=== PATIENT | female | born 1940 | race Hispanic/Latino ===

== ENCOUNTER 2017-05-14 18:58 | Inpatient (IN) | payer MEDICARE ==
[2017-05-14 18:58] VITALS: BMI 23.7
--- NOTE | 2017-05-14 19:35 | ED PDOC ---
HPI:STROKE - Time Time: 19:33 - Historian Historian: Patient, Family - Chief Complaint Chief Complaint: Weakness, Numbness - Onset Date: 05/14/17 Time: 18:30 - Timing Timing: Currently Symptomatic - TPA Positive for Contraindication: Yes Reason tPA is not being Administered: on plavix, hx strokes nih less then 3 - Notes: Notes:: Pt. with right arm and leg weakness/numbness/tingles. States started 45 min prior to arrival. Pt. was resting and it started. No facial issues, no chest pain, dyspnea, fever, dizziness, cough, headaches, vision changes. No left sided symptoms. Has had multiple strokes in the past. NIHSS Stroke Scale - Date/Time Evaluation Performed Date Performed: 05/14/17 Time Performed: 19:15 When Was NIHSS Performed: Baseline - How Severe is the Stroke Level of Consciousness: 0=Alert LOC to Questions: 0=Both comments correct LOC to commands: 0=Obeys both correctly Best Gaze: 0=Normal Visual: 0=No visual loss Facial: 0=Normal Motor Arm - Left: 0=No drift Motor Arm - Right: 0=No drift Motor Leg - Left: 0=No drift Motor Leg - Right: 1=Drift before 5 sec Limb Ataxia: 1=Present Upper or Lower Sensory: 0=Normal Best Language: 0=No aphasia Dysarthia: 0=Normal articulation Extinction & Inattention (Neglect): 0=Normal, no object Score: 2 rTPA Inclusion/Exclusion - Refusal of Treatment Patient Refused Treatment: No - Inclusion Criteria for Altepase Patient is 18 years or Older: Yes The Clinical Diagnosis of Ischemic Stroke That is Causing a Potentially Disabling Neurological Deficit: No Time of Onset is Well Established to be Less Than 270 Minute Before Treatment Would Begin: Yes Risk/Benefit Discussed With Patient/Family Member Present: Yes - Exclusion Criteria for Altepase Uncontrolled Hypertension at Time of Treatment (Systolic BP above 185 or Diastolic BP above 110 mmHg): No - Warning to TPA With Conditions Condition: Stroke Serevity Too Mild, Age Greater Than 75 years, Increase Risk of Bleed Due to Comorbid Condition Additional Condition (For 3-4.5 Hour Window): Prior Stroke and Diabetes, Any anticoagulant use prior to admission (Even if INR less than 1.7) Past Medical History Vital Signs: Last Vital Signs Temp 97.7 F 05/14/17 19:06 Pulse 72 05/14/17 19:06 Resp 16 05/14/17 19:06 BP 161/90 H 05/14/17 19:06 Pulse Ox 97 05/14/17 19:06 - Medical History PMH: Arthritis, CAD, CHF, CVA (3x; memory issues remain post stroke), Diabetes, HTN, End Stage Renal Disease, Chronic Kidney Disease (ESRD) Denies: HIV - Surgical History Surgical History: CABG (x4) - Family History Family History: States: Unknown Family Hx - Living Arrangements Living Arrangements: With Family - Social History Current smoker - smoking cessation education provided: No Alcohol: None Drugs: Denies - Home Medications Home Medications: Ambulatory Orders Medication Instructions Recorded Atorvastatin [Lipitor] 10 mg PO DAILY@2200 #0 tab 06/22/16 Carvedilol [Coreg] 6.25 mg PO Q12H #0 tablet 06/22/16 Clopidogrel [Plavix] 75 mg PO HS #0 tab 06/22/16 Enalapril Maleate [Vasotec] 10 mg PO DAILY #0 tab 06/22/16 Sevelamer Carbonate [Renvela] 800 mg PO TID #0 tab 06/22/16 Cinacalcet [Sensipar] 30 mg PO DAILY 05/14/17 Insulin Human Isophane (NPH) 10 unit SC TID 05/14/17 [Novolin N] - Allergies Allergies/Adverse Reactions: Allergies Allergy/AdvReac Type Severity Reaction Status Date / Time No Known Allergies Allergy Verified 01/20/16 09:30 Review of Systems ROS Statement: Except As Marked, All Systems Reviewed And Found Negative Constitutional: Positive for: Weakness Neurological: Positive for: Weakness, Numbness Physical Exam - Reviewed Nursing Documentation Reviewed: Yes Vital Signs Reviewed: Yes - Physical Exam Appears: Positive for: Non-toxic, No Acute Distress Head Exam: Positive for: ATRAUMATIC, NORMAL INSPECTION, NORMOCEPHALIC Skin: Positive for: Normal Color, Warm, DRY Eye Exam: Positive for: EOMI, Normal appearance, PERRL ENT: Positive for: Normal ENT Inspection Neck: Positive for: Normal, Painless ROM Cardiovascular/Chest: Positive for: Regular Rate, Rhythm Respiratory: Positive for: CNT, Normal Breath Sounds Gastrointestinal/Abdominal: Positive for: Normal Exam, Bowel Sounds, Soft. Negative for: Tenderness Back: Positive for: Normal Inspection. Negative for: L CVA Tenderness, R CVA Tenderness Extremity: Positive for: Normal ROM. Negative for: Tenderness, Pedal Edema Neurologic/Psych: Positive for: Alert, co chairman II-XII, Oriented, Motor/Sensory Deficits (R leg 4/5 strength; all other extremities 5/5). Negative for: Aphasia , Facial Droop - Laboratory Results Interpretation Of Abn Labs: 2.3 cr - ECG ECG: Positive for: Interpreted By Me ECG Rhythm: Positive for: Normal QRS, Sinus Rhythm, Nonspecific Changes O2 Sat by Pulse Oximetry: 97 Pulse Ox Interpretation: Normal - Radiology X-Ray: Interpreted by Me, Viewed By Me X-Ray Interpretation: No Acute Disease - CT Scan/US head Other Rad Studies (CT/US): Read By Radiologist Other Rad Interpretation: no acute; old infarcts - Progress ED Course And Treament: 2011: Spoke with Dr. Schreiber. Wants pt. to get 81mg ASA. Aware pt. on plavix. Not thrombolytic candidate as nih is 2 and mild symptoms. 2028: Stable. AAOx3. Will admit to [facility] resident. They are aware and will admit tele. Disposition - Clinical Impression Clinical Impression: CVA (cerebral vascular accident) - Patient ED Disposition Is Patient to be Admitted: Yes Counseled Patient/Family Regarding: Studies Performed, Diagnosis - Disposition Disposition Time: 20:32 Condition: FAIR - Pt Status Changed To: Hospital Disposition Of: Inpatient - Admit Certification Admit to Inpatient:: After my assessment, the patient will require hospitalization for at least two midnights. This is because of the severity of symptoms shown, intensity of services needed, and/or the medical risk in this patient being treated as an outpatient. - POA Present On Arrival: None
--- NOTE | 2017-05-14 19:50 | CT ---
EXAM: CT Head Without Intravenous Contrast CLINICAL HISTORY: 76 years old, female; Signs and symptoms; Other: Code stroke TECHNIQUE: Axial computed tomography images of the head/brain without intravenous contrast. This CT exam was performed using one or more of the following dose reduction techniques: automated exposure control, adjustment of the mA and/or kV according to patient size, and/or use of iterative reconstruction technique. Coronal and sagittal reformatted images were created and reviewed. EXAM DATE/TIME: 05/14/2017 7:21 PM COMPARISON: CT - HEAD W/O (CODE STROKE) 01/20/2016 8:42:14 AM FINDINGS: Brain: There is dilatation of sulci gyri and ventricles. There is no midline shift. There is decreased attenuation in periventricular white matter left greater than right. There multiple old lacunar infarcts in the basal ganglia. There is an old left parietal-occipital infarct with encephalomalacia. here are no focal masses. There are no focal hemorrhages. Falcon-white differentiation is visualized. Ventricles: See above Bones: Cranial vault is intact. Soft tissues: unremarkable Sinuses: There is no acute sinusitis. There is a retention cyst/polyp in the left maxillary sinus Ears and mastoids: Middle ears and mastoids are unremarkable. Orbits: Orbital contents are unremarkable. IMPRESSION: Atrophy and small vessel disease; multiple old lacunar infarcts; old left parieto-occipital infarct; no bleed, no acute intracranial abnormality If there is clinical suspicion for acute stroke, MRI advised
[2017-05-14 20:15] LABS: BASO % 0.8 % (0.0-2.0); EOS # 0.3 K/uL (0.0-0.7); EOS % 4.5 % (0.0-4.0); HEMOGLOBIN 11.6 g/dL (12.0-16.0); LYMPH # 1.4 K/uL (1.0-4.3); LYMPH % 23.9 % (20.0-40.0); MEAN CELL VOLUME 91.7 fl (81.0-99.0); MEAN CORPUSCULAR HEMOGLOBIN 29.7 pg (27.0-31.0); MEAN CORPUSCULAR HGB CONC 32.4 g/dL (33.0-37.0); MEAN PLATELET VOLUME 10.3 fl (7.2-11.7); MONO # 0.6 K/uL (0.0-0.8); MONO % 9.8 % (0.0-10.0); NEUT # 3.5 K/uL (1.8-7.0); RBC 3.89 Mil/uL (3.80-5.20); WHITE BLOOD COUNT 5.8 K/uL (4.8-10.8)
[2017-05-14 20:16] LABS: ALB/GLOB RATIO 1.3 (1.0-2.1); ALBUMIN 3.7 g/dL (3.5-5.0); CALCIUM 9.8 mg/dL (8.4-10.2)
[2017-05-14 20:21] LABS: INR 1.1 (0.9-1.2); PROTHROMBIN TIME 12.4 Seconds (9.8-13.1)
[2017-05-14 20:31] LABS: TROPONIN I 0.053 ng/mL (0.00-0.120)
--- NOTE | 2017-05-14 22:24 | CP.PCM.HP ---
History of Present Illness - History of Present Illness History of Present Illness: 76 yo F w PMHx of HTN, CVA, CABG x 4 in 2012, cardiac stents x2, DM, and ESRD ( HD on MWF) is admitted due to RUE/RLE weakness, numbness, and tingling. With her two daughters present at bedside, the patient describes how she began feeling tingling on her right side between 5-6pm, soon followed by numbness. She presented to the ER around 7p and by the time her admission, the patient stated already beginning to feel better. She and her daughters agree that she never exhibited any facial weakness, drooping, slurring of her speech, or LOC. She completed her dialysis earlier today between 1pm and 2 pm, at which point she was brought home for lunch. Her last meal consisted of tuna, crackers, and water. She also denies any fevers, chills, nausea, vomiting, diarrhea, chest pain, palpitations, SOB, dyspnea, cough, abdominal pain, or myalgias. PMD: Dr Layne PMHx: HTN, CVA, cardiac stents x2, DM, and ESRD (HD on MWF) PSHx: CABG x4 NKDA Home Meds: Lipitor, Coreg, Cinacalet, Plavix, Vasotec, NPH 10u SC TID, Sevelamer TID ED Course: -CBC -CMP -PT/INR/PTT -Lipids -A1C -Troponin -ECG -CXR -CT Head -Neuro advising against tPA -ASA 81mg PO x1 Present on Admission - Present on Admission Any Indicators Present on Admission: Yes History of DVT/PE: No History of Uncontrolled Diabetes: Yes Urinary Catheter: No Decubitus Ulcer Present: No Review of Systems - Review of Systems All systems: reviewed and no additional remarkable complaints except (see HPI) Past Patient History - Infectious Disease Hx of Infectious Diseases: None - Past Medical History & Family History Past Medical History?: Yes - Past Social History Smoking Status: Never Smoked - CARDIAC Hx Congestive Heart Failure: Yes Hx Hypertension: Yes - PULMONARY Hx Respiratory Disorders: No - NEUROLOGICAL Hx Neurological Disorder: Yes (CVA) - HEENT Hx HEENT Problems: Yes - RENAL Hx Chronic Kidney Disease: Yes (ESRD) - ENDOCRINE/METABOLIC Hx Endocrine Disorders: Yes (DM type 2) - HEMATOLOGICAL/ONCOLOGICAL Hx Human Immunodeficiency Virus (HIV): No - INTEGUMENTARY Hx Dermatological Problems: No - MUSCULOSKELETAL/RHEUMATOLOGICAL Hx Arthritis: Yes - GASTROINTESTINAL Hx Gastrointestinal Disorders: No - GENITOURINARY/GYNECOLOGICAL Hx Genitourinary Disorders: No - PSYCHIATRIC Hx Psychophysiologic Disorder: No - SURGICAL HISTORY Hx Coronary Artery Bypass Graft: Yes (x4) - ANESTHESIA Hx Anesthesia: Yes Hx Anesthesia Reactions: No Hx Malignant Hyperthermia: No Meds Allergies/Adverse Reactions: Allergies Allergy/AdvReac Type Severity Reaction Status Date / Time No Known Allergies Allergy Verified 01/20/16 09:30 Physical Exam - Constitutional Appears: Non-toxic, No Acute Distress - Head Exam Head Exam: ATRAUMATIC, NORMOCEPHALIC - Eye Exam Eye Exam: EOMI Pupil Exam: PERRL - ENT Exam ENT Exam: Mucous Membranes Moist - Neck Exam Neck exam: Positive for: Full Rom - Respiratory Exam Respiratory Exam: NORMAL BREATHING PATTERN. absent: Accessory Muscle Use, Chest Wall Tenderness - Cardiovascular Exam Cardiovascular Exam: REGULAR RHYTHM. absent: Bradycardia, Tachycardia - GI/Abdominal Exam GI & Abdominal Exam: Normal Bowel Sounds, Soft. absent: Distended, Tenderness - Back Exam Back exam: NORMAL INSPECTION. absent: CVA tenderness (L), CVA tenderness (R) - Neurological Exam Neurological exam: Alert, CN II-XII Intact, Oriented x3 Additional comments: strength 5/5 x4 extremities, pt witnessed easily pulling off well-wrapped blanket w both arms equally - Psychiatric Exam Psychiatric exam: Normal Affect, Normal Mood - Skin Skin Exam: Dry, Intact, Normal Color, Warm Results - Vital Signs Recent Vital Signs: Last Vital Signs Temp 97.7 F 05/14/17 19:06 Pulse 70 05/14/17 22:00 Resp 18 05/14/17 22:00 BP 148/90 05/14/17 22:00 Pulse Ox 99 05/14/17 21:13 - Labs Result Diagrams: 05/14/17 19:56 05/14/17 19:56 Assessment & Plan - Assessment and Plan (Free Text) Plan: 76 yo F w PMHx of HTN, CVA, CABG x 4 in 2011, cardiac stents x2, DM, and ESRD ( HD on MWF) is admitted due to RUE/RLE weakness, numbness, and tingling 1) TIA/Stroke -Initial c/o tingling, weakness, numbness that were improving soon after arrival to ER -CT Head: No acute intracranial abnormality. ---No focal masses. No focal hemorrhages. No midline shift. Multiple old lacunar infarcts in basal ganglia. Old Left parietal-occipital infarct w encephalomalacia. -Neurology Onboard; spoken w while in ER and again following admission -tPA not given due to low NIH score as well as Plavix onboard -ASA 81mg PO STAT [EDx1] -Plavix 75mg PO Daily HELD; will re evaluate -Fall Precautions -f/u Neuro Checks -f/u Signs/Symptoms of patient 2) HTN -Controlled; 140s/80s -BPs taken while present in ER: 140s-60s/80s; BPs taken while on Tele, soon after pt transferred: 170s/70s -When alerted of 188/94, Norvasc 5mg was ordered -However, Norvasc never given bc BP normalized to 147/80 upon recheck -Coreg 6.25mg PO Q12H -Vasotec 10mg PO Daily -f/u Vitals 3) DM -Controlled -Humulin N 10u SC TID -LDISS -f/u FS ACHS 4) ESRD -HD completed at outside facility before admission (05/14) -Sevelamer 800mg PO TID -Cinacalcet 30mg PO Daily -f/u BMP -Consider Nephro Consult if patient's stay is lengthened 5) DVT Prophylaxis -SCDs for now; will re evaluate patient in the AM
[2017-05-14] MEDS: Insulin Lispro (humaLOG) 100 Units/ml Inj SC SCH (23:43)
[2017-05-15] MEDS: Insulin Lispro (humaLOG) 100 Units/ml Inj SC SCH ×2 (08:09→12:21)
--- NOTE | 2017-05-15 08:11 | RAD ---
HISTORY: code stroke COMPARISON: Chest x-ray performed 06/21/16 TECHNIQUE: Chest, one view. FINDINGS: Right IJ approach dialysis catheter with distal tips the cavoatrial junction. LUNGS: Right hilar prominence. No focal consolidation. Please note that chest x-ray has limited sensitivity for the detection of pulmonary masses. PLEURA: No significant pleural effusion identified. No definite pneumothorax . CARDIOVASCULAR: Median sternotomy wires with evidence of CABG. Heart size appears top normal. OSSEOUS STRUCTURES: Diffuse osseous demineralization limits evaluation for acute fracture lines. Degenerative changes. VISUALIZED UPPER ABDOMEN: Mild elevation of the right hemidiaphragm. OTHER FINDINGS: Right upper extremity vascular stents. Vascular clips within the right extremity. Left brachiocephalic and axillary stent. IMPRESSION: Right hilar prominence. No focal consolidation, significant pleural effusion, or definite pneumothorax identified.
[2017-05-15] MEDS: Insulin NPH Human 100 Units/ml Inj SC SCH ×2 (09:47→12:22)
[2017-05-15 12:05] VITALS: RESP 18
[2017-05-15 12:23] VITALS: BP 159/72; TEMP 97.7; O2SAT 99
--- NOTE | 2017-05-15 12:26 | MRI ---
PROCEDURE: MRI BRAIN WITHOUT CONTRAST HISTORY: NEW STROKE PROCESS COMPARISON: Some made with prior CT scan brain and MRI brain dated 05/14/2017 and 05/19/2016 respectively. TECHNIQUE: Multiplanar, multisequence MR images of the brain were obtained without intravenous contrast enhancement. FINDINGS: HEMORRHAGE: No acute parenchymal, subarachnoid or extra-axial hemorrhage. No evidence of hemosiderin deposition identified on gradient echo weighted sequence. DWI: No evidence of an acute or early subacute infarction seen on diffusion imaging. . BRAIN PARENCHYMA: Re- demonstrated are partially cystic encephalomalacia changes affecting the left posterior temporal lobe extending posterior superiorly into the left occipito parietal watershed zone. A zone of peripheral gliosis surrounding the cystic changes on altered. Findings consistent with chronic left RESIDENT ASSISTANT CNA territory infarct. Associated ex vacuo dilatation of the left posterior temporal horn/ left atrium and occipital horn Additionally, there are moderate to significant diffuse/confluent periventricular white matter ischemic changes that extend peripherally into deep and subcortical white matter both cerebral hemispheres. Multiple more discrete lacunar type infarcts are also noted within the deep and subcortical white matter as well as both basal nuclei. Mild chronic appearing brainstem ischemic changes also present. Moderate generalized volume loss VENTRICLES: No obstructive hydrocephalus CRANIUM: Calvarium is unremarkable. ORBITS: Changes of bilateral cataract surgery again noted the the. PARANASAL SINUSES/MASTOIDS: Small to medium-sized mucous retention cyst or focus polypoid like mucosal thickening again noted in the left maxillary sinus. Partial opacification left mastoid air complex VASCULAR SYSTEM: Visualized major vascular flow voids at skull base are patent. OTHER FINDINGS: None. IMPRESSION: No evidence of acute intracranial hemorrhage or infarct. Re- demonstrated are partially cystic encephalomalacia changes affecting the left posterior temporal lobe extending posterior superiorly into the left occipito parietal watershed zone. A zone of peripheral gliosis surrounding the cystic changes on altered. Findings consistent with chronic left RESIDENT ASSISTANT CNA territory infarct. Associated ex vacuo dilatation of the left posterior temporal horn/ left atrium and occipital horn Additionally, there are moderate to significant diffuse/confluent periventricular white matter ischemic changes that extend peripherally into deep and subcortical white matter both cerebral hemispheres. Multiple more discrete lacunar type infarcts are also noted within the deep and subcortical white matter as well as both basal nuclei. Mild chronic appearing brainstem ischemic changes are also present. Moderate generalized volume loss See above discussion for additional findings and details.
[2017-05-15 12:36] VITALS: PULSE 66
--- NOTE | 2017-05-15 12:51 | CP.PCM.PN ---
Subjective - Date & Time of Evaluation Date of Evaluation: 05/15/17 Time of Evaluation: 12:49 - Subjective Subjective: consultation dictated no further work up is needed She will be scheduled Amulatory Video EEG as an op mean time continue asa and plavix with other meds having clinical clay needs PSG - I will do as an op Objective - Vital Signs/Intake and Output Vital Signs (last 24 hours): Temp Pulse Resp BP Pulse Ox 97.7 F 66 18 159/72 H 99 05/15/17 12:23 05/15/17 12:23 05/15/17 12:23 05/15/17 12:23 05/15/17 12:23 - Medications Medications: Current Medications Atorvastatin Calcium (Lipitor) 10 mg PO DAILY@2200 [facility] Last Admin: 05/14/17 23:42 Dose: 10 mg Carvedilol (Coreg) 6.25 mg PO Q12H [facility] Last Admin: 05/15/17 09:48 Dose: 6.25 mg Cinacalcet (Sensipar) 30 mg PO DAILY [facility] Last Admin: 05/15/17 09:48 Dose: 30 mg Enalapril Maleate (Vasotec) 10 mg PO DAILY [facility] Last Admin: 05/15/17 08:08 Dose: 10 mg Insulin Human Lispro (Humalog) 0 units SC ACHS [facility] PRN Reason: Protocol Last Admin: 05/15/17 12:21 Dose: 1 units Insulin Human NPH (Humulin N) 10 units SC TID [facility] Last Admin: 05/15/17 12:22 Dose: 10 units Sevelamer HCl (Renagel) 800 mg PO TID [facility] Last Admin: 05/15/17 12:21 Dose: 800 mg - Labs Labs: PT 12.4 Seconds (9.8-13.1) 05/14/17 19:56 INR 1.1 (0.9-1.2) 05/14/17 19:56 APTT 36.0 Seconds (25.6-37.1) 05/14/17 19:56
--- NOTE | 2017-05-15 13:47 | CARD ---
APPROVED REPORT EKG Measurement Heart [id number] <Conclusion> Normal sinus rhythm Nonspecific ST and T wave abnormality Abnormal ECG
--- NOTE | 2017-05-15 15:27 | CP.PCM.DIS ---
Provider - Provider Date of Admission: 05/14/17 20:30 Attending physician: Markel Mendieta MD Primary care physician: Dr Isidra Mendieta Consults: Neurology, Dr Schreiber Time Spent in preparation of Discharge (in minutes): 30 Diagnosis - Discharge Diagnosis (1) TIA (transient ischemic attack) Status: Acute (2) CAD (coronary artery disease) Status: Chronic (3) End stage kidney disease Status: Chronic (4) Hypertension Status: Chronic Hospital Course - Lab Results Lab Results: Most Recent Lab Values WBC 5.8 K/uL (4.8-10.8) 05/14/17 19:56 RBC 3.89 Mil/uL (3.80-5.20) 05/14/17 19:56 Hgb 11.6 g/dL (12.0-16.0) L 05/14/17 19:56 Hct 35.7 % (34.0-47.0) 05/14/17 19:56 MCV 91.7 fl (81.0-99.0) 05/14/17 19:56 MCH 29.7 pg (27.0-31.0) 05/14/17 19:56 MCHC 32.4 g/dL (33.0-37.0) L 05/14/17 19:56 RDW 15.0 % (11.5-14.5) H 05/14/17 19:56 Plt Count 121 K/uL (130-400) L 05/14/17 19:56 MPV 10.3 fl (7.2-11.7) 05/14/17 19:56 Neut % (Auto) 61.0 % (50.0-75.0) 05/14/17 19:56 Lymph % (Auto) 23.9 % (20.0-40.0) 05/14/17 19:56 [place] % (Auto) 9.8 % (0.0-10.0) 05/14/17 19:56 Eos % (Auto) 4.5 % (0.0-4.0) H 05/14/17 19:56 Baso % (Auto) 0.8 % (0.0-2.0) 05/14/17 19:56 Neut # 3.5 K/uL (1.8-7.0) 05/14/17 19:56 Lymph # 1.4 K/uL (1.0-4.3) 05/14/17 19:56 [place] # 0.6 K/uL (0.0-0.8) 05/14/17 19:56 Eos # 0.3 K/uL (0.0-0.7) 05/14/17 19:56 Baso # 0.0 K/uL (0.0-0.2) 05/14/17 19:56 PT 12.4 Seconds (9.8-13.1) 05/14/17 19:56 INR 1.1 (0.9-1.2) 05/14/17 19:56 APTT 36.0 Seconds (25.6-37.1) 05/14/17 19:56 Sodium 138 mmol/l (132-148) 05/14/17 19:56 Potassium 3.6 MMOL/L (3.6-5.0) 05/14/17 19:56 Chloride 103 mmol/L (98-107) 05/14/17 19:56 Carbon Dioxide 27 mmol/L (22-30) 05/14/17 19:56 Anion Gap 12 (10-20) 05/14/17 19:56 BUN 8 mg/dl (7-17) 05/14/17 19:56 Creatinine 2.3 mg/dL (0.7-1.2) H 05/14/17 19:56 Est GFR ( Amer) 25 05/14/17 19:56 Est GFR (Non-Af Amer) 21 05/14/17 19:56 POC Glucose (mg/dL) 185 mg/dL (65-110) H 05/15/17 11:11 Random Glucose 230 mg/dL (65-105) H 05/14/17 19:56 Calcium 9.8 mg/dL (8.4-10.2) 05/14/17 19:56 Total Bilirubin 0.5 mg/dl (0.2-1.3) 05/14/17 19:56 AST 23 U/L (14-36) 05/14/17 19:56 ALT 35 U/L (9-52) 05/14/17 19:56 Alkaline Phosphatase 110 U/L (38-126) 05/14/17 19:56 Troponin I 0.0590 ng/mL (0.00-0.120) 05/15/17 06:30 Total Protein 6.6 G/DL (6.3-8.2) 05/14/17 19:56 Albumin 3.7 g/dL (3.5-5.0) 05/14/17 19:56 Globulin 2.9 gm/dL (2.2-3.9) 05/14/17 19:56 Albumin/Globulin Ratio 1.3 (1.0-2.1) 05/14/17 19:56 Triglycerides 92 mg/DL (0-149) 05/14/17 19:56 Cholesterol 127 mg/dL (0-199) 05/14/17 19:56 LDL Cholesterol Direct 36 mg/dL (0-129) 05/14/17 19:56 HDL Cholesterol 66 MG/DL (30-70) 05/14/17 19:56 Vitamin B12 820 pg/mL (239-931) 05/15/17 08:30 TSH 3rd Generation 2.98 mIU/ML (0.46-4.68) 05/15/17 08:30 Blood Type A POSITIVE 05/14/17 19:47 Antibody Screen Negative 05/14/17 19:47 BBK History Checked Patient has bt 05/14/17 19:47 - Hospital Course Hospital Course: 76 y/o F with PMH including HTN, CVA, CABG in 2011 and ESRD (MWF) presented to ED due to acute right upper and lower extremity tingling sensation associated with numbness. In ED a code stroke was called and patient had a CT head performed, which revealed no acute intracranial abnormalities. She was subsequently admitted for observation and a neurology consult was appreciated. She cleared a swallow evaluationa and was given ASA and a statin. Patient remained stable during admission and her paresthesias resolved. Patient was seen by PT and was cleared for d/c home with close follow up to her PCP and Neurologist. Discharge Exam - Head Exam Head Exam: ATRAUMATIC, NORMOCEPHALIC - Eye Exam Eye Exam: EOMI, PERRL - ENT Exam ENT Exam: Mucous Membranes Moist - Respiratory Exam Respiratory Exam: Clear to PA & Lateral, NORMAL BREATHING PATTERN, UNREMARKABLE. absent: Rhonchi, Wheezes, Respiratory Distress - Cardiovascular Exam Cardiovascular Exam: REGULAR RHYTHM, RRR, +S1, +S2. absent: Systolic Murmur - GI/Abdominal Exam GI & Abdominal Exam: Normal Bowel Sounds, Soft. absent: Distended, Tenderness - Extremities Exam Additional comments: No calf tenderness or pedal edema. - Neurological Exam Neurological exam: Alert, CN II-XII Intact, Oriented x3 Additional comments: Strength 5/5 in upper and lower extremity b/l. Sensation preserved b/l. No dysarthria or facial asymmetry noted. - Psychiatric Exam Psychiatric exam: Normal Affect, Normal Mood - Skin Skin Exam: Dry, Warm Discharge Plan - Discharge Medications Prescriptions: Aspirin [Aspirin Chewable] 81 mg PO DAILY #30 ctb - Follow Up Plan Condition: IMPROVED Disposition: HOME/ ROUTINE Patient education suggested?: Yes Instructions: Transient Ischemic Attack (DC) Additional Instructions: Follow up with Dr Mendieta after discharge Discussed recommendation for daily Aspirin 81mg in addition to your previously prescribed medications ED precautions given Referrals: Markel Mendieta MD [Family Provider] - Kofi Schreiber MD [Medical Doctor] - Clinical Quality Measures - CQM - Stroke Antithrombotic Prescribed: Yes Anticoagulation Prescribed for Atrial Flutter, Atrial Fibrillation and History of:: Not Applicable Statin prescribed: Yes
--- NOTE | 2017-05-17 04:33 | CON ---
DATE OF ADMISSION: 05/14/2017 ATTENDING PHYSICIAN: Markel Layne MD The patient was seen in room #416, bed #2. REASON FOR CONSULTATION: Transient ischemic attack. CHIEF COMPLAINT: The patient was brought into [facility] with a history of abrupt onset of her right-sided weakness. From neurological point of view, I was called in to evaluate her for further management. HISTORY OF PRESENT ILLNESS: Ms. Una Nelson is a 76-year-old right-handed female who was in her usual state of health around 4:30 yesterday while she was at home in the chair, the symptoms started as numbness from her right shoulder down to the arms and hip and she felt the symptoms spreading down to her right leg to the toes. The symptoms took about 2 minutes to spread down to her toes. No associated tonic-clonic activities. She denies any visual or verbal dysfunction associating with this problem. No loss of consciousness. The whole symptoms resolved in 2 hours. Following these symptoms, immediately she called 911 and the symptoms have been resolved while she was in the emergency room. She had 3 strokes, which first one was more than 10 years ago and second one around [age], third one she could not recall. All symptoms have been started with weakness of her right side in the past. PAST MEDICAL HISTORY: Insulin-dependent diabetes mellitus, hypertension, and stroke. PERSONAL HISTORY: She denies smoking or alcohol use. ALLERGIES: No known allergies. MEDICATIONS: Lipitor, Plavix, Sensipar, Coreg, Renvela, insulin and Vasotec. PHYSICAL EXAMINATION: VITAL SIGNS: Blood pressure 159/72, mean arterial pressure of 101, respiratory rate 16, temperature 97.7, and pulse rate 66, regular. NECK: Supple. No carotid bruits. HEART: Sounds regular. CHEST: Bilateral equal air entry. EXTREMITIES: No edema to the legs. NEUROLOGICAL EXAMINATION: MENTAL STATUS EXAMINATION: She is awake, alert, and oriented to person, place, and time. Her speech is clear. Naming, repetition, and fluency intact. CRANIAL NERVE EXAMINATION: Visual field, right dense homonymous hemianopsia with macular sparing. She denies visual discomfort on her right-side. Pupils reactive to light. Extraocular movements are markedly decreased. No facial sensory deficit. No facial asymmetry. Hearing is normal. Tongue is midline. Good grasp. MOTOR EXAMINATION: On outstretched hands, no escalation and no drift noted *-----*. Lower extremities also have symmetric strength on both sides. DEEP TENDON REFLEXES: Biceps, brachioradialis, and triceps are trace, in both knees are absent, in both ankles are absent. Plantars are upgoing on her right side when compared with the left side, which is downgoing. Extinction to double simultaneous stimuli on sensory examination noted. This is manifested only on the right side. Coordination, [id number] test is intact on the left side, right side was slightly dysmetric. This could be due to her visual impairment. IMAGING: Workup, CT of the head reviewed, showed old stroke on her left side. The MRI of the brain reviewed by me showed old left parietal infract. No acute pathology is noted. EKG, normal sinus rhythm. LABORATORY DATA: Blood workup, WBC 5.8, hemoglobin 11.6, hematocrit 35.7, and platelets 121. PT 12.4, INR 1.1, and PTT is 36.0. GFR more than 25. Glucose is 241. Cholesterol 127, LDL 36, HDL 66. B12 is 1820, the TSH is 2.98. CONCLUSION: 1. The above recurrent symptoms, which are probably secondary to her left cortical dysfunction, which is probably secondary to her old versus new ischemia on the same side. However, the recurrent symptoms consistent with similar pattern raises the possibility of focal seizures. 2. The patient also admits a history of snoring and gasping sometimes. The family members were trying to wake her up during the sleep. This is suggestive of the patient has obstructive sleep apnea. 3. Bilaterally symmetric sensorimotor neuropathy. RECOMMENDATIONS: 1. The patient was advised to get aspirin on top of Plavix. 2. Maintain the mean arterial pressure around 100. 3. The patient should have electroencephalogram, which can be modified as ambulatory extended; however, video monitoring is recommended to assess her paroxysmal activities as well as parasomnia. 4. The patient should have polysomnogram to rule in or rule out sleep-related breathing disorder, which could be the confounding risk factor for her stroke. The patient's condition was very well discussed with her daughters. They are aware of her problem. The patient will be followed as outpatient. No further workup is needed. If medically stable, the patient can be discharged. Kofi Schreiber MD
[2017-05-17 22:20] LABS: FOLATE 4.4 ng/mL
== END 2017-05-15 14:40 | disposition home or self-care (01) | DRG 69 ==
LOC: H.ER 18:58 → H.ERHOLD 20:30 → H.TEL 22:12
PROVIDERS: ADMIT Family Medicine; ATTEND Family Medicine
DX: G45.9 Transient cerebral ischemic attack, unspecified (principal); N18.6 End stage renal disease; I12.0 Hypertensive chronic kidney disease with stage 5 chronic kidney disease or end stage renal disease; E11.22 Type 2 diabetes mellitus with diabetic chronic kidney disease; I25.10 Atherosclerotic heart disease of native coronary artery without angina pectoris; G47.33 Obstructive sleep apnea (adult) (pediatric); Z99.2 Dependence on renal dialysis; Z79.02 Long term (current) use of antithrombotics/antiplatelets; Z79.4 Long term (current) use of insulin; Z79.82 Long term (current) use of aspirin; Z86.73 Personal history of transient ischemic attack (TIA), and cerebral infarction without residual deficits; Z95.1 Presence of aortocoronary bypass graft; Z95.5 Presence of coronary angioplasty implant and graft

== ENCOUNTER 2017-10-01 01:42 | Emergency (ER) | payer MEDICARE ==
[2017-10-01 02:38] VITALS: BMI 19.8
--- NOTE | 2017-10-01 03:06 | ED PDOC ---
Lower Extremity Pain/Injury Time Seen by Provider: 10/01/17 01:59 Chief Complaint (Provider): Left groin pain History Per: Patient History/Exam Limitations: no limitations Onset/Duration Of Symptoms: Hrs (x 3) Current Symptoms Are (Timing): Still Present Additional Complaint(s): 77 year old female with a past medical history of end stage renal disease (on MWF dialysis), arthritis, CAD, CHF, stroke, hypertension, diabetes, who presents complaining of acute left groin pain for 3 hours. Pain developed while patient was at rest. She denies any fall or trauma. Pain worsens when she attempts to move. Daughter states that she usually assists patient up the stairs , but that patient could not maneuver the stairs even with assistance. PMD: Dr. Layne Past Medical History Reviewed: Historical Data, Nursing Documentation, Vital Signs - Medical History PMH: Arthritis, CAD, CHF, CVA (3x; memory issues remain post stroke), Diabetes, HTN, End Stage Renal Disease, Chronic Kidney Disease (ESRD) Denies: HIV Other PMH: Strike - Surgical History Surgical History: CABG (x4) Other surgeries: Left AV fistula, Right hip replacement - Family History Family History: States: Unknown Family Hx - Social History Current smoker - smoking cessation education provided: No Alcohol: None Drugs: Denies - Home Medications Home Medications: Ambulatory Orders Medication Instructions Recorded Atorvastatin [Lipitor] 10 mg PO DAILY@2200 #0 tab 06/22/16 Carvedilol [Coreg] 6.25 mg PO Q12H #0 tablet 06/22/16 Clopidogrel [Plavix] 75 mg PO HS #0 tab 06/22/16 Enalapril Maleate [Vasotec] 10 mg PO DAILY #0 tab 06/22/16 Sevelamer Carbonate [Renvela] 800 mg PO TID #0 tab 06/22/16 Cinacalcet [Sensipar] 30 mg PO DAILY 05/14/17 Insulin Human Isophane (NPH) 10 unit SC TID 05/14/17 [Novolin N] Aspirin [Aspirin Chewable] 81 mg PO DAILY #30 ctb 05/15/17 - Allergies Allergies/Adverse Reactions: Allergies Allergy/AdvReac Type Severity Reaction Status Date / Time No Known Allergies Allergy Verified 10/01/17 03:07 Review of Systems ROS Statement: Except As Marked, All Systems Reviewed And Found Negative Musculoskeletal: Positive for: Leg Pain (left groin) Neurological: Negative for: Other (Fall) Physical Exam - Reviewed Nursing Documentation Reviewed: Yes Vital Signs Reviewed: Yes - Physical Exam Appears: Positive for: Non-toxic, No Acute Distress Head Exam: Positive for: ATRAUMATIC, NORMOCEPHALIC Skin: Positive for: Normal Color, Warm, Dry Eye Exam: Positive for: EOMI, Normal appearance, PERRL Neck: Positive for: Normal, Painless ROM, Supple Cardiovascular/Chest: Positive for: Regular Rate, Rhythm. Negative for: Murmur Respiratory: Positive for: Normal Breath Sounds. Negative for: Accessory Muscle Use, Respiratory Distress Gastrointestinal/Abdominal: Positive for: Normal Exam, Soft. Negative for: Tenderness Back: Positive for: Normal Inspection. Negative for: L CVA Tenderness, R CVA Tenderness, Vertebral Tenderness Extremity: Positive for: Tenderness (Mild tenderness over the left groin), Other (Pain with passive ROM of left leg. When moving the leg, she gets pain to the groin and left posterior thigh) Neurologic/Psych: Positive for: Alert, Oriented Medical Decision Making Medical Decision Making: Time: 2:38 Initial Impression: 77 year old female with left groin pain Initial Plan: --X-ray Pelvis 3 views --Tylenol 650 mg PO --Pending reevaluation Time: 3:18 Reviewed X-Ray, which is negative for fracture. Will order CT Pelvis. Time: 4:47 CT Pelvis: FINDINGS: Bones/joints: There is marked diffuse osteopenia. Total right hip arthroplasty is noted demonstrating satisfactory alignment and position. Mild to moderate degenerative changes are noted in the left hip. There are subchondral cysts in the left acetabulum. Partially visualized lumbar spine shows severe L4-5 degenerative changes. No acute fracture. Soft tissues: Unremarkable. Vasculature: The vasculature demonstrates diffuse severe atherosclerotic calcification. Stomach and bowel: Moderate diverticulosis is present in the sigmoid and descending colon. No obstruction. No mucosal thickening. Bladder: Unremarkable. No stones. IMPRESSION: Total right hip arthroplasty without acute abnormality. Mild to moderate left hip degenerative changes. No acute fracture or dislocation. Severe osteopenia. Diverticulosis without acute diverticulitis. Time: 4:55 Patient is medically stable for discharge. The provider advised the patient to take Tylenol as needed for pain. Family will take the patient to follow up with her primary doctor, Dr. Layne, tomorrow. There is agreement to discharge plan. Return precautions were given to family. Scribe Attestation: Documented by Mallory Nunn, acting as a scribe for Martin Madrid MD Provider Scribe Attestation: All medical record entries made by the Scribe were at my direction and personally dictated by me. I have reviewed the chart and agree that the record accurately reflects my personal performance of the history, physical exam, medical decision making, and the department course for this patient. I have also personally directed, reviewed, and agree with the discharge instructions and disposition. Disposition - Clinical Impression Clinical Impression: Strain of muscle of right groin region - Patient ED Disposition Is Patient to be Admitted: No Counseled Patient/Family Regarding: Studies Performed, Diagnosis, Need For Followup - Disposition Disposition: Routine/Home Disposition Time: 04:55 Condition: STABLE Instructions: Groin Strain (ED) Forms: [facility] (Kiswahili)
[2017-10-01 03:17] VITALS: BP 143/69; PULSE 73; RESP 18; TEMP 97.5; O2SAT 99
--- NOTE | 2017-10-01 04:47 | CT ---
EXAM: CT Pelvis Without Intravenous Contrast CLINICAL HISTORY: 77 years old, female; Pain; Hip pain; Left hip; Prior surgery; Surgery date: 6+ months; Surgery type: Rt hip surgery; Additional info: Left groin pain TECHNIQUE: Axial computed tomography images of the pelvis without intravenous contrast. All CT scans at this facility use one or more dose reduction techniques, viz.: automated exposure control; ma/kV adjustment per patient size (including targeted exams where dose is matched to indication; i.e. head); or iterative reconstruction technique. Coronal and sagittal reformatted images were created and reviewed. COMPARISON: CT - ABD PELVIS W/O PO OR IV CONT 2015-10-31 14:50 FINDINGS: Bones/joints: There is marked diffuse osteopenia. Total right hip arthroplasty is noted demonstrating satisfactory alignment and position. Mild to moderate degenerative changes are noted in the left hip. There are subchondral cysts in the left acetabulum. Partially visualized lumbar spine shows severe L4-5 degenerative changes. No acute fracture. Soft tissues: Unremarkable. Vasculature: The vasculature demonstrates diffuse severe atherosclerotic calcification. Stomach and bowel: Moderate diverticulosis is present in the sigmoid and descending colon. No obstruction. No mucosal thickening. Bladder: Unremarkable. No stones. IMPRESSION: Total right hip arthroplasty without acute abnormality. Mild to moderate left hip degenerative changes. No acute fracture or dislocation. Severe osteopenia. Diverticulosis without acute diverticulitis.
--- NOTE | 2017-10-01 09:54 | RAD ---
PROCEDURE: Radiographs of the pelvis. HISTORY: pain COMPARISON: Correlations made to CT scan of the abdomen pelvis dated 10/31/2015. FINDINGS: BONES: Diffuse osteopenia limiting evaluation. Prior right hip arthroplasty, hardware intact. JOINTS: Sacroiliac Joints: Degenerative. Pubic Symphysis: Degenerative. OTHER FINDINGS: Severe atherosclerotic arterial calcifications. IMPRESSION: No definite fracture. In the setting of osteopenia, radio occult fractures can be difficult to perceive. If there is clinical concern for acute fracture, MRI (or CT scan if the patient cannot get an MRI) can be obtained for further evaluation.
== END 2017-10-01 05:03 | disposition home or self-care (01) ==
LOC: H.ER 01:42
DX: S76.811A Strain of other specified muscles, fascia and tendons at thigh level, right thigh, initial encounter (principal); X50.9XXA Other and unspecified overexertion or strenuous movements or postures, initial encounter; Y92.89 Other specified places as the place of occurrence of the external cause; E11.22 Type 2 diabetes mellitus with diabetic chronic kidney disease; I13.2 Hypertensive heart and chronic kidney disease with heart failure and with stage 5 chronic kidney disease, or end stage renal disease; M85.80 Other specified disorders of bone density and structure, unspecified site; Z79.82 Long term (current) use of aspirin; Z86.73 Personal history of transient ischemic attack (TIA), and cerebral infarction without residual deficits; Z95.1 Presence of aortocoronary bypass graft; Z96.641 Presence of right artificial hip joint; Z98.890 Other specified postprocedural states; N18.6 End stage renal disease

== ENCOUNTER 2017-11-22 06:55 | Inpatient (IN) | payer MEDICARE ==
[2017-11-22 06:55] VITALS: BMI 19.8
--- NOTE | 2017-11-22 07:30 | ED PDOC ---
HPI:STROKE - Historian Historian: Patient - Chief Complaint Chief Complaint: Numbness - Onset Date: 11/22/17 Time: 00:30 Onset: This morning - Location Locate right:: Upper extremity, Lower extremity - Notes: Notes:: 67 year old female with a past medical history of CVAx3, brought in by ambulance for complaint of right upper and lower extremity numbness, onset at 12 :30AM this morning. With further discussion, patient also reports previous stroke left her with residual right-sided numbness. Denies any focal weakness, headache, chest pain, or shortness of breath. Last dialysis was on Wednesday. Of note, patient is on Plavix for CAD. PMD: Dr. Markel Layne NIHSS Stroke Scale - Date/Time Evaluation Performed Date Performed: 11/22/17 - How Severe is the Stroke Level of Consciousness: 0=Alert LOC to Questions: 0=Both comments correct LOC to commands: 0=Obeys both correctly Best Gaze: 0=Normal Visual: 0=No visual loss Facial: 0=Normal Motor Arm - Left: 0=No drift Motor Arm - Right: 0=No drift Motor Leg - Left: 0=No drift Motor Leg - Right: 0=No drift Limb Ataxia: 0=Absent Sensory: 0=Normal Best Language: 0=No aphasia Dysarthia: 0=Normal articulation Extinction & Inattention (Neglect): 0=Normal, no object Score: 0 rTPA Inclusion/Exclusion - Refusal of Treatment Patient Refused Treatment: No - Inclusion Criteria for Altepase Patient is 18 years or Older: Yes The Clinical Diagnosis of Ischemic Stroke That is Causing a Potentially Disabling Neurological Deficit: No Time of Onset is Well Established to be Less Than 270 Minute Before Treatment Would Begin: No Risk/Benefit Discussed With Patient/Family Member Present: No Past Medical History Reviewed: Historical Data, Nursing Documentation, Vital Signs Vital Signs: Last Vital Signs Temp 97.8 F 11/22/17 07:22 Pulse 81 11/22/17 07:22 Resp 14 11/22/17 07:22 BP 186/91 H 11/22/17 07:22 Pulse Ox 99 11/22/17 07:02 - Medical History PMH: Arthritis, CAD, CHF, CVA (3x; memory issues remain post stroke), Diabetes, HTN, End Stage Renal Disease (Three times a week M/W/F), Chronic Kidney Disease (ESRD) Denies: HIV - Surgical History Surgical History: CABG (x4) - Family History Family History: States: Unknown Family Hx - Social History Current smoker - smoking cessation education provided: No Alcohol: None Drugs: Denies - Home Medications Home Medications: Ambulatory Orders Medication Instructions Recorded Sevelamer Carbonate [Renvela] 800 mg PO TID #0 tab 06/22/16 Insulin Human Isophane (NPH) 5 - 7 unit SC HS 05/14/17 [Novolin N] Carvedilol [Coreg] 6.25 mg PO Q12H 11/22/17 Clopidogrel [Plavix] 75 mg PO HS 11/22/17 Aspirin/Dipyridamole [Aggrenox 1 ea PO BID #60 cap 11/23/17 25-200 mg] Atorvastatin [Lipitor] 40 mg PO HS #30 tab 11/23/17 Cinacalcet [Sensipar] 30 mg PO QPM tab 11/23/17 Enalapril Maleate [Vasotec] 20 mg PO DAILY #30 tab 11/23/17 - Allergies Allergies/Adverse Reactions: Allergies Allergy/AdvReac Type Severity Reaction Status Date / Time No Known Allergies Allergy Verified 10/01/17 03:07 Review of Systems ROS Statement: Except As Marked, All Systems Reviewed And Found Negative Cardiovascular: Negative for: Chest Pain Respiratory: Negative for: Shortness of Breath Neurological: Positive for: Numbness (to right upper and lower extremity). Negative for: Weakness, Headache, Dizziness Physical Exam - Reviewed Nursing Documentation Reviewed: Yes Vital Signs Reviewed: Yes - Physical Exam Appears: Positive for: Non-toxic, No Acute Distress Head Exam: Positive for: ATRAUMATIC, NORMOCEPHALIC Skin: Positive for: Normal Color, Warm, Dry Eye Exam: Positive for: EOMI, Normal appearance, PERRL Neck: Positive for: Normal, Painless ROM, Supple Cardiovascular/Chest: Positive for: Regular Rate, Rhythm. Negative for: Murmur Respiratory: Positive for: Normal Breath Sounds. Negative for: Accessory Muscle Use, Respiratory Distress Gastrointestinal/Abdominal: Positive for: Normal Exam, Soft. Negative for: Tenderness Back: Positive for: Normal Inspection. Negative for: L CVA Tenderness, R CVA Tenderness, Vertebral Tenderness Extremity: Positive for: Normal ROM, Capillary Refill (< 2 sec), Other (Motor strength is 5/5 throughout). 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 Negative for: Motor/Sensory Deficits, Aphasia, Facial Droop (or drift) - Laboratory Results Result Diagrams: 11/22/17 07:39 11/22/17 07:39 - ECG O2 Sat by Pulse Oximetry: 99 (RA) Pulse Ox Interpretation: Normal - Critical Care Total Time (In Min): 30 Medical Decision Making Medical Decision Making: Initial Impression: Acute vs. Chronic Right-sided Numbness Time: 7:17 Initial Plan: --Blood type and screen --EKG --CMP --Hb A1c --Lipid panel --Troponin I --CBC w/ differential --PTT --Prothrombin time --Accucheck --Chest x-ray --Pending CT Head without contrast and reevaluation Time: 8:14 CT HEAD W/O CONTRAST: FINDINGS: Brain: Again identified is encephalomalacia left parieto-occipital lobe. No cerebral edema. No intra-axial or extra-axial hemorrhage. Cerebral atrophy. Old lacunar infarct right basal ganglia. Periventricular white matter changes of small vessel ischemic disease. Ventricles: Ex vacuo dilatation of left occipital horn without change. No ventriculomegaly. Bones/joints: Unremarkable. No acute fracture. Soft tissues: Unremarkable. Sinuses: Mucous retention cyst left maxillary sinus 1.5 cm. Vascular calcifications are cavernous carotid and vertebral arteries. Mastoid air cells: Unremarkable as visualized. No mastoid effusion. IMPRESSION: 1. No acute cerebral hemorrhage or edema. 2. 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 3. Cerebral atrophy and small vessel ischemic disease. Dictated By: Margarita Alexandre Dictated Date/Time: 11/22/17813 Signed By: MD Margarita Alexandre Date Signed: 813 Transcribed By: MANISH Transcribe Date/Time : 11/22/17813 AATP02/MARIO ALBERTO CHEST X-RAY: FINDINGS: Right center venous dialysis catheter unchanged in position. Numerous wall stents are again identified incidentally in the bilateral arms and left subclavian region. LUNGS: No active pulmonary disease. Limited cyst fibrotic changes in the mid to inferior left lung zone laterally. PLEURA: No significant pleural effusion identified, no pneumothorax apparent. CARDIOVASCULAR: Borderline cardiomegaly again evident. No pulmonary vascular derangement appreciated. OSSEOUS STRUCTURES: Prior CABG postop changes again appreciated VISUALIZED UPPER ABDOMEN: Normal. OTHER FINDINGS: None. IMPRESSION: No interval acute cardiopulmonary disease with stable prominent cardiac silhouette again evident as well as limited fibrotic changes at the mid to inferior left lateral lung zones. Labs reviewed: BUN, creatinine, and alk phos elevated. Potassium is WNL. Time: 9:37 Discussed with FP resident, patient will be admitted inpatient for right-sided paresthesias. Scribe Attestation: Documented by Mallory Nunn, acting as a scribe for Kasia Negro MD Provider Scribe Attestation: All medical record entries made by the Scribe were at my direction and personally dictated by me. I have reviewed the chart and agree that the record accurately reflects my personal performance of the history, physical exam, medical decision making, and the department course for this patient. I have also personally directed, reviewed, and agree with the discharge instructions and disposition Disposition - Clinical Impression Clinical Impression: Paresthesia of right upper and lower extremity - Patient ED Disposition Is Patient to be Admitted: Yes Counseled Patient/Family Regarding: Studies Performed - Disposition Disposition Time: 09:37 Condition: STABLE - Pt Status Changed To: Hospital Disposition Of: Inpatient - Admit Certification Admit to Inpatient:: After my assessment, the patient will require hospitalization for at least two midnights. This is because of the severity of symptoms shown, intensity of services needed, and/or the medical risk in this patient being treated as an outpatient. - POA Present On Arrival: None
[2017-11-22 07:57] LABS: BASO # 0.1 K/uL (0.0-0.2); BASO % 0.8 % (0.0-2.0); EOS # 0.5 K/uL (0.0-0.7); EOS % 6.7 % (0.0-4.0); HEMOGLOBIN 11.2 g/dL (12.0-16.0); LYMPH # 1.1 K/uL (1.0-4.3); LYMPH % 13.7 % (20.0-40.0); MEAN CELL VOLUME 88.8 fl (81.0-99.0); MEAN CORPUSCULAR HEMOGLOBIN 28.9 pg (27.0-31.0); MEAN CORPUSCULAR HGB CONC 32.6 g/dL (33.0-37.0); MEAN PLATELET VOLUME 8.5 fl (7.2-11.7); MONO # 0.6 K/uL (0.0-0.8); MONO % 7.2 % (0.0-10.0); NEUT # 5.7 K/uL (1.8-7.0); NEUT % 71.6 % (50.0-75.0); RBC 3.86 Mil/uL (3.80-5.20); RED CELL DISTRIBUTION WIDTH 15.3 % (11.5-14.5)
[2017-11-22 08:03] LABS: INR 1.1 (0.9-1.2); PARTIAL THROMBOPLASTIN TIME 33.7 Seconds (25.6-37.1); PROTHROMBIN TIME 11.8 Seconds (9.8-13.1)
[2017-11-22 08:11] LABS: ALB/GLOB RATIO 1.1 (1.0-2.1); ALBUMIN 3.5 g/dL (3.5-5.0); CALCIUM 8.9 mg/dL (8.4-10.2)
--- NOTE | 2017-11-22 08:14 | CT ---
EXAM: CT Head Without Intravenous Contrast EXAM DATE/TIME: 11/22/2017 7:18 AM CLINICAL HISTORY: 77 years old, female; Signs and symptoms; Numbness / parasthesia; Right; Additional info: R sided numbness TECHNIQUE: Axial computed tomography images of the head/brain without intravenous contrast. All CT scans at this facility use one or more dose reduction techniques, viz.: automated exposure control; ma/kV adjustment per patient size (including targeted exams where dose is matched to indication; i.e. head); or iterative reconstruction technique. Coronal and sagittal reformatted images were created and reviewed. COMPARISON: CT - HEAD W/O (CODE STROKE) 2016-01-20 08:42 FINDINGS: Brain: Again identified is encephalomalacia left parieto-occipital lobe. No cerebral edema. No intra-axial or extra-axial hemorrhage. Cerebral atrophy. Old lacunar infarct right basal ganglia. Periventricular white matter changes of small vessel ischemic disease. Ventricles: Ex vacuo dilatation of left occipital horn without change. No ventriculomegaly. Bones/joints: Unremarkable. No acute fracture. Soft tissues: Unremarkable. Sinuses: Mucous retention cyst left maxillary sinus 1.5 cm. Vascular calcifications are cavernous carotid and vertebral arteries. Mastoid air cells: Unremarkable as visualized. No mastoid effusion. IMPRESSION: 1. No acute cerebral hemorrhage or edema. 2. 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 3. Cerebral atrophy and small vessel ischemic disease.
[2017-11-22 08:21] LABS: TROPONIN I 0.065 ng/mL (0.00-0.120)
--- NOTE | 2017-11-22 10:14 | RAD ---
HISTORY: R sided numbness COMPARISON: Portable chest 05/14/2017. FINDINGS: Right center venous dialysis catheter unchanged in position. Numerous wall stents are again identified incidentally in the bilateral arms and left subclavian region. LUNGS: No active pulmonary disease. Limited cyst fibrotic changes in the mid to inferior left lung zone laterally. PLEURA: No significant pleural effusion identified, no pneumothorax apparent. CARDIOVASCULAR: Borderline cardiomegaly again evident. No pulmonary vascular derangement appreciated. OSSEOUS STRUCTURES: Prior CABG postop changes again appreciated VISUALIZED UPPER ABDOMEN: Normal. OTHER FINDINGS: None. IMPRESSION: No interval acute cardiopulmonary disease with stable prominent cardiac silhouette again evident as well as limited fibrotic changes at the mid to inferior left lateral lung zones.
--- NOTE | 2017-11-22 10:46 | CP.PCM.HP ---
<Manohar Dee - Last Filed: 11/22/17 19:02> History of Present Illness - History of Present Illness History of Present Illness: 76 yo F w PMHx of HTN, CVA(last strke 05/2017), CABG x 4 in 2011, cardiac stents x2, DM, and ESRD (HD on MWF)(lastdialysis 11/19/16) is broguth in by ambulance and with her 2 daughter. Patient has been in her normal state of health unil today when she c/o right side upper ext and lower ext numbness noticed at 12: 30 am while patient was sleeping over left side. She reports that numbness over right side of the body woke her up. She denies residual weakness after last stroke, no new weakness, no slurred speech, blurry vision, chest pain, SOB, palpitation, f,n,v,abd pain. 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 EKG: old septal infart HR: 84. neg T wave D1, AVL, V6 Personally talked with Dr Schreiber Neurologist who saw pt last admission. Recommends give plavix, do MRI Brain, MRA head, neck Present on Admission - Present on Admission Any Indicators Present on Admission: No History of DVT/PE: No History of Uncontrolled Diabetes: No Urinary Catheter: No Decubitus Ulcer Present: No Review of Systems - Constitutional Constitutional: As Per HPI - Cardiovascular Cardiovascular: As Per HPI - Respiratory Respiratory: As Per HPI - Gastrointestinal Gastrointestinal: As Per HPI - Musculoskeletal Musculoskeletal: As Per HPI - Neurological Neurological: As Per HPI Past Patient History - Infectious Disease Hx of Infectious Diseases: None - Past Medical History & Family History Past Medical History?: Yes - Past Social History Alcohol: None Drugs: Denies - CARDIAC Hx Congestive Heart Failure: Yes Hx Hypertension: Yes - PULMONARY Hx Respiratory Disorders: No - NEUROLOGICAL Hx Neurological Disorder: Yes (CVA x 3) - HEENT Hx HEENT Problems: Yes - RENAL Hx Chronic Kidney Disease: Yes (ESRD) - ENDOCRINE/METABOLIC Hx Endocrine Disorders: Yes (DM type 2) - HEMATOLOGICAL/ONCOLOGICAL Hx Human Immunodeficiency Virus (HIV): No - INTEGUMENTARY Hx Dermatological Problems: No - MUSCULOSKELETAL/RHEUMATOLOGICAL Hx Arthritis: Yes - GASTROINTESTINAL Hx Gastrointestinal Disorders: No - GENITOURINARY/GYNECOLOGICAL Hx Genitourinary Disorders: No - PSYCHIATRIC Hx Psychophysiologic Disorder: No Hx Substance Use: No - SURGICAL HISTORY Hx Coronary Artery Bypass Graft: Yes (x4) - ANESTHESIA Hx Anesthesia: Yes Hx Anesthesia Reactions: No Hx Malignant Hyperthermia: No Meds Allergies/Adverse Reactions: Allergies Allergy/AdvReac Type Severity Reaction Status Date / Time No Known Allergies Allergy Verified 10/01/17 03:07 Physical Exam - Constitutional Appears: Non-toxic, No Acute Distress - Head Exam Head Exam: ATRAUMATIC, NORMOCEPHALIC - Eye Exam Eye Exam: Normal appearance - ENT Exam ENT Exam: Mucous Membranes Moist - Neck Exam Neck exam: Positive for: Normal Inspection - Respiratory Exam Respiratory Exam: Clear to Auscultation Bilateral. absent: Rales, Rhonchi, Wheezes - Cardiovascular Exam Cardiovascular Exam: REGULAR RHYTHM, +S1, +S2 - GI/Abdominal Exam GI & Abdominal Exam: Normal Bowel Sounds, Soft. absent: Tenderness - Extremities Exam Extremities exam: Positive for: normal inspection. Negative for: pedal edema - Back Exam Back exam: NORMAL INSPECTION - Neurological Exam Neurological exam: Alert, Oriented x3 - Expanded Neurological Exam Expanded Patient oriented to: person, place, time Speech: Fluid Speech Cranial nerves: EOM's Intact: Normal, Facial Palsey w/Forehead Movement: Normal , Facial Palsey w/o Forehead Movement: Normal, Nystagmus: Normal, Tongue Deviation: Normal Sensory exam: Lower Extremity Light Touch: Normal, Upper Extremity Light Touch: Normal Neuro motor strength exam: Left Upper Extremity: 5, Right Upper Extremity: 5, Left Lower Extremity: 5, Right Lower Extremity: 5 DTR: Patellar Left: 2+, Patellar Right: 2+ - Psychiatric Exam Psychiatric exam: Normal Affect, Normal Mood - Skin Skin Exam: Intact, Normal Color Results - Vital Signs Recent Vital Signs: Last Vital Signs Temp 97.8 F 11/22/17 07:22 Pulse 74 11/22/17 09:30 Resp 14 11/22/17 09:30 BP 177/86 H 11/22/17 09:30 Pulse Ox 99 11/22/17 10:09 - Labs Result Diagrams: 11/22/17 07:39 11/22/17 07:39 Labs: Laboratory Results - last 24 hr 11/22/17 11/22/17 11/22/17 07:39 07:39 07:39 WBC 8.0 RBC 3.86 Hgb 11.2 L Hct 34.3 MCV 88.8 D MCH 28.9 MCHC 32.6 L RDW 15.3 H Plt Count 191 MPV 8.5 Neut % (Auto) 71.6 Lymph % (Auto) 13.7 L Franklin % (Auto) 7.2 Eos % (Auto) 6.7 H Baso % (Auto) 0.8 Neut # 5.7 Lymph # 1.1 Franklin # 0.6 Eos # 0.5 Baso # 0.1 PT 11.8 INR 1.1 APTT 33.7 Sodium 137 Potassium 4.5 Chloride 100 Carbon Dioxide 24 Anion Gap 18 BUN 30 H Creatinine 5.4 H Est GFR ( Amer) 9 Est GFR (Non-Af Amer) 8 Random Glucose 138 H Calcium 8.9 Total Bilirubin 0.6 AST 17 ALT 23 Alkaline Phosphatase 136 H Troponin I 0.0650 Total Protein 6.6 Albumin 3.5 Globulin 3.1 Albumin/Globulin Ratio 1.1 Triglycerides 94 Cholesterol 137 LDL Cholesterol Direct 46 HDL Cholesterol 63 Blood Type Antibody Screen BBK History Checked 11/22/17 07:39 WBC RBC Hgb Hct MCV MCH MCHC RDW Plt Count MPV Neut % (Auto) Lymph % (Auto) Franklin % (Auto) Eos % (Auto) Baso % (Auto) Neut # Lymph # Franklin # Eos # Baso # PT INR APTT Sodium Potassium Chloride Carbon Dioxide Anion Gap BUN Creatinine Est GFR ( Amer) Est GFR (Non-Af Amer) Random Glucose Calcium Total Bilirubin AST ALT Alkaline Phosphatase Troponin I Total Protein Albumin Globulin Albumin/Globulin Ratio Triglycerides Cholesterol LDL Cholesterol Direct HDL Cholesterol Blood Type A POSITIVE Antibody Screen Negative BBK History Checked Patient has bt Assessment & Plan - Assessment and Plan (Free Text) Plan: 76 yo F w PMHx of HTN, CVA(last stroke 05/2017), CABG x 4 in 2011, cardiac stents x2, DM, and ESRD (HD on MWF)(last dialysis 11/19/16) admitted for right side body paresthesia 1) Right side Paresthesia -secondary to old residual CVA Vs new onset CVA -Admit telemetry -CT head: no intracraneal hemorrhage, old left COMPUTER 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 -renal diet 3) DM -uncontrolled -hgba1c 8.9 -glucose on admission 138 mg/dl -SSI 4) HTN -c/w Carvedidol 6.25 mg PO BID -c/w enalapril 5)CAD -CABG x 4 in 2011, cardiac stents x2, -Aspirin, plavix f/u lipid profile 6) systolic CHF -controlled -last echo 05/18/2016 LV systolic function severely impaired. EF15-20 % -[employer]ist outpatient Dr Perez 7) DVT Prophylaxis -Heparin 5000 U sc TID <Julio Ponce - Last Filed: 11/23/17 06:51> Results - Vital Signs Recent Vital Signs: Last Vital Signs Temp 97.9 F 11/23/17 05:00 Pulse 70 11/23/17 05:00 Resp 16 11/23/17 05:00 BP 117/60 11/23/17 05:00 Pulse Ox 99 11/23/17 05:00 - Labs Result Diagrams: 11/22/17 07:39 11/22/17 07:39 Labs: Laboratory Results - last 24 hr 11/22/17 11/22/17 11/22/17 07:39 07:39 07:39 WBC 8.0 RBC 3.86 Hgb 11.2 L Hct 34.3 MCV 88.8 D MCH 28.9 MCHC 32.6 L RDW 15.3 H Plt Count 191 MPV 8.5 Neut % (Auto) 71.6 Lymph % (Auto) 13.7 L Franklin % (Auto) 7.2 Eos % (Auto) 6.7 H Baso % (Auto) 0.8 Neut # 5.7 Lymph # 1.1 Franklin # 0.6 Eos # 0.5 Baso # 0.1 PT INR APTT Sodium 137 Potassium 4.5 Chloride 100 Carbon Dioxide 24 Anion Gap 18 BUN 30 H Creatinine 5.4 H Est GFR ( Amer) 9 Est GFR (Non-Af Amer) 8 POC Glucose (mg/dL) Random Glucose 138 H Hemoglobin A1c 8.9 H Calcium 8.9 Total Bilirubin 0.6 AST 17 ALT 23 Alkaline Phosphatase 136 H Troponin I 0.0650 Total Protein 6.6 Albumin 3.5 Globulin 3.1 Albumin/Globulin Ratio 1.1 Triglycerides 94 Cholesterol 137 LDL Cholesterol Direct 46 HDL Cholesterol 63 Blood Type Antibody Screen BBK History Checked 11/22/17 11/22/17 11/22/17 07:39 07:39 18:49 WBC RBC Hgb Hct MCV MCH MCHC RDW Plt Count MPV Neut % (Auto) Lymph % (Auto) Franklin % (Auto) Eos % (Auto) Baso % (Auto) Neut # Lymph # Franklin # Eos # Baso # PT 11.8 INR 1.1 APTT 33.7 Sodium Potassium Chloride Carbon Dioxide Anion Gap BUN Creatinine Est GFR ( Amer) Est GFR (Non-Af Amer) POC Glucose (mg/dL) Random Glucose Hemoglobin A1c Calcium Total Bilirubin AST ALT Alkaline Phosphatase Troponin I 0.0690 Total Protein Albumin Globulin Albumin/Globulin Ratio Triglycerides Cholesterol LDL Cholesterol Direct HDL Cholesterol Blood Type A POSITIVE Antibody Screen Negative BBK History Checked Patient has bt 11/22/17 11/23/17 11/23/17 22:41 05:25 05:49 WBC RBC Hgb Hct MCV MCH MCHC RDW Plt Count MPV Neut % (Auto) Lymph % (Auto) Franklin % (Auto) Eos % (Auto) Baso % (Auto) Neut # Lymph # Franklin # Eos # Baso # PT INR APTT Sodium Potassium Chloride Carbon Dioxide Anion Gap BUN Creatinine Est GFR ( Amer) Est GFR (Non-Af Amer) POC Glucose (mg/dL) 205 H 160 H Random Glucose Hemoglobin A1c Calcium Total Bilirubin AST ALT Alkaline Phosphatase Troponin I 0.0710 Total Protein Albumin Globulin Albumin/Globulin Ratio Triglycerides Cholesterol LDL Cholesterol Direct HDL Cholesterol Blood Type Antibody Screen BBK History Checked Attending/Attestation - Attestation I have personally seen and examined this patient.: Yes I have fully participated in the care of the patient.: Yes I have reviewed all pertinent clinical information: Yes
[2017-11-22] MEDS ORDERED: Dextrose 50% SYRINGE Inj (50 ml) IV PRN (11:42)
[2017-11-22] MEDS ORDERED: Glucagon Recombinant 1 mg Inj IM PRN (11:42)
--- NOTE | 2017-11-22 15:06 | MRI ---
PROCEDURE: MR Angiography of the neck without contrast HISTORY: Right side hemiparesis COMPARISON: None available. TECHNIQUE: 3D [id number] angiography of the neck was performed. Rotating maximum intensity projection images of the cervical carotid and vertebral arteries were generated. The origins of the common carotid arteries were not visualized, which is a limitation inherent to the non-contrast time of flight technique. FINDINGS: RIGHT CAROTID ARTERIES: Common Carotid Artery: No significant stenosis identified. Carotid Bifurcation: Mild atherosclerotic changes identified. Internal Carotid Artery:No significant stenosis identified. External Carotid Artery (proximal branches): Normal. LEFT CAROTID ARTERIES: Common Carotid Artery: No significant stenosis identified. Carotid Bifurcation: Mild atherosclerotic changes identified. Internal Carotid Artery:No significant stenosis identified. External Carotid Artery (proximal branches): Normal. VERTEBRAL ARTERIES: Right Vertebral Artery: Hypoplastic distal right vertebral artery noted. Left Vertebral Artery: Normal. OTHER FINDINGS: None. IMPRESSION: Limited carotid bulbar atherosclerotic plaque without significant stenosis identified in the bilateral common or internal carotid arteries as discussed above. A patent but hypoplastic distal right vertebral artery is identified.
--- NOTE | 2017-11-22 15:11 | MRI ---
PROCEDURE: Magnetic Resonance Angiography Brain HISTORY: Right side hemiparesis COMPARISON: None available. TECHNIQUE: 3D time of flight MR angiography of the intracranial arteries was performed. Rotating maximum intensity projection images were generated. FINDINGS: INTERNAL CAROTID ARTERIES: Unremarkable. The skull base, petrous, cavernous and supraclinoid segments are bilaterally patient, with limited bilateral cavernous segmental atherosclerosis without resulting in significant ICA stenosis at this time. ANTERIOR CEREBRAL ARTERIES: Unremarkable. A1 and A2 segments are widely patent. Smaller distal branches unremarkable, as visualized. MIDDLE CEREBRAL ARTERIES: Unremarkable. M1 and M2 segments are widely patent. Perisylvian branches grossly symmetric. POSTERIOR CIRCULATION: Basilar Artery: Unremarkable. Distal Vertebral Arteries: Hypoplastic distal right vertebral artery. Left vertebral artery is widely patent. Left dominant vertebrobasilar circulation is identified. Posterior Cerebral Arteries: Unremarkable. Posterior Inferior Cerebellar Arteries: Unremarkable. ANEURYSM/ VASCULAR MALFORMATIONS: None. OTHER FINDINGS: None. IMPRESSION: Bilateral cavernous ICA segmental atherosclerosis appreciated with stenoses greater the right than left with remaining less than 50 percent in each side. The remaining ICA segments appear unremarkable otherwise. Widely patent three affiliated Munoz anatomy otherwise with no high-grade stenosis appreciable.
--- NOTE | 2017-11-22 15:18 | MRI ---
PROCEDURE: MRI BRAIN WITHOUT CONTRAST HISTORY: Right side numbness COMPARISON: Head CT 11/22/2017 and prior brain MRI 05/15/2017. TECHNIQUE: Multiplanar, multisequence MR images of the brain were obtained without intravenous contrast enhancement. FINDINGS: HEMORRHAGE: None DWI: No evidence of an acute or early subacute infarction. BRAIN PARENCHYMA: A chronic lobar left DIRECTOR LEARNING infarct is again appreciated as well as diffuse cerebral atrophy chronic microangiopathy. Multifocal chronic lacunes are identified within deep and occasional subcortical white matter as well as the basal nuclei once again. There is no mass effect or suspicious extra-axial fluid collection identified. Midline brain anatomy appears stable. Posterior fossa contents also appears stable including left pontine chronic lacune. VENTRICLES: Unremarkable. No hydrocephalus. CRANIUM: Unremarkable. ORBITS: Grossly unremarkable. PARANASAL SINUSES/MASTOIDS: Chronic left maxillary sinus cyst or polyp again identified. VASCULAR SYSTEM: Skull base flow voids intact. OTHER FINDINGS: None. IMPRESSION: No acute brain infarction or definite intracranial hemorrhage appreciable at this time. Reiteration of age related neuro degenerative changes are identified as well as a few chronic lacune or infarcts as discussed above. Polyp or retention cyst again seen left maxillary sinus.
--- NOTE | 2017-11-22 18:24 | CARD ---
APPROVED REPORT EKG Measurement Heart [id number] <Conclusion> Normal sinus rhythm Septal infarct, age undetermined T wave abnormality, consider lateral ischemia Abnormal ECG
--- NOTE | 2017-11-22 19:08 | CP.PCM.CON ---
History of Present Illness - History of Present Illness History of Present Illness: Initial Nephrology Consultation: Assessment: Stable Rt side weakness Hypertensive Chronic Kidney Disease (I12.0) End stage renal disease (N18.6) dependence on hemodialysis (Z99.2) (MWF) via permacath Anemia (D64.9), Hyperphosphatemia (E83.39), Secondary Hyperparathyroidism (E21.1 ), HTN (I12.0) hx of CVA Plan: Will plan for HD today as ordered. Continue with Nephrovite 1 tab/day. PRBC as needed for anemia last Hb 11+ hence LINDA deferred Continue with phos binders home dose Continue with sensipar BP control with meds as ordered. Patient on RAAS yann as enalapril Glycemic control, Dialysis consistent diet Further work up/management as per primary team Dose meds/antibiotics (if needed) for ESRD status. Avoid fleets enema/magnesium based laxatives. Thanks for allowing me to participate in care of your patient. Will follow patient with you. Please call if any Qs Dr Dennis Lawson Office: [phone] Chief Complaint; Rt side weakness HPI: Pt is a 77 F with hx of ESRD on hemodialysis (MWF) via permacath, last dialysis wednesday, chronic anemia, hyperphosphatemia, secondary hyperparathyroidism, hypertension, CVA presented with complaints of Rt side weakness x today. renal consult for ESRD management. pt feels better now ROS: Cardiovascular: No chest pain. Pulmonary: No shortness of breath Gastrointestinal: denies abdominal pain No nausea. No vomiting. Genitourinary: No pain while urinating. Denies blood in urine. All other negative Physical Examination: General Appearance: Comfortable, in no acute respiratory distress, co-operative . Vitals reviewed and noted as below Head; Atraumatic, normocephalic ENT: no ulcers no thrush. Tongue is midline. Oropharynx: no rash or ulcers. EYES: Pupils are equal, round and reactive to light accommodation. Eye muscles and extraocular movement intact. Sclera is anicteric. Neck; supple no lymphadenopathy, no thyromegaly or bruit Lungs: Normal respiratory rate/effort. Breath sounds bilateral equal and clear Heart: Normal rate. s1s2 normal. No rub or gallop. Extremities: no edema. No varicose veins Neurological: Patient is alert, awake and oriented to person, place and time. No focal deficit. Strength bilateral appropriate and equal Skin: Warm and dry. Normal turgor. No rash. Palpitation: Normal elasticity for age Abdomen: Abdomen is soft. Bowel sounds +. There is no abdominal tenderness, no guarding/rigidity or organomegaly Psych: normal insight and normal affect/mood MSK: no joint tenderness or swelling. Digits and nails normal, no deformity : kidney or bladder not palpable Access: permacath. has multiple failed access in arms Labs/imaging reviewed. Past medical history, past surgical history, family history, social history, allergy reviewed and noted as below Family Hx: no hx of CKD. Non contributory Past Patient History - Infectious Disease Hx of Infectious Diseases: None - Past Medical History & Family History Past Medical History?: Yes - Past Social History Alcohol: None Drugs: Denies - CARDIAC Hx Congestive Heart Failure: Yes Hx Hypertension: Yes - PULMONARY Hx Respiratory Disorders: No - NEUROLOGICAL Hx Neurological Disorder: Yes (CVA x 3) - HEENT Hx HEENT Problems: Yes - RENAL Hx Chronic Kidney Disease: Yes (ESRD) - ENDOCRINE/METABOLIC Hx Endocrine Disorders: Yes (DM type 2) - HEMATOLOGICAL/ONCOLOGICAL Hx Human Immunodeficiency Virus (HIV): No - INTEGUMENTARY Hx Dermatological Problems: No - MUSCULOSKELETAL/RHEUMATOLOGICAL Hx Arthritis: Yes - GASTROINTESTINAL Hx Gastrointestinal Disorders: No - GENITOURINARY/GYNECOLOGICAL Hx Genitourinary Disorders: No - PSYCHIATRIC Hx Psychophysiologic Disorder: No Hx Substance Use: No - SURGICAL HISTORY Hx Coronary Artery Bypass Graft: Yes (x4) - ANESTHESIA Hx Anesthesia: Yes Hx Anesthesia Reactions: No Hx Malignant Hyperthermia: No Meds Allergies/Adverse Reactions: Allergies Allergy/AdvReac Type Severity Reaction Status Date / Time No Known Allergies Allergy Verified 10/01/17 03:07 - Medications Medications: Current Medications Aspirin (Ecotrin) 81 mg PO DAILY [facility] Atorvastatin Calcium (Lipitor) 10 mg PO HS [facility] Carvedilol (Coreg) 6.25 mg PO Q12H [facility] Last Admin: 11/22/17 13:35 Dose: 6.25 mg Cinacalcet (Sensipar) 30 mg PO QPM [facility] Clopidogrel Bisulfate (Plavix) 75 mg PO ONCE ONE Stop: 11/23/17 13:44 Clopidogrel Bisulfate (Plavix) 75 mg PO DAILY [facility] Dextrose (Dextrose 50% Inj) 0 ml IV STAT PRN; Protocol PRN Reason: Hypoglycemia Protocol Dextrose (Glutose 15) 0 gm PO ONCE PRN; Protocol PRN Reason: Hypoglycemia Protocol Enalapril Maleate (Vasotec) 20 mg PO DAILY [facility] Glucagon (Glucagen Diagnostic Kit) 0 mg IM STAT PRN; Protocol PRN Reason: Hypoglycemia Protocol Heparin Sodium (Porcine) (Heparin) 5,000 units SC Q8 GUILLAUME PRN Reason: Protocol Insulin Human Lispro (Humalog) 0 units SC ACHS [facility] PRN Reason: Protocol Sevelamer HCl (Renagel) 800 mg PO TIDWM [facility] Vitamin B Complex/Vit C/Folic Acid (Nephro-Heather) 1 tab PO DAILY [facility] Results - Vital Signs Recent Vital Signs: Last Vital Signs Temp 97.8 F 11/22/17 16:10 Pulse 69 11/22/17 18:35 Resp 16 11/22/17 18:35 BP 101/70 11/22/17 16:10 Pulse Ox 99 11/22/17 16:10 - Labs Result Diagrams: 11/22/17 07:39 11/22/17 07:39 Labs: Laboratory Results - last 24 hr 11/22/17 11/22/17 11/22/17 07:39 07:39 07:39 WBC 8.0 RBC 3.86 Hgb 11.2 L Hct 34.3 MCV 88.8 D MCH 28.9 MCHC 32.6 L RDW 15.3 H Plt Count 191 MPV 8.5 Neut % (Auto) 71.6 Lymph % (Auto) 13.7 L Carroll % (Auto) 7.2 Eos % (Auto) 6.7 H Baso % (Auto) 0.8 Neut # 5.7 Lymph # 1.1 Carroll # 0.6 Eos # 0.5 Baso # 0.1 PT INR APTT Sodium 137 Potassium 4.5 Chloride 100 Carbon Dioxide 24 Anion Gap 18 BUN 30 H Creatinine 5.4 H Est GFR ( Amer) 9 Est GFR (Non-Af Amer) 8 Random Glucose 138 H Hemoglobin A1c 8.9 H Calcium 8.9 Total Bilirubin 0.6 AST 17 ALT 23 Alkaline Phosphatase 136 H Troponin I 0.0650 Total Protein 6.6 Albumin 3.5 Globulin 3.1 Albumin/Globulin Ratio 1.1 Triglycerides 94 Cholesterol 137 LDL Cholesterol Direct 46 HDL Cholesterol 63 Blood Type Antibody Screen BBK History Checked 11/22/17 11/22/17 07:39 07:39 WBC RBC Hgb Hct MCV MCH MCHC RDW Plt Count MPV Neut % (Auto) Lymph % (Auto) Carroll % (Auto) Eos % (Auto) Baso % (Auto) Neut # Lymph # Carroll # Eos # Baso # PT 11.8 INR 1.1 APTT 33.7 Sodium Potassium Chloride Carbon Dioxide Anion Gap BUN Creatinine Est GFR ( Amer) Est GFR (Non-Af Amer) Random Glucose Hemoglobin A1c Calcium Total Bilirubin AST ALT Alkaline Phosphatase Troponin I Total Protein Albumin Globulin Albumin/Globulin Ratio Triglycerides Cholesterol LDL Cholesterol Direct HDL Cholesterol Blood Type A POSITIVE Antibody Screen Negative BBK History Checked Patient has bt
--- NOTE | 2017-11-22 19:20 | CP.PCM.CON ---
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 ASA AND PLAVIX FAILURE ASA SWITCH TO AGGRENOX PT DM AND BP CONTRTOL NEEDS SLEEP STUDIES AN OP IF MED STABLE D/C HOME TOMORROW AND FOLLOW UP AN OP Past Patient History - Infectious Disease Hx of Infectious Diseases: None - Past Medical History & Family History Past Medical History?: Yes - Past Social History Alcohol: None Drugs: Denies - CARDIAC Hx Congestive Heart Failure: Yes Hx Hypertension: Yes - PULMONARY Hx Respiratory Disorders: No - NEUROLOGICAL Hx Neurological Disorder: Yes (CVA x 3) - HEENT Hx HEENT Problems: Yes - RENAL Hx Chronic Kidney Disease: Yes (ESRD) - ENDOCRINE/METABOLIC Hx Endocrine Disorders: Yes (DM type 2) - HEMATOLOGICAL/ONCOLOGICAL Hx Human Immunodeficiency Virus (HIV): No - INTEGUMENTARY Hx Dermatological Problems: No - MUSCULOSKELETAL/RHEUMATOLOGICAL Hx Arthritis: Yes - GASTROINTESTINAL Hx Gastrointestinal Disorders: No - GENITOURINARY/GYNECOLOGICAL Hx Genitourinary Disorders: No - PSYCHIATRIC Hx Psychophysiologic Disorder: No Hx Substance Use: No - SURGICAL HISTORY Hx Coronary Artery Bypass Graft: Yes (x4) - ANESTHESIA Hx Anesthesia: Yes Hx Anesthesia Reactions: No Hx Malignant Hyperthermia: No Meds Allergies/Adverse Reactions: Allergies Allergy/AdvReac Type Severity Reaction Status Date / Time No Known Allergies Allergy Verified 10/01/17 03:07 - Medications Medications: Current Medications Aspirin (Ecotrin) 81 mg PO DAILY [facility] Atorvastatin Calcium (Lipitor) 10 mg PO HS [facility] Carvedilol (Coreg) 6.25 mg PO Q12H [facility] Last Admin: 11/22/17 13:35 Dose: 6.25 mg Cinacalcet (Sensipar) 30 mg PO QPM [facility] Clopidogrel Bisulfate (Plavix) 75 mg PO ONCE ONE Stop: 11/23/17 13:44 Clopidogrel Bisulfate (Plavix) 75 mg PO DAILY [facility] Dextrose (Dextrose 50% Inj) 0 ml IV STAT PRN; Protocol PRN Reason: Hypoglycemia Protocol Dextrose (Glutose 15) 0 gm PO ONCE PRN; Protocol PRN Reason: Hypoglycemia Protocol Dipyridamole/Aspirin (Aggrenox 25-200 Mg) 1 ea PO BID [facility] Enalapril Maleate (Vasotec) 20 mg PO DAILY [facility] Glucagon (Glucagen Diagnostic Kit) 0 mg IM STAT PRN; Protocol PRN Reason: Hypoglycemia Protocol Heparin Sodium (Porcine) (Heparin) 5,000 units SC Q8 [facility] PRN Reason: Protocol Insulin Human Lispro (Humalog) 0 units SC ACHS [facility] PRN Reason: Protocol Sevelamer HCl (Renagel) 800 mg PO TIDWM [facility] Vitamin B Complex/Vit C/Folic Acid (Nephro-Heather) 1 tab PO DAILY [facility] Results - Vital Signs Recent Vital Signs: Last Vital Signs Temp 98.0 F 11/22/17 19:10 Pulse 70 11/22/17 19:10 Resp 18 11/22/17 19:10 BP 105/54 L 11/22/17 19:10 Pulse Ox 97 11/22/17 19:10 - Labs Result Diagrams: 11/22/17 07:39 11/22/17 07:39 Labs: Laboratory Results - last 24 hr 11/22/17 11/22/17 11/22/17 07:39 07:39 07:39 WBC 8.0 RBC 3.86 Hgb 11.2 L Hct 34.3 MCV 88.8 D MCH 28.9 MCHC 32.6 L RDW 15.3 H Plt Count 191 MPV 8.5 Neut % (Auto) 71.6 Lymph % (Auto) 13.7 L [place] % (Auto) 7.2 Eos % (Auto) 6.7 H Baso % (Auto) 0.8 Neut # 5.7 Lymph # 1.1 [place] # 0.6 Eos # 0.5 Baso # 0.1 PT INR APTT Sodium 137 Potassium 4.5 Chloride 100 Carbon Dioxide 24 Anion Gap 18 BUN 30 H Creatinine 5.4 H Est GFR ( Amer) 9 Est GFR (Non-Af Amer) 8 Random Glucose 138 H Hemoglobin A1c 8.9 H Calcium 8.9 Total Bilirubin 0.6 AST 17 ALT 23 Alkaline Phosphatase 136 H Troponin I 0.0650 Total Protein 6.6 Albumin 3.5 Globulin 3.1 Albumin/Globulin Ratio 1.1 Triglycerides 94 Cholesterol 137 LDL Cholesterol Direct 46 HDL Cholesterol 63 Blood Type Antibody Screen BBK History Checked 11/22/17 11/22/17 07:39 07:39 WBC RBC Hgb Hct MCV MCH MCHC RDW Plt Count MPV Neut % (Auto) Lymph % (Auto) [place] % (Auto) Eos % (Auto) Baso % (Auto) Neut # Lymph # [place] # Eos # Baso # PT 11.8 INR 1.1 APTT 33.7 Sodium Potassium Chloride Carbon Dioxide Anion Gap BUN Creatinine Est GFR ( Amer) Est GFR (Non-Af Amer) Random Glucose Hemoglobin A1c Calcium Total Bilirubin AST ALT Alkaline Phosphatase Troponin I Total Protein Albumin Globulin Albumin/Globulin Ratio Triglycerides Cholesterol LDL Cholesterol Direct HDL Cholesterol Blood Type A POSITIVE Antibody Screen Negative BBK History Checked Patient has bt
[2017-11-22] MEDS: Insulin Lispro (humaLOG) 100 Units/ml Inj SC SCH (22:48)
[2017-11-23] MEDS: Insulin Lispro (humaLOG) 100 Units/ml Inj SC SCH ×2 (06:39→12:24)
--- NOTE | 2017-11-23 08:19 | CP.PCM.PN ---
Objective - Vital Signs/Intake and Output Vital Signs (last 24 hours): Temp Pulse Resp BP Pulse Ox 97.9 F 70 16 117/60 99 11/23/17 05:00 11/23/17 05:00 11/23/17 05:00 11/23/17 05:00 11/23/17 05:00 - Medications Medications: Current Medications Atorvastatin Calcium (Lipitor) 10 mg PO HS [facility] Last Admin: 11/22/17 22:46 Dose: 10 mg Carvedilol (Coreg) 6.25 mg PO Q12H [facility] Last Admin: 11/22/17 22:45 Dose: 6.25 mg Cinacalcet (Sensipar) 30 mg PO QPM [facility] Last Admin: 11/22/17 22:51 Dose: Not Given Clopidogrel Bisulfate (Plavix) 75 mg PO ONCE ONE Stop: 11/23/17 13:44 Clopidogrel Bisulfate (Plavix) 75 mg PO DAILY [facility] Dextrose (Dextrose 50% Inj) 0 ml IV STAT PRN; Protocol PRN Reason: Hypoglycemia Protocol Dextrose (Glutose 15) 0 gm PO ONCE PRN; Protocol PRN Reason: Hypoglycemia Protocol Dipyridamole/Aspirin (Aggrenox 25-200 Mg) 1 ea PO BID [facility] Enalapril Maleate (Vasotec) 20 mg PO DAILY [facility] Glucagon (Glucagen Diagnostic Kit) 0 mg IM STAT PRN; Protocol PRN Reason: Hypoglycemia Protocol Heparin Sodium (Porcine) (Heparin) 5,000 units SC Q8 [facility] PRN Reason: Protocol Last Admin: 11/23/17 00:03 Dose: 5,000 units Insulin Human Lispro (Humalog) 0 units SC ACHS [facility] PRN Reason: Protocol Last Admin: 11/23/17 06:39 Dose: 1 u Sevelamer HCl (Renagel) 800 mg PO TIDWM [facility] Last Admin: 11/22/17 22:48 Dose: 800 mg Vitamin B Complex/Vit C/Folic Acid (Nephro-Heather) 1 tab PO DAILY [facility] - Labs Labs: 11/22/17 07:39 11/22/17 07:39 PT 11.8 Seconds (9.8-13.1) 11/22/17 07:39 INR 1.1 (0.9-1.2) 11/22/17 07:39 APTT 33.7 Seconds (25.6-37.1) 11/22/17 07:39
[2017-11-23 08:34] VITALS: RESP 20
--- NOTE | 2017-11-23 08:38 | CON ---
]DATE: NEUROLOGICAL INITIAL CONSULTATION LOCATION: Room #416, bed B. ATTENDING PHYSICIAN: Markel Layne MD REASON FOR CONSULTATION: New right-sided numbness. CHIEF COMPLAINT: The patient was brought in to [facility] with a history of numbness since last night. From a neurological point of view, I was called in to evaluate her for further management. HISTORY OF PRESENT ILLNESS: Ms. Una Nelson is a 77-year-old right-handed female, lives with her 3 daughters. Around 12:30 in the middle of the sleep, she woke up, and she found that she had a right-sided numbness from her neck down. She denies any facial numbness or speech impairment or visual disturbances at that point. However, she slept in a disturbed, fragmented manner. She woke up because the symptoms. It did not disappear since she had severe stroke. She decided to come to the hospital for further evaluation around 7:00 this morning. Since this morning, being admitted and being observed, patient claims that her symptoms have been somewhat improved compared to the way she came in today this morning. She had mild headache during that episode, not associated with any visual or bulbar dysfunction. She denies any focal weakness. However, she admits she has been walking with a walker for the last 2 yeas due to her gait disturbances as well as visual disturbances. No history of loss of consciousness. No history of involuntary movements associated with this problem. PAST MEDICAL HISTORY: Hypertension, stroke. She could not qualify as well as quantify her stroke problem in the past. History of carotid stent placed as well as quadruple bypass surgery in the past. MEDICATIONS: She has been taking Plavix, aspirin, enalapril, Coreg, Lipitor, sevelamer, and insulin. ALLERGIES: NO KNOWN ALLERGIES. REVIEW OF SYSTEMS: Twelve-point systems being reviewed. From neuro, new right-sided numbness. MEDICATIONS: Coreg, aspirin, Dextral, IV fluid, glucagon, heparin, atorvastatin, vitamins, clopidogrel, Renagel, Sensipar, and Vasotec. PHYSICAL EXAMINATION: VITAL SIGNS: Blood pressure 105/54, mean arterial pressure of 71, respiratory rate 18, temperature 98.0, pulse rate 70 and regular. NECK: Supple. No carotid bruit. HEART: Heart sounds with split sound heard. No murmur. EXTREMITIES: Distal muscle groups atrophy noted. NEUROLOGICAL EXAMINATION: MENTAL STATUS EXAMINATION: She is awake, alert, oriented to person, place and time. Speech is clear. Naming, repetition, fluency, comprehension are all within normal limits. CRANIAL NERVE EXAMINATION: Visual recinos intact. Pupils are reactive to light. Right palpebral fissure is smaller than the left side. Extraocular movement intact. No facial sensory deficit. Facial asymmetry manifesting as flattening of the right nasolabial fold. Hearing is normal. Tongue is midline. Good gag. MOTOR EXAMINATION: Outstretched hand with eyes closed, drift noted over the right hand with eyes closed. Has similar findings also noted on her right leg as well. STRENGTH: Strength is equal on 4 extremities, symmetric on either side. Deep tendon reflexes are absent. Plantars are upgoing on both sides. SENSORY EXAMINATION: Mild sensory deficit to compare with the left to the right. She appreciates legs on touch as well as pain. No cortical sensory loss. Significant distal sensory motor neuropathy noted. COORDINATION: [id number] test is impaired on her right side to compare with the left side. I offered to get her up to walk to show her gait; however, she refused to get up because she is tired at this time. WORKUP: CT of the head, global atrophy with old stroke on the left DYE WORKER territory noted. Multiple periventricular ischemic changes also noted. MRI of the brain being reviewed, showed post stroke encephalomalacia to left DYE WORKER territory affecting the old mesial occipital lobe. Multiple strokes are easily identifiable over her left midbrain as well as subcortical region on either side. MR angiogram of neck as well as inupiat of [place] has been reviewed with significant atherosclerotic changes without any significant stenosis. LABORATORY DATA: Blood workup; WBC 8.0, hemoglobin 11.2, hematocrit 34.3, platelets 191. PT 11.8, INR 1.1, PTT 33.7. Sodium 137, potassium 4.5, chloride 100, bicarbonate 24, BUN 30, creatinine 5.4, glucose 138, hemoglobin A1c 8.9, and alkaline phosphatase 136. Cholesterol 137, LDL 46, HDL 63. CONCLUSION: Upon reviewing her history and neurological examination, Mrs. Una Nelson presenting with a new episode of right hemisensory deficit. Clinically she does have 4/5 hemiparesis with dysmetria on her right side with facial asymmetry, with all findings, which could be new versus old. Because of her sensory symptoms and sensory examination as well as motor examination is different, I think this is probably a new subcortical ischemic process. 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 RECOMMENDATIONS: Patient failed with aspirin and Plavix. So at this point, I would like to discontinue aspirin, and at the place of aspirin, I would like to put her on Aggrenox twice a day with Plavix. Patient to continue statin as well as blood pressure medication as she has been taking. Diabetic control should be well maintained because her hemoglobin A1c is over 8.9. Continue hemodialysis. Fall precaution and physical therapy should be addressed as well as initiated while she is in the hospital. Considering her multiple risk factors and stroke, patient should have sleep studies to rule in or rule out sleep-related breathing disorders such as central sleep apnea or obstructive sleep apnea, which could have been an associated risk factor, which should be fixed to prevent further stroke process. If everything is stable and patient is clinically stable as well, patient can be discharged and should have a followup visit with me as an outpatient for the further recommendation. Thank you very much for giving me this opportunity to taking care of patient while she is in the hospital. Kofi Schreiber MD
--- NOTE | 2017-11-23 08:38 | CP.PCM.PN ---
Subjective - Date & Time of Evaluation Date of Evaluation: 11/23/17 Time of Evaluation: 09:00 - Subjective Subjective: seen on dialysis tolerating tx uf 2 kg as tolerated Objective - Vital Signs/Intake and Output Vital Signs (last 24 hours): Temp Pulse Resp BP Pulse Ox 98 F 78 20 103/70 96 11/23/17 08:00 11/23/17 08:00 11/23/17 08:00 11/23/17 08:00 11/23/17 08:00 - Medications Medications: Current Medications Atorvastatin Calcium (Lipitor) 10 mg PO HS [facility] Last Admin: 11/22/17 22:46 Dose: 10 mg Carvedilol (Coreg) 6.25 mg PO Q12H [facility] Last Admin: 11/22/17 22:45 Dose: 6.25 mg Cinacalcet (Sensipar) 30 mg PO QPM [facility] Last Admin: 11/22/17 22:51 Dose: Not Given Clopidogrel Bisulfate (Plavix) 75 mg PO ONCE ONE Stop: 11/23/17 13:44 Clopidogrel Bisulfate (Plavix) 75 mg PO DAILY [facility] Dextrose (Dextrose 50% Inj) 0 ml IV STAT PRN; Protocol PRN Reason: Hypoglycemia Protocol Dextrose (Glutose 15) 0 gm PO ONCE PRN; Protocol PRN Reason: Hypoglycemia Protocol Dipyridamole/Aspirin (Aggrenox 25-200 Mg) 1 ea PO BID [facility] Enalapril Maleate (Vasotec) 20 mg PO DAILY [facility] Glucagon (Glucagen Diagnostic Kit) 0 mg IM STAT PRN; Protocol PRN Reason: Hypoglycemia Protocol Heparin Sodium (Porcine) (Heparin) 5,000 units SC Q8 [facility] PRN Reason: Protocol Last Admin: 11/23/17 00:03 Dose: 5,000 units Insulin Human Lispro (Humalog) 0 units SC ACHS [facility] PRN Reason: Protocol Last Admin: 11/23/17 06:39 Dose: 1 u Sevelamer HCl (Renagel) 800 mg PO TIDWM [facility] Last Admin: 11/22/17 22:48 Dose: 800 mg Vitamin B Complex/Vit C/Folic Acid (Nephro-Heather) 1 tab PO DAILY [facility] - Labs Labs: 11/22/17 07:39 11/22/17 07:39 PT 11.8 Seconds (9.8-13.1) 11/22/17 07:39 INR 1.1 (0.9-1.2) 11/22/17 07:39 APTT 33.7 Seconds (25.6-37.1) 11/22/17 07:39
[2017-11-23] MEDS ORDERED: Aspirin-Dipyridamole 200-25 mg ER Cap PO SCH (09:00)
[2017-11-23] MEDS ORDERED: Multivitamin Vitamin B Complex (Nephro-Vite) Tab PO SCH (09:00)
[2017-11-23 12:12] VITALS: BP 114/52; PULSE 65; TEMP 97.5
[2017-11-23 12:50] LABS: HEPATITIS B SURFACE AG Negative (NEGATIVE)
[2017-11-23 13:06] LABS: HEPATITIS C ANTIBODY NEGATIVE (NEGATIVE)
--- NOTE | 2017-11-23 13:30 | CP.PCM.DIS ---
Provider - Provider Date of Admission: 11/22/17 09:37 Attending physician: Markel Layne MD Consults: Neurologist: Abdoul Kirby Assurance Specialist: Mirela Collins Time Spent in preparation of Discharge (in minutes): 30 Hospital Course - Lab Results Lab Results: Most Recent Lab Values WBC 8.0 K/uL (4.8-10.8) 11/22/17 07:39 RBC 3.86 Mil/uL (3.80-5.20) 11/22/17 07:39 Hgb 11.2 g/dL (12.0-16.0) L 11/22/17 07:39 Hct 34.3 % (34.0-47.0) 11/22/17 07:39 MCV 88.8 fl (81.0-99.0) D 11/22/17 07:39 MCH 28.9 pg (27.0-31.0) 11/22/17 07:39 MCHC 32.6 g/dL (33.0-37.0) L 11/22/17 07:39 RDW 15.3 % (11.5-14.5) H 11/22/17 07:39 Plt Count 191 K/uL (130-400) 11/22/17 07:39 MPV 8.5 fl (7.2-11.7) 11/22/17 07:39 Neut % (Auto) 71.6 % (50.0-75.0) 11/22/17 07:39 Lymph % (Auto) 13.7 % (20.0-40.0) L 11/22/17 07:39 [place] % (Auto) 7.2 % (0.0-10.0) 11/22/17 07:39 Eos % (Auto) 6.7 % (0.0-4.0) H 11/22/17 07:39 Baso % (Auto) 0.8 % (0.0-2.0) 11/22/17 07:39 Neut # 5.7 K/uL (1.8-7.0) 11/22/17 07:39 Lymph # 1.1 K/uL (1.0-4.3) 11/22/17 07:39 [place] # 0.6 K/uL (0.0-0.8) 11/22/17 07:39 Eos # 0.5 K/uL (0.0-0.7) 11/22/17 07:39 Baso # 0.1 K/uL (0.0-0.2) 11/22/17 07:39 PT 11.8 Seconds (9.8-13.1) 11/22/17 07:39 INR 1.1 (0.9-1.2) 11/22/17 07:39 APTT 33.7 Seconds (25.6-37.1) 11/22/17 07:39 Sodium 137 mmol/l (132-148) 11/22/17 07:39 Potassium 4.5 MMOL/L (3.6-5.0) 11/22/17 07:39 Chloride 100 mmol/L (98-107) 11/22/17 07:39 Carbon Dioxide 24 mmol/L (22-30) 11/22/17 07:39 Anion Gap 18 (10-20) 11/22/17 07:39 BUN 30 mg/dl (7-17) H 11/22/17 07:39 Creatinine 5.4 mg/dl (0.7-1.2) H 11/22/17 07:39 Est GFR ( Amer) 9 11/22/17 07:39 Est GFR (Non-Af Amer) 8 11/22/17 07:39 POC Glucose (mg/dL) 121 mg/dL (65-110) H 11/23/17 11:27 Random Glucose 138 mg/dL (65-105) H 11/22/17 07:39 Hemoglobin A1c 8.9 % (4.2-6.5) H 11/22/17 07:39 Calcium 8.9 mg/dL (8.4-10.2) 11/22/17 07:39 Total Bilirubin 0.6 mg/dl (0.2-1.3) 11/22/17 07:39 AST 17 U/L (14-36) 11/22/17 07:39 ALT 23 U/L (9-52) 11/22/17 07:39 Alkaline Phosphatase 136 U/L (38-126) H 11/22/17 07:39 Troponin I 0.0710 ng/mL (0.00-0.120) 11/23/17 05:25 Total Protein 6.6 G/DL (6.3-8.2) 11/22/17 07:39 Albumin 3.5 g/dL (3.5-5.0) 11/22/17 07:39 Globulin 3.1 gm/dL (2.2-3.9) 11/22/17 07:39 Albumin/Globulin Ratio 1.1 (1.0-2.1) 11/22/17 07:39 Triglycerides 94 mg/DL (0-149) 11/22/17 07:39 Cholesterol 137 mg/dL (0-199) 11/22/17 07:39 LDL Cholesterol Direct 46 mg/dL (0-129) 11/22/17 07:39 HDL Cholesterol 63 MG/DL (30-70) 11/22/17 07:39 Hep Bs Antigen Negative (NEGATIVE) 11/23/17 08:36 Hepatitis C Antibody Negative (NEGATIVE) 11/23/17 08:36 Blood Type A POSITIVE 11/22/17 07:39 Antibody Screen Negative 11/22/17 07:39 BBK History Checked Patient has bt 11/22/17 07:39 - Hospital Course Hospital Course: 76 yo F w PMHx of HTN, CVA(last stroke 05/2017), CABG x 4 in 2011, cardiac stents x2, DM, and ESRD (HD on MWF)(lastdialysis 11/19/16) is broguth in by ambulance and with her 2 daughter. Patient has been in her normal state of health until yesterday when she c/o right side upper ext and lower ext numbness noticed yesterday morning am while patient was sleeping over left side. She reports that numbness over right side of the body woke her up. She denies residual weakness after last stroke, no new weakness, no slurred speech, blurry vision, chest pain, SOB, palpitation, f,n,v,abd pain. 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 Aspirin was given in ED. Neurologist consulted and recommended to add plavix to ED treatment, do MRI Brain, MRA head, neck and EEG. MRI brain, MRA brain, neck did not showed any new infarcts or intracraneal hemorrage. Patient reports that right side paresthesia subsided overnight. Pt cleared by Neurologist to be discharged with Aggrenox (25-200) 1 tab BID plus Plavix. No aspirin use advised to patient and family aware that patient wont c/w aspirin at home Assurance Specialist consulted, Hemodialysis done this morning. Enalapril increased to 20 mg daily by Assurance Specialist Renny Collins. Lisinopril incresed to 40 mg daily. Patient had pending PT.OT evaluation. Dr Ponce consulted and recommended if pt able to walk then may be discharged w/o PT evaluation. PT was evaluated with Senior Dr Bronson and me and was able to stand up and walk w /o difficulty around the room. Patient and family agree to be discharged. VS before discharged normal. Diagnosis 1) Right side Paresthesia -resolved -CT head: no intracraneal hemorrhage, old left THERMAL CUTTER HELPER infarct 2) Hx/o CVA -last admission 05/14 - no residual hemiparesis as per pt and family 2) ESRD -Bun/Cr 30/5.4 -Had dialysis today -Nephro consult appreciated. 3) DM -uncontrolled -hgba1c 8.9 -glucose on admission 138 mg/dl -Continue insulin as home meds 4) HTN -c/w Carvedidol 6.25 mg PO BID -c/w enalapril 5)CAD -CABG x 4 in 2011, cardiac stents x2, - lipid profile nl -Lipitor 40 mg daily 6) systolic CHF -controlled -last echo 05/18/2016 LV systolic function severely impaired. EF15-20 % -f/u Safety Instructor outpatient Dr Perez Discharge Exam - Head Exam Head Exam: ATRAUMATIC, NORMOCEPHALIC - Eye Exam Eye Exam: Normal appearance - ENT Exam ENT Exam: Normal Exam - Neck Exam Neck exam: Normal Inspection - Respiratory Exam Respiratory Exam: NORMAL BREATHING PATTERN. absent: Rhonchi, Wheezes, Stridor - Cardiovascular Exam Cardiovascular Exam: REGULAR RHYTHM, +S1, +S2 - GI/Abdominal Exam GI & Abdominal Exam: Normal Bowel Sounds, Soft. absent: Guarding, Rebound - Exam Exam: NORMAL INSPECTION - Extremities Exam Extremities exam: normal inspection - Neurological Exam Neurological exam: Alert, Oriented x3, Reflexes Normal - Psychiatric Exam Psychiatric exam: Normal Affect, Normal Mood - Skin Skin Exam: Intact Discharge Plan - Discharge Medications Prescriptions: Aspirin/Dipyridamole [Aggrenox 25-200 mg] 1 ea PO BID #60 cap Atorvastatin [Lipitor] 40 mg PO HS #30 tab Enalapril Maleate [Vasotec] 20 mg PO DAILY #30 tab - Follow Up Plan Condition: FAIR Disposition: HOME/ ROUTINE Instructions: Hemodialysis (DC) Additional Instructions: -Follow up with PMD Dr Layne in 7 days -Follow up with Neurologist Dr Schreiber in 2 weeks. Recommended sleep study outpatient -Follow up with Safety Instructor Dr Perez in 2 weeks -Follow up Assurance Specialist Dr Krause in 2 weeks New meds for home Aggrenox 25-200 1 tab BID RX eprescribed -Increased Lipitor 40 mg 1 tab po daily Rx eprescribed -Increased Enalapril 20mg 1 tab po daily Rx eprescribed Referrals: Markel Layne MD [Family Provider] - Kofi Schreiber MD [Medical Doctor] - Parveen Martin MD [Medical Doctor] -
[2017-11-24 11:43] VITALS: O2SAT 99
== END 2017-11-23 14:46 | disposition home or self-care (01) | DRG 91 ==
LOC: H.ER 06:55 → H.ERHOLD 09:37 → H.TEL 15:03
PROVIDERS: ADMIT Family Medicine; ATTEND Family Medicine
PROC: 5A1D70Z Performance of Urinary Filtration, Intermittent, Less than 6 Hours Per Day (ICD-10-PCS; principal; 2017-11-23)
DX: R20.2 Paresthesia of skin (principal); N18.6 End stage renal disease; I13.2 Hypertensive heart and chronic kidney disease with heart failure and with stage 5 chronic kidney disease, or end stage renal disease; E11.22 Type 2 diabetes mellitus with diabetic chronic kidney disease; E11.42 Type 2 diabetes mellitus with diabetic polyneuropathy; I69.351 Hemiplegia and hemiparesis following cerebral infarction affecting right dominant side; I50.20 Unspecified systolic (congestive) heart failure; N25.81 Secondary hyperparathyroidism of renal origin; E11.51 Type 2 diabetes mellitus with diabetic peripheral angiopathy without gangrene; E83.39 Other disorders of phosphorus metabolism; I25.10 Atherosclerotic heart disease of native coronary artery without angina pectoris; D64.9 Anemia, unspecified; Z79.899 Other long term (current) drug therapy; Z95.1 Presence of aortocoronary bypass graft; Z95.5 Presence of coronary angioplasty implant and graft; Z99.2 Dependence on renal dialysis; M19.90 Unspecified osteoarthritis, unspecified site; H53.9 Unspecified visual disturbance

== ENCOUNTER 2017-12-06 14:05 | Emergency (ER) | payer MEDICARE ==
[2017-12-06 14:06] VITALS: BMI 19.8
[2017-12-06 14:47] VITALS: BP 145/67; PULSE 86; RESP 17; TEMP 97.9; O2SAT 100
--- NOTE | 2017-12-06 16:52 | ED PDOC ---
Lower Extremity Pain/Injury Time Seen by Provider: 12/06/17 16:07 Chief Complaint (Nursing): Lower Extremity Problem/Injury Chief Complaint (Provider): Lower Extremity Problem/Injury History Per: Patient History/Exam Limitations: no limitations Onset/Duration Of Symptoms: Days (x4 days) Current Symptoms Are (Timing): Still Present Additional Complaint(s): 77 y/o female with past medical history of diabetes presents to the ED for evaluation of right foot wound since 12/03/17. Patient reports diabetic neuropathy and numbness of the foot. Daughter reports taking care of the foot at home but is concerned that it might be infected so came to the ED for further evaluation. No active bleeding from the foot. Denies fever, chills, injuries or any further medical complaints. PMD: Markel Layne MD Past Medical History Reviewed: Historical Data, Nursing Documentation, Vital Signs Vital Signs: Last Vital Signs Temp 97.9 F 12/06/17 14:42 Pulse 86 12/06/17 14:42 Resp 17 12/06/17 14:42 BP 145/67 12/06/17 14:42 Pulse Ox 100 12/06/17 14:42 - Medical History PMH: Arthritis, CAD, CHF, CVA (3x; memory issues remain post stroke), Diabetes, HTN, End Stage Renal Disease (Three times a week M/W/), Chronic Kidney Disease (ESRD) Denies: HIV - Surgical History Surgical History: CABG (x4) Other surgeries: Toe amputation, Dialysis catheter inserted in right upper chest - Family History Family History: States: Unknown Family Hx - Social History Current smoker - smoking cessation education provided: No Alcohol: None Drugs: Denies - Home Medications Home Medications: Ambulatory Orders Medication Instructions Recorded Sevelamer Carbonate [Renvela] 800 mg PO TID #0 tab 06/22/16 Insulin Human Isophane (NPH) 5 - 7 unit SC HS 05/14/17 [Novolin N] Carvedilol [Coreg] 6.25 mg PO Q12H 11/22/17 Clopidogrel [Plavix] 75 mg PO HS 11/22/17 Aspirin/Dipyridamole [Aggrenox 1 ea PO BID #60 cap 11/23/17 25-200 mg] Atorvastatin [Lipitor] 40 mg PO HS #30 tab 11/23/17 Cinacalcet [Sensipar] 30 mg PO QPM tab 11/23/17 Enalapril Maleate [Vasotec] 20 mg PO DAILY #30 tab 11/23/17 - Allergies Allergies/Adverse Reactions: Allergies Allergy/AdvReac Type Severity Reaction Status Date / Time No Known Allergies Allergy Verified 12/06/17 14:42 Review of Systems ROS Statement: Except As Marked, All Systems Reviewed And Found Negative (As per HPI, otherwise negative) Constitutional: Negative for: Fever, Chills Skin: Positive for: Other (Right foot wound) Physical Exam - Reviewed Nursing Documentation Reviewed: Yes Vital Signs Reviewed: Yes - Physical Exam Appears: Positive for: Non-toxic, No Acute Distress Head Exam: Positive for: ATRAUMATIC, NORMOCEPHALIC Skin: Positive for: Warm, Dry Extremity: Positive for: Other (RIGHT foot: mild erythema and early skin breakdown 4th web space, abrasion to 5th toe tip, dried wound planter midfoot.) - ECG O2 Sat by Pulse Oximetry: 100 (RA) Pulse Ox Interpretation: Normal Medical Decision Making Medical Decision Making: Time: 16:30 Initial Impression: Diabetic foot wound Plan: Glucose, blood POC Right foot x-ray Evaluated by Podiatry. Pt stable for DC. Scribe Attestation: Documented by Latrell Lunsford acting as a scribe for Joy Loya MD. Scribe Attestation: All medical record entries made by the Scribe were at my direction and personally dictated by me. I have reviewed the chart and agree that the record accurately reflects my personal performance of the history, physical exam, medical decision making, and the department course for this patient. I have also personally directed, reviewed, and agree with the discharge instructions and disposition. Disposition - Clinical Impression Clinical Impression: Unspecified open wound, right foot, initial encounter Counseled Patient/Family Regarding: Studies Performed, Diagnosis - Disposition Referrals: Podiatry Clinic [Outside] - 12/08/17 [facility] [Outside] Disposition: Routine/Home Disposition Time: 18:25 Condition: STABLE Instructions: Diabetic Foot Care (ED)
--- NOTE | 2017-12-06 18:25 | RAD ---
PROCEDURE: Right Foot Radiographs. HISTORY: foot wound 4th/5th digits and plantar COMPARISON: 06/03/2010. FINDINGS: BONES: Stable findings related to resection of the 1st digit. Large plantar calcaneal spur. Progressive osteopenia compared to the prior study. JOINTS: Contracture, hammertoe deformities noted. SOFT TISSUES: Soft tissue swelling primarily laterally and along the plantar aspect of the foot. OTHER FINDINGS: None. IMPRESSION: Soft tissue swelling without acute articular or osseous abnormality.
--- NOTE | 2017-12-06 18:55 | CP.PCM.CON ---
History of Present Illness - History of Present Illness History of Present Illness: 77 year old diabetic female seen in ED with her daughter complaining of a small abrasion to her right fourth digit. Patient does not know how she got the abrasion but has a history of diabetic foot infection with subsequent amputation so she and her daughter thought it would be best to come to the ED for evaluation of the wound. Patient denies any pain to the area, drainage, malodor, purulence or other clinical signs of infection. Patient denies any further pedal complaints at this time. She denies N/V/F/C/CP/SOB/D/posterior calf pain. Review of Systems - Review of Systems Review of Systems: ROS as per HPI Past Patient History - Infectious Disease Hx of Infectious Diseases: None - Past Medical History & Family History Past Medical History?: Yes - Past Social History Alcohol: None Drugs: Denies - CARDIAC Hx Congestive Heart Failure: Yes Hx Hypertension: Yes - PULMONARY Hx Respiratory Disorders: No - NEUROLOGICAL Hx Neurological Disorder: Yes (CVA x 3) - HEENT Hx HEENT Problems: Yes - RENAL Hx Chronic Kidney Disease: Yes (ESRD) - ENDOCRINE/METABOLIC Hx Endocrine Disorders: Yes (DM type 2) Hx Diabetes Mellitus Type 2: Yes - HEMATOLOGICAL/ONCOLOGICAL Hx Human Immunodeficiency Virus (HIV): No - INTEGUMENTARY Hx Dermatological Problems: No - MUSCULOSKELETAL/RHEUMATOLOGICAL Hx Arthritis: Yes - GASTROINTESTINAL Hx Gastrointestinal Disorders: No - GENITOURINARY/GYNECOLOGICAL Hx Genitourinary Disorders: No - PSYCHIATRIC Hx Psychophysiologic Disorder: No Hx Substance Use: No - SURGICAL HISTORY Hx Coronary Artery Bypass Graft: Yes (x4) - ANESTHESIA Hx Anesthesia: Yes Hx Anesthesia Reactions: No Hx Malignant Hyperthermia: No Meds Allergies/Adverse Reactions: Allergies Allergy/AdvReac Type Severity Reaction Status Date / Time No Known Allergies Allergy Verified 12/06/17 14:42 Physical Exam - Constitutional Appears: Well, Non-toxic, No Acute Distress - Extremities Exam Additional comments: RLE focused exam: Vasc: DP/PT pulses faintly palpable 1/4 b/l. Skin temperature warm to warm from proximal to distal. CFT > 3 seconds to all digits b/l. No edema noted b/l Neuro: Epicritic and protective sensation grossly intact b/l Derm: Extremely superficial, scabbed over abrasion measuring roughly 0.1 cm x 0.1 cm seen on dorsal aspect of right fourth digit. No clinical signs of infection present including erythema, purulent drainage, malodor, fluctuance, or probe to bone. B/l diffuse xerosis noted. Otherwise no open lesions, wounds, maceration, abnormal pigmentation or abnormal growths noted b/l. Nails 1-10 noted to be elongated, dystrophic and thickened. MSK: No POP to abrasion site. Hx of hallux amputation noted to right foot - Neurological Exam Neurological exam: Alert, Oriented x3 - Psychiatric Exam Psychiatric exam: Normal Affect, Normal Mood Results - Vital Signs Recent Vital Signs: Last Vital Signs Temp 97.9 F 12/06/17 14:42 Pulse 86 12/06/17 14:42 Resp 17 12/06/17 14:42 BP 145/67 12/06/17 14:42 Pulse Ox 100 12/06/17 18:25 - Labs Labs: Laboratory Results - last 24 hr 12/06/17 16:46 POC Glucose (mg/dL) 167 H Assessment & Plan - Assessment and Plan (Free Text) Assessment: 77 year old diabetic female seen in ED with her daughter complaining of a small abrasion to her right fourth digit uninfected Plan: Patient seen and evaluated in ED Plan discussed with attending Dr. Trivdei Afebrile, absent leukocytosis R foot xray reviewed: Diffuse calcification of pedal vasculature appreciated. No signs of cortical erosion or inconsistencies consistent with OM noted Patient advised to follow up in podiatry clinic for debridement of nails and regular diabetic foot care - Date & Time Date: 12/06/17 Time: 19:01
== END 2017-12-06 18:45 | disposition home or self-care (01) ==
LOC: H.ER 14:05
DX: S93.301A Unspecified subluxation of right foot, initial encounter (principal); W22.8XXA Striking against or struck by other objects, initial encounter; Y92.89 Other specified places as the place of occurrence of the external cause; E11.9 Type 2 diabetes mellitus without complications; Z86.73 Personal history of transient ischemic attack (TIA), and cerebral infarction without residual deficits; N18.6 End stage renal disease

== ENCOUNTER 2018-04-11 07:18 | Observation (INO) | payer MEDICARE ==
[2018-04-11 07:18] VITALS: BMI 19.8
--- NOTE | 2018-04-11 07:46 | ED PDOC ---
HPI: General Adult Time Seen by Provider: 04/11/18 07:31 Chief Complaint (Nursing): GI Problem History Per: Patient History/Exam Limitations: no limitations Onset/Duration Of Symptoms: Days (x 3) Recently: Treated By A Physician (Last Wednesday) Additional Complaint(s): 77-year-old female, with a past medical history of diabetes, hypertension, s/p CABG and stent placement and end stage renal dialysis-dependent, presents to ED complaining of non-productive cough associated with malaise x 3 days. Seen by PMD on Wednesday and prescribed Zithromax with no improvement. Denies chest pain or shortness of breath. Reports decreased appetite, but no vomiting. Reports last dialysis on Wednesday. PMD: Markel Layne Past Medical History Reviewed: Historical Data, Nursing Documentation, Vital Signs Vital Signs: Last Vital Signs Temp 97.5 F L 04/11/18 07:30 Pulse 70 04/11/18 09:07 Resp 16 04/11/18 07:30 BP 126/76 04/11/18 07:30 Pulse Ox 100 04/11/18 09:07 - Medical History PMH: Arthritis, CAD, CHF, CVA (3x; memory issues remain post stroke), Diabetes, HTN, End Stage Renal Disease (Three times a week M/W/F), Chronic Kidney Disease (ESRD) Denies: HIV - Surgical History Surgical History: CABG (x4) Other surgeries: s/p CABG and stent placement - Family History Family History: States: Unknown Family Hx - Home Medications Home Medications: Ambulatory Orders Medication Instructions Recorded Insulin Human Isophane (NPH) 5 - 7 unit SC HS 05/14/17 [Novolin N] Carvedilol [Coreg] 6.25 mg PO Q12H 11/22/17 Clopidogrel [Plavix] 75 mg PO HS 11/22/17 Aspirin [Adult Low Dose Aspirin EC] 81 mg PO DAILY 04/11/18 Atorvastatin [Lipitor] 10 mg PO HS 04/11/18 Cinacalcet [Sensipar] 60 mg PO MWF 04/11/18 Enalapril Maleate [Vasotec] 10 mg PO DAILY 04/11/18 - Allergies Allergies/Adverse Reactions: Allergies Allergy/AdvReac Type Severity Reaction Status Date / Time No Known Allergies Allergy Verified 12/06/17 14:42 Review of Systems ROS Statement: Except As Marked, All Systems Reviewed And Found Negative Constitutional: Positive for: Malaise Cardiovascular: Negative for: Chest Pain Respiratory: Positive for: Cough (non-productive). Negative for: Shortness of Breath Gastrointestinal: Positive for: Other (decreased appetite). Negative for: Vomiting Physical Exam - Reviewed Nursing Documentation Reviewed: Yes Vital Signs Reviewed: Yes - Physical Exam Cardiovascular/Chest: Positive for: Regular Rate, Rhythm Respiratory: Positive for: Rhonchi (Left base). Negative for: Wheezing, Respiratory Distress Gastrointestinal/Abdominal: Positive for: Normal Exam, Soft. Negative for: Tenderness Extremity: Negative for: Calf Tenderness, Swelling Neurologic/Psych: Positive for: Alert, Oriented (x 3) - Laboratory Results Result Diagrams: 04/11/18 08:00 04/11/18 08:00 - ECG ECG: Positive for: Interpreted By Me, Viewed By Me ECG Rhythm: Positive for: Sinus Rhythm (Normal). Negative for: ST/T Changes Rate: 70 O2 Sat by Pulse Oximetry: 100 (RA) Pulse Ox Interpretation: Normal Medical Decision Making Medical Decision Making: Time: 07:40 Plan: - VBG Shock Panel - EKG - CMP - ED Urine Dipstick - CBC (with differentials) - CXR - Blood Culture Time: 08:36 Influenza a/b (-) influenza a/b Scribe Attestation: Documented by Paddy Do, acting as a scribe for Pramod Tobar MD. Provider Scribe Attestation: All medical record entries made by the Scribe were at my direction and personally dictated by me. I have reviewed the chart and agree that the record accurately reflects my personal performance of the history, physical exam, medical decision making, and the department course for this patient. I have also personally directed, reviewed, and agree with the discharge instructions and disposition. Disposition - Clinical Impression Clinical Impression: End stage kidney disease, Bronchitis - Patient ED Disposition Is Patient to be Admitted: Yes - Disposition Disposition Time: 10:04 Condition: FAIR Forms: [facility] (Welsh) - Pt Status Changed To: Hospital Disposition Of: Observation - POA Present On Arrival: None
[2018-04-11 08:08] LABS: VENOUS BLOOD GAS BASE EXCESS -3.2 mmol/L (0.0-2.0); VENOUS BLOOD GAS PCO2 43 mmHg (40-60); VENOUS BLOOD GAS PO2 40 mm/Hg (30-55); VENOUS BLOOD PH 7.33 (7.32-7.43)
[2018-04-11 08:14] LABS: BASO # 0.1 K/uL (0.0-0.2); BASO % 0.9 % (0.0-2.0); EOS # 0.4 K/uL (0.0-0.7); EOS % 5.6 % (0.0-4.0); HEMOGLOBIN 11.9 g/dL (12.0-16.0); LYMPH % 16.7 % (20.0-40.0); MEAN CORPUSCULAR HEMOGLOBIN 30.1 pg (27.0-31.0); MEAN CORPUSCULAR HGB CONC 33.8 g/dL (33.0-37.0); MEAN PLATELET VOLUME 9.1 fl (7.2-11.7); MONO # 0.4 K/uL (0.0-0.8); NEUT # 4.4 K/uL (1.8-7.0); NEUT % 69.8 % (50.0-75.0); NRBC % 0.1 % (0.0-0.0); RBC 3.96 Mil/uL (3.80-5.20); RED CELL DISTRIBUTION WIDTH 15.3 % (11.5-14.5); WHITE BLOOD COUNT 6.2 K/uL (4.8-10.8)
[2018-04-11 08:35] LABS: ALB/GLOB RATIO 1.2 (1.0-2.1); ALBUMIN 3.6 g/dL (3.5-5.0); CALCIUM 9.8 mg/dL (8.4-10.2)
--- NOTE | 2018-04-11 09:32 | RAD ---
HISTORY: cough COMPARISON: Chest radiograph 11/22/2017 peer TECHNIQUE: Chest PA and lateral FINDINGS: LUNGS: No active pulmonary disease. PLEURA: No significant pleural effusion identified. No pneumothorax apparent. CARDIOVASCULAR: Stable cardiomegaly with post CABG changes reiterated. No pulmonary vascular congestion. Right permanent central venous dialysis catheter unchanged in position. Numerous vascular wall stents again seen at the bilateral upper extremities and left subclavian/axillary regions. OSSEOUS STRUCTURES: No significant abnormalities. VISUALIZED UPPER ABDOMEN: Normal. OTHER FINDINGS: None. IMPRESSION: No acute pulmonary disease identified. Stable cardiomegaly. No pulmonary vascular congestion.
[2018-04-11] MEDS ORDERED: HYDROmorphone 0.5 mg/0.5 ml ISec ONE (11:12)
--- NOTE | 2018-04-11 14:59 | CP.PCM.HP ---
History of Present Illness - History of Present Illness History of Present Illness: 76 yo F w PMHx of HTN, CVA(last strke 05/2017), CABG x 4 in 2011, cardiac stents x2, DM, and ESRD (HD on MWF) admitted to [facility] for evaluation and treatment of 5 days history of non-productive cough associated with malaise and weakness. Patient is accompanied by her oldest daughter, most history gathered from her daughter. As per patient, she started having cough and runny nose on Wednesday w /o any fever, chills, nausea or vomiting. Patient went to see her PMD on who started her on Zithromax, patient reports no improvement. Patient states she started having soft diarrhea and generalized weakness since yesterday which made her to come to the hospital. Patient denies any SOB, chest pain, headaches, dizziness, f/c/n/v, abdominal pain, dysuria or blurred vision. Patient was supposed to get her HD today. Patient denies any sick contact or recent travel. PMD: Dr Layne PMHx: HTN, CVA, cardiac stents x2, DM, CABG x 4 in 2011, and ESRD (HD on MWF), DM, HTN PSHx: CABG x4, Stents, Hip replacement, right big toe amputation, Open heart surgery Allg: NKDA Home Meds: Aspirin, Plavix, Enalapril, Coreg, Lipitor, Cinacalcet, Sevelamir, Insulin Novolin 5 unit before breakfast, 5 lunch, 7 unit bedtime FH: Parents decreased of old age, SH: Denies any alcohol, smoking or illicit drug use Next of Kin: Kilo Hu, oldest daughter, Phone # [phone] ED Course: VBG: po2 40, ph 7.33, pco2 43, Hco3 21.9 EKG:Normal sinus rhythm. Septal infarct, age undetermined CMP: significant for BUN/Cr: 34/5.2, glucose 209 CBC: h/h 11.9/35.3 CXR: no acute pulmonary disease, no congestion Bcx:Follow up S/p Ceftriaxone Present on Admission - Present on Admission Any Indicators Present on Admission: No History of DVT/PE: No History of Uncontrolled Diabetes: No Urinary Catheter: No Decubitus Ulcer Present: No Past Patient History - Infectious Disease Hx of Infectious Diseases: None - Past Medical History & Family History Past Medical History?: Yes - Past Social History Smoking Status: Never Smoked - CARDIAC Hx Congestive Heart Failure: Yes Hx Hypertension: Yes - PULMONARY Hx Respiratory Disorders: No - NEUROLOGICAL Hx Neurological Disorder: Yes (CVA x 3) - HEENT Hx HEENT Problems: Yes - RENAL Hx Chronic Kidney Disease: Yes (ESRD) - ENDOCRINE/METABOLIC Hx Endocrine Disorders: Yes (DM type 2) Hx Diabetes Mellitus Type 2: Yes - HEMATOLOGICAL/ONCOLOGICAL Hx Human Immunodeficiency Virus (HIV): No - INTEGUMENTARY Hx Dermatological Problems: No - MUSCULOSKELETAL/RHEUMATOLOGICAL Hx Arthritis: Yes - GASTROINTESTINAL Hx Gastrointestinal Disorders: No - GENITOURINARY/GYNECOLOGICAL Hx Genitourinary Disorders: No - PSYCHIATRIC Hx Psychophysiologic Disorder: No Hx Substance Use: No - SURGICAL HISTORY Hx Coronary Artery Bypass Graft: Yes (x4) - ANESTHESIA Hx Anesthesia: Yes Hx Anesthesia Reactions: No Hx Malignant Hyperthermia: No Meds Allergies/Adverse Reactions: Allergies Allergy/AdvReac Type Severity Reaction Status Date / Time No Known Allergies Allergy Verified 12/06/17 14:42 Physical Exam - Constitutional Appears: No Acute Distress - Head Exam Head Exam: NORMAL INSPECTION - Eye Exam Eye Exam: EOMI, Normal appearance - ENT Exam ENT Exam: Mucous Membranes Moist - Neck Exam Additional comments: right IJ HD cath placed - Respiratory Exam Respiratory Exam: Clear to Auscultation Bilateral, NORMAL BREATHING PATTERN - Cardiovascular Exam Cardiovascular Exam: REGULAR RHYTHM Additional comments: Open heart surgery incision appreciated - GI/Abdominal Exam GI & Abdominal Exam: Normal Bowel Sounds, Soft. absent: Distended, Mass, Organomegaly, Tenderness - Extremities Exam Additional comments: Right big toe amputated No necrosis or ulcers or wound - Back Exam Back exam: NORMAL INSPECTION. absent: CVA tenderness (L), CVA tenderness (R) - Neurological Exam Neurological exam: Alert, CN II-XII Intact, Oriented x3 - Psychiatric Exam Psychiatric exam: Normal Affect - Skin Skin Exam: Dry, Intact, Normal Color, Petechiae, Warm Results - Vital Signs Recent Vital Signs: Last Vital Signs Temp 98.4 F 04/11/18 12:07 Pulse 70 04/11/18 12:07 Resp 20 04/11/18 12:07 BP 174/72 H 04/11/18 12:07 Pulse Ox 93 L 04/11/18 12:07 - Labs Result Diagrams: 04/11/18 08:00 06/11/18 08:00 Labs: Laboratory Results - last 24 hr 04/11/18 04/11/18 04/11/18 07:40 08:00 08:00 WBC 6.2 RBC 3.96 Hgb 11.9 L Hct 35.3 MCV 89.0 MCH 30.1 MCHC 33.8 RDW 15.3 H Plt Count 167 MPV 9.1 Neut % (Auto) 69.8 Lymph % (Auto) 16.7 L [place] % (Auto) 7.0 Eos % (Auto) 5.6 H Baso % (Auto) 0.9 Neut # (Auto) 4.4 Lymph # (Auto) 1.0 [place] # (Auto) 0.4 Eos # (Auto) 0.4 Baso # (Auto) 0.1 pO2 40 VBG pH 7.33 VBG pCO2 43 VBG HCO3 21.9 VBG Total CO2 24.0 VBG O2 Sat (Calc) 77.5 H VBG Base Excess -3.2 L VBG Potassium 4.3 Sodium 130.0 L 132 Chloride 97.0 L 97 L Glucose 227 H Lactate 1.1 FiO2 21.0 Potassium 4.3 Carbon Dioxide 22 Anion Gap 17 BUN 34 H Creatinine 5.2 H Est GFR ( Amer) 10 Est GFR (Non-Af Amer) 8 POC Glucose (mg/dL) Random Glucose 209 H Calcium 9.8 Total Bilirubin 0.9 AST 22 ALT 25 Alkaline Phosphatase 96 Total Protein 6.6 Albumin 3.6 Globulin 3.0 Albumin/Globulin Ratio 1.2 Venous Blood Potassium 4.3 Influenza Typ A,B (EIA) 04/11/18 04/11/18 08:45 12:37 WBC RBC Hgb Hct MCV MCH MCHC RDW Plt Count MPV Neut % (Auto) Lymph % (Auto) [place] % (Auto) Eos % (Auto) Baso % (Auto) Neut # (Auto) Lymph # (Auto) [place] # (Auto) Eos # (Auto) Baso # (Auto) pO2 VBG pH VBG pCO2 VBG HCO3 VBG Total CO2 VBG O2 Sat (Calc) VBG Base Excess VBG Potassium Sodium Chloride Glucose Lactate FiO2 Potassium Carbon Dioxide Anion Gap BUN Creatinine Est GFR ( Amer) Est GFR (Non-Af Amer) POC Glucose (mg/dL) 160 H Random Glucose Calcium Total Bilirubin AST ALT Alkaline Phosphatase Total Protein Albumin Globulin Albumin/Globulin Ratio Venous Blood Potassium Influenza Typ A,B (EIA) Negative for flu a/b Assessment & Plan - Assessment and Plan (Free Text) Assessment: 76 yo F w PMHx of HTN, CVA(last strke 05/2017), CABG x 4 in 2011, cardiac stents x2, DM, and ESRD (HD on MWF) admitted to [facility] for evaluation and treatment of 5 days history of non-productive cough associated with malaise and weakness. CAP -Afebrile -No WBC -Cough -CXR: No acute pulmonary disease -S/p Ceftriaxone -START IV Azithromycin and IV Ceftriaxone day #1 (04/11/18) -Tylenol PRN for fever URI -Acute -Cough and mild runny nose -Supportive management -Will follow labs -Guaifenesin 100mg PO Q6H -Tylenol PRN for fever ESRD -Bun/Cr 34/5.2 -Had dialysis today -Possible HD today, will call the clinic -Nephro, Dr. Krause, consult DM -uncontrolled -hgba1c 8.9 (11/18) -glucose on admission 160 mg/dl -Verify and Continue insulin as home meds HTN -c/w Carvedidol 6.25 mg PO BID -c/w enalapril 10mg daily CAD -CABG x 4 in 2011, cardiac stents x2, -lipid profile from 11/18 reviewed -C/w Lipitor 40 mg daily -C/w Asprin Systolic CHF -controlled -last echo 05/18/2016 -LV systolic function severely impaired. EF15-20 % History of CVA and Cardiac Stents -no residual hemiparesis as per pt and family -C/w Asprin and Plavix DVT PPX -Heparin 5000 SC Q8H
[2018-04-11] MEDS ORDERED: guaiFENesin 100 mg/5 ml Syrup UD PO PRN (16:43)
[2018-04-11] MEDS: Azithromycin 500 MG in Sodium Chloride 0.9% 250 ML IVPB SCH (19:12)
[2018-04-11] MEDS: Insulin Lispro (humaLOG) 100 Units/ml Inj SC SCH (22:50)
[2018-04-11 23:26] VITALS: RESP 18; O2SAT 97
[2018-04-12 06:24] LABS: HEMOGLOBIN 11.2 g/dL (12.0-16.0); MEAN CELL VOLUME 88.1 fl (81.0-99.0); MEAN CORPUSCULAR HEMOGLOBIN 30.4 pg (27.0-31.0); MEAN CORPUSCULAR HGB CONC 34.5 g/dL (33.0-37.0); RBC 3.69 Mil/uL (3.80-5.20); RED CELL DISTRIBUTION WIDTH 15.1 % (11.5-14.5)
[2018-04-12 06:41] LABS: ALBUMIN 3.1 g/dL (3.5-5.0); CALCIUM 9.3 mg/dL (8.4-10.2)
[2018-04-12] MEDS: Insulin Lispro (humaLOG) 100 Units/ml Inj SC SCH ×3 (06:44→13:10)
[2018-04-12 08:02] VITALS: TEMP 97.9
--- NOTE | 2018-04-12 09:32 | CARD ---
APPROVED REPORT EKG Measurement Heart [id number] <Conclusion> Normal sinus rhythm Septal infarct, age undetermined Abnormal ECG
[2018-04-12] MEDS: Azithromycin 500 MG in Sodium Chloride 0.9% 250 ML IVPB SCH (09:47)
--- NOTE | 2018-04-12 10:08 | CP.PCM.DIS ---
Provider - Provider Date of Admission: 04/11/18 10:01 Attending physician: Julio Ponce MD Primary care physician: Dr. Ponce Consults: Dr. Krause, Nephrology Time Spent in preparation of Discharge (in minutes): 40 Diagnosis - Discharge Diagnosis (1) URI, acute Status: Acute (2) CAP (community acquired pneumonia) Status: Acute (3) ESRD (end stage renal disease) Status: Chronic Hospital Course - Lab Results Lab Results: Micro Results 04/11/18 08:00 Blood Blood Culture - Preliminary NO GROWTH AFTER 24 HOURS Most Recent Lab Values WBC 6.0 K/uL (4.8-10.8) 04/12/18 06:10 RBC 3.69 Mil/uL (3.80-5.20) L 04/12/18 06:10 Hgb 11.2 g/dL (12.0-16.0) L 04/12/18 06:10 Hct 32.6 % (34.0-47.0) L 04/12/18 06:10 MCV 88.1 fl (81.0-99.0) 04/12/18 06:10 MCH 30.4 pg (27.0-31.0) 04/12/18 06:10 MCHC 34.5 g/dL (33.0-37.0) 04/12/18 06:10 RDW 15.1 % (11.5-14.5) H 04/12/18 06:10 Plt Count 142 K/uL (130-400) 04/12/18 06:10 MPV 9.1 fl (7.2-11.7) 04/11/18 08:00 Neut % (Auto) 69.8 % (50.0-75.0) 04/11/18 08:00 Lymph % (Auto) 16.7 % (20.0-40.0) L 04/11/18 08:00 [place] % (Auto) 7.0 % (0.0-10.0) 04/11/18 08:00 Eos % (Auto) 5.6 % (0.0-4.0) H 04/11/18 08:00 Baso % (Auto) 0.9 % (0.0-2.0) 04/11/18 08:00 Neut # (Auto) 4.4 K/uL (1.8-7.0) 04/11/18 08:00 Lymph # (Auto) 1.0 K/uL (1.0-4.3) 04/11/18 08:00 [place] # (Auto) 0.4 K/uL (0.0-0.8) 04/11/18 08:00 Eos # (Auto) 0.4 K/uL (0.0-0.7) 04/11/18 08:00 Baso # (Auto) 0.1 K/uL (0.0-0.2) 04/11/18 08:00 pO2 40 mm/Hg (30-55) 04/11/18 07:40 VBG pH 7.33 (7.32-7.43) 04/11/18 07:40 VBG pCO2 43 mmHg (40-60) 04/11/18 07:40 VBG HCO3 21.9 mmol/L 04/11/18 07:40 VBG Total CO2 24.0 mmol/L (22-28) 04/11/18 07:40 VBG O2 Sat (Calc) 77.5 % (40-65) H 04/11/18 07:40 VBG Base Excess -3.2 mmol/L (0.0-2.0) L 04/11/18 07:40 VBG Potassium 4.3 mmol/L (3.6-5.2) 04/11/18 07:40 Sodium 130.0 mmol/L (132-148) L 04/11/18 07:40 Chloride 97.0 mmol/L (98-107) L 04/11/18 07:40 Glucose 227 mg/dL (65-105) H 04/11/18 07:40 Lactate 1.1 mmol/L (0.7-2.1) 04/11/18 07:40 FiO2 21.0 % 04/11/18 07:40 Sodium 134 mmol/l (132-148) 04/12/18 06:10 Potassium 3.3 MMOL/L (3.6-5.0) L 04/12/18 06:10 Chloride 96 mmol/L (98-107) L 04/12/18 06:10 Carbon Dioxide 29 mmol/L (22-30) 04/12/18 06:10 Anion Gap 12 (10-20) 04/12/18 06:10 BUN 12 mg/dl (7-17) 04/12/18 06:10 Creatinine 2.7 mg/dl (0.7-1.2) H 04/12/18 06:10 Est GFR ( Amer) 21 04/12/18 06:10 Est GFR (Non-Af Amer) 17 04/12/18 06:10 POC Glucose (mg/dL) 226 mg/dL (65-110) H 04/11/18 22:23 Random Glucose 121 mg/dL (65-105) H 04/12/18 06:10 Calcium 9.3 mg/dL (8.4-10.2) 04/12/18 06:10 Total Bilirubin 0.8 mg/dl (0.2-1.3) 04/12/18 06:10 AST 16 U/L (14-36) 04/12/18 06:10 ALT 23 U/L (9-52) 04/12/18 06:10 Alkaline Phosphatase 87 U/L (38-126) 04/12/18 06:10 Total Protein 6.1 G/DL (6.3-8.2) L 04/12/18 06:10 Albumin 3.1 g/dL (3.5-5.0) L 04/12/18 06:10 Globulin 3.0 gm/dL (2.2-3.9) 04/12/18 06:10 Albumin/Globulin Ratio 1.0 (1.0-2.1) 04/12/18 06:10 Venous Blood Potassium 4.3 mmol/L (3.6-5.2) 04/11/18 07:40 Influenza Typ A,B (EIA) Negative for flu a/b (NEGATIVE) 04/11/18 08:45 - Hospital Course Hospital Course: 76 yo F w PMHx of HTN, CVA(last strke 05/2017), CABG x 4 in 2011, cardiac stents x2, DM, and ESRD (HD on MWF) admitted to [facility] for evaluation and treatment of 5 days history of non-productive cough associated with malaise and weakness. On admission, EKG:Normal sinus rhythm. Septal infarct, age undetermined, CMP: significant for BUN/Cr: 34/5.2, glucose 209., CBC: h/h 11.9/35.3, CXR: no acute pulmonary disease, no congestion Patient was started on Guaifenesin, IV Azithromycin and Ceftriaxone. Patient was scheduled for HD and s/p HD, patient started feeling better in the morning. Patient was discharged home with Azitheromycin and instruction to follow up with Dr. Ponce. Patient agress with plan. Discharge Exam - Head Exam Head Exam: NORMAL INSPECTION - Eye Exam Eye Exam: Normal appearance - ENT Exam ENT Exam: Mucous Membranes Moist - Neck Exam Additional comments: right IJ HD cath placed - Respiratory Exam Respiratory Exam: Clear to PA & Lateral, NORMAL BREATHING PATTERN - Cardiovascular Exam Cardiovascular Exam: REGULAR RHYTHM - GI/Abdominal Exam GI & Abdominal Exam: Normal Bowel Sounds, Unremarkable - Extremities Exam Additional comments: UE b/l HD fistula - Back Exam Back exam: absent: CVA tenderness (L), CVA tenderness (R) - Neurological Exam Neurological exam: Alert, CN II-XII Intact, Oriented x3, Reflexes Normal - Psychiatric Exam Psychiatric exam: Normal Affect - Skin Skin Exam: Normal Color Discharge Plan - Discharge Medications Prescriptions: Azithromycin 250 mg PO DAILY #5 tablet - Follow Up Plan Condition: FAIR Disposition: HOME/ ROUTINE Instructions: Acute Bronchitis, Adult (DC), End Stage Kidney Disease (DC) Additional Instructions: follow up with primary MD, Dr. Ponce, in 2-3 days Referrals: Markel Layne MD [Family Provider] - Matt Krause MD [Staff Provider] -
[2018-04-12 11:10] VITALS: BP 174/77; PULSE 68
[2018-04-12 12:06] LABS: HEPATITIS B SURFACE AG Negative (NEGATIVE)
[2018-04-12 12:11] LABS: HEPATITIS B CORE AB NEGATIVE (NEGATIVE)
--- NOTE | 2018-04-12 12:31 | CP.PCM.CON ---
History of Present Illness - History of Present Illness History of Present Illness: This patient however is 77 years of age female known to me with end stage renal disease on maintenance hemodialysis 3 times a week Wednesday. She presented to the emergency room complaining of weakness tiredness and coughing without fever or chills for the past couple of days before she was admitted. Patient denied any significant chest pain except of the coughing and congestion that she was complaining . Also patient has a problem with the AV shunt she has multiple surgery to create AV shunt and many of them failed and she is still have no AV fistula or AV graft PMHx: HTN, CVA, cardiac stents x2, DM, CABG x 4 in 2012, and ESRD (HD on MWF), DM, HTN PSHx: CABG x4, Stents, Hip replacement, right big toe amputation, Open heart surgery Allg: NKDA Home Meds: Aspirin, Plavix, Enalapril, Coreg, Lipitor, Cinacalcet, Sevelamir, Insulin Novolin 5 unit before breakfast, 5 lunch, 7 unit bedtime FH: Parents decreased of old age, SH: Denies any alcohol, smoking or illicit drug use Next of Kin: Kilo Hu, oldest daughter, Phone # [phone] Review of Systems - Constitutional Constitutional: Anorexia. absent: Chills - EENT Nose/Mouth/Throat: absent: Epistaxis, Nasal Discharge - Cardiovascular Cardiovascular: Dyspnea on Exertion. absent: Chest Pain, Edema, Leg Edema, Orthopnea - Respiratory Respiratory: Cough, Chest Congestion. absent: Hemoptysis - Gastrointestinal Gastrointestinal: absent: Abdominal Pain, Coffee Ground Emesis - Genitourinary Genitourinary: absent: Nocturia - Integumentary Integumentary: As Per HPI - Neurological Neurological: absent: Abnormal Gait, Confusion, Numbness, Focal Weakness, Headaches - Psychiatric Psychiatric: Abnormal Sleep Pattern - Endocrine Endocrine: Fatigue - Hematologic/Lymphatic Hematologic: absent: Easy Bleeding Past Patient History - Infectious Disease Hx of Infectious Diseases: None - Past Medical History & Family History Past Medical History?: Yes - Past Social History Smoking Status: Never Smoked - CARDIAC Hx Congestive Heart Failure: Yes Hx Hypertension: Yes - PULMONARY Hx Respiratory Disorders: No - NEUROLOGICAL Hx Neurological Disorder: Yes (CVA x 3) - HEENT Hx HEENT Problems: Yes - RENAL Hx Chronic Kidney Disease: Yes (ESRD) - ENDOCRINE/METABOLIC Hx Endocrine Disorders: Yes (DM type 2) Hx Diabetes Mellitus Type 2: Yes - HEMATOLOGICAL/ONCOLOGICAL Hx Human Immunodeficiency Virus (HIV): No - INTEGUMENTARY Hx Dermatological Problems: No - MUSCULOSKELETAL/RHEUMATOLOGICAL Hx Arthritis: Yes - GASTROINTESTINAL Hx Gastrointestinal Disorders: No - GENITOURINARY/GYNECOLOGICAL Hx Genitourinary Disorders: No - PSYCHIATRIC Hx Psychophysiologic Disorder: No Hx Substance Use: No - SURGICAL HISTORY Hx Coronary Artery Bypass Graft: Yes (x4) - ANESTHESIA Hx Anesthesia: Yes Hx Anesthesia Reactions: No Hx Malignant Hyperthermia: No Meds Home Medications: Home Medication List Medication Instructions Recorded Confirmed Type Azithromycin 250 mg PO DAILY #5 tablet 04/12/18 Rx Allergies/Adverse Reactions: Allergies Allergy/AdvReac Type Severity Reaction Status Date / Time No Known Allergies Allergy Verified 12/06/17 14:42 - Medications Medications: Current Medications Acetaminophen (Tylenol 325mg Tab) 325 mg PO Q6 PRN PRN Reason: Fever >100.4 F Aspirin (Ecotrin) 81 mg PO DAILY [facility] Last Admin: 04/12/18 08:41 Dose: 81 mg Atorvastatin Calcium (Lipitor) 10 mg PO HS [facility] Last Admin: 04/11/18 22:39 Dose: 10 mg Carvedilol (Coreg) 6.25 mg PO Q12H [facility] Last Admin: 04/12/18 04:17 Dose: 6.25 mg Cinacalcet (Sensipar) 60 mg PO MWF [facility] Clopidogrel Bisulfate (Plavix) 75 mg PO HS [facility] Last Admin: 04/11/18 22:39 Dose: 75 mg Enalapril Maleate (Vasotec) 10 mg PO DAILY [facility] Last Admin: 04/12/18 08:42 Dose: 10 mg Guaifenesin (Robitussin) 100 mg PO Q6 PRN PRN Reason: Cough Heparin Sodium (Porcine) (Heparin) 5,000 units SC Q8 [facility] PRN Reason: Protocol Last Admin: 04/12/18 08:41 Dose: 5,000 units Azithromycin 500 mg/ Sodium (Chloride) 250 mls @ 250 mls/hr IVPB DAILY [facility] PRN Reason: Protocol Last Admin: 04/12/18 09:47 Dose: 250 mls/hr Ceftriaxone Sodium 1 gm/ (Sodium Chloride) 100 mls @ 100 mls/hr IVPB DAILY [facility] PRN Reason: Protocol Last Admin: 04/12/18 08:40 Dose: 100 mls/hr Insulin Human Lispro (Humalog) 0 units SC ACCU-CHECK GUILLAUME PRN Reason: Protocol Last Admin: 04/12/18 06:44 Dose: Not Given Physical Exam - Constitutional Appears: No Acute Distress - Eye Exam Eye Exam: Conjunctival injection - ENT Exam ENT Exam: Mucous Membranes Moist - Neck Exam Neck exam: Negative for: Lymphadenopathy - Respiratory Exam Respiratory Exam: NORMAL BREATHING PATTERN. absent: Chest Wall Tenderness, Rales - Cardiovascular Exam Cardiovascular Exam: REGULAR RHYTHM. absent: Gallop, JVD, Rubs - GI/Abdominal Exam GI & Abdominal Exam: Normal Bowel Sounds, Soft. absent: Guarding - Extremities Exam Extremities exam: Negative for: calf tenderness - Back Exam Back exam: absent: CVA tenderness (L), CVA tenderness (R) - Neurological Exam Neurological exam: Alert, Oriented x3 - Psychiatric Exam Psychiatric exam: Normal Affect Results - Vital Signs Recent Vital Signs: Last Vital Signs Temp 97.9 F 04/12/18 08:01 Pulse 68 04/12/18 11:09 Resp 18 04/12/18 08:01 BP 174/77 H 04/12/18 11:09 Pulse Ox 97 04/12/18 08:01 - Labs Result Diagrams: 04/12/18 06:10 04/12/18 06:10 Labs: Laboratory Results - last 24 hr 04/11/18 04/11/18 04/12/18 12:37 22:23 00:10 WBC RBC Hgb Hct MCV MCH MCHC RDW Plt Count Sodium Potassium Chloride Carbon Dioxide Anion Gap BUN Creatinine Est GFR ( Amer) Est GFR (Non-Af Amer) POC Glucose (mg/dL) 160 H 226 H Random Glucose Calcium Total Bilirubin AST ALT Alkaline Phosphatase Total Protein Albumin Globulin Albumin/Globulin Ratio Hep Bs Antigen Negative Hep Bs Antibody Hep B Core IgM Ab Negative 04/12/18 04/12/18 04/12/18 00:10 05:15 06:10 WBC 6.0 RBC 3.69 L Hgb 11.2 L Hct 32.6 L MCV 88.1 MCH 30.4 MCHC 34.5 RDW 15.1 H Plt Count 142 Sodium Potassium Chloride Carbon Dioxide Anion Gap BUN Creatinine Est GFR ( Amer) Est GFR (Non-Af Amer) POC Glucose (mg/dL) 107 Random Glucose Calcium Total Bilirubin AST ALT Alkaline Phosphatase Total Protein Albumin Globulin Albumin/Globulin Ratio Hep Bs Antigen Hep Bs Antibody Positive Hep B Core IgM Ab 04/12/18 04/12/18 06:10 10:53 WBC RBC Hgb Hct MCV MCH MCHC RDW Plt Count Sodium 134 Potassium 3.3 L Chloride 96 L Carbon Dioxide 29 Anion Gap 12 BUN 12 Creatinine 2.7 H Est GFR ( Amer) 21 Est GFR (Non-Af Amer) 17 POC Glucose (mg/dL) 165 H Random Glucose 121 H Calcium 9.3 Total Bilirubin 0.8 AST 16 ALT 23 Alkaline Phosphatase 87 Total Protein 6.1 L Albumin 3.1 L Globulin 3.0 Albumin/Globulin Ratio 1.0 Hep Bs Antigen Hep Bs Antibody Hep B Core IgM Ab Assessment & Plan (1) Bronchitis Status: Acute (2) End stage kidney disease Assessment and Plan: Patient with end stage renal disease admitted with cough what appeared to be acute bronchitis and perhaps upper respiratory tract infection. She is being treated empirically with IV antibiotics. Patient was given dialysis last night because her dialysis time Wednesday. And she tolerated okay without any complication. #2 patient has secondary hyperparathyroidism and she is receiving Sensipar. #3 hyperphosphatemia patient on phosphorus binders. #4 history of coronary artery disease with bypass and cardiac stenting. #5 diabetes mellitus which is not well controlled with high hemoglobin A1c patient need better glycemic control. Status: Chronic (3) CVA (cerebral vascular accident) Status: Acute
[2018-04-12] MEDS ORDERED: Sevelamer Carb 0.8 gm/Packet PO SCH (17:00)
== END 2018-04-12 13:40 | disposition home or self-care (01) ==
LOC: H.ER 07:18 → H.ERHOLD 10:01 → H.MEDSURG1 12:43
PROVIDERS: ADMIT Family Medicine; ATTEND Family Medicine
DX: J06.9 Acute upper respiratory infection, unspecified (principal); I13.2 Hypertensive heart and chronic kidney disease with heart failure and with stage 5 chronic kidney disease, or end stage renal disease; N18.6 End stage renal disease; I50.22 Chronic systolic (congestive) heart failure; N25.81 Secondary hyperparathyroidism of renal origin; I25.10 Atherosclerotic heart disease of native coronary artery without angina pectoris; Z95.1 Presence of aortocoronary bypass graft; Z95.5 Presence of coronary angioplasty implant and graft; Z89.411 Acquired absence of right great toe; Z96.649 Presence of unspecified artificial hip joint; Z99.2 Dependence on renal dialysis; E11.22 Type 2 diabetes mellitus with diabetic chronic kidney disease; E11.65 Type 2 diabetes mellitus with hyperglycemia; E83.39 Other disorders of phosphorus metabolism; Z86.73 Personal history of transient ischemic attack (TIA), and cerebral infarction without residual deficits; J18.9 Pneumonia, unspecified organism; M19.90 Unspecified osteoarthritis, unspecified site
CPT/HCPCS: 36415; 71046; 80053; 82803; 82948; 85025; 85027; 86705; 86706; 87040; 87340; 87804; 93005; 96365; 99285; G0378; J0456; J0696; J1644; J7050

== ENCOUNTER 2018-04-13 07:19 | Inpatient (IN) | payer MEDICARE ==
[2018-04-13 07:39] VITALS: BMI 18.3
[2018-04-13] MEDS ORDERED: Albuterol-Ipratrop 3 mg / 0.5 (3 ml) UD INH STA (07:41)
[2018-04-13] MEDS ORDERED: Sodium Chloride 0.9% 250 ML IV SCH (07:45)
--- NOTE | 2018-04-13 08:17 | ED PDOC ---
HPI: SOB/CHF/COPD Time Seen by Provider: 04/13/18 07:27 Chief Complaint (Nursing): Shortness Of Breath Chief Complaint (Provider): Shortness of breath History Per: Patient History/Exam Limitations: no limitations Onset/Duration Of Symptoms: Days (x1 day) Current Symptoms Are (Timing): Still Present Associated Symptoms: Productive Cough, Dizziness. denies: Chest Pain, Bloody Cough, Leg/Calf Pain, Ankle/Leg Swelling Recently: Treated By A Physician Additional Complaint(s): Una Boateng is a 77 year old female, with a past medical history of diabetes, HTN, end stage renal disease and CVA, who presents to the emergency department complaining of cough, shortness of breath, dizziness and generalized weakness onset since yesterday. Patient reports she was seen on Wednesday for her cough and congestion, she was diagnosed with bronchitis and released yesterday with prescription for Zithromax after 1 day of admission. She is currently on dialysis on Wednesday, Wednesday and Wednesday. She denies any fever, chills, headache , vision changes, neck pain, chest pain, nausea, vomit, diarrhea, abdominal pain , numbness or tingling, weakness or pain to extremities. Did not go to dialysis today. PMD: Julio Ponce NIHSS Stroke Scale - Date/Time Evaluation Performed Date Performed: 04/13/18 Time Performed: 08:00 When Was NIHSS Performed: Baseline - How Severe is the Stroke Level of Consciousness: 0=Alert LOC to Questions: 0=Both comments correct LOC to commands: 0=Obeys both correctly Best Gaze: 0=Normal Visual: 0=No visual loss Facial: 0=Normal Motor Arm - Left: 0=No drift Motor Arm - Right: 0=No drift Motor Leg - Left: 0=No drift Motor Leg - Right: 0=No drift Limb Ataxia: 0=Absent Sensory: 0=Normal Best Language: 0=No aphasia Dysarthia: 0=Normal articulation Extinction & Inattention (Neglect): 0=Normal, no object Score: 0 rTPA Inclusion/Exclusion - Refusal of Treatment Patient Refused Treatment: No - Inclusion Criteria for Altepase Patient is 18 years or Older: Yes The Clinical Diagnosis of Ischemic Stroke That is Causing a Potentially Disabling Neurological Deficit: No Time of Onset is Well Established to be Less Than 270 Minute Before Treatment Would Begin: No Risk/Benefit Discussed With Patient/Family Member Present: No Past Medical History Reviewed: Historical Data, Nursing Documentation, Vital Signs Vital Signs: Last Vital Signs Temp 97.8 F 04/13/18 09:14 Pulse 84 04/13/18 09:14 Resp 20 04/13/18 09:14 BP 157/66 H 04/13/18 09:14 Pulse Ox 97 04/13/18 11:47 - Medical History PMH: Arthritis, CAD, CHF, CVA (3x; memory issues remain post stroke), Diabetes, HTN, End Stage Renal Disease (Three times a week M/W/), Chronic Kidney Disease (ESRD) Denies: HIV - Surgical History Surgical History: CABG (x4) - Family History Family History: States: Unknown Family Hx - Home Medications Home Medications: Ambulatory Orders Medication Instructions Recorded Insulin Human Isophane (NPH) 5 - 7 unit SC HS 05/14/17 [Novolin N] Carvedilol [Coreg] 6.25 mg PO Q12H 11/22/17 Clopidogrel [Plavix] 75 mg PO HS 11/22/17 Aspirin [Adult Low Dose Aspirin EC] 81 mg PO DAILY 04/11/18 Atorvastatin [Lipitor] 10 mg PO HS 04/11/18 Cinacalcet [Sensipar] 60 mg PO MWF 04/11/18 Enalapril Maleate [Vasotec] 10 mg PO DAILY 04/11/18 Azithromycin 250 mg PO DAILY #5 tablet 04/12/18 - Allergies Allergies/Adverse Reactions: Allergies Allergy/AdvReac Type Severity Reaction Status Date / Time No Known Allergies Allergy Verified 12/06/17 14:42 Review of Systems ROS Statement: Except As Marked, All Systems Reviewed And Found Negative Constitutional: Positive for: Weakness (generalized). Negative for: Fever, Chills Eyes: Negative for: Vision Change Cardiovascular: Negative for: Chest Pain Respiratory: Positive for: Cough, Shortness of Breath Gastrointestinal: Negative for: Nausea, Vomiting, Abdominal Pain, Diarrhea Musculoskeletal: Negative for: Neck Pain Neurological: Positive for: Dizziness. Negative for: Weakness, Numbness ( tingling), Headache Physical Exam - Reviewed Nursing Documentation Reviewed: Yes Vital Signs Reviewed: Yes - Physical Exam Appears: Positive for: Non-toxic Head Exam: Positive for: ATRAUMATIC, NORMOCEPHALIC Skin: Positive for: Normal Color, Warm, Dry Eye Exam: Positive for: Normal appearance, EOMI, PERRL Neck: Positive for: Painless ROM, Supple Cardiovascular/Chest: Positive for: Regular Rate, Rhythm. Negative for: Murmur Respiratory: Positive for: Other (mild coarse breath sounds). Negative for: Respiratory Distress Gastrointestinal/Abdominal: Positive for: Normal Exam, Soft. Negative for: Tenderness Back: Negative for: L CVA Tenderness, R CVA Tenderness, Vertebral Tenderness Extremity: Positive for: Normal ROM (upper and lower extremities), Other (4/5 strength. Right big toe amputated). 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 Negative for: Motor/Sensory Deficits , Aphasia, Facial Droop - Laboratory Results Result Diagrams: 04/13/18 08:02 04/13/18 08:02 Interpretation Of Abn Labs: no acute - ECG ECG: Positive for: Interpreted By Me, Viewed By Me ECG Rhythm: Positive for: Normal QRS, Sinus Rhythm, Nonspecific Changes O2 Sat by Pulse Oximetry: 97 (RA) Pulse Ox Interpretation: Normal - Radiology X-Ray: Interpreted by Me, Viewed By Me X-Ray Interpretation: No Acute Disease - CT Scan/US ct Other Rad Studies (CT/US): Read By Radiologist Other Rad Interpretation: no acute - Progress ED Course And Treament: 1137: Stable. AAOx3. Will need admit as pt. remains with dizziness. Will give antivert. Pt. on plavix and asa that she had today. 1150: Spoke with [facility] resident. Will admit. Dizziness new since previous admit. Will need further eval as pt. with multiple risk factors. Medical Decision Making Medical Decision Making: Time: 07:27 Initial Impression: Initial Plan: --VBG --EKG --CMP --Magnesium --Phosphorus --Troponin I --CBC w/ differential --PTT --PT --Chest portable [RAD] --Duoneb 3 ml INH --Tessalon Perles 100 mg PO --SOLU-medrol 125 mg IVP --Sodium Chloride 250 ml IV 100 mls/hr --Blood culture --Urine culture --Nebulizer treatment --Peak flow pre/post Tx --Urinalysis --Reevaluation Scribe Attestation: Documented by Sachin Fuller acting as a scribe for Johnie Zambrano MD. MD Mendoza Attestation: All medical record entries made by the Scribe were at my direction and personally dictated by me. I have reviewed the chart and agree that the record accurately reflects my personal performance of the history, physical exam, medical decision making, and the department course for this patient. I have also personally directed, reviewed, and agree with the discharge instructions and disposition. Disposition - Clinical Impression Clinical Impression: Weakness, Dizziness - Patient ED Disposition Is Patient to be Admitted: Yes Counseled Patient/Family Regarding: Studies Performed, Diagnosis - Disposition Disposition Time: 11:15 Condition: FAIR - Pt Status Changed To: Hospital Disposition Of: Observation - POA Present On Arrival: None
[2018-04-13 08:30] LABS: VENOUS BLOOD GAS BASE EXCESS 0.5 mmol/L (0.0-2.0); VENOUS BLOOD GAS PCO2 37 mmHg (40-60); VENOUS BLOOD GAS PO2 43 mm/Hg (30-55); VENOUS BLOOD PH 7.43 (7.32-7.43)
[2018-04-13] MEDS ORDERED: Albuterol-Ipratrop 3 mg / 0.5 (3 ml) UD ONE (08:39)
[2018-04-13 08:51] LABS: BASO # 0.1 K/uL (0.0-0.2); BASO % 0.9 % (0.0-2.0); EOS # 0.4 K/uL (0.0-0.7); EOS % 5.2 % (0.0-4.0); HEMOGLOBIN 11.5 g/dL (12.0-16.0); LYMPH % 14.5 % (20.0-40.0); MEAN CORPUSCULAR HEMOGLOBIN 30.1 pg (27.0-31.0); MEAN CORPUSCULAR HGB CONC 33.4 g/dL (33.0-37.0); MEAN PLATELET VOLUME 9.1 fl (7.2-11.7); MONO # 0.7 K/uL (0.0-0.8); MONO % 9.5 % (0.0-10.0); NEUT # 4.8 K/uL (1.8-7.0); NEUT % 69.9 % (50.0-75.0); NRBC % 0.1 % (0.0-0.0); RBC 3.83 Mil/uL (3.80-5.20); RED CELL DISTRIBUTION WIDTH 15.1 % (11.5-14.5); WHITE BLOOD COUNT 6.9 K/uL (4.8-10.8)
[2018-04-13 09:03] LABS: PARTIAL THROMBOPLASTIN TIME 33.4 Seconds (25.6-37.1); PROTHROMBIN TIME 11.2 Seconds (9.8-13.1)
[2018-04-13 09:04] LABS: ALB/GLOB RATIO 1.1 (1.0-2.1); ALBUMIN 3.3 g/dL (3.5-5.0); CALCIUM 9.9 mg/dL (8.4-10.2)
[2018-04-13 09:09] LABS: TROPONIN I 0.092 ng/mL (0.00-0.120)
--- NOTE | 2018-04-13 11:04 | CT ---
PROCEDURE: CT HEAD WITHOUT CONTRAST. HISTORY: headache COMPARISON: Noncontrast head CT 11/22/2017. TECHNIQUE: Axial computed tomography images were obtained through the head/brain without intravenous contrast. Radiation dose: Total exam DLP = 802.37 mGy-cm. This CT exam was performed using one or more of the following dose reduction techniques: Automated exposure control, adjustment of the mA and/or kV according to patient size, and/or use of iterative reconstruction technique. FINDINGS: HEMORRHAGE: No intracranial hemorrhage. 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 A chronic lacune or dilated perivascular space is reiterated at the right basal ganglia. No acute CT pattern to suggest acute separate brain infarction at this time. There is no mass effect or cortical edema appreciated. The posterior fossa contents are stable and are grossly nonfocal with the brainstem. Extensive vascular calcifications are seen not only at the bilateral cavernous internal carotid artery segments but also affecting the distal vertebral arteries bilaterally. No suspicious extra-axial fluid collection identified. VENTRICLES: Unremarkable. No hydrocephalus. CALVARIUM: Unremarkable. PARANASAL SINUSES: Unremarkable as visualized. No significant inflammatory changes. MASTOID AIR CELLS: Unremarkable as visualized. No inflammatory changes. OTHER FINDINGS: None. IMPRESSION: 1. No definite acute intracranial findings by standard CT criteria. Follow-up CT or MRI are available if clinically warranted. 2. Chronic left HOT KNIFE [employer]ING CUTTER infarct is reiterated as well as age related neuro degenerative changes.
--- NOTE | 2018-04-13 13:19 | CP.PCM.HP ---
<Laverne Chi - Last Filed: 04/13/18 16:59> History of Present Illness - History of Present Illness History of Present Illness: CC: Dyspnea and weakness HPI: 77 YO Female with multiple co-morbidities presented to [facility] ED for weakness and dyspnea. Pt was recently d/c from the hospital on 04/12 (URI) with PO azithromycin. She states that after she went home she had poor PO intake and this morning she felt very weak. She was not active as previously, felt weak and started feeling dyspnea from early this morning. Daughter was by bedside. States that mother looks more fatigue and is short of breath 1x day with poor PO take x 2 days. PMD: Dr. Layne PMHx: HTN, CVA, cardiac stents x2, DM, CABG x 4 in 2011, and ESRD (HD on MWF), DM, HTN PSHx: CABG x4, Stents, Hip replacement, right big toe amputation, Open heart surgery Allg: NKDA Home Meds: Aspirin, Plavix, Enalapril, Coreg, Lipitor, Cinacalcet, Sevelamir, Insulin Novolin 5 unit before breakfast, 5 lunch, 7 unit bedtime FH: Parents decreased of old age, SH: Denies any alcohol, smoking or illicit drug use Next of Kin: Kilo Hu, oldest daughter, Phone # [phone] ED course: Labs: 6.9<11.5/34.5<150 Pt/Ptt/INR: 11.2/33.4/1.0 135/3.8, 99/21, 21/4.1, 121 Phos 5.2, Mg 2.2 Olamide blood gas Ph 7.43, Pco2 37, O2 43 lactate 1.4 Chest xray--no active disease CT head--no acute intracranial findings. Chronic [employer] infract is reiterated as well as age related neuro degenerative changes. EKG: Normal sinus rhythm rate 68; QTc 489 Meds: Duoneb 3 ml INH, Tessalon Perles 100 mg PO, SOLU-medrol 125 mg IVP, Sodium Chloride 250 ml IV 100 mls/hr, Antivert 25mg Present on Admission - Present on Admission Any Indicators Present on Admission: No Review of Systems - Constitutional Constitutional: Weakness. absent: Chills, Headache - EENT Eyes: absent: Change in Vision - Cardiovascular Cardiovascular: Dyspnea. absent: Chest Pain - Respiratory Respiratory: Cough, Dyspnea - Gastrointestinal Gastrointestinal: absent: Abdominal Pain, Constipation, Diarrhea - Genitourinary Genitourinary: absent: Difficulty Urinating, Dysuria - Neurological Neurological: Dizziness. absent: Headaches, Syncope Past Patient History - Infectious Disease Hx of Infectious Diseases: None - Past Medical History & Family History Past Medical History?: Yes - Past Social History Smoking Status: Never Smoked Alcohol: None Drugs: Denies Home Situation {Lives}: With Family (with daughters ) - CARDIAC Hx Congestive Heart Failure: Yes Hx Hypertension: Yes - PULMONARY Hx Respiratory Disorders: Yes Hx Bronchitis: Yes - NEUROLOGICAL Hx Neurological Disorder: Yes (CVA x 3) HX Cerebrovascular Accident: Yes Hx Dizziness: Yes Hx Syncope: (Near syncope) Hx Transient Ischemic Attacks (TIA): Yes - HEENT Hx HEENT Problems: No - RENAL Hx Chronic Kidney Disease: Yes (ESRD) - ENDOCRINE/METABOLIC Hx Endocrine Disorders: Yes (DM type 2) Hx Diabetes Mellitus Type 2: Yes - HEMATOLOGICAL/ONCOLOGICAL Hx Human Immunodeficiency Virus (HIV): No - INTEGUMENTARY Hx Dermatological Problems: No - MUSCULOSKELETAL/RHEUMATOLOGICAL Hx Arthritis: Yes - GASTROINTESTINAL Hx Gastrointestinal Disorders: No - GENITOURINARY/GYNECOLOGICAL Hx Genitourinary Disorders: No - PSYCHIATRIC Hx Psychophysiologic Disorder: No Hx Substance Use: No - SURGICAL HISTORY Hx Coronary Artery Bypass Graft: Yes (x4) - ANESTHESIA Hx Anesthesia: Yes Hx Anesthesia Reactions: No Hx Malignant Hyperthermia: No Meds Allergies/Adverse Reactions: Allergies Allergy/AdvReac Type Severity Reaction Status Date / Time No Known Allergies Allergy Verified 12/06/17 14:42 Physical Exam - Constitutional Appears: No Acute Distress - Head Exam Head Exam: ATRAUMATIC, NORMAL INSPECTION - Eye Exam Eye Exam: EOMI, Normal appearance - ENT Exam ENT Exam: Mucous Membranes Moist - Respiratory Exam Respiratory Exam: Rhonchi (mild faint rhonchi in the lower lobes), NORMAL BREATHING PATTERN - Cardiovascular Exam Cardiovascular Exam: REGULAR RHYTHM, +S1, +S2 - GI/Abdominal Exam GI & Abdominal Exam: Normal Bowel Sounds, Soft - Extremities Exam Extremities exam: Positive for: normal inspection. Negative for: calf tenderness, pedal edema - Neurological Exam Neurological exam: Alert, Oriented x3 - Psychiatric Exam Psychiatric exam: Normal Affect, Normal Mood - Skin Skin Exam: Dry, Intact, Normal Color, Warm Results - Vital Signs Recent Vital Signs: Last Vital Signs Temp 97.8 F 04/13/18 13:06 Pulse 75 04/13/18 13:06 Resp 12 04/13/18 13:06 BP 179/78 H 04/13/18 13:06 Pulse Ox 98 04/13/18 13:06 - Labs Result Diagrams: 04/13/18 08:02 04/13/18 08:02 Labs: Laboratory Results - last 24 hr 04/13/18 04/13/18 04/13/18 07:55 08:00 08:02 WBC 6.9 RBC 3.83 Hgb 11.5 L Hct 34.5 MCV 90.0 MCH 30.1 MCHC 33.4 RDW 15.1 H Plt Count 150 MPV 9.1 Neut % (Auto) 69.9 Lymph % (Auto) 14.5 L [place] % (Auto) 9.5 Eos % (Auto) 5.2 H Baso % (Auto) 0.9 Neut # (Auto) 4.8 Lymph # (Auto) 1.0 [place] # (Auto) 0.7 Eos # (Auto) 0.4 Baso # (Auto) 0.1 PT INR APTT pO2 43 VBG pH 7.43 VBG pCO2 37 L VBG HCO3 24.9 VBG Total CO2 25.7 VBG O2 Sat (Calc) 86.5 H VBG Base Excess 0.5 VBG Potassium 4.0 Sodium 133.0 Chloride 106.0 Glucose 121 H Lactate 1.4 FiO2 21.0 Potassium Carbon Dioxide Anion Gap BUN Creatinine Est GFR ( Amer) Est GFR (Non-Af Amer) POC Glucose (mg/dL) 72 Random Glucose Calcium Phosphorus Magnesium Total Bilirubin AST ALT Alkaline Phosphatase Troponin I Total Protein Albumin Globulin Albumin/Globulin Ratio Venous Blood Potassium 4.0 04/13/18 04/13/18 08:02 08:02 WBC RBC Hgb Hct MCV MCH MCHC RDW Plt Count MPV Neut % (Auto) Lymph % (Auto) [place] % (Auto) Eos % (Auto) Baso % (Auto) Neut # (Auto) Lymph # (Auto) [place] # (Auto) Eos # (Auto) Baso # (Auto) PT 11.2 INR 1.0 APTT 33.4 pO2 VBG pH VBG pCO2 VBG HCO3 VBG Total CO2 VBG O2 Sat (Calc) VBG Base Excess VBG Potassium Sodium 135 Chloride 99 Glucose Lactate FiO2 Potassium 3.8 Carbon Dioxide 19 L Anion Gap 21 H BUN 21 H Creatinine 4.1 H Est GFR ( Amer) 13 Est GFR (Non-Af Amer) 10 POC Glucose (mg/dL) Random Glucose 121 H Calcium 9.9 Phosphorus 5.2 H Magnesium 2.2 Total Bilirubin 0.8 AST 19 ALT 15 Alkaline Phosphatase 86 Troponin I 0.0920 Total Protein 6.3 Albumin 3.3 L Globulin 3.0 Albumin/Globulin Ratio 1.1 Venous Blood Potassium Assessment & Plan - Assessment and Plan (Free Text) Assessment: Assessment/Plan: 76 YO female with PMHx of HTN, CVA(last strke 05/2017), CABG x 4 in 2011, cardiac stents x2, DM, and ESRD (HD on MWF) admitted for dyspnea and weakness. Systolic CHF -dyspnea and weakness likely acute on chronic CHF -last echo 05/18/2016; LV systolic function severely impaired. EF15-20 % -trop neg x 2 -1x IV lasix 20mg -Repeat echo -follow up repeat trops -Cardiology consulted; follow up recs -c/w home meds URI -Acute -Cough and mild runny nose -CXR: No acute pulmonary disease -Supportive management -will cont Azithromycin, at home meds -Tylenol PRN for fever ESRD -Bun/Cr 21/4.1 -on HD M/W/F -Nephro, Dr. Krause, consulted -HD today DM -hgba1c 8.9 (11/18) -hold at home insulin -low dose coverage insulin per protocol -hypoglycemia protocol -accu-checks HTN -c/w home meds -c/w Carvedidol 6.25 mg and enalapril 10mg daily CAD -CABG x 4 in 2011, cardiac stents x2, -lipid profile from 11/18 reviewed -C/w Lipitor 40 mg daily -C/w Asprin History of CVA and Cardiac Stents -no residual hemiparesis as per pt and family -C/w Asprin and Plavix DVT PPX -Heparin 5000 SC Q8H <Markel Layne - Last Filed: 04/15/18 06:56> Results - Vital Signs Recent Vital Signs: Last Vital Signs Temp 97.8 F 04/15/18 04:41 Pulse 67 04/15/18 04:41 Resp 20 04/15/18 04:41 BP 154/67 H 04/15/18 04:41 Pulse Ox 98 04/15/18 04:41 - Labs Result Diagrams: 04/14/18 05:05 04/14/18 09:02 Labs: Laboratory Results - last 24 hr 04/14/18 04/14/18 04/14/18 01:10 09:02 10:52 Sodium 134 Potassium 4.5 Chloride 96 L Carbon Dioxide 25 Anion Gap 18 BUN 26 H Creatinine 2.8 H Est GFR ( Amer) 20 Est GFR (Non-Af Amer) 16 POC Glucose (mg/dL) 179 H 285 H Random Glucose 168 H Calcium 10.5 H Troponin I 0.0900 04/14/18 04/14/18 04/15/18 16:01 21:27 06:03 Sodium Potassium Chloride Carbon Dioxide Anion Gap BUN Creatinine Est GFR ( Amer) Est GFR (Non-Af Amer) POC Glucose (mg/dL) 263 H 327 H 196 H Random Glucose Calcium Troponin I Attending/Attestation - Attestation I have personally seen and examined this patient.: Yes I have fully participated in the care of the patient.: Yes I have reviewed all pertinent clinical information: Yes
--- NOTE | 2018-04-13 13:19 | RAD ---
HISTORY: Sepsis Patient COMPARISON: Chest radiograph dated 04/11/2018. FINDINGS: LUNGS: Stable chronic prominence of the bilateral interstitial markings. No focal consolidation. PLEURA: No significant pleural effusion identified, no pneumothorax apparent. CARDIOVASCULAR: Prior sternotomy with sternal wires and surgical clips redemonstrated. Atherosclerotic aortic calcifications. Cardiomediastinal silhouette stably enlarged. OSSEOUS STRUCTURES: Unchanged. VISUALIZED UPPER ABDOMEN: Normal. OTHER FINDINGS: Right internal jugular access hemodialysis catheter, unchanged. Right and left upper extremity vascular stents redemonstrated. IMPRESSION: No active disease.
--- NOTE | 2018-04-13 15:50 | CP.PCM.CON ---
History of Present Illness - History of Present Illness History of Present Illness: This patient however is 77 years of age female known to me with end stage renal disease on maintenance hemodialysis 3 times a week Wednesday. She presented to the emergency room complaining of weakness tiredness and coughing without fever or chills . patient was discharged yesterday and she was given oral antibiotics as Zithromax to take and she came today with shortness of breath and hypoxemia and coughing. Patient denied any significant chest pain except of the coughing and congestion that she was complaining . Also patient has a problem with the AV shunt she has multiple surgery to create AV shunt and many of them failed and she is still have no AV fistula or AV graft PMHx: HTN, CVA, cardiac stents x2, DM, CABG x 4 in 2011, and ESRD (HD on MWF), DM, HTN PSHx: CABG x4, Stents, Hip replacement, right big toe amputation, Open heart surgery Allg: NKDA Home Meds: Aspirin, Plavix, Enalapril, Coreg, Lipitor, Cinacalcet, Sevelamir, Insulin Novolin 5 unit before breakfast, 5 lunch, 7 unit bedtime FH: Parents decreased of old age, SH: Denies any alcohol, smoking or illicit drug use Next of Kin: Kilo Hu, oldest daughter, Phone # [phone], [phone] Review of Systems - Review of Systems Systems not reviewed;Unavailable: Respiratory Distress - Constitutional Constitutional: Anorexia - Cardiovascular Cardiovascular: Dyspnea, Dyspnea on Exertion. absent: Chest Pain, Edema - Respiratory Respiratory: Cough, Chest Congestion. absent: Hemoptysis - Gastrointestinal Gastrointestinal: absent: Abdominal Pain, Coffee Ground Emesis - Musculoskeletal Musculoskeletal: Arthralgias, Muscle Weakness, Stiffness - Psychiatric Psychiatric: absent: Confusion, Depression - Endocrine Endocrine: Fatigue - Hematologic/Lymphatic Hematologic: absent: Easy Bleeding Past Patient History - Infectious Disease Hx of Infectious Diseases: None - Past Medical History & Family History Past Medical History?: Yes - Past Social History Smoking Status: Never Smoked - CARDIAC Hx Congestive Heart Failure: Yes Hx Hypertension: Yes - PULMONARY Hx Respiratory Disorders: Yes - NEUROLOGICAL Hx Neurological Disorder: Yes (CVA x 3) - HEENT Hx HEENT Problems: No - RENAL Hx Chronic Kidney Disease: Yes (ESRD) - ENDOCRINE/METABOLIC Hx Endocrine Disorders: Yes (DM type 2) - HEMATOLOGICAL/ONCOLOGICAL Hx Human Immunodeficiency Virus (HIV): No - INTEGUMENTARY Hx Dermatological Problems: No - MUSCULOSKELETAL/RHEUMATOLOGICAL Hx Arthritis: Yes - GASTROINTESTINAL Hx Gastrointestinal Disorders: No - GENITOURINARY/GYNECOLOGICAL Hx Genitourinary Disorders: No - PSYCHIATRIC Hx Psychophysiologic Disorder: No - SURGICAL HISTORY Hx Coronary Artery Bypass Graft: Yes (x4) - ANESTHESIA Hx Anesthesia: Yes Hx Anesthesia Reactions: No Hx Malignant Hyperthermia: No Meds Allergies/Adverse Reactions: Allergies Allergy/AdvReac Type Severity Reaction Status Date / Time No Known Allergies Allergy Verified 12/06/17 14:42 - Medications Medications: Current Medications Aspirin (Ecotrin) 81 mg PO DAILY [facility] Atorvastatin Calcium (Lipitor) 10 mg PO HS [facility] Azithromycin (Zithromax) 250 mg PO DAILY [facility] PRN Reason: Protocol Carvedilol (Coreg) 6.25 mg PO Q12H [facility] Cinacalcet (Sensipar) 60 mg PO MWF [facility] Clopidogrel Bisulfate (Plavix) 75 mg PO HS [facility] Enalapril Maleate (Vasotec) 10 mg PO DAILY [facility] Heparin Sodium (Porcine) (Heparin) 5,000 units SC Q8 [facility] PRN Reason: Protocol Sodium Chloride (Sodium Chloride 0.9%) 250 mls @ 100 mls/hr IV .Q2H30M [facility] Last Admin: 04/13/18 08:48 Dose: 100 mls/hr Physical Exam - Constitutional Appears: No Acute Distress - ENT Exam ENT Exam: Mucous Membranes Moist - Neck Exam Neck exam: Negative for: Lymphadenopathy - Respiratory Exam Respiratory Exam: absent: Chest Wall Tenderness - Cardiovascular Exam Cardiovascular Exam: REGULAR RHYTHM. absent: Gallop, JVD, Rubs - GI/Abdominal Exam GI & Abdominal Exam: Normal Bowel Sounds. absent: Guarding - Extremities Exam Extremities exam: Negative for: calf tenderness - Back Exam Back exam: absent: CVA tenderness (L) - Neurological Exam Neurological exam: Alert - Psychiatric Exam Psychiatric exam: Normal Affect Results - Vital Signs Recent Vital Signs: Last Vital Signs Temp 97.7 F 04/13/18 14:40 Pulse 74 04/13/18 14:40 Resp 20 04/13/18 14:40 BP 177/60 H 04/13/18 14:40 Pulse Ox 100 04/13/18 14:40 - Labs Result Diagrams: 04/13/18 08:02 04/13/18 08:02 Labs: Laboratory Results - last 24 hr 04/13/18 04/13/18 04/13/18 07:55 08:00 08:02 WBC 6.9 RBC 3.83 Hgb 11.5 L Hct 34.5 MCV 90.0 MCH 30.1 MCHC 33.4 RDW 15.1 H Plt Count 150 MPV 9.1 Neut % (Auto) 69.9 Lymph % (Auto) 14.5 L [place] % (Auto) 9.5 Eos % (Auto) 5.2 H Baso % (Auto) 0.9 Neut # (Auto) 4.8 Lymph # (Auto) 1.0 [place] # (Auto) 0.7 Eos # (Auto) 0.4 Baso # (Auto) 0.1 PT INR APTT pO2 43 VBG pH 7.43 VBG pCO2 37 L VBG HCO3 24.9 VBG Total CO2 25.7 VBG O2 Sat (Calc) 86.5 H VBG Base Excess 0.5 VBG Potassium 4.0 Sodium 133.0 Chloride 106.0 Glucose 121 H Lactate 1.4 FiO2 21.0 Potassium Carbon Dioxide Anion Gap BUN Creatinine Est GFR ( Amer) Est GFR (Non-Af Amer) POC Glucose (mg/dL) 72 Random Glucose Calcium Phosphorus Magnesium Total Bilirubin AST ALT Alkaline Phosphatase Troponin I NT-Pro-B Natriuret Pep Total Protein Albumin Globulin Albumin/Globulin Ratio Venous Blood Potassium 4.0 04/13/18 04/13/18 04/13/18 08:02 08:02 13:32 WBC RBC Hgb Hct MCV MCH MCHC RDW Plt Count MPV Neut % (Auto) Lymph % (Auto) [place] % (Auto) Eos % (Auto) Baso % (Auto) Neut # (Auto) Lymph # (Auto) [place] # (Auto) Eos # (Auto) Baso # (Auto) PT 11.2 INR 1.0 APTT 33.4 pO2 VBG pH VBG pCO2 VBG HCO3 VBG Total CO2 VBG O2 Sat (Calc) VBG Base Excess VBG Potassium Sodium 135 Chloride 99 Glucose Lactate FiO2 Potassium 3.8 Carbon Dioxide 19 L Anion Gap 21 H BUN 21 H Creatinine 4.1 H Est GFR ( Amer) 13 Est GFR (Non-Af Amer) 10 POC Glucose (mg/dL) Random Glucose 121 H Calcium 9.9 Phosphorus 5.2 H Magnesium 2.2 Total Bilirubin 0.8 AST 19 ALT 15 Alkaline Phosphatase 86 Troponin I 0.0920 NT-Pro-B Natriuret Pep > 38544 H Total Protein 6.3 Albumin 3.3 L Globulin 3.0 Albumin/Globulin Ratio 1.1 Venous Blood Potassium Assessment & Plan (1) Weakness Status: Acute (2) Bronchitis Status: Acute (3) CAP (community acquired pneumonia) Status: Acute (4) CHF (congestive heart failure) Status: Acute (5) CVA (cerebral vascular accident) Status: Acute (6) Chronic kidney disease with end stage renal failure on dialysis Assessment and Plan: Patient who was discharged yesterday and he admitted with shortness of breath and difficulty breathing and what appears to be possible pneumonia. And shortness of breath. Hypoxemia. Patient scheduled to have dialysis today Wednesday. She has started IV antibiotics. In addition to the medical problem as noted with hyperphosphatemia and secondary hyperparathyroidism. Anemia continue EPO. Status: Acute
--- NOTE | 2018-04-13 15:55 | CP.PCM.PN ---
Subjective - Date & Time of Evaluation Date of Evaluation: 04/13/18 Time of Evaluation: 15:53 - Subjective Subjective: Dialysis note She was seen on hemodialysis patient was admitted with shortness of breath and some difficulty breathing weakness hypoxemia. Appears to be element of hypervolemia. Dialysis started through right subclavian catheter . Patient awake and consciousness although short of breath. Vital sign noted to be stable Objective - Vital Signs/Intake and Output Vital Signs (last 24 hours): Temp Pulse Resp BP Pulse Ox 97.7 F 74 20 177/60 H 100 04/13/18 14:40 04/13/18 14:40 04/13/18 14:40 04/13/18 14:40 04/13/18 14:40 - Medications Medications: Current Medications Aspirin (Ecotrin) 81 mg PO DAILY [facility] Atorvastatin Calcium (Lipitor) 10 mg PO HS [facility] Azithromycin (Zithromax) 250 mg PO DAILY [facility] PRN Reason: Protocol Carvedilol (Coreg) 6.25 mg PO Q12H [facility] Cinacalcet (Sensipar) 60 mg PO MWF [facility] Clopidogrel Bisulfate (Plavix) 75 mg PO HS [facility] Enalapril Maleate (Vasotec) 10 mg PO DAILY [facility] Heparin Sodium (Porcine) (Heparin) 5,000 units SC Q8 [facility] PRN Reason: Protocol Sodium Chloride (Sodium Chloride 0.9%) 250 mls @ 100 mls/hr IV .Q2H30M [facility] Last Admin: 04/13/18 08:48 Dose: 100 mls/hr - Labs Labs: 04/13/18 08:02 04/13/18 08:02 PT 11.2 Seconds (9.8-13.1) 04/13/18 08:02 INR 1.0 (0.9-1.2) 04/13/18 08:02 APTT 33.4 Seconds (25.6-37.1) 04/13/18 08:02 - Constitutional Appears: No Acute Distress - Eye Exam Eye Exam: Conjunctival injection - ENT Exam ENT Exam: Mucous Membranes Moist - Neck Exam Neck Exam: absent: Lymphadenopathy - Respiratory Exam Respiratory Exam: Rales, Rhonchi, Wheezes. absent: Chest Wall Tenderness - Cardiovascular Exam Cardiovascular Exam: REGULAR RHYTHM. absent: Gallop, JVD, Rubs - GI/Abdominal Exam GI & Abdominal Exam: Soft, Normal Bowel Sounds - Extremities Exam Extremities Exam: absent: Calf Tenderness - Back Exam Back Exam: absent: CVA tenderness (L), CVA tenderness (R) - Neurological Exam Neurological Exam: Alert - Psychiatric Exam Psychiatric exam: Normal Affect - Skin Skin Exam: absent: Cyanosis Assessment and Plan (1) Weakness Status: Acute (2) Bronchitis Status: Acute (3) CAP (community acquired pneumonia) Status: Acute (4) CHF (congestive heart failure) Status: Acute (5) CVA (cerebral vascular accident) Status: Acute (6) Chronic kidney disease with end stage renal failure on dialysis Assessment & Plan: End stage renal disease receiving hemodialysis now. I discussed the order with the dialysis nurse at the bedside. Sodium bath 138 Bicarbonate bath 34 Potassium bath 3 mEq Ultrafiltration 2500 mL Vital signs stable Patient admitted with what appeared to be element of volume overloaded. Hypoxemia and possible pneumonia. Started on antibiotics as per primary team. Status: Acute
--- NOTE | 2018-04-13 16:06 | CP.PCM.CON ---
History of Present Illness - History of Present Illness History of Present Illness: THE PATIENT IS A 77 YEAR OLD FEMALE WHO HAS A HISTORY OF AN OLD CVA, CAD, HYPERTENSION, HYPERLIPIDEMIA, DM AND CRF ON HD. SHE WAS JUST DISCHARGED THE OTHER DAY AFTER A SHORT HOSPITAL STAY FOR BRONCHITIS. SHE NOW WAS BACK IN THE ER COMPLAINING OF WEAKNESS, DIZZINESS AND SOB. CARDIOLOGY WAS ASKED TO SEE HER. SHE HAD AN CA AND CABGS YEARS AGO AT [facility] AND FOLLOWS WITH A [employer] SET UP [employer] THERE. SHE DENIES CHEST PAIN, PALPITATIONS OR LOC. SHE STATES THAT SHE IS NOT SOB PRESENTLY. Past Patient History - Infectious Disease Hx of Infectious Diseases: None - Past Medical History & Family History Past Medical History?: Yes - Past Social History Smoking Status: Never Smoked - CARDIAC Hx Congestive Heart Failure: Yes Hx Hypertension: Yes - PULMONARY Hx Respiratory Disorders: Yes - NEUROLOGICAL Hx Neurological Disorder: Yes (CVA x 3) - HEENT Hx HEENT Problems: No - RENAL Hx Chronic Kidney Disease: Yes (ESRD) - ENDOCRINE/METABOLIC Hx Endocrine Disorders: Yes (DM type 2) - HEMATOLOGICAL/ONCOLOGICAL Hx Human Immunodeficiency Virus (HIV): No - INTEGUMENTARY Hx Dermatological Problems: No - MUSCULOSKELETAL/RHEUMATOLOGICAL Hx Arthritis: Yes - GASTROINTESTINAL Hx Gastrointestinal Disorders: No - GENITOURINARY/GYNECOLOGICAL Hx Genitourinary Disorders: No - PSYCHIATRIC Hx Psychophysiologic Disorder: No - SURGICAL HISTORY Hx Coronary Artery Bypass Graft: Yes (x4) - ANESTHESIA Hx Anesthesia: Yes Hx Anesthesia Reactions: No Hx Malignant Hyperthermia: No Meds Allergies/Adverse Reactions: Allergies Allergy/AdvReac Type Severity Reaction Status Date / Time No Known Allergies Allergy Verified 12/06/17 14:42 - Medications Medications: Current Medications Aspirin (Ecotrin) 81 mg PO DAILY [facility] Atorvastatin Calcium (Lipitor) 10 mg PO HS [facility] Azithromycin (Zithromax) 250 mg PO DAILY [facility] PRN Reason: Protocol Carvedilol (Coreg) 6.25 mg PO Q12H [facility] Cinacalcet (Sensipar) 60 mg PO MWF [facility] Clopidogrel Bisulfate (Plavix) 75 mg PO HS [facility] Enalapril Maleate (Vasotec) 10 mg PO DAILY [facility] Heparin Sodium (Porcine) (Heparin) 5,000 units SC Q8 [facility] PRN Reason: Protocol Sodium Chloride (Sodium Chloride 0.9%) 250 mls @ 100 mls/hr IV .Q2H30M [facility] Last Admin: 04/13/18 08:48 Dose: 100 mls/hr Physical Exam - Respiratory Exam Respiratory Exam: Clear to Auscultation Bilateral - Cardiovascular Exam Cardiovascular Exam: REGULAR RHYTHM, +S1, +S2 - Extremities Exam Extremities exam: Positive for: normal inspection - Additional Findings Additional findings: EKG NSR, OLD SWMI(UNCHANGED FROM PRIOR EKG) CXR NAD(REVIEWED BY ME AND NO PULMONARY CONGESTION, MILD CHRONIC CHANGES) TROPONIN NORMAL ECHOCARDIOGRAM IN 2016 WITH LVEF OF ~ 15-20% PBNP 35,000 BUN/CR 21/4.1(BUT ON HD) Results - Vital Signs Recent Vital Signs: Last Vital Signs Temp 97.7 F 04/13/18 14:40 Pulse 74 04/13/18 14:40 Resp 20 04/13/18 14:40 BP 177/60 H 04/13/18 14:40 Pulse Ox 100 04/13/18 14:40 - Labs Result Diagrams: 04/13/18 08:02 04/13/18 08:02 Labs: Laboratory Results - last 24 hr 04/13/18 04/13/18 04/13/18 07:55 08:00 08:02 WBC 6.9 RBC 3.83 Hgb 11.5 L Hct 34.5 MCV 90.0 MCH 30.1 MCHC 33.4 RDW 15.1 H Plt Count 150 MPV 9.1 Neut % (Auto) 69.9 Lymph % (Auto) 14.5 L [place] % (Auto) 9.5 Eos % (Auto) 5.2 H Baso % (Auto) 0.9 Neut # (Auto) 4.8 Lymph # (Auto) 1.0 [place] # (Auto) 0.7 Eos # (Auto) 0.4 Baso # (Auto) 0.1 PT INR APTT pO2 43 VBG pH 7.43 VBG pCO2 37 L VBG HCO3 24.9 VBG Total CO2 25.7 VBG O2 Sat (Calc) 86.5 H VBG Base Excess 0.5 VBG Potassium 4.0 Sodium 133.0 Chloride 106.0 Glucose 121 H Lactate 1.4 FiO2 21.0 Potassium Carbon Dioxide Anion Gap BUN Creatinine Est GFR ( Amer) Est GFR (Non-Af Amer) POC Glucose (mg/dL) 72 Random Glucose Calcium Phosphorus Magnesium Total Bilirubin AST ALT Alkaline Phosphatase Troponin I NT-Pro-B Natriuret Pep Total Protein Albumin Globulin Albumin/Globulin Ratio Venous Blood Potassium 4.0 04/13/18 04/13/18 04/13/18 08:02 08:02 13:32 WBC RBC Hgb Hct MCV MCH MCHC RDW Plt Count MPV Neut % (Auto) Lymph % (Auto) [place] % (Auto) Eos % (Auto) Baso % (Auto) Neut # (Auto) Lymph # (Auto) [place] # (Auto) Eos # (Auto) Baso # (Auto) PT 11.2 INR 1.0 APTT 33.4 pO2 VBG pH VBG pCO2 VBG HCO3 VBG Total CO2 VBG O2 Sat (Calc) VBG Base Excess VBG Potassium Sodium 135 Chloride 99 Glucose Lactate FiO2 Potassium 3.8 Carbon Dioxide 19 L Anion Gap 21 H BUN 21 H Creatinine 4.1 H Est GFR ( Amer) 13 Est GFR (Non-Af Amer) 10 POC Glucose (mg/dL) Random Glucose 121 H Calcium 9.9 Phosphorus 5.2 H Magnesium 2.2 Total Bilirubin 0.8 AST 19 ALT 15 Alkaline Phosphatase 86 Troponin I 0.0920 NT-Pro-B Natriuret Pep > 39251 H Total Protein 6.3 Albumin 3.3 L Globulin 3.0 Albumin/Globulin Ratio 1.1 Venous Blood Potassium Assessment & Plan - Assessment and Plan (Free Text) Assessment: CAD-STABLE CHF-PROBABLY CHRONIC COMBINED SYSTOLIC AND DIASTOLIC(PATIENT DOES NOT HAVE ANY SIGNIFICANT CONGESTION ON CXR) HYPERTENSION HYPERLIPIDEMIA OLD CVA BRONCHITIS Plan: CONTINUE CARVEDILOL, ASPIRIN, CLOPIDOGREL, HEPARIN, ATORVASTATIN, ENALAPRIL AND ANTIBIOTICS WILL ADD FUROSEMIDE BUT IT PROBABLY WON'T BE VERY ACTIVE DUE TO CRF AND THE PATIENT SHOULD PROBABLY HAVE MORE FLUID REMOVED WITH HD-WILL DISCUSS WITH NEPHROLOGY ECHOCARDIOGRAM ORDERED
[2018-04-13] MEDS ORDERED: Dextrose 50% SYRINGE Inj (50 ml) IV PRN (17:44)
[2018-04-13] MEDS ORDERED: Glucagon Recombinant 1 mg Inj IM PRN (17:44)
[2018-04-13] MEDS: Insulin Lispro (humaLOG) 100 Units/ml Inj SC SCH (22:33)
[2018-04-14 05:30] LABS: BASO % 0.4 % (0.0-2.0); HEMOGLOBIN 11.8 g/dL (12.0-16.0); LYMPH # 1.1 K/uL (1.0-4.3); LYMPH % 13.9 % (20.0-40.0); MEAN CELL VOLUME 89.4 fl (81.0-99.0); MEAN CORPUSCULAR HEMOGLOBIN 29.7 pg (27.0-31.0); MEAN CORPUSCULAR HGB CONC 33.2 g/dL (33.0-37.0); MEAN PLATELET VOLUME 9.4 fl (7.2-11.7); MONO # 0.6 K/uL (0.0-0.8); MONO % 7.6 % (0.0-10.0); NEUT # 6.2 K/uL (1.8-7.0); NEUT % 78.1 % (50.0-75.0); RBC 3.99 Mil/uL (3.80-5.20); RED CELL DISTRIBUTION WIDTH 15.2 % (11.5-14.5)
[2018-04-14] MEDS ORDERED: Potassium Chloride 10 mEq ER Tab PO ONE (09:02)
--- NOTE | 2018-04-14 09:13 | CP.PCM.PN ---
Subjective - Date & Time of Evaluation Date of Evaluation: 04/14/18 Time of Evaluation: 09:11 - Subjective Subjective: Patient in bed appears to be comfortable No chest pain no shortness of breath Minimal coughing Objective - Vital Signs/Intake and Output Vital Signs (last 24 hours): Temp Pulse Resp BP Pulse Ox 98.3 F 70 18 150/66 96 04/14/18 08:04 04/14/18 08:04 04/14/18 08:04 04/14/18 08:04 04/14/18 08:04 - Medications Medications: Current Medications Aspirin (Ecotrin) 81 mg PO DAILY [facility] Atorvastatin Calcium (Lipitor) 10 mg PO HS [facility] Last Admin: 04/13/18 22:13 Dose: 10 mg Azithromycin (Zithromax) 250 mg PO DAILY [facility] PRN Reason: Protocol Carvedilol (Coreg) 6.25 mg PO Q12H [facility] Last Admin: 04/14/18 01:15 Dose: 6.25 mg Cinacalcet (Sensipar) 60 mg PO MWF [facility] Clopidogrel Bisulfate (Plavix) 75 mg PO HS [facility] Last Admin: 04/13/18 22:32 Dose: 75 mg Dextrose (Dextrose 50% Inj) 0 ml IV STAT PRN; Protocol PRN Reason: Hypoglycemia Protocol Dextrose (Glutose 15) 0 gm PO ONCE PRN; Protocol PRN Reason: Hypoglycemia Protocol Enalapril Maleate (Vasotec) 10 mg PO DAILY [facility] Furosemide (Lasix) 20 mg PO DAILY [facility] Glucagon (Glucagen Diagnostic Kit) 0 mg IM STAT PRN; Protocol PRN Reason: Hypoglycemia Protocol Heparin Sodium (Porcine) (Heparin) 5,000 units SC Q8 [facility] PRN Reason: Protocol Last Admin: 04/14/18 01:15 Dose: 5,000 units Sodium Chloride (Sodium Chloride 0.9%) 250 mls @ 100 mls/hr IV .Q2H30M [facility] Last Admin: 04/13/18 08:48 Dose: 100 mls/hr Insulin Human Lispro (Humalog) 0 units SC ACCU-CHECK [facility] PRN Reason: Protocol Last Admin: 04/13/18 22:33 Dose: Not Given - Labs Labs: 04/14/18 05:05 04/13/18 08:02 PT 11.2 Seconds (9.8-13.1) 04/13/18 08:02 INR 1.0 (0.9-1.2) 04/13/18 08:02 APTT 33.4 Seconds (25.6-37.1) 04/13/18 08:02 - Constitutional Appears: No Acute Distress - Eye Exam Eye Exam: Conjunctival injection - ENT Exam ENT Exam: Mucous Membranes Moist - Respiratory Exam Respiratory Exam: NORMAL BREATHING PATTERN. absent: Chest Wall Tenderness, Rales - Cardiovascular Exam Cardiovascular Exam: REGULAR RHYTHM. absent: Gallop, JVD, Rubs - GI/Abdominal Exam GI & Abdominal Exam: Soft, Normal Bowel Sounds - Extremities Exam Extremities Exam: absent: Calf Tenderness - Back Exam Back Exam: absent: CVA tenderness (L), CVA tenderness (R) - Neurological Exam Neurological Exam: Alert - Psychiatric Exam Psychiatric exam: Normal Affect - Skin Skin Exam: absent: Cyanosis Assessment and Plan (1) Weakness Status: Acute (2) Bronchitis Status: Acute (3) CAP (community acquired pneumonia) Status: Acute (4) CHF (congestive heart failure) Status: Acute (5) CVA (cerebral vascular accident) Status: Acute (6) Chronic kidney disease with end stage renal failure on dialysis Assessment & Plan: End stage renal disease. Patient completed hemodialysis yesterday and scheduled for MWF. Patient admitted with appeared to be bronchitis. And improving somewhat. Hyperphosphatemia. Secondary hyperparathyroidism History of HTN, CVA, cardiac stents x2, DM, CABG x 4 in 2011, and ESRD (HD on MWF), DM, HTN CABG x4, Stents, Hip replacement, right big toe amputation, Open heart surgery Status: Acute
[2018-04-14] MEDS: Insulin Lispro (humaLOG) 100 Units/ml Inj SC SCH ×4 (09:19→22:05)
--- NOTE | 2018-04-14 09:33 | CP.PCM.PN ---
<Alphonso Lunsford - Last Filed: 04/14/18 15:54> Subjective - Date & Time of Evaluation Date of Evaluation: 04/14/18 Time of Evaluation: 07:00 - Subjective Subjective: Patient seen and examined this morning at bedside, comfortable, NAD. Patient reports no SOB, Chest pain, dizziness, weakness, headache, urinary symptoms or f /c/n/v/d. Patient reports minimum cough. Patient may benefit from PT/TCU/ Acute rehab after cleared by cardiology. Patient was discharged home a day before this admission after r/o Pneumonia and other possible causes of her Cough. Objective - Vital Signs/Intake and Output Vital Signs (last 24 hours): Temp Pulse Resp BP Pulse Ox 98.3 F 70 18 150/66 96 04/14/18 08:04 04/14/18 08:04 04/14/18 08:04 04/14/18 09:21 04/14/18 08:04 - Medications Medications: Current Medications Aspirin (Ecotrin) 81 mg PO DAILY [facility] Last Admin: 04/14/18 09:17 Dose: 81 mg Atorvastatin Calcium (Lipitor) 10 mg PO HS [facility] Last Admin: 04/13/18 22:13 Dose: 10 mg Azithromycin (Zithromax) 250 mg PO DAILY [facility] PRN Reason: Protocol Last Admin: 04/14/18 09:22 Dose: 250 mg Carvedilol (Coreg) 6.25 mg PO Q12H [facility] Last Admin: 04/14/18 01:15 Dose: 6.25 mg Cinacalcet (Sensipar) 60 mg PO F [facility] Clopidogrel Bisulfate (Plavix) 75 mg PO HS [facility] Last Admin: 04/13/18 22:32 Dose: 75 mg Dextrose (Dextrose 50% Inj) 0 ml IV STAT PRN; Protocol PRN Reason: Hypoglycemia Protocol Dextrose (Glutose 15) 0 gm PO ONCE PRN; Protocol PRN Reason: Hypoglycemia Protocol Enalapril Maleate (Vasotec) 10 mg PO DAILY [facility] Last Admin: 04/14/18 09:22 Dose: 10 mg Furosemide (Lasix) 20 mg PO DAILY [facility] Last Admin: 04/14/18 09:21 Dose: 20 mg Glucagon (Glucagen Diagnostic Kit) 0 mg IM STAT PRN; Protocol PRN Reason: Hypoglycemia Protocol Heparin Sodium (Porcine) (Heparin) 5,000 units SC Q8 [facility] PRN Reason: Protocol Last Admin: 04/14/18 09:17 Dose: 5,000 units Sodium Chloride (Sodium Chloride 0.9%) 250 mls @ 100 mls/hr IV .Q2H30M [facility] Last Admin: 04/13/18 08:48 Dose: 100 mls/hr Insulin Human Lispro (Humalog) 0 units SC ACCU-CHECK [facility] PRN Reason: Protocol Last Admin: 04/14/18 09:19 Dose: 1 unit - Labs Labs: 04/14/18 05:05 04/13/18 08:02 PT 11.2 Seconds (9.8-13.1) 04/13/18 08:02 INR 1.0 (0.9-1.2) 04/13/18 08:02 APTT 33.4 Seconds (25.6-37.1) 04/13/18 08:02 - Constitutional Appears: No Acute Distress - Head Exam Head Exam: NORMAL INSPECTION - Eye Exam Eye Exam: Normal appearance - ENT Exam ENT Exam: Mucous Membranes Moist - Neck Exam Neck Exam: Normal Inspection - Respiratory Exam Respiratory Exam: Clear to Ausculation Bilateral, NORMAL BREATHING PATTERN - Cardiovascular Exam Cardiovascular Exam: REGULAR RHYTHM - GI/Abdominal Exam GI & Abdominal Exam: Soft, Normal Bowel Sounds - Extremities Exam Extremities Exam: Normal Capillary Refill. absent: Pedal Edema, Tenderness - Back Exam Back Exam: NORMAL INSPECTION. absent: CVA tenderness (L), CVA tenderness (R) - Neurological Exam Neurological Exam: Alert, Awake, Oriented x3 Neuro motor strength exam: Left Upper Extremity: 4, Right Upper Extremity: 4, Left Lower Extremity: 4, Right Lower Extremity: 4 - Psychiatric Exam Psychiatric exam: Normal Affect - Skin Skin Exam: Dry, Intact, Normal Color, Warm Assessment and Plan - Assessment and Plan (Free Text) Assessment: A/P: 76 YO female with PMHx of HTN, CVA(last strke 05/2017), CABG x 4 in 2011, cardiac stents x2, DM, and ESRD (HD on MWF) admitted for dyspnea/cough and weakness. Systolic CHF -dyspnea/cough and weakness likely acute on chronic CHF -last echo 05/18/2016; LV systolic function severely impaired. EF15-20 % -trop neg x 3 -1x IV lasix 20mg -Echo 04/13: EF 35-40%, moderate to severely reduced systolic func, impaired diastolic relaxation -Cardiology consulted;Dr. Branch appreciated: CONTINUE CARVEDILOL, ASPIRIN, HEPARIN, ATORVASTATIN, CLOPIDOGREL, ENALAPRIL, ANTIBIOTICS -c/w home meds, Lasix 20mg PO daily URI -Acute -Cough and mild runny nose -CXR: No acute pulmonary disease -Supportive management -will cont Azithromycin -Tylenol PRN for fever ESRD -Bun/Cr 26/2.8 -on HD M/W/F -Nephro, Dr. Krause, consulted:recs appreciated Generalized weakness -PT -Possible TCU/Acute rehab -Age, ESRD, CHF and other comorbid condions, patient is high risk of catastrophic event DM -hgba1c 8.9 (11/18) -hold at home insulin -low dose coverage insulin per protocol -hypoglycemia protocol -accu-checks HTN -c/w home meds -c/w Carvedidol 6.25 mg and enalapril 10mg daily CAD -CABG x 4 in 2011, cardiac stents x2, -lipid profile from 11/18 reviewed -C/w Lipitor 40 mg daily -C/w Asprin History of CVA and Cardiac Stents -no residual hemiparesis as per pt and family -C/w Asprin and Plavix DVT PPX -Heparin 5000 SC Q8H <Julio Ponce - Last Filed: 04/15/18 07:18> Objective - Vital Signs/Intake and Output Vital Signs (last 24 hours): Temp Pulse Resp BP Pulse Ox 97.8 F 67 20 154/67 H 98 04/15/18 04:41 04/15/18 04:41 04/15/18 04:41 04/15/18 04:41 04/15/18 04:41 - Medications Medications: Current Medications Aspirin (Ecotrin) 81 mg PO DAILY [facility] Last Admin: 04/14/18 09:17 Dose: 81 mg Atorvastatin Calcium (Lipitor) 10 mg PO HS [facility] Last Admin: 04/14/18 22:10 Dose: 10 mg Azithromycin (Zithromax) 250 mg PO DAILY [facility] PRN Reason: Protocol Last Admin: 04/14/18 09:22 Dose: 250 mg Carvedilol (Coreg) 6.25 mg PO Q12H [facility] Last Admin: 04/15/18 02:09 Dose: 6.25 mg Cinacalcet (Sensipar) 60 mg PO MWF [facility] Clopidogrel Bisulfate (Plavix) 75 mg PO HS [facility] Last Admin: 04/14/18 22:10 Dose: 75 mg Dextrose (Dextrose 50% Inj) 0 ml IV STAT PRN; Protocol PRN Reason: Hypoglycemia Protocol Dextrose (Glutose 15) 0 gm PO ONCE PRN; Protocol PRN Reason: Hypoglycemia Protocol Enalapril Maleate (Vasotec) 10 mg PO DAILY [facility] Last Admin: 04/14/18 09:22 Dose: 10 mg Furosemide (Lasix) 20 mg PO DAILY [facility] Last Admin: 04/14/18 09:21 Dose: 20 mg Glucagon (Glucagen Diagnostic Kit) 0 mg IM STAT PRN; Protocol PRN Reason: Hypoglycemia Protocol Heparin Sodium (Porcine) (Heparin) 5,000 units SC Q8 [facility] PRN Reason: Protocol Last Admin: 04/15/18 00:06 Dose: 5,000 units Insulin Human Lispro (Humalog) 0 units SC ACCU-CHECK [facility] PRN Reason: Protocol Last Admin: 04/15/18 06:34 Dose: 1 units - Labs Labs: 04/14/18 05:05 04/14/18 09:02 PT 11.2 Seconds (9.8-13.1) 04/13/18 08:02 INR 1.0 (0.9-1.2) 04/13/18 08:02 APTT 33.4 Seconds (25.6-37.1) 04/13/18 08:02 Attending/Attestation - Attestation I have personally seen and examined this patient.: Yes I have fully participated in the care of the patient.: Yes I have reviewed all pertinent clinical information, including history, physical exam and plan: Yes
[2018-04-14 09:36] LABS: TROPONIN I 0.09 ng/mL (0.00-0.120)
[2018-04-14 09:40] LABS: CALCIUM 10.5 mg/dL (8.4-10.2)
--- NOTE | 2018-04-14 11:00 | CP.PCM.PN ---
Subjective - Date & Time of Evaluation Date of Evaluation: 04/14/18 Time of Evaluation: 10:00 - Subjective Subjective: NO CHEST PAIN OR SOB FEELS BETTER Objective - Vital Signs/Intake and Output Vital Signs (last 24 hours): Temp Pulse Resp BP Pulse Ox 98.3 F 70 18 150/66 96 04/14/18 08:04 04/14/18 08:04 04/14/18 08:04 04/14/18 09:21 04/14/18 08:04 - Medications Medications: Current Medications Aspirin (Ecotrin) 81 mg PO DAILY [facility] Last Admin: 04/14/18 09:17 Dose: 81 mg Atorvastatin Calcium (Lipitor) 10 mg PO HS [facility] Last Admin: 04/13/18 22:13 Dose: 10 mg Azithromycin (Zithromax) 250 mg PO DAILY [facility] PRN Reason: Protocol Last Admin: 04/14/18 09:22 Dose: 250 mg Carvedilol (Coreg) 6.25 mg PO Q12H [facility] Last Admin: 04/14/18 01:15 Dose: 6.25 mg Cinacalcet (Sensipar) 60 mg PO MWF [facility] Clopidogrel Bisulfate (Plavix) 75 mg PO HS [facility] Last Admin: 04/13/18 22:32 Dose: 75 mg Dextrose (Dextrose 50% Inj) 0 ml IV STAT PRN; Protocol PRN Reason: Hypoglycemia Protocol Dextrose (Glutose 15) 0 gm PO ONCE PRN; Protocol PRN Reason: Hypoglycemia Protocol Enalapril Maleate (Vasotec) 10 mg PO DAILY [facility] Last Admin: 04/14/18 09:22 Dose: 10 mg Furosemide (Lasix) 20 mg PO DAILY [facility] Last Admin: 04/14/18 09:21 Dose: 20 mg Glucagon (Glucagen Diagnostic Kit) 0 mg IM STAT PRN; Protocol PRN Reason: Hypoglycemia Protocol Heparin Sodium (Porcine) (Heparin) 5,000 units SC Q8 [facility] PRN Reason: Protocol Last Admin: 04/14/18 09:17 Dose: 5,000 units Insulin Human Lispro (Humalog) 0 units SC ACCU-CHECK [facility] PRN Reason: Protocol Last Admin: 04/14/18 09:19 Dose: 1 unit - Labs Labs: 04/14/18 05:05 04/14/18 09:02 PT 11.2 Seconds (9.8-13.1) 04/13/18 08:02 INR 1.0 (0.9-1.2) 04/13/18 08:02 APTT 33.4 Seconds (25.6-37.1) 04/13/18 08:02 - Respiratory Exam Respiratory Exam: Clear to Ausculation Bilateral - Cardiovascular Exam Cardiovascular Exam: REGULAR RHYTHM, +S1, +S2 - Back Exam Back Exam: NORMAL INSPECTION - Additional Findings Additional findings: EKG NSR Assessment and Plan - Assessment and Plan (Free Text) Assessment: CAD HYPERTENSION HYPERLIPIDEMIA ESRD BRONCHITIS Plan: CONTINUE CARVEDILOL, ASPIRIN, HEPARIN, ATORVASTATIN, CLOPIDOGREL, ENALAPRIL, ANTIBIOTICS
--- NOTE | 2018-04-14 12:31 | CARD ---
APPROVED REPORT EXAM: Two-dimensional and M-mode echocardiogram with Doppler and color Doppler. Other Information Quality : GoodRhythm : NSR INDICATION LV Function:SystolicDiastolic Surgery/Intervention CABD DIMENSIONS IVSd1.83 (0.7-1.1cm)LVDd4.66 (3.9-5.9cm) LVOT Diameter2.11 (1.8-2.4cm)PWd0.83 (0.7-1.1cm) IVSs1.56 (0.8-1.2cm)LVDs4.75 (2.5-4.0cm) FS (%) 2.0 %PWs0.56 (0.8-1.2cm) M-Mode DIMENSIONS Left Atrium (MM)4.74 (2.5-4.0cm)IVSd1.11 (0.7-1.1cm) Aortic Root2.75 (2.2-3.7cm)LVDd6.10 (4.0-5.6cm) Aortic Cusp Exc.1.65 (1.5-2.0cm)PWd0.64 (0.7-1.1cm) IVSs1.80 cmFS (%) 21 % LVDs4.81 (2.0-3.8cm)PWs0.69 cm Mitral Valve MV E Hzzlplem10.9cm/sMV DECEL [id number] A Ipzvbqao719.8cm/s MV [id number]/A ratio0.6MVA (PHT)3.36cm2 TDI Lateral E' Peak V6.27cm/sMedial E' Peak V1.96cm/sE/Lateral E'9.7 E/Medial E'31.1 Pulmonary Valve PV Peak Lyyhffqm75.5cm/s Tricuspid Valve TR Peak [id number]/sRAP [id number] Peak Gr.26mmHg [id number] LEFT VENTRICLE The left ventricle is normal size. There is moderate asymmetric left ventricular hypertrophy. Left ventricle systolic function is moderately to severely impaired. The Ejection Fraction is 35-40%. The inferior wall is thinned and akinetic Transmitral Doppler flow pattern is Grade I-abnormal relaxation pattern. No left ventricle thrombus noted on this study. There is no ventricular septal defect visualized. There is no left ventricular aneurysm. There is no mass noted in the left ventricle. RIGHT VENTRICLE The right ventricle is normal size. There is normal right ventricular wall thickness. The right ventricular systolic function is normal. ATRIA The left atrium size is normal. The right atrium size is normal. The interatrial septum is intact with no evidence for an atrial septal defect. AORTIC VALVE The aortic valve is normal in structure. No aortic regurgitation is present. There is no aortic valvular stenosis. There is no aortic valvular vegetation. MITRAL VALVE The mitral valve is normal in structure. There is no evidence of mitral valve prolapse. There is no mitral valve stenosis. Mitral regurgitation is trace to mild. TRICUSPID VALVE The tricuspid valve is normal in structure. There is mild to moderate tricuspid regurgitation. Right ventricular systolic pressure is estimated at less than 30 mmHg. There is no tricuspid valve prolapse or vegetation. There is no tricuspid valve stenosis. PULMONIC VALVE The pulmonary valve is normal in structure. There is no pulmonic valvular regurgitation. There is no pulmonic valvular stenosis. GREAT VESSELS The aortic root is normal in size. The ascending aorta is normal in size. The IVC is normal in size and collapses >50% with inspiration. PERICARDIAL EFFUSION The pericardium appears normal. There is no pleural effusion. <Conclusion> Moderate to Severely Reduced Systolic Function LVEF 35-40% RCA/ PDA regional wall motion abnormality Impaired Diastolic Relaxation
[2018-04-15] MEDS: Insulin Lispro (humaLOG) 100 Units/ml Inj SC SCH ×3 (06:34→16:03)
[2018-04-15] MEDS ORDERED: Triamcinolone Acetonide 40 mg/mL Inj IM STA (08:33)
--- NOTE | 2018-04-15 09:11 | CP.PCM.PN ---
Subjective - Date & Time of Evaluation Date of Evaluation: 04/15/18 Time of Evaluation: 09:00 - Subjective Subjective: NO CHEST PAIN OR SOB FEELS BETTER Objective - Vital Signs/Intake and Output Vital Signs (last 24 hours): Temp Pulse Resp BP Pulse Ox 97.9 F 67 20 166/65 H 100 04/15/18 08:01 04/15/18 08:01 04/15/18 08:01 04/15/18 08:01 04/15/18 08:01 - Medications Medications: Current Medications Aspirin (Ecotrin) 81 mg PO DAILY [facility] Last Admin: 04/14/18 09:17 Dose: 81 mg Atorvastatin Calcium (Lipitor) 10 mg PO HS [facility] Last Admin: 04/14/18 22:10 Dose: 10 mg Azithromycin (Zithromax) 250 mg PO DAILY [facility] PRN Reason: Protocol Last Admin: 04/14/18 09:22 Dose: 250 mg Carvedilol (Coreg) 6.25 mg PO Q12H [facility] Last Admin: 04/15/18 02:09 Dose: 6.25 mg Cinacalcet (Sensipar) 60 mg PO MWF [facility] Clopidogrel Bisulfate (Plavix) 75 mg PO HS [facility] Last Admin: 04/14/18 22:10 Dose: 75 mg Dextrose (Dextrose 50% Inj) 0 ml IV STAT PRN; Protocol PRN Reason: Hypoglycemia Protocol Dextrose (Glutose 15) 0 gm PO ONCE PRN; Protocol PRN Reason: Hypoglycemia Protocol Enalapril Maleate (Vasotec) 10 mg PO DAILY [facility] Last Admin: 04/14/18 09:22 Dose: 10 mg Furosemide (Lasix) 20 mg PO DAILY [facility] Last Admin: 04/14/18 09:21 Dose: 20 mg Glucagon (Glucagen Diagnostic Kit) 0 mg IM STAT PRN; Protocol PRN Reason: Hypoglycemia Protocol Heparin Sodium (Porcine) (Heparin) 5,000 units SC Q8 [facility] PRN Reason: Protocol Last Admin: 04/15/18 00:06 Dose: 5,000 units Insulin Human Lispro (Humalog) 0 units SC ACCU-CHECK [facility] PRN Reason: Protocol Last Admin: 04/15/18 06:34 Dose: 1 units - Labs Labs: 04/14/18 05:05 04/14/18 09:02 PT 11.2 Seconds (9.8-13.1) 04/13/18 08:02 INR 1.0 (0.9-1.2) 04/13/18 08:02 APTT 33.4 Seconds (25.6-37.1) 04/13/18 08:02 - Respiratory Exam Respiratory Exam: Clear to Ausculation Bilateral - Cardiovascular Exam Cardiovascular Exam: REGULAR RHYTHM, +S1, +S2 - Extremities Exam Extremities Exam: Normal Inspection - Additional Findings 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 ECHO LVEF ~ 35-40%, DIASTOLIC DYSFUNCTION Assessment and Plan - Assessment and Plan (Free Text) Assessment: CAD-STABLE THE PATIENT IS NOT IN CLINICAL CHF-SHE PROBABLY HAS CHRONIC MILD CHF DUE TO SOME FLUID OVERLOAD FROM ESRD BUT ALSO A COMPONENT OF BOTH SYSTOLIC AND DIASTOLIC DYSFUNCTION HYPERTENSION HYPERLIPIDEMIA OLD CVA BRONCHITIS Plan: CONTINUE CARVEDILOL, ASPIRIN, HEPARIN, ATORVASTATIN, CLOPIDOGREL, ENALAPRIL, ANTIBIOTICS THE PATIENT CAN BE DISCHARGED FROM THE CARDIAC VIEWPOINT AGAIN SHE WOULD BENEFIT FROM INCREASED FLUID REMOVAL AT HD 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
--- NOTE | 2018-04-15 09:13 | CP.PCM.DIS ---
<Alphonso Lunsford - Last Filed: 04/15/18 12:54> Provider - Provider Date of Admission: 04/13/18 11:49 Attending physician: Julio Ponce MD Primary care physician: Dr. Ponce Consults: Cardio, Dr. Branch Time Spent in preparation of Discharge (in minutes): 40 Diagnosis - Discharge Diagnosis (1) Cough Status: Acute (2) Dizziness Status: Acute (3) Weakness Status: Acute (4) Chronic kidney disease with end stage renal failure on dialysis Status: Chronic Hospital Course - Lab Results Lab Results: Micro Results 04/13/18 08:30 Blood Blood Culture - Preliminary NO GROWTH AFTER 48 HOURS 04/13/18 08:02 Blood Blood Culture - Preliminary NO GROWTH AFTER 48 HOURS Most Recent Lab Values WBC 8.0 K/uL (4.8-10.8) 04/14/18 05:05 RBC 3.99 Mil/uL (3.80-5.20) 04/14/18 05:05 Hgb 11.8 g/dL (12.0-16.0) L 04/14/18 05:05 Hct 35.7 % (34.0-47.0) 04/14/18 05:05 MCV 89.4 fl (81.0-99.0) 04/14/18 05:05 MCH 29.7 pg (27.0-31.0) 04/14/18 05:05 MCHC 33.2 g/dL (33.0-37.0) 04/14/18 05:05 RDW 15.2 % (11.5-14.5) H 04/14/18 05:05 Plt Count 180 K/uL (130-400) 04/14/18 05:05 MPV 9.4 fl (7.2-11.7) 04/14/18 05:05 Neut % (Auto) 78.1 % (50.0-75.0) H 04/14/18 05:05 Lymph % (Auto) 13.9 % (20.0-40.0) L 04/14/18 05:05 [place] % (Auto) 7.6 % (0.0-10.0) 04/14/18 05:05 Eos % (Auto) 0.0 % (0.0-4.0) 04/14/18 05:05 Baso % (Auto) 0.4 % (0.0-2.0) 04/14/18 05:05 Neut # (Auto) 6.2 K/uL (1.8-7.0) 04/14/18 05:05 Lymph # (Auto) 1.1 K/uL (1.0-4.3) 04/14/18 05:05 [place] # (Auto) 0.6 K/uL (0.0-0.8) 04/14/18 05:05 Eos # (Auto) 0.0 K/uL (0.0-0.7) 04/14/18 05:05 Baso # (Auto) 0.0 K/uL (0.0-0.2) 04/14/18 05:05 PT 11.2 Seconds (9.8-13.1) 04/13/18 08:02 INR 1.0 (0.9-1.2) 04/13/18 08:02 APTT 33.4 Seconds (25.6-37.1) 04/13/18 08:02 pO2 43 mm/Hg (30-55) 04/13/18 08:00 VBG pH 7.43 (7.32-7.43) 04/13/18 08:00 VBG pCO2 37 mmHg (40-60) L 04/13/18 08:00 VBG HCO3 24.9 mmol/L 04/13/18 08:00 VBG Total CO2 25.7 mmol/L (22-28) 04/13/18 08:00 VBG O2 Sat (Calc) 86.5 % (40-65) H 04/13/18 08:00 VBG Base Excess 0.5 mmol/L (0.0-2.0) 04/13/18 08:00 VBG Potassium 4.0 mmol/L (3.6-5.2) 04/13/18 08:00 Sodium 133.0 mmol/L (132-148) 04/13/18 08:00 Chloride 106.0 mmol/L (98-107) 04/13/18 08:00 Glucose 121 mg/dL (65-105) H 04/13/18 08:00 Lactate 1.4 mmol/L (0.7-2.1) 04/13/18 08:00 FiO2 21.0 % 04/13/18 08:00 Sodium 134 mmol/l (132-148) 04/14/18 09:02 Potassium 4.5 MMOL/L (3.6-5.0) 04/14/18 09:02 Chloride 96 mmol/L (98-107) L 04/14/18 09:02 Carbon Dioxide 25 mmol/L (22-30) 04/14/18 09:02 Anion Gap 18 (10-20) 04/14/18 09:02 BUN 26 mg/dl (7-17) H 04/14/18 09:02 Creatinine 2.8 mg/dl (0.7-1.2) H 04/14/18 09:02 Est GFR ( Amer) 20 04/14/18 09:02 Est GFR (Non-Af Amer) 16 04/14/18 09:02 POC Glucose (mg/dL) 196 mg/dL (65-110) H 04/15/18 06:03 Random Glucose 168 mg/dL (65-105) H 04/14/18 09:02 Calcium 10.5 mg/dL (8.4-10.2) H 04/14/18 09:02 Phosphorus 5.2 mg/dl (2.5-4.5) H 04/13/18 08:02 Magnesium 2.2 MG/DL (1.6-2.3) 04/13/18 08:02 Total Bilirubin 0.8 mg/dl (0.2-1.3) 04/13/18 08:02 AST 19 U/L (14-36) 04/13/18 08:02 ALT 15 U/L (9-52) 04/13/18 08:02 Alkaline Phosphatase 86 U/L (38-126) 04/13/18 08:02 Troponin I 0.0900 ng/mL (0.00-0.120) 04/14/18 09:02 NT-Pro-B Natriuret Pep > 72099 pg/ml (0-900) H 04/13/18 13:32 Total Protein 6.3 G/DL (6.3-8.2) 04/13/18 08:02 Albumin 3.3 g/dL (3.5-5.0) L 04/13/18 08:02 Globulin 3.0 gm/dL (2.2-3.9) 04/13/18 08:02 Albumin/Globulin Ratio 1.1 (1.0-2.1) 04/13/18 08:02 Venous Blood Potassium 4.0 mmol/L (3.6-5.2) 04/13/18 08:00 - Hospital Course Hospital Course: 76 yo F w PMHx of HTN, CVA(last strke 05/2017), CABG x 4 in 2011, cardiac stents x2, DM, and ESRD (HD on MWF) admitted for weakness, cough and dyspnea. Pt was recently d/c from the hospital on 04/12 (URI) with PO azithromycin. Cardiology was consulted, Echo 04/13: EF 35-40%, moderate to severely reduced systolic func , impaired diastolic relaxation. CT head--no acute intracranial findings. Chronic L HYPO DIPPER infract is reiterated as well as age related neuro degenerative changes. EKG: Normal sinus rhythm rate 68; QTc 489. Patient received HD and her weakness, dyspnea improved. Patient is afebrile, no wbc, patient was offered TCU /Acute rehab but denied and wants to go home. Patient is cleared by cardio. Patient agrees with discharge plan. Age, ESRD, CHF and other comorbid condions, patient is high risk of catastrophic event. Patient was seen with Dr. Ponce this morning, all the questions were answered. -Follow up with Dr. Ponce in one week, continue HD. Discharge Exam - Head Exam Head Exam: NORMAL INSPECTION - Eye Exam Eye Exam: Normal appearance Pupil Exam: NORMAL ACCOMODATION - ENT Exam ENT Exam: Mucous Membranes Moist - Respiratory Exam Respiratory Exam: Clear to PA & Lateral, NORMAL BREATHING PATTERN - Cardiovascular Exam Cardiovascular Exam: REGULAR RHYTHM - GI/Abdominal Exam GI & Abdominal Exam: Normal Bowel Sounds, Soft. absent: Tenderness - Extremities Exam Extremities exam: normal capillary refill, normal inspection - Back Exam Back exam: NORMAL INSPECTION. absent: CVA tenderness (L), CVA tenderness (R) - Neurological Exam Neurological exam: Alert, Oriented x3 - Psychiatric Exam Psychiatric exam: Normal Affect - Skin Skin Exam: Normal Color Discharge Plan - Follow Up Plan Condition: FAIR Disposition: HOME/ ROUTINE Instructions: Heart Failure, Adult (DC), End Stage Kidney Disease (DC), Weakness (ED) Additional Instructions: Continue dialysis MWF Continue home medication Follow up with primary MD, Dr. Ponce, in 2-3 days Patient agrees with discharge plan Referrals: Matt Krause MD [Staff Provider] - Rg Branch MD [Staff Provider] - Julio Ponce MD [Family Provider] - <Julio Ponce - Last Filed: 04/18/18 06:45> Provider - Provider Date of Admission: 04/13/18 11:49 Attending physician: Julio Ponce MD Hospital Course - Lab Results Lab Results: Micro Results 04/13/18 08:30 Blood Blood Culture - Preliminary NO GROWTH AFTER 4 DAYS 04/13/18 08:02 Blood Blood Culture - Preliminary NO GROWTH AFTER 4 DAYS Most Recent Lab Values WBC 8.0 K/uL (4.8-10.8) 04/14/18 05:05 RBC 3.99 Mil/uL (3.80-5.20) 04/14/18 05:05 Hgb 11.8 g/dL (12.0-16.0) L 04/14/18 05:05 Hct 35.7 % (34.0-47.0) 04/14/18 05:05 MCV 89.4 fl (81.0-99.0) 04/14/18 05:05 MCH 29.7 pg (27.0-31.0) 04/14/18 05:05 MCHC 33.2 g/dL (33.0-37.0) 04/14/18 05:05 RDW 15.2 % (11.5-14.5) H 04/14/18 05:05 Plt Count 180 K/uL (130-400) 04/14/18 05:05 MPV 9.4 fl (7.2-11.7) 04/14/18 05:05 Neut % (Auto) 78.1 % (50.0-75.0) H 04/14/18 05:05 Lymph % (Auto) 13.9 % (20.0-40.0) L 04/14/18 05:05 [place] % (Auto) 7.6 % (0.0-10.0) 04/14/18 05:05 Eos % (Auto) 0.0 % (0.0-4.0) 04/14/18 05:05 Baso % (Auto) 0.4 % (0.0-2.0) 04/14/18 05:05 Neut # (Auto) 6.2 K/uL (1.8-7.0) 04/14/18 05:05 Lymph # (Auto) 1.1 K/uL (1.0-4.3) 04/14/18 05:05 [place] # (Auto) 0.6 K/uL (0.0-0.8) 04/14/18 05:05 Eos # (Auto) 0.0 K/uL (0.0-0.7) 04/14/18 05:05 Baso # (Auto) 0.0 K/uL (0.0-0.2) 04/14/18 05:05 PT 11.2 Seconds (9.8-13.1) 04/13/18 08:02 INR 1.0 (0.9-1.2) 04/13/18 08:02 APTT 33.4 Seconds (25.6-37.1) 04/13/18 08:02 pO2 43 mm/Hg (30-55) 04/13/18 08:00 VBG pH 7.43 (7.32-7.43) 04/13/18 08:00 VBG pCO2 37 mmHg (40-60) L 04/13/18 08:00 VBG HCO3 24.9 mmol/L 04/13/18 08:00 VBG Total CO2 25.7 mmol/L (22-28) 04/13/18 08:00 VBG O2 Sat (Calc) 86.5 % (40-65) H 04/13/18 08:00 VBG Base Excess 0.5 mmol/L (0.0-2.0) 04/13/18 08:00 VBG Potassium 4.0 mmol/L (3.6-5.2) 04/13/18 08:00 Sodium 133.0 mmol/L (132-148) 04/13/18 08:00 Chloride 106.0 mmol/L (98-107) 04/13/18 08:00 Glucose 121 mg/dL (65-105) H 04/13/18 08:00 Lactate 1.4 mmol/L (0.7-2.1) 04/13/18 08:00 FiO2 21.0 % 04/13/18 08:00 Sodium 134 mmol/l (132-148) 04/14/18 09:02 Potassium 4.5 MMOL/L (3.6-5.0) 04/14/18 09:02 Chloride 96 mmol/L (98-107) L 04/14/18 09:02 Carbon Dioxide 25 mmol/L (22-30) 04/14/18 09:02 Anion Gap 18 (10-20) 04/14/18 09:02 BUN 26 mg/dl (7-17) H 04/14/18 09:02 Creatinine 2.8 mg/dl (0.7-1.2) H 04/14/18 09:02 Est GFR ( Amer) 20 04/14/18 09:02 Est GFR (Non-Af Amer) 16 04/14/18 09:02 POC Glucose (mg/dL) 318 mg/dL (65-110) H 04/15/18 16:01 Random Glucose 168 mg/dL (65-105) H 04/14/18 09:02 Calcium 10.5 mg/dL (8.4-10.2) H 04/14/18 09:02 Phosphorus 5.2 mg/dl (2.5-4.5) H 04/13/18 08:02 Magnesium 2.2 MG/DL (1.6-2.3) 04/13/18 08:02 Total Bilirubin 0.8 mg/dl (0.2-1.3) 04/13/18 08:02 AST 19 U/L (14-36) 04/13/18 08:02 ALT 15 U/L (9-52) 04/13/18 08:02 Alkaline Phosphatase 86 U/L (38-126) 04/13/18 08:02 Troponin I 0.0900 ng/mL (0.00-0.120) 04/14/18 09:02 NT-Pro-B Natriuret Pep 77541 pg/ml (0-900) H 04/15/18 12:53 Total Protein 6.3 G/DL (6.3-8.2) 04/13/18 08:02 Albumin 3.3 g/dL (3.5-5.0) L 04/13/18 08:02 Globulin 3.0 gm/dL (2.2-3.9) 04/13/18 08:02 Albumin/Globulin Ratio 1.1 (1.0-2.1) 04/13/18 08:02 Venous Blood Potassium 4.0 mmol/L (3.6-5.2) 04/13/18 08:00 Attending/Attestation - Attestation I have personally seen and examined this patient.: Yes I have fully participated in the care of the patient.: Yes I have reviewed all pertinent clinical information, including history, physical exam and plan: Yes
--- NOTE | 2018-04-15 11:11 | CP.PCM.PN ---
Subjective - Date & Time of Evaluation Date of Evaluation: 04/15/18 Time of Evaluation: 11:07 - Subjective Subjective: Dialysis note She was seen on hemodialysis now. Patient awake conscious feeling okay Minimal coughing but no chest pain no shortness of breath Objective - Vital Signs/Intake and Output Vital Signs (last 24 hours): Temp Pulse Resp BP Pulse Ox 97.9 F 67 20 166/65 H 100 04/15/18 08:01 04/15/18 08:01 04/15/18 08:01 04/15/18 08:01 04/15/18 08:01 - Medications Medications: Current Medications Aspirin (Ecotrin) 81 mg PO DAILY [facility] Last Admin: 04/14/18 09:17 Dose: 81 mg Atorvastatin Calcium (Lipitor) 10 mg PO HS [facility] Last Admin: 04/14/18 22:10 Dose: 10 mg Azithromycin (Zithromax) 250 mg PO DAILY [facility] PRN Reason: Protocol Last Admin: 04/14/18 09:22 Dose: 250 mg Carvedilol (Coreg) 6.25 mg PO Q12H [facility] Last Admin: 04/15/18 02:09 Dose: 6.25 mg Cinacalcet (Sensipar) 60 mg PO MWF [facility] Clopidogrel Bisulfate (Plavix) 75 mg PO HS [facility] Last Admin: 04/14/18 22:10 Dose: 75 mg Dextrose (Dextrose 50% Inj) 0 ml IV STAT PRN; Protocol PRN Reason: Hypoglycemia Protocol Dextrose (Glutose 15) 0 gm PO ONCE PRN; Protocol PRN Reason: Hypoglycemia Protocol Enalapril Maleate (Vasotec) 10 mg PO DAILY [facility] Last Admin: 04/14/18 09:22 Dose: 10 mg Furosemide (Lasix) 20 mg PO DAILY [facility] Last Admin: 04/14/18 09:21 Dose: 20 mg Glucagon (Glucagen Diagnostic Kit) 0 mg IM STAT PRN; Protocol PRN Reason: Hypoglycemia Protocol Heparin Sodium (Porcine) (Heparin) 5,000 units SC Q8 [facility] PRN Reason: Protocol Last Admin: 04/15/18 00:06 Dose: 5,000 units Insulin Human Lispro (Humalog) 0 units SC ACCU-CHECK [facility] PRN Reason: Protocol Last Admin: 04/15/18 06:34 Dose: 1 units - Labs Labs: 04/14/18 05:05 04/14/18 09:02 PT 11.2 Seconds (9.8-13.1) 04/13/18 08:02 INR 1.0 (0.9-1.2) 04/13/18 08:02 APTT 33.4 Seconds (25.6-37.1) 04/13/18 08:02 - Constitutional Appears: No Acute Distress - ENT Exam ENT Exam: Mucous Membranes Moist - Neck Exam Neck Exam: absent: Lymphadenopathy - Respiratory Exam Respiratory Exam: absent: Chest Wall Tenderness - Cardiovascular Exam Cardiovascular Exam: REGULAR RHYTHM. absent: JVD, Rubs - GI/Abdominal Exam GI & Abdominal Exam: Soft, Normal Bowel Sounds - Extremities Exam Extremities Exam: absent: Calf Tenderness - Back Exam Back Exam: absent: CVA tenderness (L), CVA tenderness (R) - Neurological Exam Neurological Exam: Alert - Psychiatric Exam Psychiatric exam: Normal Affect - Skin Skin Exam: absent: Cyanosis Assessment and Plan (1) Weakness Status: Acute (2) Bronchitis Status: Acute (3) CAP (community acquired pneumonia) Status: Acute (4) CHF (congestive heart failure) Status: Acute (5) CVA (cerebral vascular accident) Status: Acute (6) Chronic kidney disease with end stage renal failure on dialysis Assessment & Plan: End stage renal disease Patient receiving dialysis through right subclavian catheter. discussed with the dialysis nurse at the bedside. Vital signs stable Bronchitis appears to be resolving and improving Blood tests showed hypercalcemia this time .to be repeated Patient is going home and she will have hemodialysis as outpatient Wednesday. Lab reviewed Hyperphosphatemia continue binder. Secondary hyperparathyroidism continue Sensipar. Antibiotics as per primary team Status: Acute
--- NOTE | 2018-04-15 11:12 | CARD ---
APPROVED REPORT EKG Measurement Heart [id number] <Conclusion> Normal sinus rhythm Septal infarct, age undetermined ST & T wave abnormality, consider lateral ischemia Abnormal ECG
[2018-04-15 12:10] VITALS: RESP 18
[2018-04-15 16:15] VITALS: BP 123/78; PULSE 64; TEMP 97.5; O2SAT 98
--- NOTE | 2018-04-18 09:04 | PQF GENQUE ---
Dr. Ponce 04/[address] Branch documented "pt not in clinical chf." Discharge summary documented "pt received hemodialysis and weakness and dyspnea improved." After study what is the principal diagnosis for this case? This form is a permanent part of the medical record Clarification of your documentation is requested to better reflect the severity of illness and intensity of treatment of your patient. Indicators present [] Specify: [] [] Specify: [] [] Specify: [] [] Specify: [] Location in the medical record that reflects the above clinical findings: [] Treatment Provided: [] PHYSICIAN'S RESPONSE Based on your medical judgment of the clinical indicators outlined above please clarify the following: [x] Practitioner response Dont know why he wrote the note the way he did.. dialysis patients usually are fatigued tired feel sick due to renal failure and feel better after dialysis [ ] If unable to determine, please check the box, sign and date. not sure why he wrote what he wrote in chart pt gets fatigued from kidney diseae and buiild up of toxins and usually feels better after dialysis Present On Admission (POA) Indicator: [x] Present at the time of admission fatigue was present on admission [] Not present at the time of admission [] Clinically Undetermined In responding to this query, please exercise your independent professional judgment. The fact that a question is asked does not imply that any particular answer is desired or expected. Thank you for your clarification on this documentation. If you have any questions please call:[ ] * Thank you, [ ]Amalia FRIEDMAN Coder PARKER
== END 2018-04-15 16:45 | disposition home or self-care (01) | DRG 291 ==
LOC: H.ER 07:19 → H.ERHOLD 11:49 → OBSVTOIN 11:49 → H.TEL 14:28
PROVIDERS: ADMIT Family Medicine; ATTEND Family Medicine
PROC: 5A1D70Z Performance of Urinary Filtration, Intermittent, Less than 6 Hours Per Day (ICD-10-PCS; principal; 2018-04-13)
DX: I13.2 Hypertensive heart and chronic kidney disease with heart failure and with stage 5 chronic kidney disease, or end stage renal disease (principal); N18.6 End stage renal disease; N25.81 Secondary hyperparathyroidism of renal origin; I50.42 Chronic combined systolic (congestive) and diastolic (congestive) heart failure; R53.1 Weakness; D64.9 Anemia, unspecified; E11.22 Type 2 diabetes mellitus with diabetic chronic kidney disease; E78.5 Hyperlipidemia, unspecified; E83.39 Other disorders of phosphorus metabolism; I25.10 Atherosclerotic heart disease of native coronary artery without angina pectoris; R09.02 Hypoxemia; Z86.73 Personal history of transient ischemic attack (TIA), and cerebral infarction without residual deficits; Z89.411 Acquired absence of right great toe; Z96.649 Presence of unspecified artificial hip joint; Z95.1 Presence of aortocoronary bypass graft; Z95.5 Presence of coronary angioplasty implant and graft; Z99.2 Dependence on renal dialysis; E87.70 Fluid overload, unspecified; M19.90 Unspecified osteoarthritis, unspecified site; J06.9 Acute upper respiratory infection, unspecified

== ENCOUNTER 2018-06-28 08:03 | Inpatient (IN) | payer MEDICARE ==
[2018-06-28 08:12] VITALS: BMI 18.3
[2018-06-28] MEDS ORDERED: Iohexol 240 (50 ml) PO ONE (08:31)
[2018-06-28] MEDS ORDERED: Sodium Chloride 0.9% 500 ML IV STA (08:31)
--- NOTE | 2018-06-28 08:34 | ED PDOC ---
HPI: General Adult Time Seen by Provider: 06/28/18 08:06 Chief Complaint (Nursing): GI Problem Chief Complaint (Provider): Back pain History Per: Patient History/Exam Limitations: no limitations Onset/Duration Of Symptoms: Days (2 weeks) Additional Complaint(s): Pt. with 2 weeks of b/l flank pain on going for 2 weeks. Diarrhea, nonbloody with it. No abd pain, weakness, numbness, tingles. No headaches, dizziness. No chest pain, dyspnea. No fever. Seen by ER in [place] for similar and given prevacid rx after ct and blood work was neg. No new food or drinks. No dysuria. No incontinence or constipation. Past Medical History Reviewed: Historical Data, Nursing Documentation, Vital Signs Vital Signs: Last Vital Signs Temp 98 F 06/28/18 08:20 Pulse 83 06/28/18 08:20 Resp 18 06/28/18 08:20 BP 154/75 H 06/28/18 08:20 Pulse Ox 99 06/28/18 12:38 - Medical History PMH: Arthritis, Bronchitis, CAD, CHF, CVA (3x; memory issues remain post stroke) , Diabetes, Fractures (right hip fx), HTN, Hyperlipidemia, End Stage Renal Disease (Three times a week M/W/), Chronic Kidney Disease (ESRD), TIA Denies: HIV - Surgical History Surgical History: CABG (x4) - Family History Family History: States: Unknown Family Hx - Living Arrangements Living Arrangements: With Family - Immunization History Hx Influenza Vaccination: Yes Hx Pneumococcal Vaccination: Yes - Home Medications Home Medications: Ambulatory Orders Medication Instructions Recorded Insulin Human Isophane (NPH) 5 - 7 unit SC 05/14/17 [Novolin N] Carvedilol [Coreg] 6.25 mg PO Q12H 11/22/17 Clopidogrel [Plavix] 75 mg PO 11/22/17 Aspirin [Adult Low Dose Aspirin EC] 81 mg PO DAILY 04/11/18 Atorvastatin [Lipitor] 10 mg PO HS 04/11/18 Cinacalcet [Sensipar] 60 mg PO MWF 04/11/18 Enalapril Maleate [Vasotec] 10 mg PO DAILY 04/11/18 - Allergies Allergies/Adverse Reactions: Allergies Allergy/AdvReac Type Severity Reaction Status Date / Time No Known Allergies Allergy Verified 06/28/18 08:20 Review of Systems ROS Statement: Except As Marked, All Systems Reviewed And Found Negative Gastrointestinal: Positive for: Diarrhea Musculoskeletal: Positive for: Back Pain Physical Exam - Reviewed Nursing Documentation Reviewed: Yes Vital Signs Reviewed: Yes - Physical Exam Appears: Positive for: Non-toxic, No Acute Distress Head Exam: Positive for: ATRAUMATIC, NORMAL INSPECTION, NORMOCEPHALIC Skin: Positive for: Normal Color, Warm, DRY Eye Exam: Positive for: EOMI, Normal appearance, PERRL ENT: Positive for: Normal ENT Inspection Neck: Positive for: Normal, Painless ROM Cardiovascular/Chest: Positive for: Regular Rate, Rhythm Respiratory: Positive for: CNT, Normal Breath Sounds Gastrointestinal/Abdominal: Positive for: Normal Exam, Soft. Negative for: Tenderness Back: Positive for: L CVA Tenderness, R CVA Tenderness Extremity: Positive for: Normal ROM. Negative for: Tenderness, Pedal Edema Neurologic/Psych: Positive for: Alert, egg setter II-XII, Oriented. Negative for: Motor/Sensory Deficits - Laboratory Results Result Diagrams: 06/28/18 08:45 06/28/18 09:30 Interpretation Of Abn Labs: 20/3.6 bun/cr; trop 0.11 - ECG ECG: Positive for: Interpreted By Me, Viewed By Me ECG Rhythm: Positive for: Sinus Rhythm, Premature Ventricular Contraction, Nonspecific Changes Interpretation Of Abn EKG: similar to old O2 Sat by Pulse Oximetry: 99 Pulse Ox Interpretation: Normal - Progress ED Course And Treament: 1247: Multiple risk factors. Borderline troponin. Will admit obs tele for atypical chest pain. AAOx3. Pain free. Will give ASA. Disposition - Clinical Impression Clinical Impression: Atypical chest pain - Patient ED Disposition Is Patient to be Admitted: Yes Counseled Patient/Family Regarding: Studies Performed, Diagnosis - Disposition Disposition Time: 12:49 Condition: FAIR - Pt Status Changed To: Hospital Disposition Of: Observation - POA Present On Arrival: None
[2018-06-28 08:54] LABS: BASO # 0.1 K/uL (0.0-0.2); BASO % 1.2 % (0.0-2.0); EOS # 0.2 K/uL (0.0-0.7); EOS % 2.3 % (0.0-4.0); HEMOGLOBIN 13.3 g/dL (12.0-16.0); LYMPH # 1.2 K/uL (1.0-4.3); LYMPH % 18.5 % (20.0-40.0); MEAN CELL VOLUME 91.8 fl (81.0-99.0); MEAN CORPUSCULAR HEMOGLOBIN 30.4 pg (27.0-31.0); MEAN CORPUSCULAR HGB CONC 33.1 g/dL (33.0-37.0); MEAN PLATELET VOLUME 10.2 fl (7.2-11.7); MONO # 0.7 K/uL (0.0-0.8); MONO % 11.2 % (0.0-10.0); NEUT # 4.5 K/uL (1.8-7.0); NEUT % 66.8 % (50.0-75.0); RBC 4.36 Mil/uL (3.80-5.20); RED CELL DISTRIBUTION WIDTH 16.9 % (11.5-14.5); WHITE BLOOD COUNT 6.7 K/uL (4.8-10.8)
[2018-06-28] MEDS ORDERED: Iohexol 240 (50 ml) ONE (08:57)
[2018-06-28 09:56] LABS: ALB/GLOB RATIO 1.3 (1.0-2.1); ALBUMIN 3.4 g/dL (3.5-5.0); CALCIUM 8.9 mg/dL (8.4-10.2)
[2018-06-28 10:08] LABS: TROPONIN I 0.11 ng/mL (0.00-0.120)
--- NOTE | 2018-06-28 12:05 | CT ---
Date of service: 06/28/2018 PROCEDURE: CT Abdomen and Pelvis without intravenous contrast HISTORY: pain COMPARISON: CT scan of the abdomen pelvis dated 10/31/2015. TECHNIQUE: Contiguous images were obtained from the domes of the diaphragms to the upper thighs without the administration of intravenous contrast. Oral contrast was not administered. Radiation dose: Total exam DLP = mGy-cm. This CT exam was performed using one or more of the following dose reduction techniques: Automated exposure control, adjustment of the mA and/or kV according to patient size, and/or use of iterative reconstruction technique. FINDINGS: LOWER THORAX: Cardiomegaly. Partially imaged implanted cardiac device leads. Coronary arterial and valvular calcifications. Stable chronic prominence of the bilateral interstitial markings. No focal consolidation or pleural effusion. . LIVER: Unremarkable. No gross lesion or ductal dilatation. GALLBLADDER AND BILE DUCTS: Minimal cholelithiasis without gallbladder wall thickening or pericholecystic fluid. PANCREAS: Unremarkable. No gross lesion or ductal dilatation. SPLEEN: Unremarkable. ADRENALS: Unremarkable. No mass. KIDNEYS AND URETERS: Bilateral renal atrophy with small cysts. No hydronephrosis. No solid mass. VASCULATURE: Severe calcific atherosclerosis. No aortic aneurysm. BOWEL: Colonic diverticulosis with muscular hypertrophy of the sigmoid. No obstruction. No gross mural thickening. APPENDIX: No findings to suggest acute appendicitis. PERITONEUM: Unremarkable. No free fluid. No free air. LYMPH NODES: Unremarkable. No enlarged lymph nodes. BLADDER: Unremarkable. REPRODUCTIVE: Unremarkable. BONES: Prior right hip arthroplasty. Diffuse osteopenia. Multilevel spinal degenerative changes. Grade 1 anterolisthesis of L3 on L4. OTHER FINDINGS: None. IMPRESSION: No acute abdominal pelvic pathology. Additional stable chronic findings as above.
--- NOTE | 2018-06-28 14:29 | CP.PCM.HP ---
<Laverne Chi - Last Filed: 06/28/18 17:34> History of Present Illness - History of Present Illness History of Present Illness: CC: mid-back pain HPI: 77 YO Female with multiple co-morbidities presented to [facility] ED for low back pain. Pt states that the pain started a few days ago and has remained persistent, mild relief with PO Tylenol. Pain is located in the mid-back per pt , no radiation of the pain. Denies chest pain, dyspnea, palpitations, n/v/d/c, dysuria, chills. At baseline pt makes small amount of urine. Daughters present by bedside. PMD: Dr. Layne PMHx: HTN, CVA, cardiac stents x2, DM, CABG x 4 in 2011, and ESRD (HD on MWF), DM, HTN PSHx: CABG x4, Stents, Hip replacement, right big toe amputation, Open heart surgery Allg: NKDA Home Meds: Aspirin, Plavix, Enalapril, Coreg, Lipitor, Cinacalcet, Sevelamir, Insulin Novolin 5 unit bedtime FH: Parents decreased of old age SH: Denies any alcohol, smoking or illicit drug use Next of Kin: Kilo Hu, oldest daughter, Phone # [phone] Code Status: Full code ED course Vitals: T 98, HR 83, BP 154/75, RR 18, O2 99% RA Blood work: 6.7>13.3/40.1<181 138/4.2, 100/25, 20/3.6<122 trop x 1 0.110 neg EKG: non-specific ST and T wave changes as noted in previous EKG 04/15/18 Ct abd and pelvs: IMPRESSION: No acute abdominal pelvic pathology. Meds: asa 325mg, IVF 500ml and Bentyl 10mg Present on Admission - Present on Admission Any Indicators Present on Admission: No Review of Systems - Constitutional Constitutional: absent: Chills, Fever, Headache, Night Sweats - Cardiovascular Cardiovascular: absent: Chest Pain, Dyspnea, Palpitations - Respiratory Respiratory: absent: Cough, Dyspnea - Gastrointestinal Gastrointestinal: absent: Abdominal Pain, Constipation, Diarrhea - Genitourinary Genitourinary: absent: Difficulty Urinating, Dysuria - Musculoskeletal Musculoskeletal: Back Pain. absent: Numbness, Radiating Pain into Limb, Tingling Past Patient History - Infectious Disease Hx of Infectious Diseases: None - Past Medical History & Family History Past Medical History?: Yes - Past Social History Smoking Status: Never Smoked Alcohol: None Drugs: Denies Home Situation {Lives}: With Family - CARDIAC Hx Congestive Heart Failure: Yes Hx Hypertension: Yes - PULMONARY Hx Bronchitis: Yes - NEUROLOGICAL Hx Transient Ischemic Attacks (TIA): Yes - HEENT Hx HEENT Problems: No - RENAL Hx Chronic Kidney Disease: Yes (ESRD) - ENDOCRINE/METABOLIC Hx Endocrine Disorders: Yes (DM type 2) Hx Diabetes Mellitus Type 2: Yes - HEMATOLOGICAL/ONCOLOGICAL Hx Human Immunodeficiency Virus (HIV): No - INTEGUMENTARY Hx Dermatological Problems: No - MUSCULOSKELETAL/RHEUMATOLOGICAL Hx Arthritis: Yes Hx Fractures: Yes (right hip fx) - GASTROINTESTINAL Hx Gastrointestinal Disorders: No - GENITOURINARY/GYNECOLOGICAL Hx Genitourinary Disorders: No - PSYCHIATRIC Hx Psychophysiologic Disorder: No Hx Substance Use: No - SURGICAL HISTORY Hx Coronary Artery Bypass Graft: Yes (x4) - ANESTHESIA Hx Anesthesia: Yes Hx Anesthesia Reactions: No Hx Malignant Hyperthermia: No Meds Allergies/Adverse Reactions: Allergies Allergy/AdvReac Type Severity Reaction Status Date / Time No Known Allergies Allergy Verified 06/28/18 08:20 Physical Exam - Constitutional Appears: No Acute Distress - Head Exam Head Exam: NORMAL INSPECTION - Eye Exam Eye Exam: EOMI, Normal appearance - ENT Exam ENT Exam: Mucous Membranes Moist - Respiratory Exam Respiratory Exam: Clear to Auscultation Bilateral, NORMAL BREATHING PATTERN. absent: Wheezes - Cardiovascular Exam Cardiovascular Exam: REGULAR RHYTHM, +S1, +S2 - GI/Abdominal Exam GI & Abdominal Exam: Normal Bowel Sounds, Soft. absent: Tenderness - Extremities Exam Extremities exam: Positive for: full ROM, normal inspection (R toe amputation, no ulceration). Negative for: calf tenderness, pedal edema - Back Exam Back exam: CVA tenderness (R), paraspinal tenderness (b/l paraspinal tenderness , no signs of trauma, skin intact, L>R). absent: CVA tenderness (L), vertebral tenderness - Neurological Exam Neurological exam: Alert - Psychiatric Exam Psychiatric exam: Normal Mood Results - Vital Signs Recent Vital Signs: Last Vital Signs Temp 98 F 06/28/18 08:20 Pulse 83 06/28/18 08:20 Resp 18 06/28/18 08:20 BP 154/75 H 06/28/18 08:20 Pulse Ox 99 06/28/18 12:49 - Labs Result Diagrams: 06/28/18 08:45 06/28/18 09:30 Labs: Laboratory Results - last 24 hr 06/28/18 06/28/18 08:45 09:30 WBC 6.7 RBC 4.36 Hgb 13.3 Hct 40.1 MCV 91.8 D MCH 30.4 MCHC 33.1 RDW 16.9 H Plt Count 181 MPV 10.2 Neut % (Auto) 66.8 Lymph % (Auto) 18.5 L [place] % (Auto) 11.2 H Eos % (Auto) 2.3 Baso % (Auto) 1.2 Neut # (Auto) 4.5 Lymph # (Auto) 1.2 [place] # (Auto) 0.7 Eos # (Auto) 0.2 Baso # (Auto) 0.1 Sodium 138 Potassium 4.2 Chloride 100 Carbon Dioxide 25 Anion Gap 17 BUN 20 H Creatinine 3.6 H Est GFR ( Amer) 15 Est GFR (Non-Af Amer) 12 Random Glucose 122 H Calcium 8.9 Total Bilirubin 0.7 AST 22 ALT 24 Alkaline Phosphatase 66 Troponin I 0.1100 Total Protein 6.1 L Albumin 3.4 L Globulin 2.7 Albumin/Globulin Ratio 1.3 Assessment & Plan - Assessment and Plan (Free Text) Assessment: Assessment/Plan: 76 YO female with PMHx of HTN, CVA(last strke 05/2017), CABG x 4 in 2011, cardiac stents x2, DM, and ESRD (HD on MWF) admitted for atypical chest pain with c/o of back pain. Back pain -acute on chronic -likely 2/2 to muscle strain, vs anterolisthesis L3/L4 (CT abd and pelvis 06/28) -Pain management Tylenol PO, Lidoderm patch Atypical chest pain -no chest pain, NT -EKG: non-specific ST and T wave changes as noted in previous EKG 04/15/18 -trop x 1 neg -trop Q8 x 2 -follow up CHFpED, HTN -chronic -last echo 05/18/2016; LV systolic function severely impaired. EF15-20 % ESRD, CKD stage V -Bun/Cr 20/3.6, GFR 12 -on HD M/W/F -Nephro, Dr. Krause, consulted DM -hgba1c 8.9 (11/18) -c/w home insulin -low dose coverage insulin per protocol -hypoglycemia protocol -accu-checks HTN -c/w home meds -c/w Carvedidol 6.25 mg and enalapril 10mg daily CAD -CABG x 4 in 2011, cardiac stents x2, -lipid profile from 11/18 reviewed -C/w Lipitor 40 mg daily -C/w Asprin History of CVA and Cardiac Stents -no residual hemiparesis as per pt and family -C/w Asprin and Plavix DVT PPX -Heparin 5000 SC Q8H <Julio Ponce - Last Filed: 06/30/18 06:50> Results - Vital Signs Recent Vital Signs: Last Vital Signs Temp 97.6 F 06/30/18 05:15 Pulse 77 06/30/18 05:15 Resp 18 06/30/18 05:15 BP 147/61 06/30/18 05:15 Pulse Ox 98 06/30/18 05:15 - Labs Result Diagrams: 06/28/18 08:45 06/28/18 09:30 Labs: Laboratory Results - last 24 hr 06/29/18 06/29/18 17:42 21:00 POC Glucose (mg/dL) 87 160 H Attending/Attestation - Attestation I have personally seen and examined this patient.: Yes I have fully participated in the care of the patient.: Yes I have reviewed all pertinent clinical information: Yes
[2018-06-28] MEDS ORDERED: Dextrose 50% SYRINGE Inj (50 ml) IV PRN (14:42)
[2018-06-28] MEDS ORDERED: Glucagon Recombinant 1 mg Inj IM PRN (14:42)
[2018-06-28] MEDS: Insulin Regular 100 units/ml SC SCH ×2 (16:48→21:57)
[2018-06-28] MEDS: Lidocaine 5% Patch TD SCH (17:28)
[2018-06-28] MEDS: Insulin NPH Human 100 Units/ml Inj SC SCH (17:31)
[2018-06-28] MEDS ORDERED: FERRIC CITRATE PO SCH (18:30)
--- NOTE | 2018-06-28 22:44 | CARD ---
APPROVED REPORT Date of service: 06/28/2018 EKG Measurement Heart [id number] <Conclusion> Sinus rhythm with occasional premature ventricular complexes Nonspecific intraventricular conduction delay ST & T wave abnormality, consider lateral ischemia Prolonged QT Abnormal ECG
[2018-06-29] MEDS: Insulin Regular 100 units/ml SC SCH ×3 (06:31→21:49)
--- NOTE | 2018-06-29 07:56 | CP.PCM.PN ---
<Laverne Chi - Last Filed: 06/29/18 14:05> Subjective - Date & Time of Evaluation Date of Evaluation: 06/29/18 Time of Evaluation: 07:56 - Subjective Subjective: No acute overnight events. Pt continues to endorse mid-back pain. Describes it as "tearing" pain this AM. Pain with no radiation or associated symptoms. Remains without fever. Objective - Vital Signs/Intake and Output Vital Signs (last 24 hours): Temp Pulse Resp BP Pulse Ox 97.8 F 71 18 113/49 L 98 06/29/18 05:15 06/29/18 05:28 06/29/18 05:28 06/29/18 05:15 06/29/18 05:15 - Medications Medications: Current Medications Acetaminophen (Tylenol 325mg Tab) 650 mg PO Q6 PRN PRN Reason: Pain, Mild (1-3) Aspirin (Ecotrin) 81 mg PO DAILY [facility] Atorvastatin Calcium (Lipitor) 10 mg PO HS [facility] Last Admin: 06/28/18 22:14 Dose: 10 mg Carvedilol (Coreg) 6.25 mg PO Q12H [facility] Last Admin: 06/29/18 04:04 Dose: 6.25 mg Cinacalcet (Sensipar) 30 mg PO MWF [facility] Clopidogrel Bisulfate (Plavix) 75 mg PO HS [facility] Last Admin: 06/28/18 22:15 Dose: 75 mg Dextrose (Dextrose 50% Inj) 0 ml IV STAT PRN; Protocol PRN Reason: Hypoglycemia Protocol Dextrose (Glutose 15) 0 gm PO ONCE PRN; Protocol PRN Reason: Hypoglycemia Protocol Enalapril Maleate (Vasotec) 10 mg PO DAILY [facility] Glucagon (Glucagen Diagnostic Kit) 0 mg IM STAT PRN; Protocol PRN Reason: Hypoglycemia Protocol Heparin Sodium (Porcine) (Heparin) 5,000 units SC Q8 [facility] PRN Reason: Protocol Last Admin: 06/29/18 01:11 Dose: 5,000 units Home Med (Ferric Citrate [Auryxia]) 2 tab PO WM [facility] Last Admin: 06/28/18 17:32 Dose: 2 tab Insulin Human NPH (Humulin N) 5 units SC QPM [facility] Last Admin: 06/28/18 17:31 Dose: 5 units Insulin Human Regular (Humulin R) 0 units SC ACHS [facility] PRN Reason: Protocol Last Admin: 06/29/18 06:31 Dose: Not Given Lidocaine (Lidoderm) 1 ea TD DAILY [facility] Last Admin: 06/28/18 17:28 Dose: 1 ea - Labs Labs: 06/28/18 08:45 06/28/18 09:30 - Constitutional Appears: No Acute Distress - ENT Exam ENT Exam: Mucous Membranes Moist - Respiratory Exam Respiratory Exam: Clear to Ausculation Bilateral, NORMAL BREATHING PATTERN. absent: Wheezes - Cardiovascular Exam Cardiovascular Exam: REGULAR RHYTHM, +S1, +S2 - GI/Abdominal Exam GI & Abdominal Exam: Soft, Normal Bowel Sounds. absent: Tenderness - Extremities Exam Extremities Exam: Normal Inspection. absent: Calf Tenderness, Pedal Edema - Back Exam Back Exam: NORMAL INSPECTION, paraspinal tenderness. absent: CVA tenderness (L) , CVA tenderness (R), vertebral tenderness - Neurological Exam Neurological Exam: Alert, Awake - Psychiatric Exam Psychiatric exam: Normal Mood Assessment and Plan - Assessment and Plan (Free Text) Assessment: Assessment/Plan: 76 YO female with PMHx of HTN, CVA(last strke 05/2017), CABG x 4 in 2011, cardiac stents x2, DM, and ESRD (HD on MWF) admitted for atypical chest pain with c/o of back pain. Back pain -acute on chronic -tearing back pain, will r/o dissection -likely 2/2 to muscle strain, vs anterolisthesis L3/L4 (CT abd and pelvis 06/28) -Pain management Tylenol PO, Lidoderm patch -will consult pain management; follow up recs -CT w/ contrast to r/o dissection pending Atypical chest pain -no chest pain, NT -EKG: non-specific ST and T wave changes as noted in previous EKG 04/15/18 -trop x 3 neg CHFpED, HTN -chronic -last echo 05/18/2016; LV systolic function severely impaired. EF15-20 % ESRD, CKD stage V -Bun/Cr 20/3.6, GFR 12 -on HD M/W/F -Nephro, Dr. Krause, consulted -HD today DM -hgba1c 8.9 (11/18) -c/w home insulin -low dose coverage insulin per protocol -hypoglycemia protocol -accu-checks HTN -c/w home meds -c/w Carvedidol 6.25 mg and enalapril 10mg daily CAD -CABG x 4 in 2012, cardiac stents x2, -lipid profile from 11/18 reviewed -C/w Lipitor 40 mg daily -C/w Asprin History of CVA and Cardiac Stents -no residual hemiparesis as per pt and family -C/w Asprin and Plavix DVT PPX -Heparin 5000 SC Q8H <Markel Layne - Last Filed: 07/01/18 06:34> Objective - Vital Signs/Intake and Output Vital Signs (last 24 hours): Temp Pulse Resp BP Pulse Ox 97.8 F 65 18 141/63 100 07/01/18 05:18 07/01/18 05:18 07/01/18 05:18 07/01/18 05:18 07/01/18 05:18 - Medications Medications: Current Medications Acetaminophen (Tylenol 325mg Tab) 650 mg PO Q6 PRN PRN Reason: Pain, Mild (1-3) Acetaminophen/Codeine Phosphate (Tylenol/Codeine 300 Mg/30 Mg) 1 tab PO Q6 PRN PRN Reason: Pain, moderate (4-7) Aspirin (Ecotrin) 81 mg PO DAILY [facility] Last Admin: 06/30/18 10:40 Dose: 81 mg Atorvastatin Calcium (Lipitor) 10 mg PO HS [facility] Last Admin: 06/30/18 22:11 Dose: 10 mg Carvedilol (Coreg) 6.25 mg PO Q12H [facility] Last Admin: 06/30/18 15:56 Dose: 6.25 mg Cinacalcet (Sensipar) 30 mg PO MWF [facility] Last Admin: 06/29/18 09:40 Dose: 30 mg Clopidogrel Bisulfate (Plavix) 75 mg PO HS [facility] Last Admin: 06/30/18 22:11 Dose: 75 mg Dextrose (Dextrose 50% Inj) 0 ml IV STAT PRN; Protocol PRN Reason: Hypoglycemia Protocol Dextrose (Glutose 15) 0 gm PO ONCE PRN; Protocol PRN Reason: Hypoglycemia Protocol Enalapril Maleate (Vasotec) 10 mg PO DAILY [facility] Last Admin: 06/30/18 10:43 Dose: 10 mg Gabapentin (Neurontin) 100 mg PO DAILY [facility] Last Admin: 06/30/18 18:06 Dose: 100 mg Glucagon (Glucagen Diagnostic Kit) 0 mg IM STAT PRN; Protocol PRN Reason: Hypoglycemia Protocol Heparin Sodium (Porcine) (Heparin) 5,000 units SC Q8 [facility] PRN Reason: Protocol Last Admin: 07/01/18 00:47 Dose: 5,000 units Home Med (Ferric Citrate [Auryxia]) 2 tab PO WM@0800,1200,1700 [facility] Last Admin: 06/30/18 17:58 Dose: 2 tab Insulin Human NPH (Humulin N) 5 units SC QPM [facility] Last Admin: 06/30/18 17:59 Dose: 5 units Insulin Human Regular (Humulin R) 0 units SC ACHS [facility] PRN Reason: Protocol Last Admin: 07/01/18 00:44 Dose: Not Given Lidocaine (Lidoderm) 1 ea TD DAILY [facility] Last Admin: 06/30/18 10:41 Dose: 1 ea Ondansetron HCl (Zofran Inj) 4 mg IVP Q6 PRN PRN Reason: Nausea/Vomiting Oxycodone/Acetaminophen (Percocet 5/325 Mg Tab) 1 tab PO Q6 PRN PRN Reason: Pain, severe (8-10) Stop: 07/03/18 10:21 Last Admin: 06/30/18 10:33 Dose: 1 tab - Labs Labs: 06/28/18 08:45 06/28/18 09:30 Attending/Attestation - Attestation I have personally seen and examined this patient.: Yes I have fully participated in the care of the patient.: Yes I have reviewed all pertinent clinical information, including history, physical exam and plan: Yes
[2018-06-29] MEDS ORDERED: Sodium Chloride 0.9% 50 ML IV ONE (08:20)
[2018-06-29] MEDS ORDERED: Iodixanol 320 MG/ML 100 ML BOTTLE IV ONE (08:20)
--- NOTE | 2018-06-29 09:19 | CP.PCM.CON ---
History of Present Illness - History of Present Illness History of Present Illness: patient is a 78 years old female known to me with end-stage renal disease on maintenance hemodialysis Wednesday. She presented to the emergency room complaining of low back pain which was not responding to Tylenol and she Patient required to be admitted because of the severity of the low back pain and lower abdominal pain , no chest pain no nausea no vomiting Patient come to the emergency roompast medical history is complicated patient has multitude of medical problem as noted below PMHx: HTN, CVA, cardiac stents x2, DM, CABG x 4 in 2011, and ESRD (HD on MWF), DM, HTN PSHx: CABG x4, Stents, Hip replacement, right big toe amputation, Open heart surgery Allg: NKDA Home Meds: Aspirin, Plavix, Enalapril, Coreg, Lipitor, Cinacalcet, Sevelamir, Insulin Novolin 5 unit bedtime FH: Parents decreased of old age SH: Denies any alcohol, smoking or illicit drug use Next of Kin: Kilo Hu, oldest daughter, Phone # [phone] Code Status: Full code ED course Vitals: T 98, HR 83, BP 154/75, RR 18, O2 99% RA Blood work: 6.7>13.3/40.1<181 138/4.2, 100/25, 20/3.6<122 trop x 1 0.110 neg EKG: non-specific ST and T wave changes as noted in previous EKG 04/15/18 Ct abd and pelvs: IMPRESSION: No acute abdominal pelvic pathology. Meds: asa 325mg, IVF 500ml and Bentyl 10mg Review of Systems - Constitutional Constitutional: Malaise. absent: Anorexia, Chills - Cardiovascular Cardiovascular: absent: Chest Pain, Dyspnea, Leg Edema - Respiratory Respiratory: absent: Dyspnea, Hemoptysis - Gastrointestinal Gastrointestinal: absent: Abdominal Pain, Coffee Ground Emesis, Melena - Genitourinary Genitourinary: Nocturia - Musculoskeletal Musculoskeletal: As Per HPI, Back Pain, Muscle Weakness - Neurological Neurological: absent: Confusion, Focal Weakness - Endocrine Endocrine: Fatigue - Hematologic/Lymphatic Hematologic: absent: Easy Bleeding Past Patient History - Infectious Disease Hx of Infectious Diseases: None - Past Medical History & Family History Past Medical History?: Yes - Past Social History Smoking Status: Never Smoked - CARDIAC Hx Cardiac Disorders: Yes Hx Hypertension: Yes - PULMONARY Hx Bronchitis: Yes - NEUROLOGICAL HX Cerebrovascular Accident: Yes Hx Transient Ischemic Attacks (TIA): Yes - HEENT Hx HEENT Problems: No - RENAL Hx Chronic Kidney Disease: Yes (ESRD) Hx Dialysis: Yes - ENDOCRINE/METABOLIC Hx Endocrine Disorders: Yes (DM type 2) - HEMATOLOGICAL/ONCOLOGICAL Hx AIDS: No Hx Human Immunodeficiency Virus (HIV): No - INTEGUMENTARY Hx Dermatological Problems: No - MUSCULOSKELETAL/RHEUMATOLOGICAL Hx Falls: Yes (several yrs ago) - GASTROINTESTINAL Hx Gastrointestinal Disorders: No - GENITOURINARY/GYNECOLOGICAL Hx Genitourinary Disorders: No - PSYCHIATRIC Hx Psychophysiologic Disorder: No - SURGICAL HISTORY Hx Coronary Artery Bypass Graft: Yes (x4) Other/Comment: hip sx, Rt big toe amputation - ANESTHESIA Hx Anesthesia: Yes Hx Anesthesia Reactions: No Hx Malignant Hyperthermia: No Meds Allergies/Adverse Reactions: Allergies Allergy/AdvReac Type Severity Reaction Status Date / Time No Known Allergies Allergy Verified 06/28/18 08:20 - Medications Medications: Current Medications Acetaminophen (Tylenol 325mg Tab) 650 mg PO Q6 PRN PRN Reason: Pain, Mild (1-3) Aspirin (Ecotrin) 81 mg PO DAILY [facility] Atorvastatin Calcium (Lipitor) 10 mg PO HS [facility] Last Admin: 06/28/18 22:14 Dose: 10 mg Carvedilol (Coreg) 6.25 mg PO Q12H [facility] Last Admin: 06/29/18 04:04 Dose: 6.25 mg Cinacalcet (Sensipar) 30 mg PO MWF [facility] Clopidogrel Bisulfate (Plavix) 75 mg PO HS [facility] Last Admin: 06/28/18 22:15 Dose: 75 mg Dextrose (Dextrose 50% Inj) 0 ml IV STAT PRN; Protocol PRN Reason: Hypoglycemia Protocol Dextrose (Glutose 15) 0 gm PO ONCE PRN; Protocol PRN Reason: Hypoglycemia Protocol Enalapril Maleate (Vasotec) 10 mg PO DAILY [facility] Glucagon (Glucagen Diagnostic Kit) 0 mg IM STAT PRN; Protocol PRN Reason: Hypoglycemia Protocol Heparin Sodium (Porcine) (Heparin) 5,000 units SC Q8 [facility] PRN Reason: Protocol Last Admin: 06/29/18 01:11 Dose: 5,000 units Home Med (Ferric Citrate [Auryxia]) 2 tab PO WM@0800,1200,1700 [facility] Insulin Human NPH (Humulin N) 5 units SC QPM [facility] Last Admin: 06/28/18 17:31 Dose: 5 units Insulin Human Regular (Humulin R) 0 units SC ACHS [facility] PRN Reason: Protocol Last Admin: 06/29/18 06:31 Dose: Not Given Lidocaine (Lidoderm) 1 ea TD DAILY [facility] Last Admin: 06/28/18 17:28 Dose: 1 ea Physical Exam - Constitutional Appears: No Acute Distress - ENT Exam ENT Exam: Mucous Membranes Dry - Neck Exam Neck exam: Negative for: Lymphadenopathy - Respiratory Exam Respiratory Exam: NORMAL BREATHING PATTERN. absent: Chest Wall Tenderness - Cardiovascular Exam Cardiovascular Exam: absent: Gallop, JVD, Rubs - GI/Abdominal Exam GI & Abdominal Exam: Normal Bowel Sounds. absent: Guarding - Extremities Exam Extremities exam: Negative for: calf tenderness - Back Exam Back exam: absent: CVA tenderness (L), CVA tenderness (R) - Neurological Exam Neurological exam: Alert - Psychiatric Exam Psychiatric exam: Normal Affect Results - Vital Signs Recent Vital Signs: Last Vital Signs Temp 98 F 06/29/18 08:00 Pulse 69 06/29/18 08:00 Resp 20 06/29/18 08:00 BP 175/63 H 06/29/18 08:00 Pulse Ox 98 06/29/18 08:00 - Labs Result Diagrams: 06/28/18 08:45 06/28/18 09:30 Labs: Laboratory Results - last 24 hr 06/28/18 06/28/18 06/28/18 09:30 15:56 18:00 Sodium 138 Potassium 4.2 Chloride 100 Carbon Dioxide 25 Anion Gap 17 BUN 20 H Creatinine 3.6 H Est GFR ( Amer) 15 Est GFR (Non-Af Amer) 12 POC Glucose (mg/dL) 120 H Random Glucose 122 H Calcium 8.9 Total Bilirubin 0.7 AST 22 ALT 24 Alkaline Phosphatase 66 Troponin I 0.1100 0.1080 Total Protein 6.1 L Albumin 3.4 L Globulin 2.7 Albumin/Globulin Ratio 1.3 06/28/18 06/29/18 21:23 01:15 Sodium Potassium Chloride Carbon Dioxide Anion Gap BUN Creatinine Est GFR ( Amer) Est GFR (Non-Af Amer) POC Glucose (mg/dL) 90 Random Glucose Calcium Total Bilirubin AST ALT Alkaline Phosphatase Troponin I 0.1150 Total Protein Albumin Globulin Albumin/Globulin Ratio Assessment & Plan (1) ESRD (end stage renal disease) on dialysis Assessment and Plan: patient with end stage renal disease on dialysis Wednesday. Admitted with acute back pain Evaluation underway patient is scheduled to have hemodialysis shortly order was given consent was taken review the medication to be continue Patient has history of hyperphosphatemia continue binder Patient has also history of secondary hyperparathyroidism continue Sensipar Status: Acute (2) Acute back pain Status: Acute
[2018-06-29] MEDS: Lidocaine 5% Patch TD SCH (09:39)
[2018-06-29] MEDS: FERRIC CITRATE PO SCH ×3 (09:41→17:12)
[2018-06-29] MEDS ORDERED: Oxycodone/Acetaminophen 5/325 mg Tab PO ONE (09:55)
--- NOTE | 2018-06-29 15:47 | CP.PCM.CON ---
History of Present Illness - History of Present Illness History of Present Illness: Acute back pain-patient seen for Dr. Maradiaga 78 years old female asleep in bed while being hemodialyzed. Consulted for new onset back pain. Patient presented to the ED with mid/low back pain which initially responded well to Tylenol. Patient states she still has pain despite Tylenol. Pain is throbbing/dull, constant with no known inciting/exacerbating factors. Patient states there is no change in neurological/musculoskeletal systems. PMHx: HTN, CVA, cardiac stents x2, DM, CABG x 4 in 2012, and ESRD (HD on MWF), DM, HTN PSHx: CABG x4, Stents, Hip replacement, right big toe amputation, Open heart surgery Allg: NKDA Home Meds: Aspirin, Plavix, Enalapril, Coreg, Lipitor, Cinacalcet, Sevelamir, Insulin Novolin 5 unit bedtime FH: Parents decreased of old age SH: Denies any alcohol, smoking or illicit drug use Next of Kin: Kilo Hu, oldest daughter, Phone # [phone], [phone] Code Status: Full code Past Patient History - Infectious Disease Hx of Infectious Diseases: None - Past Medical History & Family History Past Medical History?: Yes - Past Social History Smoking Status: Never Smoked - CARDIAC Hx Cardiac Disorders: Yes Hx Hypertension: Yes - PULMONARY Hx Bronchitis: Yes - NEUROLOGICAL HX Cerebrovascular Accident: Yes Hx Transient Ischemic Attacks (TIA): Yes - HEENT Hx HEENT Problems: No - RENAL Hx Chronic Kidney Disease: Yes (ESRD) Hx Dialysis: Yes - ENDOCRINE/METABOLIC Hx Endocrine Disorders: Yes (DM type 2) - HEMATOLOGICAL/ONCOLOGICAL Hx AIDS: No Hx Human Immunodeficiency Virus (HIV): No - INTEGUMENTARY Hx Dermatological Problems: No - MUSCULOSKELETAL/RHEUMATOLOGICAL Hx Falls: Yes (several yrs ago) - GASTROINTESTINAL Hx Gastrointestinal Disorders: No - GENITOURINARY/GYNECOLOGICAL Hx Genitourinary Disorders: No - PSYCHIATRIC Hx Psychophysiologic Disorder: No - SURGICAL HISTORY Hx Coronary Artery Bypass Graft: Yes (x4) Other/Comment: hip sx, Rt big toe amputation - ANESTHESIA Hx Anesthesia: Yes Hx Anesthesia Reactions: No Hx Malignant Hyperthermia: No Meds Allergies/Adverse Reactions: Allergies Allergy/AdvReac Type Severity Reaction Status Date / Time No Known Allergies Allergy Verified 06/28/18 08:20 - Medications Medications: Current Medications Acetaminophen (Tylenol 325mg Tab) 650 mg PO Q6 PRN PRN Reason: Pain, Mild (1-3) Aspirin (Ecotrin) 81 mg PO DAILY [facility] Last Admin: 06/29/18 09:38 Dose: 81 mg Atorvastatin Calcium (Lipitor) 10 mg PO HS [facility] Last Admin: 06/28/18 22:14 Dose: 10 mg Carvedilol (Coreg) 6.25 mg PO Q12H [facility] Last Admin: 06/29/18 04:04 Dose: 6.25 mg Cinacalcet (Sensipar) 30 mg PO MWF [facility] Last Admin: 06/29/18 09:40 Dose: 30 mg Clopidogrel Bisulfate (Plavix) 75 mg PO HS [facility] Last Admin: 06/28/18 22:15 Dose: 75 mg Dextrose (Dextrose 50% Inj) 0 ml IV STAT PRN; Protocol PRN Reason: Hypoglycemia Protocol Dextrose (Glutose 15) 0 gm PO ONCE PRN; Protocol PRN Reason: Hypoglycemia Protocol Enalapril Maleate (Vasotec) 10 mg PO DAILY [facility] Last Admin: 06/29/18 09:41 Dose: 10 mg Glucagon (Glucagen Diagnostic Kit) 0 mg IM STAT PRN; Protocol PRN Reason: Hypoglycemia Protocol Heparin Sodium (Porcine) (Heparin) 5,000 units SC Q8 [facility] PRN Reason: Protocol Last Admin: 06/29/18 01:11 Dose: 5,000 units Home Med (Ferric Citrate [Auryxia]) 2 tab PO WM@0800,1200,1700 [facility] Last Admin: 06/29/18 09:41 Dose: 2 tab Insulin Human NPH (Humulin N) 5 units SC QPM [facility] Last Admin: 06/28/18 17:31 Dose: 5 units Insulin Human Regular (Humulin R) 0 units SC ACHS [facility] PRN Reason: Protocol Last Admin: 06/29/18 06:31 Dose: Not Given Lidocaine (Lidoderm) 1 ea TD DAILY [facility] Last Admin: 06/29/18 09:39 Dose: 1 ea Physical Exam - Constitutional Appears: Well - Head Exam Head Exam: ATRAUMATIC - Eye Exam Eye Exam: Normal appearance - Respiratory Exam Respiratory Exam: NORMAL BREATHING PATTERN - Cardiovascular Exam Cardiovascular Exam: REGULAR RHYTHM - Back Exam Additional comments: pending post HD - Neurological Exam Neurological exam: Alert, Oriented x3 - Psychiatric Exam Psychiatric exam: Normal Mood Results - Vital Signs Recent Vital Signs: Last Vital Signs Temp 98 F 06/29/18 13:00 Pulse 71 06/29/18 13:00 Resp 18 06/29/18 13:00 BP 173/71 H 06/29/18 13:00 Pulse Ox 96 06/29/18 13:00 - Labs Result Diagrams: 06/28/18 08:45 06/28/18 09:30 Labs: Laboratory Results - last 24 hr 06/28/18 06/28/18 06/28/18 15:56 18:00 21:23 POC Glucose (mg/dL) 120 H 90 Troponin I 0.1080 06/29/18 01:15 POC Glucose (mg/dL) Troponin I 0.1150
--- NOTE | 2018-06-29 16:39 | CT ---
Date of service: 06/29/2018 PROCEDURE: CT Chest with contrast HISTORY: r/o dissection COMPARISON: Angio chest PE protocol 06/21/2016 TECHNIQUE: Contiguous axial images were obtained through the chest with intravenous contrast enhancement. Sagittal and coronal reconstructions were performed. IV contrast: 90 mL of Visipaque 320 Radiation dose (DLP): 184 mGy-cm. This CT exam was performed using one or more of the following dose reduction techniques: Automated exposure control, adjustment of the mA and/or kV according to patient size, and/or use of iterative reconstruction technique. FINDINGS: LUNGS: No dense consolidation. Mostly posterior and dependent subpleural septal line renoted para Minimal posterior lower lobe pleural thickening and trace subpleural atelectasis. Trace pleural effusions here compatible with this. Punctate hyperdensities in this left pleural thickening/ trace fluid is compatible with enhancing vessels here. Visualized airway clear. Trace bibasilar discoid like atelectatic changes posteromedial aspect. These findings are similar Some trace concomitant bronchiectasis changes here are also likely. MEDIASTINUM: Unremarkable thoracic aorta. No aneurysm or dissection. Cardiomegaly. No pericardial fusion coronary artery disease. Main pulmonary artery unremarkable. No vascular congestion. No lymphadenopathy. PLEURA: No pleural fluid. No pneumothorax. BONES: No fracture. No destructive lesion. Midline sternotomy. UPPER ABDOMEN: Hiatal hernia Bilateral renal cortical atrophy with bilateral renal partially visualized hypodensities probable renal cysts. The bilateral renal cortical atrophy is a similar status. More of the renal anatomy is visually included on this exam hence the renal hypodensities probable incidental renal cysts may air may not have been present on the prior study or not visually included. OTHER FINDINGS: The previously referenced non-opacified left axillary and brachiocephalic vein stent is reproduced on this study. The prior well opacified collaterals are seen in the left chest wall are less conspicuous on this exam perhaps due to different arm injection. Thrombosis in this vascular stent - long-standing is inferred Right dialysis catheter tip positions in right atrial right ventricle positioning- IMPRESSION: Left plaques No aortic dissection. No aneurysm. Persistent long-standing left axillary and brachiocephalic vein stent non opacification compatible with chronic clot here. As was noted on 2016 study. Other findings as above.
[2018-06-29] MEDS: Insulin NPH Human 100 Units/ml Inj SC SCH (18:20)
[2018-06-30] MEDS: Insulin Regular 100 units/ml SC SCH ×3 (07:30→18:03)
--- NOTE | 2018-06-30 07:45 | CP.PCM.PN ---
Subjective - Date & Time of Evaluation Date of Evaluation: 06/29/18 Time of Evaluation: 00:00 - Subjective Subjective: Pt with acute on chronic back pain. Seen initially by Dr Raya, anesthesia interventional radiology tech. Please perform MRI T and L spine, lidoderm patch to affected area. Pt may have Tylenol #3 1 tab q6 prn moderate pain, and percocet 1 tab po q6h prn severe pain. Also add gabapentin 100mg daily. Will follow. Objective - Vital Signs/Intake and Output Vital Signs (last 24 hours): Temp Pulse Resp BP Pulse Ox 97.6 F 77 18 147/61 98 06/30/18 05:15 06/30/18 05:15 06/30/18 05:15 06/30/18 05:15 06/30/18 05:15 - Medications Medications: Current Medications Acetaminophen (Tylenol 325mg Tab) 650 mg PO Q6 PRN PRN Reason: Pain, Mild (1-3) Aspirin (Ecotrin) 81 mg PO DAILY [facility] Last Admin: 06/29/18 09:38 Dose: 81 mg Atorvastatin Calcium (Lipitor) 10 mg PO HS [facility] Last Admin: 06/29/18 21:48 Dose: 10 mg Carvedilol (Coreg) 6.25 mg PO Q12H [facility] Last Admin: 06/30/18 03:54 Dose: 6.25 mg Cinacalcet (Sensipar) 30 mg PO MWF [facility] Last Admin: 06/29/18 09:40 Dose: 30 mg Clopidogrel Bisulfate (Plavix) 75 mg PO HS [facility] Last Admin: 06/29/18 21:48 Dose: 75 mg Dextrose (Dextrose 50% Inj) 0 ml IV STAT PRN; Protocol PRN Reason: Hypoglycemia Protocol Dextrose (Glutose 15) 0 gm PO ONCE PRN; Protocol PRN Reason: Hypoglycemia Protocol Enalapril Maleate (Vasotec) 10 mg PO DAILY [facility] Last Admin: 06/29/18 09:41 Dose: 10 mg Glucagon (Glucagen Diagnostic Kit) 0 mg IM STAT PRN; Protocol PRN Reason: Hypoglycemia Protocol Heparin Sodium (Porcine) (Heparin) 5,000 units SC Q8 [facility] PRN Reason: Protocol Last Admin: 06/30/18 01:53 Dose: 5,000 units Home Med (Ferric Citrate [Auryxia]) 2 tab PO WM@0800,1200,1700 [facility] Last Admin: 06/29/18 17:12 Dose: 2 tab Insulin Human NPH (Humulin N) 5 units SC QPM [facility] Last Admin: 06/29/18 18:20 Dose: Not Given Insulin Human Regular (Humulin R) 0 units SC ACHS [facility] PRN Reason: Protocol Last Admin: 06/29/18 21:49 Dose: Not Given Lidocaine (Lidoderm) 1 ea TD DAILY [facility] Last Admin: 06/29/18 09:39 Dose: 1 ea - Labs Labs: 06/28/18 08:45 06/28/18 09:30 Assessment and Plan - Assessment and Plan (Free Text) Assessment: Acute on chronic back pain Plan: Please see note for recs
--- NOTE | 2018-06-30 09:09 | CP.PCM.PN ---
Subjective - Date & Time of Evaluation Date of Evaluation: 06/30/18 Time of Evaluation: 09:08 - Subjective Subjective: patient conscious and alert sitting up patient receiving Breakfast Patient complaining what appeared to be chronic low back pain Objective - Vital Signs/Intake and Output Vital Signs (last 24 hours): Temp Pulse Resp BP Pulse Ox 98.1 F 66 18 111/48 L 98 06/30/18 08:15 06/30/18 08:15 06/30/18 08:15 06/30/18 08:15 06/30/18 08:15 - Medications Medications: Current Medications Acetaminophen (Tylenol 325mg Tab) 650 mg PO Q6 PRN PRN Reason: Pain, Mild (1-3) Aspirin (Ecotrin) 81 mg PO DAILY [facility] Last Admin: 06/29/18 09:38 Dose: 81 mg Atorvastatin Calcium (Lipitor) 10 mg PO HS [facility] Last Admin: 06/29/18 21:48 Dose: 10 mg Carvedilol (Coreg) 6.25 mg PO Q12H [facility] Last Admin: 06/30/18 03:54 Dose: 6.25 mg Cinacalcet (Sensipar) 30 mg PO MWF [facility] Last Admin: 06/29/18 09:40 Dose: 30 mg Clopidogrel Bisulfate (Plavix) 75 mg PO HS [facility] Last Admin: 06/29/18 21:48 Dose: 75 mg Dextrose (Dextrose 50% Inj) 0 ml IV STAT PRN; Protocol PRN Reason: Hypoglycemia Protocol Dextrose (Glutose 15) 0 gm PO ONCE PRN; Protocol PRN Reason: Hypoglycemia Protocol Enalapril Maleate (Vasotec) 10 mg PO DAILY [facility] Last Admin: 06/29/18 09:41 Dose: 10 mg Glucagon (Glucagen Diagnostic Kit) 0 mg IM STAT PRN; Protocol PRN Reason: Hypoglycemia Protocol Heparin Sodium (Porcine) (Heparin) 5,000 units SC Q8 [facility] PRN Reason: Protocol Last Admin: 06/30/18 01:53 Dose: 5,000 units Home Med (Ferric Citrate [Auryxia]) 2 tab PO WM@0800,1200,1700 [facility] Last Admin: 06/29/18 17:12 Dose: 2 tab Insulin Human NPH (Humulin N) 5 units SC QPM [facility] Last Admin: 06/29/18 18:20 Dose: Not Given Insulin Human Regular (Humulin R) 0 units SC ACHS [facility] PRN Reason: Protocol Last Admin: 06/29/18 21:49 Dose: Not Given Lidocaine (Lidoderm) 1 ea TD DAILY [facility] Last Admin: 06/29/18 09:39 Dose: 1 ea - Labs Labs: 06/28/18 08:45 06/28/18 09:30 - Constitutional Appears: No Acute Distress - Eye Exam Eye Exam: Conjunctival injection - ENT Exam ENT Exam: Mucous Membranes Moist - Neck Exam Neck Exam: absent: Lymphadenopathy - Respiratory Exam Respiratory Exam: NORMAL BREATHING PATTERN. absent: Chest Wall Tenderness - Cardiovascular Exam Cardiovascular Exam: absent: Gallop, JVD, Rubs - GI/Abdominal Exam GI & Abdominal Exam: Soft, Normal Bowel Sounds - Extremities Exam Extremities Exam: absent: Calf Tenderness - Back Exam Back Exam: absent: CVA tenderness (L), CVA tenderness (R) - Neurological Exam Neurological Exam: Alert - Psychiatric Exam Psychiatric exam: Normal Affect - Skin Skin Exam: absent: Cyanosis Assessment and Plan (1) ESRD (end stage renal disease) on dialysis Assessment & Plan: patient with end stage renal disease on dialysis Wednesday. Admitted with acute back pain Evaluation underway review the medication to be continue Patient has history of hyperphosphatemia continue binder Patient has also history of secondary hyperparathyroidism continue Sensipar I suggest to considering order lumbosacral spine CAT scan Status: Acute (2) Acute back pain Status: Acute
--- NOTE | 2018-06-30 09:35 | CP.PCM.PN ---
<Umm Valerio - Last Filed: 06/30/18 15:06> Subjective - Date & Time of Evaluation Date of Evaluation: 06/30/18 Time of Evaluation: 09:32 - Subjective Subjective: Patient seen and evaluated on rounds with Dr. Funes. Appears to be doing well resting in bed. However continues to complain of severe mid back pain which is not relieved with medications. Slept well overnight. No reports overnight. - Denies any chest pain, palpitations, nausea or vomiting currently. Objective - Vital Signs/Intake and Output Vital Signs (last 24 hours): Temp Pulse Resp BP Pulse Ox 98.1 F 66 18 111/48 L 98 06/30/18 08:15 06/30/18 08:15 06/30/18 08:15 06/30/18 08:15 06/30/18 08:15 - Medications Medications: Current Medications Acetaminophen (Tylenol 325mg Tab) 650 mg PO Q6 PRN PRN Reason: Pain, Mild (1-3) Aspirin (Ecotrin) [address] [facility] Last Admin: 06/29/18 09:38 Dose: 81 mg Atorvastatin Calcium (Lipitor) [address] [facility] Last Admin: 06/29/18 21:48 Dose: 10 mg Carvedilol (Coreg) 6.[address] [facility] Last Admin: 06/30/18 03:54 Dose: 6.25 mg Cinacalcet (Sensipar) [address] [facility] Last Admin: 06/29/18 09:40 Dose: 30 mg Clopidogrel Bisulfate (Plavix) 75 mg PO [facility] Last Admin: 06/29/18 21:48 Dose: 75 mg Dextrose (Dextrose 50% Inj) 0 ml IV STAT PRN; Protocol PRN Reason: Hypoglycemia Protocol Dextrose (Glutose 15) 0 gm PO ONCE PRN; Protocol PRN Reason: Hypoglycemia Protocol Enalapril Maleate (Vasotec) [address] [facility] Last Admin: 06/29/18 09:41 Dose: 10 mg Glucagon (Glucagen Diagnostic Kit) 0 mg IM STAT PRN; Protocol PRN Reason: Hypoglycemia Protocol Heparin Sodium (Porcine) (Heparin) 5,000 units SC Q8 [facility] PRN Reason: Protocol Last Admin: 06/30/18 01:53 Dose: 5,000 units Home Med (Ferric Citrate [Auryxia]) 2 tab PO WM@0800,1200,1700 [facility] Last Admin: 06/29/18 17:12 Dose: 2 tab Insulin Human NPH (Humulin N) [address] [facility] Last Admin: 06/29/18 18:20 Dose: Not Given Insulin Human Regular (Humulin R) [address] [facility] PRN Reason: Protocol Last Admin: 06/29/18 21:49 Dose: Not Given Lidocaine (Lidoderm) [address] [facility] Last Admin: 06/29/18 09:39 Dose: 1 ea - Labs Labs: 06/28/18 08:45 06/28/18 09:30 - Constitutional Appears: No Acute Distress - Head Exam Head Exam: NORMAL INSPECTION - Eye Exam Eye Exam: Normal appearance - Respiratory Exam Respiratory Exam: Clear to Ausculation Bilateral, NORMAL BREATHING PATTERN. absent: Rhonchi, Wheezes - Cardiovascular Exam Cardiovascular Exam: REGULAR RHYTHM, +S1, +S2 - GI/Abdominal Exam GI & Abdominal Exam: Soft, Normal Bowel Sounds. absent: Tenderness - Extremities Exam Extremities Exam: Normal Inspection - Back Exam Back Exam: paraspinal tenderness. absent: vertebral tenderness Additional comments: no rashes noted - Neurological Exam Neurological Exam: Alert, Awake - Skin Skin Exam: Normal Color, Warm Assessment and Plan - Assessment and Plan (Free Text) Assessment: 76 YO female with PMHx of HTN, CVA(last strke 05/2017), CABG x 4 in 2011, cardiac stents x2, DM, and ESRD (HD on MWF) admitted for atypical chest pain with c/o of back pain. Back pain -acute on chronic -CT chest reviewed: Aortic Dissection ruled out. -likely 2/2 to muscle strain, vs anterolisthesis L3/L4 (CT abd and pelvis 06/28) -Pain management Tylenol PO, Tylenol 3 for moderate pain, percocet1 tab PO Q6 for severe pain. Gabapentin 100mg daily. Lidoderm patch - F/U with pain management recommendations. F/U with MRI T and L spine. Atypical chest pain -no chest pain, NT -EKG: non-specific ST and T wave changes as noted in previous EKG 04/15/18 -trop x 3 neg CHFpED, HTN -chronic -last echo 05/18/2016; LV systolic function severely impaired. EF15-20 % ESRD, CKD stage V -Bun/Cr 20/3.6, GFR 12 -on HD M/W/F -NephDr. Jimi whiteside, consulted -HD today DM -hgba1c 8.9 (11/18) -c/w home insulin -low dose coverage insulin per protocol -hypoglycemia protocol -accu-checks HTN -c/w home meds -c/w Carvedidol 6.25 mg and enalapril 10mg daily CAD -CABG x 4 in 2011, cardiac stents x2, -lipid profile from 11/18 reviewed -C/w Lipitor 40 mg daily -C/w Asprin History of CVA and Cardiac Stents -no residual hemiparesis as per pt and family -C/w Asprin and Plavix DVT PPX -Heparin 5000 SC Q8H <Julio Ponce - Last Filed: 07/05/18 06:44> Objective - Vital Signs/Intake and Output Vital Signs (last 24 hours): Temp Pulse Resp BP Pulse Ox 97.4 F L 65 20 175/75 H 100 07/02/18 13:04 07/02/18 13:04 07/02/18 13:04 07/02/18 13:04 07/02/18 13:04 - Labs Labs: 06/28/18 08:45 06/28/18 09:30 Attending/Attestation - Attestation I have personally seen and examined this patient.: Yes I have fully participated in the care of the patient.: Yes I have reviewed all pertinent clinical information, including history, physical exam and plan: Yes
[2018-06-30] MEDS ORDERED: Acetaminophen-Codeine 300/30 mg Tab PO PRN (10:19)
[2018-06-30] MEDS: Oxycodone/Acetaminophen 5/325 mg Tab PO PRN (10:33)
[2018-06-30] MEDS: FERRIC CITRATE PO SCH ×3 (10:40→17:58)
[2018-06-30] MEDS: Lidocaine 5% Patch TD SCH (10:41)
[2018-06-30] MEDS: Insulin NPH Human 100 Units/ml Inj SC SCH (17:59)
[2018-07-01] MEDS: Insulin Regular 100 units/ml SC SCH ×5 (00:44→22:03)
--- NOTE | 2018-07-01 07:22 | CP.PCM.PN ---
Subjective - Date & Time of Evaluation Date of Evaluation: 07/01/18 Time of Evaluation: 07:00 - Subjective Subjective: Patient states she feels good still with some mild back pain but it feels better with the current meds and patches Objective - Vital Signs/Intake and Output Vital Signs (last 24 hours): Temp Pulse Resp BP Pulse Ox 97.8 F 65 18 141/63 100 07/01/18 05:18 07/01/18 05:18 07/01/18 05:18 07/01/18 05:18 07/01/18 05:18 - Medications Medications: Current Medications Acetaminophen (Tylenol 325mg Tab) 650 mg PO Q6 PRN PRN Reason: Pain, Mild (1-3) Acetaminophen/Codeine Phosphate (Tylenol/Codeine 300 Mg/30 Mg) 1 tab PO Q6 PRN PRN Reason: Pain, moderate (4-7) Aspirin (Ecotrin) 81 mg PO DAILY [facility] Last Admin: 06/30/18 10:40 Dose: 81 mg Atorvastatin Calcium (Lipitor) 10 mg PO [facility] Last Admin: 06/30/18 22:11 Dose: 10 mg Carvedilol (Coreg) 6.25 mg PO Q12H [facility] Last Admin: 06/30/18 15:56 Dose: 6.25 mg Cinacalcet (Sensipar) 30 mg PO MWF [facility] Last Admin: 06/29/18 09:40 Dose: 30 mg Clopidogrel Bisulfate (Plavix) 75 mg PO HS [facility] Last Admin: 06/30/18 22:11 Dose: 75 mg Dextrose (Dextrose 50% Inj) 0 ml IV STAT PRN; Protocol PRN Reason: Hypoglycemia Protocol Dextrose (Glutose 15) 0 gm PO ONCE PRN; Protocol PRN Reason: Hypoglycemia Protocol Enalapril Maleate (Vasotec) 10 mg PO DAILY [facility] Last Admin: 06/30/18 10:43 Dose: 10 mg Gabapentin (Neurontin) 100 mg PO DAILY [facility] Last Admin: 06/30/18 18:06 Dose: 100 mg Glucagon (Glucagen Diagnostic Kit) 0 mg IM STAT PRN; Protocol PRN Reason: Hypoglycemia Protocol Heparin Sodium (Porcine) (Heparin) 5,000 units SC Q8 [facility] PRN Reason: Protocol Last Admin: 07/01/18 00:47 Dose: 5,000 units Home Med (Ferric Citrate [Auryxia]) 2 tab PO WM@0800,1200,1700 [facility] Last Admin: 06/30/18 17:58 Dose: 2 tab Insulin Human NPH (Humulin N) 5 units SC QPM [facility] Last Admin: 06/30/18 17:59 Dose: 5 units Insulin Human Regular (Humulin R) 0 units SC ACHS [facility] PRN Reason: Protocol Last Admin: 07/01/18 00:44 Dose: Not Given Lidocaine (Lidoderm) 1 ea TD DAILY [facility] Last Admin: 06/30/18 10:41 Dose: 1 ea Ondansetron HCl (Zofran Inj) 4 mg IVP Q6 PRN PRN Reason: Nausea/Vomiting Oxycodone/Acetaminophen (Percocet 5/325 Mg Tab) 1 tab PO Q6 PRN PRN Reason: Pain, severe (8-10) Stop: 07/03/18 10:21 Last Admin: 06/30/18 10:33 Dose: 1 tab - Labs Labs: 06/28/18 08:45 06/28/18 09:30 - Constitutional Appears: Well - Head Exam Head Exam: NORMAL INSPECTION - Eye Exam Eye Exam: Normal appearance Pupil Exam: NORMAL ACCOMODATION - ENT Exam ENT Exam: Mucous Membranes Moist - Neck Exam Neck Exam: Normal Inspection - Respiratory Exam Respiratory Exam: Clear to Ausculation Bilateral, NORMAL BREATHING PATTERN - Cardiovascular Exam Cardiovascular Exam: REGULAR RHYTHM. absent: Gallop, Rubs, Murmur - GI/Abdominal Exam GI & Abdominal Exam: Soft, Normal Bowel Sounds. absent: Guarding, Tenderness, Mass, Rebound - Extremities Exam Extremities Exam: Joint Swelling, Tenderness - Back Exam Back Exam: NORMAL INSPECTION. absent: tenderness - Neurological Exam Neurological Exam: Alert, Oriented x3 - Psychiatric Exam Psychiatric exam: Normal Affect, Normal Mood - Skin Skin Exam: Dry, Intact, Normal Color, Warm Assessment and Plan (1) Atypical chest pain Assessment & Plan: to continue current meds to follow up with [facility] [employer] as an out patient Status: Acute (2) ESRD (end stage renal disease) on dialysis Assessment & Plan: to continue with current schedule of dialysis Status: Acute (3) Acute back pain Assessment & Plan: to continue current meds and topical treatments to follow up with pain management as out patient Status: Acute - Assessment and Plan (Free Text) Assessment: to Discharge when cleared by all consultants to follow up with all consultants as per their recommendation to follow up in my office in 1 week after discharge Plan: to discharge when cleared by all consultants
[2018-07-01] MEDS: Lidocaine 5% Patch TD SCH (08:34)
[2018-07-01] MEDS: FERRIC CITRATE PO SCH ×4 (08:37→18:07)
--- NOTE | 2018-07-01 14:10 | CP.PCM.PN ---
Subjective - Date & Time of Evaluation Date of Evaluation: 07/01/18 Time of Evaluation: 14:07 - Subjective Subjective: dialysis note she was seen on hemodialysis. Patient sitting up in bed appears to be comfortable and not in any distress Vital sign noted to be stable No chest pain or shortness of breath Objective - Vital Signs/Intake and Output Vital Signs (last 24 hours): Temp Pulse Resp BP Pulse Ox 97.1 F L 58 L 18 127/66 99 07/01/18 12:06 07/01/18 12:06 07/01/18 12:06 07/01/18 12:06 07/01/18 12:06 - Medications Medications: Current Medications Acetaminophen (Tylenol 325mg Tab) 650 mg PO Q6 PRN PRN Reason: Pain, Mild (1-3) Acetaminophen/Codeine Phosphate (Tylenol/Codeine 300 Mg/30 Mg) 1 tab PO Q6 PRN PRN Reason: Pain, moderate (4-7) Aspirin (Ecotrin) 81 mg PO DAILY [facility] Last Admin: 07/01/18 08:34 Dose: 81 mg Atorvastatin Calcium (Lipitor) 10 mg PO HS [facility] Last Admin: 06/30/18 22:11 Dose: 10 mg Carvedilol (Coreg) 6.25 mg PO Q12H [facility] Last Admin: 06/30/18 15:56 Dose: 6.25 mg Cinacalcet (Sensipar) 30 mg PO MWF [facility] Last Admin: 07/01/18 08:33 Dose: 30 mg Clopidogrel Bisulfate (Plavix) 75 mg PO [facility] Last Admin: 06/30/18 22:11 Dose: 75 mg Dextrose (Dextrose 50% Inj) 0 ml IV STAT PRN; Protocol PRN Reason: Hypoglycemia Protocol Dextrose (Glutose 15) 0 gm PO ONCE PRN; Protocol PRN Reason: Hypoglycemia Protocol Enalapril Maleate (Vasotec) 10 mg PO DAILY [facility] Last Admin: 07/01/18 08:36 Dose: 10 mg Gabapentin (Neurontin) 100 mg PO DAILY [facility] Last Admin: 07/01/18 08:35 Dose: 100 mg Glucagon (Glucagen Diagnostic Kit) 0 mg IM STAT PRN; Protocol PRN Reason: Hypoglycemia Protocol Heparin Sodium (Porcine) (Heparin) 5,000 units SC Q8 GUILLAUME PRN Reason: Protocol Last Admin: 07/01/18 08:34 Dose: 5,000 units Home Med (Ferric Citrate [Auryxia]) 2 tab PO WM@0800,1200,1700 [facility] Last Admin: 07/01/18 13:57 Dose: Not Given Insulin Human NPH (Humulin N) 5 units SC QPM [facility] Last Admin: 06/30/18 17:59 Dose: 5 units Insulin Human Regular (Humulin R) 0 units SC ACHS GUILLAUME PRN Reason: Protocol Last Admin: 07/01/18 08:36 Dose: 2 units Lidocaine (Lidoderm) 1 ea TD DAILY [facility] Last Admin: 07/01/18 08:34 Dose: 1 ea Ondansetron HCl (Zofran Inj) 4 mg IVP Q6 PRN PRN Reason: Nausea/Vomiting Oxycodone/Acetaminophen (Percocet 5/325 Mg Tab) 1 tab PO Q6 PRN PRN Reason: Pain, severe (8-10) Stop: 07/03/18 10:21 Last Admin: 06/30/18 10:33 Dose: 1 tab - Labs Labs: 06/28/18 08:45 06/28/18 09:30 - Constitutional Appears: No Acute Distress - ENT Exam ENT Exam: absent: Mucous Membranes Moist - Neck Exam Neck Exam: absent: Lymphadenopathy - Respiratory Exam Respiratory Exam: NORMAL BREATHING PATTERN. absent: Rales - Cardiovascular Exam Cardiovascular Exam: absent: Gallop, JVD, Rubs - GI/Abdominal Exam GI & Abdominal Exam: Soft, Normal Bowel Sounds - Extremities Exam Extremities Exam: absent: Calf Tenderness - Back Exam Back Exam: absent: CVA tenderness (L), CVA tenderness (R) - Neurological Exam Neurological Exam: Alert - Psychiatric Exam Psychiatric exam: Normal Affect - Skin Skin Exam: absent: Cyanosis Assessment and Plan (1) ESRD (end stage renal disease) on dialysis Assessment & Plan: end stage renal disease receiving dialysis now. Discussed the order with the dialysis nurse at the bedside Ultrafiltration approximately 2000 mL as tolerated Sodium bath 138 mEq Bicarbonate bath 34 Potassium bath [address] scan of the Bianca 6 spine and lumbosacral spine and the report is pending From renal standpoint of view patient may go home she will have dialysis as outpatient at the dialysis unit Status: Acute (2) Acute back pain Status: Acute
--- NOTE | 2018-07-01 14:27 | MRI ---
Date of service: 06/30/2018. PROCEDURE: MRI of the thoracic spine 06/30/2018 HISTORY: Thoracic pain COMPARISON: Correlation made with CT scan chest 06/29/2018 TECHNIQUE: Multiecho multiplanar sequences were performed through the thoracic spine without the use of intravenous contrast. FINDINGS: ALIGNMENT: There is very minor dextroscoliosis centered in the mid thoracic region. Vertebral bodies otherwise exhibit normal IACs. Facets normally aligned VERTEBRA: The current study reveals no acute compression fractures no retropulsed fragments. Vertebral bodies exhibit relatively normal stature aside from mild multilevel chronic appearing degenerative endplate changes/Schmorl's node formation. There is also some mild type 1 discogenic sclerosis seen at the T5-T6, T8-T9 T12-L1 levels. PARASPINAL SOFT TISSUES: Paraspinal soft tissues unremarkable CORD: Unremarkable thoracic cord. No volume loss, signal abnormality or syrinx. . DISCS: Desiccation and disc space narrowing with cortical endplate and irregularity and Schmorl's node formation. Minor of broad-based disc bulge ridge complexes are present at nearly every level. These changes result in varying degrees of minor compressive effects on the ventral as surfaces of the thecal sac most notably on the right side at the T4-T5 and T6-T7 levels and on the left side at the T11-T12 level. The overall central canal appears adequate throughout however. The exit foramina are also adequate. OTHER FINDINGS: None. IMPRESSION: No acute fractures. Mild multilevel degenerative spondylosis without significant canal compromise nor cord compression.
--- NOTE | 2018-07-01 14:37 | MRI ---
Date of service: 06/30/2018 PROCEDURE: MR LUMBAR SPINE WITHOUT CONTRAST HISTORY: Lumbar pain COMPARISON: None available. TECHNIQUE: Multiecho multiplanar sequences were performed through the lumbar spine without the use of intravenous contrast. FINDINGS: No acute compression fractures nor retropulsed fragments. Multilevel chronic appearing Schmorl's nodes/degenerative related changes however vertebral bodies otherwise exhibit relatively normal stature. Conus medullaris unremarkable at the level of inferior L1 level Paraspinal soft tissues are unremarkable. T12-L1: No disc herniation, spinal canal stenosis or neural foraminal narrowing. L1-2: There is disc desiccation however disc space height maintained. No disc herniation or significant disc bulge. . Mild facet arthropathy without significant canal nor foraminal stenosis. L2-3: Disc desiccation, however disc space height relatively maintained. There is a small to medium-sized asymmetric disc bulge larger on the left than right with some extension into the anterior inferior margins of both exit foramina. The disc results in flattening of the ventral surface of the thecal sac more so on the left side. Central canal appears adequate. Facets are hypertrophic. Right exit foramen is adequate however left exit foramen is slightly narrowed. L3-4: As mentioned above, there is slight anterior subluxation of L3 over L4. Disc desiccation and disc space narrowing with chronic appearing Schmorl's node formation. Slight uncovering of the posterior superior surface of the disc along with mild broad-based disc ridge complex extends into the proximal inferior margins of both exit foramina. The facets also quite hypertrophic at this level and flavum buckled. There is resultant significant bilateral lateral recess and central canal stenosis. The exit foramina are stenotic right greater than left. L4-5: There is disc desiccation, irregular disc space narrowing with cortical endplate irregularity and predominant type 2 discogenic sclerosis. There is broad-based disc bulge ridge complex with a more central and bilateral (left slightly larger than right) disc herniation component that extends into the proximal inferior margins of both exit foramina. Disc results in compression of the ventral surface of the thecal sac more so on the left side. Bilateral lateral recess stenosis left greater than right. Overall central canal is also [id number] stenotic. Facets are hypertrophic. Exit foramina appear adequate despite encroaching disc ridge complex. L5-S1: There is disc desiccation however disc space height juan carlos minor posterior disc space narrowing. Small central and bilateral focal disc herniation compresses the ventral surface of the thecal sac and appears to result in mild compressive effects on the intrathecal and just exiting extra thecal S1 nerve roots. The overall central canal appears adequate. Facets are hypertrophic. The exit foramina are adequate. OTHER FINDINGS: Kidneys exhibit mild atrophy and cortical volume loss with bilateral renal cysts. IMPRESSION: Limited motion degraded study. No acute compression fractures. Multilevel degenerative spondylosis most severely affecting the L3-L4 level as described above. Through L5-S1 levels as above.
[2018-07-01 15:27] VITALS: O2SAT 100
[2018-07-01] MEDS: Oxycodone/Acetaminophen 5/325 mg Tab PO PRN (15:52)
[2018-07-01] MEDS: Insulin NPH Human 100 Units/ml Inj SC SCH (18:07)
[2018-07-02] MEDS: Insulin Regular 100 units/ml SC SCH ×2 (06:33→11:43)
[2018-07-02 08:23] VITALS: RESP 20
[2018-07-02] MEDS: FERRIC CITRATE PO SCH ×2 (09:00→11:43)
[2018-07-02] MEDS: Lidocaine 5% Patch TD SCH (09:01)
--- NOTE | 2018-07-02 11:42 | CP.PCM.DIS ---
Provider - Provider Date of Admission: 06/30/18 17:00 Attending physician: Julio Ponce MD Time Spent in preparation of Discharge (in minutes): 30 Diagnosis - Discharge Diagnosis (1) Atypical chest pain Status: Acute (2) ESRD (end stage renal disease) on dialysis Status: Acute (3) Acute back pain Status: Acute (4) CVA (cerebral vascular accident) Status: Acute Hospital Course - Lab Results Lab Results: Most Recent Lab Values WBC 6.7 K/uL (4.8-10.8) 06/28/18 08:45 RBC 4.36 Mil/uL (3.80-5.20) 06/28/18 08:45 Hgb 13.3 g/dL (12.0-16.0) 06/28/18 08:45 Hct 40.1 % (34.0-47.0) 06/28/18 08:45 MCV 91.8 fl (81.0-99.0) D 06/28/18 08:45 MCH 30.4 pg (27.0-31.0) 06/28/18 08:45 MCHC 33.1 g/dL (33.0-37.0) 06/28/18 08:45 RDW 16.9 % (11.5-14.5) H 06/28/18 08:45 Plt Count 181 K/uL (130-400) 06/28/18 08:45 MPV 10.2 fl (7.2-11.7) 06/28/18 08:45 Neut % (Auto) 66.8 % (50.0-75.0) 06/28/18 08:45 Lymph % (Auto) 18.5 % (20.0-40.0) L 06/28/18 08:45 [place] % (Auto) 11.2 % (0.0-10.0) H 06/28/18 08:45 Eos % (Auto) 2.3 % (0.0-4.0) 06/28/18 08:45 Baso % (Auto) 1.2 % (0.0-2.0) 06/28/18 08:45 Neut # (Auto) 4.5 K/uL (1.8-7.0) 06/28/18 08:45 Lymph # (Auto) 1.2 K/uL (1.0-4.3) 06/28/18 08:45 [place] # (Auto) 0.7 K/uL (0.0-0.8) 06/28/18 08:45 Eos # (Auto) 0.2 K/uL (0.0-0.7) 06/28/18 08:45 Baso # (Auto) 0.1 K/uL (0.0-0.2) 06/28/18 08:45 Sodium 138 mmol/l (132-148) 06/28/18 09:30 Potassium 4.2 MMOL/L (3.6-5.0) 06/28/18 09:30 Chloride 100 mmol/L (98-107) 06/28/18 09:30 Carbon Dioxide 25 mmol/L (22-30) 06/28/18 09:30 Anion Gap 17 (10-20) 06/28/18 09:30 BUN 20 mg/dl (7-17) H 06/28/18 09:30 Creatinine 3.6 mg/dl (0.7-1.2) H 06/28/18 09:30 Est GFR ( Amer) 15 06/28/18 09:30 Est GFR (Non-Af Amer) 12 06/28/18 09:30 POC Glucose (mg/dL) 178 mg/dL (65-110) H 07/02/18 11:21 Random Glucose 122 mg/dL (65-105) H 06/28/18 09:30 Calcium 8.9 mg/dL (8.4-10.2) 06/28/18 09:30 Total Bilirubin 0.7 mg/dl (0.2-1.3) 06/28/18 09:30 AST 22 U/L (14-36) 06/28/18 09:30 ALT 24 U/L (9-52) 06/28/18 09:30 Alkaline Phosphatase 66 U/L (38-126) 06/28/18 09:30 Troponin I 0.1150 ng/mL (0.00-0.120) 06/29/18 01:15 Total Protein 6.1 G/DL (6.3-8.2) L 06/28/18 09:30 Albumin 3.4 g/dL (3.5-5.0) L 06/28/18 09:30 Globulin 2.7 gm/dL (2.2-3.9) 06/28/18 09:30 Albumin/Globulin Ratio 1.3 (1.0-2.1) 06/28/18 09:30 - Hospital Course Hospital Course: 76 YO female with PMHx of HTN, CVA(last strke 05/2017), CABG x 4 in 2011, cardiac stents x2, DM, and ESRD (HD on MWF) admitted for atypical chest pain with c/o of back pain. Course as below. Stable for dc by all consults. follow up pcp as outpt. Back pain resolved stable for dc -acute on chronic -CT chest reviewed: Aortic Dissection ruled out. -likely 2/2 to muscle strain, vs anterolisthesis L3/L4 (CT abd and pelvis 06/28) -Pain management Tylenol PO, Tylenol 3 for moderate pain, percocet1 tab PO Q6 for severe pain. Gabapentin 100mg daily. Lidoderm patch - F/U with pain management recommendations. F/U with MRI T and L spine. Atypical chest pain -no chest pain, NT -EKG: non-specific ST and T wave changes as noted in previous EKG 04/15/18 -trop x 3 neg CHFpED, HTN -chronic -last echo 05/18/2016; LV systolic function severely impaired. EF15-20 % ESRD, CKD stage V -Bun/Cr 20/3.6, GFR 12 -on HD M/W/F -Nephro, Dr. Krause, consulted stable for dc -HD today DM -hgba1c 8.9 (11/18) -c/w home insulin -low dose coverage insulin per protocol -hypoglycemia protocol -accu-checks HTN -c/w home meds -c/w Carvedidol 6.25 mg and enalapril 10mg daily CAD -CABG x 4 in 2011, cardiac stents x2, -lipid profile from 11/18 reviewed -C/w Lipitor 40 mg daily -C/w Asprin History of CVA and Cardiac Stents -no residual hemiparesis as per pt and family -C/w Asprin and Plavix DVT PPX -Heparin 5000 SC Discharge Exam - Head Exam Head Exam: NORMAL INSPECTION, NORMOCEPHALIC - Eye Exam Eye Exam: EOMI, Normal appearance, PERRL - Respiratory Exam Respiratory Exam: Clear to PA & Lateral, NORMAL BREATHING PATTERN - Cardiovascular Exam Cardiovascular Exam: RRR, +S1, +S2 - GI/Abdominal Exam GI & Abdominal Exam: Normal Bowel Sounds, Soft - Neurological Exam Neurological exam: Alert, Reflexes Normal - Psychiatric Exam Psychiatric exam: Normal Affect, Normal Mood - Skin Skin Exam: Dry, Warm Discharge Plan - Discharge Medications Prescriptions: Gabapentin [Neurontin] 100 mg PO DAILY #30 cap Lidocaine 5% [Lidoderm] 1 ea TD DAILY #30 patch oxyCODONE/Acetaminophen [Percocet 5/325 mg Tab] 1 tab PO Q6 PRN #20 tab PRN Reason: Pain, Severe (8-10) - Follow Up Plan Condition: FAIR Disposition: HOME/ ROUTINE Instructions: Chest Pain (DC)
[2018-07-02 13:06] VITALS: BP 175/75; PULSE 65; TEMP 97.4
--- NOTE | 2018-07-02 19:24 | CP.PCM.PN ---
Subjective - Date & Time of Evaluation Date of Evaluation: 07/02/18 Time of Evaluation: 13:00 - Subjective Subjective: renal follow up note vitals reviewed heent normal op moist no jvd heent normal s1s2 present no resp distress abd soft skin normal no edema ao times 3 no fnd Plan esrd/htn/back pain/sec hyperpth hd mwf continue per schedule lytes reviewed anemia stable back pain improved bp stable for possible discharge today Objective - Vital Signs/Intake and Output Vital Signs (last 24 hours): Temp Pulse Resp BP Pulse Ox 97.4 F L 65 20 175/75 H 100 07/02/18 13:04 07/02/18 13:04 07/02/18 13:04 07/02/18 13:04 07/02/18 13:04 Intake and Output: 07/02/18 07/03/18 18:59 06:59 Intake Total 680 Balance 680 - Labs Labs: 06/28/18 08:45 06/28/18 09:30
== END 2018-07-02 14:00 | disposition home or self-care (01) | DRG 551 ==
LOC: H.ER 08:03 → H.ERHOLD 12:41 → H.TEL 06-29 05:06 → OBSVTOIN 06-30 17:00
PROVIDERS: ADMIT Family Medicine; ATTEND Family Medicine
PROC: 5A1D70Z Performance of Urinary Filtration, Intermittent, Less than 6 Hours Per Day (ICD-10-PCS; principal; 2018-06-29)
PROC: 5A1D70Z Performance of Urinary Filtration, Intermittent, Less than 6 Hours Per Day (ICD-10-PCS; 2018-07-01)
DX: M43.16 Spondylolisthesis, lumbar region (principal); N18.6 End stage renal disease; I13.2 Hypertensive heart and chronic kidney disease with heart failure and with stage 5 chronic kidney disease, or end stage renal disease; N25.81 Secondary hyperparathyroidism of renal origin; I50.22 Chronic systolic (congestive) heart failure; R07.89 Other chest pain; M54.5 Low back pain; E11.22 Type 2 diabetes mellitus with diabetic chronic kidney disease; E78.5 Hyperlipidemia, unspecified; I25.10 Atherosclerotic heart disease of native coronary artery without angina pectoris; Z79.4 Long term (current) use of insulin; Z79.82 Long term (current) use of aspirin; Z79.899 Other long term (current) drug therapy; Z86.73 Personal history of transient ischemic attack (TIA), and cerebral infarction without residual deficits; Z89.411 Acquired absence of right great toe; Z95.1 Presence of aortocoronary bypass graft; Z95.5 Presence of coronary angioplasty implant and graft; Z96.649 Presence of unspecified artificial hip joint; Z99.2 Dependence on renal dialysis; E83.39 Other disorders of phosphorus metabolism; J40 Bronchitis, not specified as acute or chronic; M19.90 Unspecified osteoarthritis, unspecified site

== ENCOUNTER 2018-08-08 05:34 | Inpatient (IN) | payer MEDICARE ==
--- NOTE | 2018-08-08 06:23 | ED PDOC ---
HPI:Nausea, Vomiting, Diarrhea Time Seen by Provider: 08/08/18 05:58 Chief Complaint (Nursing): Back Pain Chief Complaint (Provider): Diarrhea History Per: Patient History/Exam Limitations: no limitations Onset/Duration Of Symptoms: Other (x3 weeks) Current Symptoms Are (Timing): Still Present Associated Symptoms: Diarrhea. denies: Fever, Vomiting Additional Complaint(s): 78 year old female, with a history of diabetes, end stage renal disease with dialysis on Wednesday/Wednesday/Wednesday, CHF, and CAD, presenting with family for diarrhea for the past 3 weeks. Patient states diarrhea is increasing in frequency and is now having watery diarrhea every hour. Patient has not noticed blood in it and denies vomiting, fever, and recent foreign travel. She states she is due for dialysis at 10:00 today. Family is also reporting patient has leg swelling and chronic back pain. PMD: Markel Lucio Past Medical History Reviewed: Historical Data, Nursing Documentation, Vital Signs Vital Signs: Last Vital Signs Temp 98.0 F 08/08/18 05:54 Pulse 111 H 08/08/18 05:54 Resp 18 08/08/18 05:54 BP 165/61 H 08/08/18 05:54 Pulse Ox 98 08/08/18 05:54 - Medical History PMH: Arthritis, Bronchitis, CAD, CHF, CVA (3x; memory issues remain post stroke), Diabetes, Fractures (right hip fx), HTN, Hyperlipidemia, End Stage Renal Disease (Three times a week M/W/), Chronic Kidney Disease (ESRD), TIA Denies: HIV - Surgical History Surgical History: CABG (x4) - Family History Family History: States: Unknown Family Hx - Immunization History Hx Influenza Vaccination: Yes Hx Pneumococcal Vaccination: Yes - Home Medications Home Medications: Ambulatory Orders Medication Instructions Recorded RX: Insulin Human Isophane (NPH) 5 unit SC QPM 05/14/17 [Novolin N] RX: Carvedilol [Coreg] 6.25 mg PO Q12H 11/22/17 RX: Clopidogrel [Plavix] 75 mg PO HS 11/22/17 RX: Aspirin [Adult Low Dose 81 mg PO DAILY 04/11/18 Aspirin EC] RX: Atorvastatin [Lipitor] 10 mg PO HS 04/11/18 RX: Cinacalcet [Sensipar] 30 mg PO MWF 04/11/18 RX: Enalapril Maleate [Vasotec] 10 mg PO DAILY 06/28/18 RX: Ferric Citrate [Auryxia] 2 tab PO WM 06/28/18 RX: Gabapentin [Neurontin] 100 mg PO DAILY #30 cap 07/02/18 RX: oxyCODONE/Acetaminophen 1 tab PO Q6 PRN #20 tab 07/02/18 [Percocet 5/325 mg Tab] RX: Lidocaine 5% [Lidoderm] 1 ea TD DAILY PRN 08/08/18 RX: Amiodarone [Cordarone] 200 mg PO DAILY 30 Days #30 tab 08/10/18 RX: Cephalexin [Keflex] 250 mg PO BID 7 Days #13 capsule 08/10/18 - Allergies Allergies/Adverse Reactions: Allergies Allergy/AdvReac Type Severity Reaction Status Date / Time No Known Allergies Allergy Verified 08/08/18 05:53 Review of Systems ROS Statement: Except As Marked, All Systems Reviewed And Found Negative Constitutional: Negative for: Fever Gastrointestinal: Positive for: Diarrhea. Negative for: Vomiting Musculoskeletal: Positive for: Back Pain (chronic), Other (Leg swelling) Physical Exam - Reviewed Nursing Documentation Reviewed: Yes Vital Signs Reviewed: Yes - Physical Exam Appears: Positive for: Non-toxic, No Acute Distress Head Exam: Positive for: ATRAUMATIC, NORMOCEPHALIC Skin: Positive for: Normal Color, Warm, Dry Eye Exam: Positive for: Other (Chronically ill appearing) Neck: Positive for: Normal, Painless ROM Cardiovascular/Chest: Positive for: Irregularly Irregular, Other (Permacath on right chest) Respiratory: Positive for: Normal Breath Sounds. Negative for: Wheezing, Respiratory Distress Extremity: Positive for: Pedal Edema (trace pedal edema of the legs bilaterally) Neurologic/Psych: Positive for: Alert, Oriented - Laboratory Results Result Diagrams: 08/10/18 04:45 08/10/18 04:45 - ECG O2 Sat by Pulse Oximetry: 98 (RA) Pulse Ox Interpretation: Normal Medical Decision Making Medical Decision Making: Initial Impression: Patient presenting with multiple medical problems with frequent diarrhea Initial Plan: --VBG shock panel --ECG --B-type natriuretic peptide stat --CMP --Troponin --Chest X-ray --Imodium 4mg PO --Urine culture --Urinalysis Patient in a-fib with RVR. Will check blood work to check for electrolyte derailment. 07:[address] Negro. Pending reevaluation and workup. --- Scribe Attestation: Documented by Godfrey Dyer acting as a scribe for Alessio Francis MD. Provider Scribe Attestation: All medical record entries made by the Scribe were at my direction and personally dictated by me. I have reviewed the chart and agree that the record accurately reflects my personal performance of the history, physical exam, medical decision making, and the department course for this patient. I have also personally directed, reviewed, and agree with the discharge instructions and disposition. Disposition - Clinical Impression Clinical Impression: Diarrhea - Patient ED Disposition Is Patient to be Admitted: No - Disposition Disposition: Transfer of Care Disposition Time: 07:00 Condition: STABLE Patient Signed Over To: Kasia Negro Handoff Comments: pending workup and re-eval
[2018-08-08 07:10] LABS: VENOUS BLOOD GAS BASE EXCESS -0.3 mmol/L (0.0-2.0); VENOUS BLOOD GAS PCO2 38 mmHg (40-60); VENOUS BLOOD GAS PO2 33 mm/Hg (30-55); VENOUS BLOOD PH 7.41 (7.32-7.43)
--- NOTE | 2018-08-08 07:21 | ED PDOC ---
- Laboratory Results Result Diagrams: 08/10/18 04:45 08/10/18 04:45 - ECG O2 Sat by Pulse Oximetry: 98 (RA) Pulse Ox Interpretation: Normal Medical Decision Making Medical Decision Makin:[address] Francis, pending reevaluation and workup. Scribe Attestation: Documented by Jovita Singh, acting as a scribe for Kasia Negro MD. Provider Scribe Attestation: All medical record entries made by the Scribe were at my direction and personally dictated by me. I have reviewed the chart and agree that the record accurately reflects my personal performance of the history, physical exam, medical decision making, and the department course for this patient. I have also personally directed, reviewed, and agree with the discharge instructions and disposition. Disposition - Clinical Impression Clinical Impression: Diarrhea, New onset a-fib, Atrial fibrillation with rapid ventricular response - POA Present On Arrival: None - Disposition Disposition: Admitted as In-Patient Disposition Time: 09:16 Condition: GUARDED
--- NOTE | 2018-08-08 08:07 | RAD ---
Date of service: 08/08/2018 PROCEDURE: CHEST RADIOGRAPH, 1 VIEW HISTORY: afib COMPARISON: Portable chest 04/13/2018. FINDINGS: LUNGS: Total right central venous catheter unchanged in position with sternotomy wires reiterated. Extensive wall stents are identified at the medial upper right arm soft tissues. Extensive lengthy Wallstent identified at the left subclavian and axillary regions once again. No interval pulmonary disease appreciated bilaterally. PLEURA: No pneumothorax or pleural fluid seen. CARDIOVASCULAR: Postoperative CABG changes reiterated. No normal cardiac size. No pulmonary vascular congestion. OSSEOUS STRUCTURES: No significant abnormalities. VISUALIZED UPPER ABDOMEN: Normal. OTHER FINDINGS: None. IMPRESSION: No interval acute cardiopulmonary disease appreciated.
[2018-08-08 08:27] LABS: BASO # 0.1 K/uL (0.0-0.2); BASO % 1.2 % (0.0-2.0); EOS # 0.1 K/uL (0.0-0.7); EOS % 2.1 % (0.0-4.0); HEMOGLOBIN 11.6 g/dL (12.0-16.0); LYMPH # 1.1 K/uL (1.0-4.3); LYMPH % 16.2 % (20.0-40.0); MEAN CELL VOLUME 92.4 fl (81.0-99.0); MEAN CORPUSCULAR HEMOGLOBIN 30.1 pg (27.0-31.0); MEAN CORPUSCULAR HGB CONC 32.6 g/dL (33.0-37.0); MEAN PLATELET VOLUME 9.9 fl (7.2-11.7); MONO # 0.6 K/uL (0.0-0.8); MONO % 8.4 % (0.0-10.0); NEUT # 4.9 K/uL (1.8-7.0); NEUT % 72.1 % (50.0-75.0); RBC 3.86 Mil/uL (3.80-5.20); RED CELL DISTRIBUTION WIDTH 17.3 % (11.5-14.5); WHITE BLOOD COUNT 6.8 K/uL (4.8-10.8)
[2018-08-08] MEDS ORDERED: Sodium Chloride 0.9% 1,000 ML IV STA (08:28)
[2018-08-08 08:37] LABS: ALB/GLOB RATIO 1.1 (1.0-2.1); ALBUMIN 3.3 g/dL (3.5-5.0); CALCIUM 9.3 mg/dL (8.4-10.2)
[2018-08-08 08:47] LABS: TROPONIN I 0.065 ng/mL (0.00-0.120)
--- NOTE | 2018-08-08 10:20 | CP.PCM.HP ---
<Zachary Cates - Last Filed: 08/08/18 12:29> History of Present Illness - History of Present Illness History of Present Illness: Patient seen and examined at bedside, her vital signs are: HR 98 irregular, O2 sat 97, RR 21, BP 142/77 in right calf. Patient is an 78 yo female with an extensive pmhx including ESRD, CHF, TIA x3, CVA, HTN, DM, present to the ER today for chief complaint of sore throat and frequent feeling of urination; howerver, she told the ER doctors upon arrival that she was presenting for the diarrhea for the past 3 weeks. She does state that she has 3 soft stools per day and that she urinates about 4 times a day even though she is on hemodialysis. She states that she is due for dialysis today as she participates MWF. She states that since her strokes she uses a wal ker or a wheelchair at home. She was brought in by her daughter today but she was not present upon evaluation. She denies any current N/V/F/C/CP/SOB. She cannot recall why she has kidney failure other than a procedure with dye was performed and her kidneys failed. PMHx: ESRD, CHF, TIA, CVA, HTN, DM, CAD PSHx: CABGx4, right hallux amputation, b/l AV fistulas, hip replacement, PCI with 2 stents FHx: unknown SH: denies smoking and drinking, denies recreational drug use All: NKDA Present on Admission - Present on Admission Any Indicators Present on Admission: No Review of Systems - Constitutional Constitutional: As Per HPI Past Patient History - Infectious Disease Hx of Infectious Diseases: None - Past Medical History & Family History Past Medical History?: Yes - Past Social History Smoking Status: Never Smoked - CARDIAC Hx Congestive Heart Failure: Yes Hx Hypertension: Yes - PULMONARY Hx Bronchitis: Yes - NEUROLOGICAL Hx Transient Ischemic Attacks (TIA): Yes - HEENT Hx HEENT Problems: No - RENAL Hx Chronic Kidney Disease: Yes (ESRD) - ENDOCRINE/METABOLIC Hx Endocrine Disorders: Yes (DM type 2) Hx Diabetes Mellitus Type 2: Yes - HEMATOLOGICAL/ONCOLOGICAL Hx Human Immunodeficiency Virus (HIV): No - INTEGUMENTARY Hx Dermatological Problems: No - MUSCULOSKELETAL/RHEUMATOLOGICAL Hx Arthritis: Yes Hx Fractures: Yes (right hip fx) - GASTROINTESTINAL Hx Gastrointestinal Disorders: No - GENITOURINARY/GYNECOLOGICAL Hx Genitourinary Disorders: No - PSYCHIATRIC Hx Psychophysiologic Disorder: No Hx Substance Use: No - SURGICAL HISTORY Hx Coronary Artery Bypass Graft: Yes (x4) - ANESTHESIA Hx Anesthesia: Yes Hx Anesthesia Reactions: No Hx Malignant Hyperthermia: No Meds Allergies/Adverse Reactions: Allergies Allergy/AdvReac Type Severity Reaction Status Date / Time No Known Allergies Allergy Verified 08/08/18 05:53 Physical Exam - Constitutional Appears: Well, Non-toxic, No Acute Distress - Head Exam Head Exam: ATRAUMATIC, NORMOCEPHALIC - Eye Exam Eye Exam: EOMI, Normal appearance - ENT Exam ENT Exam: Mucous Membranes Moist, Normal Exam - Respiratory Exam Respiratory Exam: NORMAL BREATHING PATTERN. absent: Wheezes Additional comments: Good air entry Rales noted in b/l lung bases no crackles appreciated - Cardiovascular Exam Additional comments: irregularly irregular rhythm No JVD no murmurs noted no carotid bruits scar from previous open heart surgery appreciated - GI/Abdominal Exam GI & Abdominal Exam: Normal Bowel Sounds, Soft Additional comments: abdomen not distended no super pubic fullness - Extremities Exam Additional comments: moderate pitting edema at b/l LE Evidence of previous healed amputation at right hallux no interdigital maceration cap refill <3 seconds to all digits no thrill or bruit appreciated in either AV fistula upon exam - Back Exam Back exam: NORMAL INSPECTION. absent: CVA tenderness (L), CVA tenderness (R) - Neurological Exam Neurological exam: Alert, Oriented x3 - Psychiatric Exam Psychiatric exam: Normal Affect, Normal Mood - Skin Skin Exam: Dry, Intact, Warm Results - Vital Signs Recent Vital Signs: Last Vital Signs Temp 97.8 F 08/08/18 09:20 Pulse 110 H 08/08/18 09:20 Resp 17 08/08/18 09:20 BP 140/104 H 08/08/18 09:20 Pulse Ox 96 08/08/18 09:20 - Labs Result Diagrams: 08/08/18 06:41 08/08/18 06:41 Labs: Laboratory Results - last 24 hr 08/08/18 08/08/18 08/08/18 06:41 06:41 07:01 WBC 6.8 RBC 3.86 Hgb 11.6 L Hct 35.7 MCV 92.4 MCH 30.1 MCHC 32.6 L RDW 17.3 H Plt Count 165 MPV 9.9 Neut % (Auto) 72.1 Lymph % (Auto) 16.2 L [place] % (Auto) 8.4 Eos % (Auto) 2.1 Baso % (Auto) 1.2 Neut # (Auto) 4.9 Lymph # (Auto) 1.1 [place] # (Auto) 0.6 Eos # (Auto) 0.1 Baso # (Auto) 0.1 pO2 33 VBG pH 7.41 VBG pCO2 38 L VBG HCO3 23.8 VBG Total CO2 25.3 VBG O2 Sat (Calc) 62.4 VBG Base Excess -0.3 L VBG Potassium 4.0 Glucose 186 H Lactate 1.3 FiO2 21.0 Sodium 138 136.0 Potassium 4.3 Chloride 101 101.0 Carbon Dioxide 23 Anion Gap 18 BUN 27 H Creatinine 4.4 H Est GFR ( Amer) 12 Est GFR (Non-Af Amer) 10 Random Glucose 169 H Calcium 9.3 Total Bilirubin 0.7 AST 23 ALT 25 Alkaline Phosphatase 53 Troponin I 0.0650 NT-Pro-B Natriuret Pep 643415 H Total Protein 6.2 L Albumin 3.3 L Globulin 2.9 Albumin/Globulin Ratio 1.1 Venous Blood Potassium 4.0 Assessment & Plan - Assessment and Plan (Free Text) Assessment: 78 yo female with pmhx of CHF, CAD, HTN, HLD, ESRD, TIA, CVAx3, and DM seen and evaluated at bedside in ED for new onset atrial fibrillation CHADS vasc score, diarrhea of three weeks, and frequency in urination. Plan: 1. new onset atrial fibrillation - review of prior EKGs and Echos show no evidence of prior atrial fibrillation - chemistry studies are wnl - possible development secondary to fluid overload - [id number] score- 9 - 12% risk - no evidence of RVR at time of exam - Dr. Branch aware - consult ordered - recs appreciated - serial troponin ordered as initial not WNL - f/u - Echo ordered - f/u (last echo 04/18/18 - LVEF 35-40%; RCA/PDA regional wall motion abnormality; impaired diastolic relaxation) - admit to telemetry (continuous telemetry) 2. HF nonpreserved - acute on chronic exacerbation evidenced by physical examination - LE pitting edema - CXR findings - 40 mg Lasix given by ER staff - Dr. Branch consulted - recs appreciated - Echo ordered - f/u (last echo 04/18/18 - LVEF 35-40%; RCA/PDA regional wall motion abnormality; impaired diastolic relaxation) - admit to telemetry (continuous telemetry) - daily weights - medically optimized 3. Frequent urination - feels the need to constantly urinate but is not able to - urine cx ordered- f/u - UA ordered - f/u 4. ESRD - asymptomatic, chronic, due for dialysis today - patient still produces urine (BUN, creat) - nephrology consulted (Dr. Krause) - recs appreciated - hemodialysis MWF - limit nephrotoxic medications 5. HTN - continue at home medication - monitor BP 6. CAD - chronic, asymptomatic - continue with home medications - DAPT 7. HLD - continue at home medication 8. DM - asymptomatic, chronic - continue at home medication - hypoglycemic protocol - dinora ACHS 9. DVT prophylaxis - Heparin 5,000 units SC q8 - Date & Time Date: 08/08/18 Time: 10:59 <Chang Tran D - Last Filed: 08/08/18 13:55> Results - Vital Signs Recent Vital Signs: Last Vital Signs Temp 98.1 F 08/08/18 11:35 Pulse 99 H 08/08/18 13:07 Resp 17 08/08/18 11:35 BP 147/57 L 08/08/18 13:07 Pulse Ox 96 08/08/18 11:35 - Labs Result Diagrams: 08/08/18 06:41 08/08/18 06:41 Labs: Laboratory Results - last 24 hr 08/08/18 08/08/18 08/08/18 06:41 06:41 07:01 WBC 6.8 RBC 3.86 Hgb 11.6 L Hct 35.7 MCV 92.4 MCH 30.1 MCHC 32.6 L RDW 17.3 H Plt Count 165 MPV 9.9 Neut % (Auto) 72.1 Lymph % (Auto) 16.2 L [place] % (Auto) 8.4 Eos % (Auto) 2.1 Baso % (Auto) 1.2 Neut # (Auto) 4.9 Lymph # (Auto) 1.1 [place] # (Auto) 0.6 Eos # (Auto) 0.1 Baso # (Auto) 0.1 pO2 33 VBG pH 7.41 VBG pCO2 38 L VBG HCO3 23.8 VBG Total CO2 25.3 VBG O2 Sat (Calc) 62.4 VBG Base Excess -0.3 L VBG Potassium 4.0 Glucose 186 H Lactate 1.3 FiO2 21.0 Sodium 138 136.0 Potassium 4.3 Chloride 101 101.0 Carbon Dioxide 23 Anion Gap 18 BUN 27 H Creatinine 4.4 H Est GFR ( Amer) 12 Est GFR (Non-Af Amer) 10 Random Glucose 169 H Calcium 9.3 Total Bilirubin 0.7 AST 23 ALT 25 Alkaline Phosphatase 53 Troponin I 0.0650 NT-Pro-B Natriuret Pep [id number] H Total Protein 6.2 L Albumin 3.3 L Globulin 2.9 Albumin/Globulin Ratio 1.1 Venous Blood Potassium 4.0 Attending/Attestation - Attestation I have personally seen and examined this patient.: Yes I have fully participated in the care of the patient.: Yes I have reviewed all pertinent clinical information: Yes
[2018-08-08] MEDS ORDERED: Dextrose 50% SYRINGE Inj (50 ml) IV PRN (10:52)
[2018-08-08] MEDS ORDERED: Glucagon Recombinant 1 mg Inj IM PRN (10:52)
--- NOTE | 2018-08-08 11:02 | CP.PCM.CON ---
History of Present Illness - History of Present Illness History of Present Illness: . patient whole is 78 years of age female known to me with history of end stage renal disease on maintenance hemodialysis Wednesday. She presented to the emergency room complaining golf weakness sore throat and she was found to have irregular heartbeat was reported to be in new onset of atrial fibrillation perhaps This patient known to have multitude of past medical problem and surgical history especially that this patient has multiple AV shunt which has not been successful therefore patient has been dialyze from right subclavian dialysis catheter. PMHx: ESRD, CHF, TIA, CVA, HTN, DM, CAD PSHx: quadruple bypass, CABGx4, right hallux amputation, b/l AV fistulas grafts FHx: unknown SH: denies smoking and drinking, denies recreational drug use All: NKDA Review of Systems - Constitutional Constitutional: Anorexia, Weakness. absent: Chills - EENT Eyes: absent: Exophthalmos, Irritation Nose/Mouth/Throat: absent: Epistaxis - Cardiovascular Cardiovascular: Dyspnea, Edema. absent: Acrocyanosis, Chest Pain - Respiratory Respiratory: Cough. absent: Hemoptysis - Gastrointestinal Gastrointestinal: Abdominal Pain - Genitourinary Genitourinary: Nocturia - Musculoskeletal Musculoskeletal: Abnormal Gait - Neurological Neurological: As Per HPI. absent: Confusion - Psychiatric Psychiatric: absent: Anxiety, Mood Swings - Endocrine Endocrine: Fatigue - Hematologic/Lymphatic Hematologic: absent: Easy Bleeding Past Patient History - Infectious Disease Hx of Infectious Diseases: None - Past Medical History & Family History Past Medical History?: Yes - Past Social History Smoking Status: Never Smoked - CARDIAC Hx Congestive Heart Failure: Yes Hx Hypertension: Yes - PULMONARY Hx Bronchitis: Yes - NEUROLOGICAL Hx Transient Ischemic Attacks (TIA): Yes - HEENT Hx HEENT Problems: No - RENAL Hx Chronic Kidney Disease: Yes (ESRD) - ENDOCRINE/METABOLIC Hx Endocrine Disorders: Yes (DM type 2) Hx Diabetes Mellitus Type 2: Yes - HEMATOLOGICAL/ONCOLOGICAL Hx Human Immunodeficiency Virus (HIV): No - INTEGUMENTARY Hx Dermatological Problems: No - MUSCULOSKELETAL/RHEUMATOLOGICAL Hx Arthritis: Yes Hx Fractures: Yes (right hip fx) - GASTROINTESTINAL Hx Gastrointestinal Disorders: No - GENITOURINARY/GYNECOLOGICAL Hx Genitourinary Disorders: No - PSYCHIATRIC Hx Psychophysiologic Disorder: No Hx Substance Use: No - SURGICAL HISTORY Hx Coronary Artery Bypass Graft: Yes (x4) - ANESTHESIA Hx Anesthesia: Yes Hx Anesthesia Reactions: No Hx Malignant Hyperthermia: No Meds Allergies/Adverse Reactions: Allergies Allergy/AdvReac Type Severity Reaction Status Date / Time No Known Allergies Allergy Verified 08/08/18 05:53 - Medications Medications: Current Medications Dextrose (Dextrose 50% Inj) 0 ml IV STAT PRN; Protocol PRN Reason: Hypoglycemia Protocol Dextrose (Glutose 15) 0 gm PO ONCE PRN; Protocol PRN Reason: Hypoglycemia Protocol Glucagon (Glucagen Diagnostic Kit) 0 mg IM STAT PRN; Protocol PRN Reason: Hypoglycemia Protocol Heparin Sodium (Porcine) (Heparin) 5,000 units SC Q8 [facility]; Protocol Physical Exam - Constitutional Appears: No Acute Distress - Eye Exam Eye Exam: absent: Conjunctival injection - ENT Exam ENT Exam: Mucous Membranes Moist - Neck Exam Neck exam: Negative for: Lymphadenopathy - Respiratory Exam Respiratory Exam: Rales, Rhonchi. absent: Chest Wall Tenderness - Cardiovascular Exam Cardiovascular Exam: absent: Irregular Rhythm, JVD, Rubs - GI/Abdominal Exam GI & Abdominal Exam: Normal Bowel Sounds. absent: Guarding - Extremities Exam Extremities exam: Negative for: calf tenderness - Back Exam Back exam: absent: CVA tenderness (L), CVA tenderness (R) - Neurological Exam Neurological exam: Alert - Psychiatric Exam Psychiatric exam: Normal Affect Results - Vital Signs Recent Vital Signs: Last Vital Signs Temp 97.8 F 08/08/18 09:20 Pulse 110 H 08/08/18 09:20 Resp 17 08/08/18 09:20 BP 141/71 08/08/18 10:12 Pulse Ox 96 08/08/18 09:20 - Labs Result Diagrams: 08/08/18 06:41 08/08/18 06:41 Labs: Laboratory Results - last 24 hr 08/08/18 08/08/18 08/08/18 06:41 06:41 07:01 WBC 6.8 RBC 3.86 Hgb 11.6 L Hct 35.7 MCV 92.4 MCH 30.1 MCHC 32.6 L RDW 17.3 H Plt Count 165 MPV 9.9 Neut % (Auto) 72.1 Lymph % (Auto) 16.2 L [place] % (Auto) 8.4 Eos % (Auto) 2.1 Baso % (Auto) 1.2 Neut # (Auto) 4.9 Lymph # (Auto) 1.1 [place] # (Auto) 0.6 Eos # (Auto) 0.1 Baso # (Auto) 0.1 pO2 33 VBG pH 7.41 VBG pCO2 38 L VBG HCO3 23.8 VBG Total CO2 25.3 VBG O2 Sat (Calc) 62.4 VBG Base Excess -0.3 L VBG Potassium 4.0 Glucose 186 H Lactate 1.3 FiO2 21.0 Sodium 138 136.0 Potassium 4.3 Chloride 101 101.0 Carbon Dioxide 23 Anion Gap 18 BUN 27 H Creatinine 4.4 H Est GFR ( Amer) 12 Est GFR (Non-Af Amer) 10 Random Glucose 169 H Calcium 9.3 Total Bilirubin 0.7 AST 23 ALT 25 Alkaline Phosphatase 53 Troponin I 0.0650 NT-Pro-B Natriuret Pep 363111 H Total Protein 6.2 L Albumin 3.3 L Globulin 2.9 Albumin/Globulin Ratio 1.1 Venous Blood Potassium 4.0 Assessment & Plan (1) Chronic kidney disease with end stage renal failure on dialysis Assessment and Plan: Patient with end stage renal disease on maintenance hemodialysis Wednesday ay Wednesday presented to the emergency room What appears to be perhaps a new onset of atrial fibrillation with the heart rate control around 110. Patient noted also with volume overloaded Patient was given Lasix in the emergency room Multiple AV shunt failure surgery. Hyperphosphatemia history Secondary hyperparathyroidism Anemia Diabetes mellitus Hypertension history Coronary artery disease history My recommendation Hemodialysis order was given consent was taken spoke to the sister at the bedside. For the most part because of the volume overloaded Cardiology evaluation Status: Acute (2) Insulin dependent type 2 diabetes mellitus Status: Chronic
[2018-08-08] MEDS ORDERED: Oxycodone/Acetaminophen 5/325 mg Tab PO PRN (11:41)
[2018-08-08] MEDS ORDERED: Lidocaine 5% Patch TD PRN (11:41)
[2018-08-08] MEDS ORDERED: Digoxin 250 mcg (0.25 mg) Tab PO ONE ×3 (11:50→17:00)
[2018-08-08] MEDS ORDERED: FERRIC CITRATE PO SCH (12:00)
--- NOTE | 2018-08-08 12:03 | CP.PCM.CON ---
History of Present Illness - History of Present Illness History of Present Illness: THE PATIENT IS AN 78 YEAR OLD FEMALE WHO CAME TO THE ER FOR LOOSE BOWEL MOVEMENTS AND WAS FOUND TO HAVE NEW ONSET ATRIAL FIBRILLATION SO I WAS CALLED TO SEE HER. SHE ALSO HAS A HISTORY OF CAD WITH AN WA AND 4 VESSEL CABGS ABOUT SIX YEARS AGO, HYPERTENSION, DM, CRF ON HD, TIAS AND A CVA. SHE DENIES ANY PALPITATIONS, CHEST PAIN OR SOB. SHE STATES THAT SHE NEVER REMEMBERS BEING TOLD THAT SHE HAD ATRIAL FIBRILLATION IN THE PAST. Past Patient History - Infectious Disease Hx of Infectious Diseases: None - Past Medical History & Family History Past Medical History?: Yes - Past Social History Smoking Status: Never Smoked - CARDIAC Hx Congestive Heart Failure: Yes Hx Hypertension: Yes - PULMONARY Hx Bronchitis: Yes - NEUROLOGICAL Hx Transient Ischemic Attacks (TIA): Yes - HEENT Hx HEENT Problems: No - RENAL Hx Chronic Kidney Disease: Yes (ESRD) - ENDOCRINE/METABOLIC Hx Endocrine Disorders: Yes (DM type 2) Hx Diabetes Mellitus Type 2: Yes - HEMATOLOGICAL/ONCOLOGICAL Hx Human Immunodeficiency Virus (HIV): No - INTEGUMENTARY Hx Dermatological Problems: No - MUSCULOSKELETAL/RHEUMATOLOGICAL Hx Arthritis: Yes Hx Fractures: Yes (right hip fx) - GASTROINTESTINAL Hx Gastrointestinal Disorders: No - GENITOURINARY/GYNECOLOGICAL Hx Genitourinary Disorders: No - PSYCHIATRIC Hx Psychophysiologic Disorder: No Hx Substance Use: No - SURGICAL HISTORY Hx Coronary Artery Bypass Graft: Yes (x4) - ANESTHESIA Hx Anesthesia: Yes Hx Anesthesia Reactions: No Hx Malignant Hyperthermia: No Meds Allergies/Adverse Reactions: Allergies Allergy/AdvReac Type Severity Reaction Status Date / Time No Known Allergies Allergy Verified 08/08/18 05:53 - Medications Medications: Current Medications Aspirin (Ecotrin) 81 mg PO DAILY [facility] Atorvastatin Calcium (Lipitor) 10 mg PO HS [facility] Carvedilol (Coreg) 6.25 mg PO Q12H [facility] Cinacalcet (Sensipar) 30 mg PO MWF [facility] Clopidogrel Bisulfate (Plavix) 75 mg PO HS [facility] Dextrose (Dextrose 50% Inj) 0 ml IV STAT PRN; Protocol PRN Reason: Hypoglycemia Protocol Dextrose (Glutose 15) 0 gm PO ONCE PRN; Protocol PRN Reason: Hypoglycemia Protocol Digoxin (Lanoxin) 0.25 mg PO ONCE ONE Stop: 08/08/18 11:52 Digoxin (Lanoxin) 0.25 mg PO ONCE ONE Stop: 08/08/18 17:01 Enalapril Maleate (Vasotec) 10 mg PO DAILY [facility] Gabapentin (Neurontin) 100 mg PO DAILY [facility] Glucagon (Glucagen Diagnostic Kit) 0 mg IM STAT PRN; Protocol PRN Reason: Hypoglycemia Protocol Heparin Sodium (Porcine) (Heparin) 5,000 units SC Q8 [facility]; Protocol Home Med (Ferric Citrate [Auryxia]) 2 tab PO WM [facility] Insulin Human NPH (Humulin N) 5 units SC QPM [facility] Lidocaine (Lidoderm) 1 ea TD DAILY PRN PRN Reason: Pain, Mild (1-3) Oxycodone/Acetaminophen (Percocet 5/325 Mg Tab) 1 tab PO Q6 PRN PRN Reason: Pain, severe (8-10) Stop: 08/11/18 11:42 Physical Exam - Respiratory Exam Respiratory Exam: Clear to Auscultation Bilateral - Cardiovascular Exam Cardiovascular Exam: Irregular Rhythm, +S1, +S2 - Extremities Exam Additional comments: TRACE BILAT LE EDEMA - Additional Findings Additional findings: EKG ATRIAL FIBRILLATION WITH VRR OF 114, 2 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 TROPONIN NORMAL CXR CHRONIC CHANGES, NO SIGNIFICANT CONGESTION PBNP ELEVATED Results - Vital Signs Recent Vital Signs: Last Vital Signs Temp 97.9 F 08/08/18 10:24 Pulse 97 H 08/08/18 10:24 Resp 17 08/08/18 10:24 BP 141/71 08/08/18 10:24 Pulse Ox 98 08/08/18 10:24 - Labs Result Diagrams: 08/08/18 06:41 08/08/18 06:41 Labs: Laboratory Results - last 24 hr 08/08/18 08/08/18 08/08/18 06:41 06:41 07:01 WBC 6.8 RBC 3.86 Hgb 11.6 L Hct 35.7 MCV 92.4 MCH 30.1 MCHC 32.6 L RDW 17.3 H Plt Count 165 MPV 9.9 Neut % (Auto) 72.1 Lymph % (Auto) 16.2 L [place] % (Auto) 8.4 Eos % (Auto) 2.1 Baso % (Auto) 1.2 Neut # (Auto) 4.9 Lymph # (Auto) 1.1 [place] # (Auto) 0.6 Eos # (Auto) 0.1 Baso # (Auto) 0.1 pO2 33 VBG pH 7.41 VBG pCO2 38 L VBG HCO3 23.8 VBG Total CO2 25.3 VBG O2 Sat (Calc) 62.4 VBG Base Excess -0.3 L VBG Potassium 4.0 Glucose 186 H Lactate 1.3 FiO2 21.0 Sodium 138 136.0 Potassium 4.3 Chloride 101 101.0 Carbon Dioxide 23 Anion Gap 18 BUN 27 H Creatinine 4.4 H Est GFR ( Amer) 12 Est GFR (Non-Af Amer) 10 Random Glucose 169 H Calcium 9.3 Total Bilirubin 0.7 AST 23 ALT 25 Alkaline Phosphatase 53 Troponin I 0.0650 NT-Pro-B Natriuret Pep 524291 H Total Protein 6.2 L Albumin 3.3 L Globulin 2.9 Albumin/Globulin Ratio 1.1 Venous Blood Potassium 4.0 Assessment & Plan - Assessment and Plan (Free Text) Assessment: NEW ONSET ATRIAL FIBRILLATION CAD WITH OLD SWMI AND CABGS HYPERTENSION DM CRF ON HD Plan: THE PATIENT WILL BE ADMITTED TO 4N ON TELEMETRY AND THE HEART RHYTHM WILL BE OBSERVED 02, CARVEDILOL, FUROSEMIDE, ASPIRIN, PLAVIX, ATORVASTATIN AND ENALAPRIL THE PATIENT WILL BE GIVEN DIGOXIN TO TRY TO CONVERT HER BACK TO SINUS RHYTHM
--- NOTE | 2018-08-08 13:18 | CARD ---
APPROVED REPORT Date of service: 08/08/2018 EKG Measurement Heart [id number] <Conclusion> Atrial fibrillation with rapid ventricular response with premature ventricular or aberrantly conducted complexes Septal infarct, age undetermined ST & T wave abnormality, consider lateral ischemia Abnormal ECG
[2018-08-08 17:42] VITALS: BMI 18.5
[2018-08-08] MEDS: Insulin NPH Human 100 Units/ml Inj SC SCH (19:03)
[2018-08-09 06:17] LABS: HEMOGLOBIN 11.4 g/dL (12.0-16.0); MEAN CELL VOLUME 92.5 fl (81.0-99.0); MEAN CORPUSCULAR HEMOGLOBIN 30.1 pg (27.0-31.0); MEAN CORPUSCULAR HGB CONC 32.5 g/dL (33.0-37.0); RBC 3.78 Mil/uL (3.80-5.20); RED CELL DISTRIBUTION WIDTH 17.2 % (11.5-14.5); WHITE BLOOD COUNT 5.7 K/uL (4.8-10.8)
[2018-08-09 06:32] LABS: CALCIUM 9.1 mg/dL (8.4-10.2)
--- NOTE | 2018-08-09 08:48 | CP.PCM.PN ---
Subjective - Date & Time of Evaluation Date of Evaluation: 08/09/18 Time of Evaluation: 08:15 - Subjective Subjective: NO CHEST PAIN, PALPITATIONS OR SOB Objective - Vital Signs/Intake and Output Vital Signs (last 24 hours): Temp Pulse Resp BP Pulse Ox 98.2 F 85 20 161/68 H 99 08/09/18 08:23 08/09/18 08:23 08/09/18 08:23 08/09/18 08:23 08/09/18 08:23 Intake and Output: 08/09/18 08/09/18 06:59 18:59 Intake Total 860 Balance 860 - Medications Medications: Current Medications Aspirin (Ecotrin) 81 mg PO DAILY [facility] Atorvastatin Calcium (Lipitor) 10 mg PO HS [facility] Last Admin: 08/08/18 21:21 Dose: 10 mg Carvedilol (Coreg) 6.25 mg PO Q12H [facility] Last Admin: 08/08/18 22:45 Dose: 6.25 mg Cinacalcet (Sensipar) 30 mg PO MWF [facility] Clopidogrel Bisulfate (Plavix) 75 mg PO HS [facility] Last Admin: 08/08/18 21:22 Dose: 75 mg Dextrose (Dextrose 50% Inj) 0 ml IV STAT PRN; Protocol PRN Reason: Hypoglycemia Protocol Dextrose (Glutose 15) 0 gm PO ONCE PRN; Protocol PRN Reason: Hypoglycemia Protocol Enalapril Maleate (Vasotec) 10 mg PO DAILY [facility] Gabapentin (Neurontin) 100 mg PO DAILY [facility] Glucagon (Glucagen Diagnostic Kit) 0 mg IM STAT PRN; Protocol PRN Reason: Hypoglycemia Protocol Heparin Sodium (Porcine) (Heparin) 5,000 units SC Q12 [facility]; Protocol Last Admin: 08/08/18 21:20 Dose: 5,000 units Home Med (Ferric Citrate [Auryxia]) 2 tab PO WM [facility] Insulin Human NPH (Humulin N) 5 units SC QPM [facility] Last Admin: 08/08/18 19:03 Dose: 4 units Lidocaine (Lidoderm) 1 ea TD DAILY PRN PRN Reason: Pain, Mild (1-3) Oxycodone/Acetaminophen (Percocet 5/325 Mg Tab) 1 tab PO Q6 PRN PRN Reason: Pain, severe (8-10) Stop: 08/11/18 11:42 - Labs Labs: 08/09/18 05:55 08/09/18 05:55 - Respiratory Exam Respiratory Exam: Clear to Ausculation Bilateral - Cardiovascular Exam Cardiovascular Exam: Irregular Rhythm, +S1, +S2 - Extremities Exam Additional comments: TRACE LE EDEMA - Additional Findings 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
[2018-08-09] MEDS ORDERED: Digoxin 250 mcg (0.25 mg) Tab PO ONE (08:54)
--- NOTE | 2018-08-09 10:54 | CP.PCM.PN ---
<Mckenna Soliz - Last Filed: 08/09/18 12:23> Subjective - Date & Time of Evaluation Date of Evaluation: 08/09/18 Time of Evaluation: 08:49 - Subjective Subjective: Patient was seen and evaluated this AM. She complained of dizziness, but denied any chest pain, palpitations or shortness of breath. Objective - Vital Signs/Intake and Output Vital Signs (last 24 hours): Temp Pulse Resp BP Pulse Ox 98.2 F 90 20 161/68 H 98 08/09/18 08:23 08/09/18 10:30 08/09/18 08:23 08/09/18 08:23 08/09/18 10:30 Intake and Output: 08/09/18 08/09/18 06:59 18:59 Intake Total 860 Balance 860 - Medications Medications: Current Medications Aspirin (Ecotrin) 81 mg PO DAILY [facility] Last Admin: 08/09/18 08:51 Dose: 81 mg Atorvastatin Calcium (Lipitor) 10 mg PO HS [facility] Last Admin: 08/08/18 21:21 Dose: 10 mg Carvedilol (Coreg) 6.25 mg PO Q12H [facility] Last Admin: 08/08/18 22:45 Dose: 6.25 mg Cinacalcet (Sensipar) 30 mg PO MWF [facility] Clopidogrel Bisulfate (Plavix) 75 mg PO HS [facility] Last Admin: 08/08/18 21:22 Dose: 75 mg Dextrose (Dextrose 50% Inj) 0 ml IV STAT PRN; Protocol PRN Reason: Hypoglycemia Protocol Dextrose (Glutose 15) 0 gm PO ONCE PRN; Protocol PRN Reason: Hypoglycemia Protocol Enalapril Maleate (Vasotec) 10 mg PO DAILY [facility] Last Admin: 08/09/18 08:54 Dose: 10 mg Gabapentin (Neurontin) 100 mg PO DAILY [facility] Last Admin: 08/09/18 08:54 Dose: 100 mg Glucagon (Glucagen Diagnostic Kit) 0 mg IM STAT PRN; Protocol PRN Reason: Hypoglycemia Protocol Heparin Sodium (Porcine) (Heparin) 5,000 units SC Q12 [facility]; Protocol Last Admin: 08/09/18 08:52 Dose: 5,000 units Home Med (Ferric Citrate [Auryxia]) 2 tab PO WM [facility] Insulin Human NPH (Humulin N) 5 units SC QPM [facility] Last Admin: 08/08/18 19:03 Dose: 4 units Lidocaine (Lidoderm) 1 ea TD DAILY PRN PRN Reason: Pain, Mild (1-3) Oxycodone/Acetaminophen (Percocet 5/325 Mg Tab) 1 tab PO Q6 PRN PRN Reason: Pain, severe (8-10) Stop: 08/11/18 11:42 - Labs Labs: 08/09/18 05:55 08/09/18 05:55 - Constitutional Appears: No Acute Distress - Head Exam Head Exam: ATRAUMATIC - Respiratory Exam Respiratory Exam: Clear to Ausculation Bilateral - Cardiovascular Exam Cardiovascular Exam: Irregular Rhythm, +S1, +S2 - GI/Abdominal Exam GI & Abdominal Exam: Soft, Normal Bowel Sounds. absent: Tenderness - Extremities Exam Extremities Exam: absent: Calf Tenderness Additional comments: trace pitting edema - Neurological Exam Neurological Exam: Alert, Awake, Oriented x3 - Psychiatric Exam Psychiatric exam: Normal Affect, Normal Mood Assessment and Plan - Assessment and Plan (Free Text) Assessment: 78 y/o F with a hx of DM, ESRD on MWF dialysis, CHF, CAD, and CVA who presented to ED with complaints of diarrhea for 3 weeks was found to have new onset atrial fibrillation 1. Atrial fibrillation (Acute) -Patient & her family have decided against anticoagulation despite being exp lained risk of CVA due to patient's fall risk. -Continue digoxin as per Dr. Branch. Will consider amiodorone. - Echo ordered: Awaiting results (previous echo 04/18/18 showed LVEF 35-40% with moderately severely reduced systolic function; RCA/PDA regional wall motion abnormality; impaired diastolic relaxation). - Troponins were negative x 3. 2. CHF (Chronic) - Dr. Branch recommendations appreciated. - Echo repeated. FU results. (last echo 04/18/18 - LVEF 35-40%; RCA/PDA regional wall motion abnormality; impaired diastolic relaxation) - Continue daily weights. 3. ESRD (Chronic). received dialysis yesterday (MWF schedule) - Dr. Krause's recommendations appreciated. -Cinacalcet 30mg PO MWF -FU phosphorus levels. Last level was 5.2 on 04/13/2018. 4. HTN (Chronic, asymptomatic) -Continue Coreg 6.25mg PO BID. -Continue enalapril 10mg PO QD. -Continue to monitor. 5. CAD (Chronic, asymptomatic) - Continue Asp 81mg PO QD. 6. HLD (Chronic, asymptomic) - Continue lipitor 10mg PO HS. 7. DM (Chronic, asymptomatic) - Continue Insulin NPH 5 units SC QPM. - hypoglycemic protocol - accuchecks ACHS 8. hx of CVA -Continue plavix 75 mg PO HS 9. Frequent urination - Awaiting urine cx results. 10. DVT prophylaxis - Heparin 5,000 units SC Q12. <Chang Tran - Last Filed: 08/09/18 13:14> Objective - Vital Signs/Intake and Output Vital Signs (last 24 hours): Temp Pulse Resp BP Pulse Ox 97.5 F L 87 20 155/68 H 99 08/09/18 12:41 08/09/18 12:41 08/09/18 12:41 08/09/18 12:41 08/09/18 12:41 Intake and Output: 08/09/18 08/09/18 06:59 18:59 Intake Total 860 Balance 860 - Medications Medications: Current Medications Aspirin (Ecotrin) 81 mg PO DAILY [facility] Last Admin: 08/09/18 08:51 Dose: 81 mg Atorvastatin Calcium (Lipitor) 10 mg PO HS [facility] Last Admin: 08/08/18 21:21 Dose: 10 mg Carvedilol (Coreg) 6.25 mg PO Q12H [facility] Last Admin: 08/09/18 11:33 Dose: 6.25 mg Cinacalcet (Sensipar) 30 mg PO MWF [facility] Clopidogrel Bisulfate (Plavix) 75 mg PO HS [facility] Last Admin: 08/08/18 21:22 Dose: 75 mg Dextrose (Dextrose 50% Inj) 0 ml IV STAT PRN; Protocol PRN Reason: Hypoglycemia Protocol Dextrose (Glutose 15) 0 gm PO ONCE PRN; Protocol PRN Reason: Hypoglycemia Protocol Enalapril Maleate (Vasotec) 10 mg PO DAILY [facility] Last Admin: 08/09/18 08:54 Dose: 10 mg Gabapentin (Neurontin) 100 mg PO DAILY [facility] Last Admin: 08/09/18 08:54 Dose: 100 mg Glucagon (Glucagen Diagnostic Kit) 0 mg IM STAT PRN; Protocol PRN Reason: Hypoglycemia Protocol Heparin Sodium (Porcine) (Heparin) 5,000 units SC Q12 [facility]; Protocol Last Admin: 08/09/18 08:52 Dose: 5,000 units Insulin Human NPH (Humulin N) 5 units SC QPM [facility] Last Admin: 08/08/18 19:03 Dose: 4 units Lidocaine (Lidoderm) 1 ea TD DAILY PRN PRN Reason: Pain, Mild (1-3) Oxycodone/Acetaminophen (Percocet 5/325 Mg Tab) 1 tab PO Q6 PRN PRN Reason: Pain, severe (8-10) Stop: 08/11/18 11:42 - Labs Labs: 08/09/18 05:55 08/09/18 05:55 Attending/Attestation - Attestation I have personally seen and examined this patient.: Yes I have fully participated in the care of the patient.: Yes I have reviewed all pertinent clinical information, including history, physical exam and plan: Yes
--- NOTE | 2018-08-09 11:20 | CARD ---
APPROVED REPORT Date of service: 08/09/2018 EKG Measurement Heart [id number] <Conclusion> Atrial fibrillation with premature ventricular complexes Cannot rule out Anterior infarct, age undetermined ST & T wave abnormality, consider lateral ischemia Abnormal ECG
[2018-08-09 11:28] LABS: SQUAMOUS EPITHIAL < 1 /hpf (0-5); URINE BACTERIA RARE (<OCC); URINE BILIRUBIN NEGATIVE (NEGATIVE); URINE BLOOD NEGATIVE (NEGATIVE); URINE CLARITY CLEAR (Clear); URINE COLOR YELLOW (YELLOW); URINE GLUCOSE (UA) 150 mg/dL (Normal); URINE LEUKOCYTE ESTERASE MOD Leu/uL (Negative); URINE PROTEIN 30 mg/dL (NEGATIVE); URINE UROBILINOGEN 0.2-1.0 mg/dL (0.2-1.0)
--- NOTE | 2018-08-09 11:34 | CP.PCM.PN ---
Subjective - Date & Time of Evaluation Date of Evaluation: 08/09/18 Time of Evaluation: 11:34 - Subjective Subjective: patient awake and conscious not in acute distress appeared to be comfortable Objective - Vital Signs/Intake and Output Vital Signs (last 24 hours): Temp Pulse Resp BP Pulse Ox 98.2 F 90 20 161/68 H 98 08/09/18 08:23 08/09/18 10:30 08/09/18 08:23 08/09/18 08:23 08/09/18 10:30 Intake and Output: 08/09/18 08/09/18 06:59 18:59 Intake Total 860 Balance 860 - Medications Medications: Current Medications Aspirin (Ecotrin) 81 mg PO DAILY [facility] Last Admin: 08/09/18 08:51 Dose: 81 mg Atorvastatin Calcium (Lipitor) 10 mg PO HS [facility] Last Admin: 08/08/18 21:21 Dose: 10 mg Carvedilol (Coreg) 6.25 mg PO Q12H [facility] Last Admin: 08/08/18 22:45 Dose: 6.25 mg Cinacalcet (Sensipar) 30 mg PO MWF [facility] Clopidogrel Bisulfate (Plavix) 75 mg PO HS [facility] Last Admin: 08/08/18 21:22 Dose: 75 mg Dextrose (Dextrose 50% Inj) 0 ml IV STAT PRN; Protocol PRN Reason: Hypoglycemia Protocol Dextrose (Glutose 15) 0 gm PO ONCE PRN; Protocol PRN Reason: Hypoglycemia Protocol Enalapril Maleate (Vasotec) 10 mg PO DAILY [facility] Last Admin: 08/09/18 08:54 Dose: 10 mg Gabapentin (Neurontin) 100 mg PO DAILY [facility] Last Admin: 08/09/18 08:54 Dose: 100 mg Glucagon (Glucagen Diagnostic Kit) 0 mg IM STAT PRN; Protocol PRN Reason: Hypoglycemia Protocol Heparin Sodium (Porcine) (Heparin) 5,000 units SC Q12 [facility]; Protocol Last Admin: 08/09/18 08:52 Dose: 5,000 units Insulin Human NPH (Humulin N) 5 units SC QPM [facility] Last Admin: 08/08/18 19:03 Dose: 4 units Lidocaine (Lidoderm) 1 ea TD DAILY PRN PRN Reason: Pain, Mild (1-3) Oxycodone/Acetaminophen (Percocet 5/325 Mg Tab) 1 tab PO Q6 PRN PRN Reason: Pain, severe (8-10) Stop: 08/11/18 11:42 - Labs Labs: 08/09/18 05:55 08/09/18 05:55 - Constitutional Appears: No Acute Distress - Eye Exam Eye Exam: Conjunctival injection - ENT Exam ENT Exam: Mucous Membranes Moist - Neck Exam Neck Exam: absent: Lymphadenopathy - Respiratory Exam Respiratory Exam: NORMAL BREATHING PATTERN. absent: Chest Wall Tenderness - Cardiovascular Exam Cardiovascular Exam: Irregular Rhythm. absent: Gallop, JVD, Rubs - GI/Abdominal Exam GI & Abdominal Exam: Soft, Normal Bowel Sounds - Extremities Exam Extremities Exam: absent: Calf Tenderness - Back Exam Back Exam: absent: CVA tenderness (L), CVA tenderness (R) - Neurological Exam Neurological Exam: Alert - Psychiatric Exam Psychiatric exam: Normal Affect - Skin Skin Exam: absent: Cyanosis Assessment and Plan (1) Chronic kidney disease with end stage renal failure on dialysis Assessment & Plan: end stage renal disease on maintenance hemodialysis Wednesday Atrial fibrillation with controlled rate apparently reported to be new onset? ESRD, CHF, TIA, CVA, HTN, DM, CAD : quadruple bypass, CABGx4, right hallux amputation, b/l AV fistulas grafts nonfunction the plan Hemodialysis Wednesday Patient started on digoxin and she is on carvedilol as noted by cardiology Phosphorus binders Continue outpatient medications Status: Acute (2) Insulin dependent type 2 diabetes mellitus Status: Chronic
[2018-08-09 11:40] VITALS: PULSE 85
--- NOTE | 2018-08-09 13:14 | RAD ---
Date of service: 08/09/2018 HISTORY: Heart failure and atrial fibrillation. COMPARISON: August 08, 2018 TECHNIQUE: Chest PA and lateral FINDINGS: LUNGS: No active pulmonary disease. PLEURA: No significant pleural effusion identified. No pneumothorax apparent. CARDIOVASCULAR: No radiographic findings to suggest acute or significant cardiovascular disease. Venous access catheter in stable, satisfactory position. OSSEOUS STRUCTURES: No significant abnormalities. VISUALIZED UPPER ABDOMEN: Normal. OTHER FINDINGS: Incomplete visualization of vascular stents in both upper extremities. IMPRESSION: No active disease. No significant interval change compared to the prior examination(s).
--- NOTE | 2018-08-09 13:44 | CARD ---
APPROVED REPORT Date of service: 08/09/2018 EXAM: Two-dimensional and M-mode echocardiogram with Doppler and color Doppler. Other Information Quality : GoodRhythm : Atrial Fibrillation INDICATION New onset Atrial Fibrillation 2D DIMENSIONS IVSd1.64 (0.7-1.1cm)LVDd4.01 (3.9-5.9cm) LVOT Diameter1.94 (1.8-2.4cm)PWd1.02 (0.7-1.1cm) IVSs1.63 (0.8-1.2cm)LVDs3.26 (2.5-4.0cm) FS (%) 18.7 %PWs1.30 (0.8-1.2cm) M-Mode DIMENSIONS Left Atrium (MM)5.32 (2.5-4.0cm)Aortic Root3.05 (2.2-3.7cm) Aortic Valve AoV Peak Nabanimo205.0cm/sAoV VTI25.4cmAO Peak GR.7mmHg LVOT Peak Ccrztjii00.8cm/sLVOT VTI11.85cmAO Mean GR.4mmHg ULYSSES (VMAX)1.44ni3USP (VTI)0.95cm2 Mitral Valve MV E Peak Gr.69mmHgE/A ratio0.0 TDI E/Lateral E'0.0E/Medial E'0.0 Pulmonary Valve PV Peak Byvlxilx24.4cm/s Tricuspid Valve TR Peak Jqmfwonb908od/sRAP DOACQAKP65cySpWS Peak Gr.36mmHg [id number] LEFT VENTRICLE The left ventricle is normal size. There is normal left ventricular wall thickness. The systolic function is severely impaired with global hypokinesis. The estimated ejection fraction is 30-35% No regional wall motion abnormalities noted.. The left ventricular diastolic function could not be assessed due to underlying atrial fibrillation. No left ventricle thrombus noted on this study. There is no ventricular septal defect visualized. There is no left ventricular aneurysm. There is no mass noted in the left ventricle. RIGHT VENTRICLE The right ventricle is normal size. There is normal right ventricular wall thickness. The right ventricular systolic function is mildly reduced. ATRIA The left atrium is moderate to severely dilated. The right atrium size is normal. The interatrial septum is intact with no evidence for an atrial septal defect. AORTIC VALVE The aortic valve is normal in structure. No aortic regurgitation is present. There is no aortic valvular stenosis. There is no aortic valvular vegetation. MITRAL VALVE The mitral valve is normal in structure. There is no evidence of mitral valve prolapse. There is no mitral valve stenosis. There is mild to moderate mitral valve regurgitation noted. TRICUSPID VALVE The tricuspid valve is normal in structure. There is moderate tricuspid valve regurgitation noted. RVSP is calculated at 55 mm Hg. There is no tricuspid valve prolapse or vegetation. There is no tricuspid valve stenosis. PULMONIC VALVE The pulmonary valve is normal in structure. There is trace pulmonic valvular regurgitation. There is no pulmonic valvular stenosis. GREAT VESSELS The aortic root is normal in size. The ascending aorta is normal in size. The pulmonary artery is normal. The IVC is normal in size and collapses <50% with inspiration. PERICARDIAL EFFUSION There is no pericardial effusion. There is no pleural effusion. <Conclusion> The systolic function is severely impaired with global hypokinesis. The estimated ejection fraction is 30-35% The left ventricular diastolic function could not be assessed due to underlying atrial fibrillation. The left atrium is moderate to severely dilated. There is mild to moderate mitral valve regurgitation noted. There is moderate tricuspid valve regurgitation noted. RVSP is calculated at 55 mm Hg. The IVC is normal in size and collapses <50% with inspiration.
--- NOTE | 2018-08-09 16:10 | PQF ---
PROVIDER RESPONSE TEXT: Patient has combined systolic and diastolic dysfunction based on her ECHO on 04/13/2018. REVIEWER QUERY TEXT: Heart Failure Acuity and Type Acute on Chronic Congestive Heart Failure is documented in the Medical Record. Please document the ty pe if known: Type: -- Combined systolic and diastolic (heart failure with reduced ejection fraction and diastolic) dysfu nction -- Diastolic (HFpEF) -- Systolic (HFrEF) -- Left heart failure -- Right heart failure -- Right heart failure due to left heart failure -- High output failure -- End stage heart failure -- Other, please specify H and P; HF nonpreserved - acute on chronic exacerbation evidenced by physical examination - OLYA neff edema - CXR findings - 40 mg Lasix given by ER staff - Dr. Branch consulted - recs appreciated - Echo ordered - f/u (last echo 04/18/18 - LVEF 35-40%; RCA/PDA regional wall motion abnormality; impaired diastolic relaxation) - admit to telemetry (continuous telemetry) - daily weights - medic ally optimized The patient's Clinical Indicators include: XX Query created by: Erika William on 08/09/2018 11:24 AM Electronically signed by: Chang Tran MD 08/09/2018 4:07 PM
--- NOTE | 2018-08-09 16:25 | PQF ---
PROVIDER RESPONSE TEXT: Agreed with BMI of 18.5 which is within normal limit REVIEWER QUERY TEXT: Clarification of Clinical Diagnostic Findings 2 (two) queries as follows: 1. In agreement with the BMI:18.5? If yes please add the BMI to your progress note 2. If in agreement with the BMI is there an associated dx. to go along with it?; i.e. Underweight or Small Framed etc. OR: Disagree OR: Other explanation of clinical finding EMR: BMI:18.5 5ft 3in 104lb. The patient's Clinical Indicators include: XX Query created by: Erika William on 08/09/2018 11:43 AM Electronically signed by: Chang Tran MD 08/09/2018 4:22 PM
--- NOTE | 2018-08-09 16:25 | PQF ---
PROVIDER RESPONSE TEXT: Stage I pressure ulcer on sacral area present on admission REVIEWER QUERY TEXT: Pressure Ulcer Type Pressure ulcer is documented in the Medical Record. Please specify the location, present on admission status: if in agreement: 1. Location 2. POA status of each pressure ulcer: -- Not present on admission -- Present on admission -- Other -- Clinically unable to determine -- Unknown 08/08: NN: Pressure Ulcer Assessment: Sacrum: MASD: Intact skin with nonblanchable redness of a locali zed area -Wound RN consult : pending Stage of each pressure ulcer (National Pressure Ulcer Advisory Panel definitions): -- Stage I: Intact skin with non-blanchable redness of a localized area -- Stage II: Partial thickness skin loss involving dermis with a shallow open ulcer or an open serum -filled blister -- Stage III: Full thickness skin loss involving damage or necrosis of subcutaneous tissue -- Stage IV: Full thickness skin loss with exposed bone, tendon or muscle -- Unstageable: Full thickness tissue loss in which the base of the ulcer is covered by slough and/o r eschar in the wound bed The patient's Clinical Indicators include: xx Query created by: Erika William on 08/09/2018 11:39 AM Electronically signed by: Chang Tran MD 08/09/2018 4:22 PM
[2018-08-09] MEDS: Insulin NPH Human 100 Units/ml Inj SC SCH (18:13)
[2018-08-10 05:17] LABS: HEMOGLOBIN 10.9 g/dL (12.0-16.0); MEAN CELL VOLUME 91.9 fl (81.0-99.0); MEAN CORPUSCULAR HEMOGLOBIN 30.6 pg (27.0-31.0); MEAN CORPUSCULAR HGB CONC 33.3 g/dL (33.0-37.0); RBC 3.58 Mil/uL (3.80-5.20); RED CELL DISTRIBUTION WIDTH 16.9 % (11.5-14.5); WHITE BLOOD COUNT 5.1 K/uL (4.8-10.8)
[2018-08-10 06:57] LABS: CALCIUM 9.1 mg/dL (8.4-10.2)
--- NOTE | 2018-08-10 09:44 | CP.PCM.PN ---
Subjective - Date & Time of Evaluation Date of Evaluation: 08/10/18 Time of Evaluation: 09:15 - Subjective Subjective: NO CHEST PAIN OR PALPITATIONS, NO SOB Objective - Vital Signs/Intake and Output Vital Signs (last 24 hours): Temp Pulse Resp BP Pulse Ox 98.3 F 70 20 106/50 L 99 08/10/18 09:37 08/10/18 09:37 08/10/18 09:37 08/10/18 09:37 08/10/18 09:37 - Medications Medications: Current Medications Amiodarone HCl (Cordarone) 400 mg PO ONCE ONE Stop: 08/10/18 09:37 Amiodarone HCl (Cordarone) 200 mg PO DAILY [facility] Aspirin (Ecotrin) 81 mg PO DAILY [facility] Last Admin: 08/10/18 09:23 Dose: 81 mg Atorvastatin Calcium (Lipitor) 10 mg PO HS [facility] Last Admin: 08/09/18 23:05 Dose: 10 mg Carvedilol (Coreg) 6.25 mg PO Q12H [facility] Last Admin: 08/09/18 23:05 Dose: 6.25 mg Cinacalcet (Sensipar) 30 mg PO MWF [facility] Last Admin: 08/10/18 09:23 Dose: 30 mg Clopidogrel Bisulfate (Plavix) 75 mg PO HS [facility] Last Admin: 08/09/18 23:05 Dose: 75 mg Dextrose (Dextrose 50% Inj) 0 ml IV STAT PRN; Protocol PRN Reason: Hypoglycemia Protocol Dextrose (Glutose 15) 0 gm PO ONCE PRN; Protocol PRN Reason: Hypoglycemia Protocol Enalapril Maleate (Vasotec) 10 mg PO DAILY [facility] Last Admin: 08/10/18 09:24 Dose: 10 mg Gabapentin (Neurontin) 100 mg PO DAILY [facility] Last Admin: 08/10/18 09:23 Dose: 100 mg Glucagon (Glucagen Diagnostic Kit) 0 mg IM STAT PRN; Protocol PRN Reason: Hypoglycemia Protocol Heparin Sodium (Porcine) (Heparin) 5,000 units SC Q12 [facility]; Protocol Last Admin: 08/10/18 09:23 Dose: 5,000 units Insulin Human NPH (Humulin N) 5 units SC QPM [facility] Last Admin: 08/09/18 18:13 Dose: 5 units Lidocaine (Lidoderm) 1 ea TD DAILY PRN PRN Reason: Pain, Mild (1-3) Oxycodone/Acetaminophen (Percocet 5/325 Mg Tab) 1 tab PO Q6 PRN PRN Reason: Pain, severe (8-10) Stop: 08/11/18 11:42 - Labs Labs: 08/10/18 04:45 08/10/18 04:45 - Respiratory Exam Respiratory Exam: Clear to Ausculation Bilateral - Cardiovascular Exam Cardiovascular Exam: Irregular Rhythm, +S1, +S2 - Extremities Exam Additional comments: NO LE EDEMA - Additional Findings Additional findings: BAG BLEACHER SHOWS PATIENT IS STILL IN ATRIAL FIBRILLATION DESPITE RECEIVING DIGOXIN ECHO WITH LVEF OF 30-35%, LAE, MR, TR Assessment and Plan - Assessment and Plan (Free Text) Assessment: NEW ONSET ATRIAL FIBRILLATION CAD WITH OLD ND AND CABGS CHRONIC MILD SYSTOLIC CHF WITH LVEF OF 30-35% AND ELEVATED PBNP HYPERTENSION CRF ON HD Plan: CONTINUE ASPIRIN, CLOPIDOGREL, LOVENOX, CARVEDILOL, ATORVASTATIN AND ENALAPRIL WILL BEGIN AMIODARONE DIGOXIN SLOWED HEART RATE BUT DID NOT CONVERT TO SINUS TSH AND REPEAT PBNP ORDERED
--- NOTE | 2018-08-10 10:49 | CP.PCM.DIS ---
<Mckenna Soliz - Last Filed: 08/10/18 11:42> Provider - Provider Date of Admission: 08/08/18 09:16 Attending physician: Chang Tran MD Time Spent in preparation of Discharge (in minutes): 35 Hospital Course - Lab Results Lab Results: Micro Results 08/09/18 11:00 Urine,Clean Catch Urine Culture - Preliminary Gram Negative Gustavo Most Recent Lab Values WBC 5.1 K/uL (4.8-10.8) 08/10/18 04:45 RBC 3.58 Mil/uL (3.80-5.20) L 08/10/18 04:45 Hgb 10.9 g/dL (12.0-16.0) L 08/10/18 04:45 Hct 32.9 % (34.0-47.0) L 08/10/18 04:45 MCV 91.9 fl (81.0-99.0) 08/10/18 04:45 MCH 30.6 pg (27.0-31.0) 08/10/18 04:45 MCHC 33.3 g/dL (33.0-37.0) 08/10/18 04:45 RDW 16.9 % (11.5-14.5) H 08/10/18 04:45 Plt Count 130 K/uL (130-400) 08/10/18 04:45 MPV 9.9 fl (7.2-11.7) 08/08/18 06:41 Neut % (Auto) 72.1 % (50.0-75.0) 08/08/18 06:41 Lymph % (Auto) 16.2 % (20.0-40.0) L 08/08/18 06:41 [place] % (Auto) 8.4 % (0.0-10.0) 08/08/18 06:41 Eos % (Auto) 2.1 % (0.0-4.0) 08/08/18 06:41 Baso % (Auto) 1.2 % (0.0-2.0) 08/08/18 06:41 Neut # (Auto) 4.9 K/uL (1.8-7.0) 08/08/18 06:41 Lymph # (Auto) 1.1 K/uL (1.0-4.3) 08/08/18 06:41 [place] # (Auto) 0.6 K/uL (0.0-0.8) 08/08/18 06:41 Eos # (Auto) 0.1 K/uL (0.0-0.7) 08/08/18 06:41 Baso # (Auto) 0.1 K/uL (0.0-0.2) 08/08/18 06:41 pO2 33 mm/Hg (30-55) 08/08/18 07:01 VBG pH 7.41 (7.32-7.43) 08/08/18 07:01 VBG pCO2 38 mmHg (40-60) L 08/08/18 07:01 VBG HCO3 23.8 mmol/L 08/08/18 07:01 VBG Total CO2 25.3 mmol/L (22-28) 08/08/18 07:01 VBG O2 Sat (Calc) 62.4 % (40-65) 08/08/18 07:01 VBG Base Excess -0.3 mmol/L (0.0-2.0) L 08/08/18 07:01 VBG Potassium 4.0 mmol/L (3.6-5.2) 08/08/18 07:01 Sodium 136.0 mmol/L (132-148) 08/08/18 07:01 Chloride 101.0 mmol/L (98-107) 08/08/18 07:01 Glucose 186 mg/dL (65-105) H 08/08/18 07:01 Lactate 1.3 mmol/L (0.7-2.1) 08/08/18 07:01 FiO2 21.0 % 08/08/18 07:01 Sodium 131 mmol/l (132-148) L 08/10/18 04:45 Potassium 4.6 MMOL/L (3.6-5.0) 08/10/18 04:45 Chloride 98 mmol/L (98-107) 08/10/18 04:45 Carbon Dioxide 24 mmol/L (22-30) 08/10/18 04:45 Anion Gap 14 (10-20) 08/10/18 04:45 BUN 29 mg/dl (7-17) H 08/10/18 04:45 Creatinine 4.6 mg/dl (0.7-1.2) H 08/10/18 04:45 Est GFR ( Amer) 11 08/10/18 04:45 Est GFR (Non-Af Amer) 9 08/10/18 04:45 POC Glucose (mg/dL) 195 mg/dL (65-110) H 08/10/18 06:01 Random Glucose 188 mg/dL (65-105) H 08/10/18 04:45 Calcium 9.1 mg/dL (8.4-10.2) 08/10/18 04:45 Phosphorus 5.1 mg/dl (2.5-4.5) H 08/09/18 12:31 Total Bilirubin 0.7 mg/dl (0.2-1.3) 08/08/18 06:41 AST 23 U/L (14-36) 08/08/18 06:41 ALT 25 U/L (9-52) 08/08/18 06:41 Alkaline Phosphatase 53 U/L (38-126) 08/08/18 06:41 Troponin I 0.0670 ng/mL (0.00-0.120) 08/09/18 01:40 NT-Pro-B Natriuret Pep 489921 pg/ml (0-900) H 08/08/18 06:41 Total Protein 6.2 G/DL (6.3-8.2) L 08/08/18 06:41 Albumin 3.3 g/dL (3.5-5.0) L 08/08/18 06:41 Globulin 2.9 gm/dL (2.2-3.9) 08/08/18 06:41 Albumin/Globulin Ratio 1.1 (1.0-2.1) 08/08/18 06:41 Venous Blood Potassium 4.0 mmol/L (3.6-5.2) 08/08/18 07:01 Urine Color Yellow (YELLOW) 08/09/18 11:00 Urine Clarity Clear (Clear) 08/09/18 11:00 Urine pH 7.0 (5.0-8.0) 08/09/18 11:00 Ur Specific [place] 1.011 (1.003-1.030) 08/09/18 11:00 Urine Protein 30 mg/dL (NEGATIVE) 08/09/18 11:00 Urine Glucose (UA) 150 mg/dL (Normal) 08/09/18 11:00 Urine Ketones Negative mg/dL (NEGATIVE) 08/09/18 11:00 Urine Blood Negative (NEGATIVE) 08/09/18 11:00 Urine Nitrate Negative (NEGATIVE) 08/09/18 11:00 Urine Bilirubin Negative (NEGATIVE) 08/09/18 11:00 Urine Urobilinogen 0.2-1.0 mg/dL (0.2-1.0) 08/09/18 11:00 Ur Leukocyte Esterase Mod John/uL (Negative) 08/09/18 11:00 Urine RBC (Auto) < 1 /hpf (0-3) 08/09/18 11:00 Urine Microscopic WBC 2 /hpf (0-5) 08/09/18 11:00 Ur Squamous Epith Cells < 1 /hpf (0-5) 08/09/18 11:00 Urine Bacteria Rare (<OCC) 08/09/18 11:00 Digoxin 1.1 ng/mL (0.8-2.0) 08/09/18 05:55 - Hospital Course Hospital Course: 78 y/o F with a hx of DM, ESRD on MWF dialysis, CHF, CAD, and CVA who presented to ED with complaints of diarrhea for 3 weeks was found to have new onset atrial fibrillation with RVR. Patient was treated with digoxin. Other options in regards to anticoagulation to prevent recurrent stroke given her CVA history and new onset atrial fibrillation, but she decided against it. It was also discussed with her family, who also objected given her fall risk. Patient will be discharged home with new script for amiodorone 200mg QD, and will continue aspirin & plavix. She currently lives with her daughters. 1. Atrial fibrillation (Acute) -Amiodorone 200mg QD PO. -Continue Coreg 6.25mg PO BID. 2. CHF (Chronic) - Echo (last echo 08/09/2018- LVEF 30-35%;severely impaired with global hypokinesis -Continue Coreg 6.25mg PO BID. 3. ESRD (Chronic). received dialysis yesterday (MWF schedule) -Cinacalcet 30mg PO MWF 4. HTN (Chronic, asymptomatic) -Continue Coreg 6.25mg PO BID. -Continue enalapril 10mg PO QD. 5. CAD (Chronic, asymptomatic) - Continue Asp 81mg PO QD. 6. HLD (Chronic, asymptomic) - Continue lipitor 10mg PO HS. 7. DM (Chronic, asymptomatic) - Continue Insulin NPH 5 units SC QPM. 8. hx of CVA -Continue plavix 75 mg PO HS Continue Aspirin 81 mg PO QD Discharge Exam - Head Exam Head Exam: ATRAUMATIC, NORMAL INSPECTION - Respiratory Exam Respiratory Exam: Clear to PA & Lateral - Cardiovascular Exam Cardiovascular Exam: Irregular Rhythm, +S1, +S2 - GI/Abdominal Exam GI & Abdominal Exam: Normal Bowel Sounds, Soft. absent: Distended, Firm, Tenderness - Neurological Exam Neurological exam: Alert, Oriented x3 - Psychiatric Exam Psychiatric exam: Normal Affect, Normal Mood Discharge Plan - Discharge Medications Prescriptions: RX: Amiodarone [Cordarone] 200 mg PO DAILY 30 Days #30 tab RX: Cephalexin [Keflex] 250 mg PO BID 7 Days #13 capsule - Follow Up Plan Condition: STABLE Disposition: HOME/ ROUTINE Instructions: Atrial Fibrillation (DC), Urinary Tract Infection, Adult (DC), Chronic Kidney Disease (DC) Additional Instructions: continue dialysis mwf follow up with pmd in 1 week Referrals: Markel Layne MD [Staff Provider] - Matt Krause MD [Staff Provider] - Rg Branch MD [Staff Provider] - <David White - Last Filed: 08/10/18 18:36> Provider - Provider Date of Admission: 08/08/18 09:16 Attending physician: Chang Tran MD Hospital Course - Lab Results Lab Results: Micro Results 08/09/18 11:00 Urine,Clean Catch Urine Culture - Preliminary Gram Negative Gustavo Most Recent Lab Values WBC 5.1 K/uL (4.8-10.8) 08/10/18 04:45 RBC 3.58 Mil/uL (3.80-5.20) L 08/10/18 04:45 Hgb 10.9 g/dL (12.0-16.0) L 08/10/18 04:45 Hct 32.9 % (34.0-47.0) L 08/10/18 04:45 MCV 91.9 fl (81.0-99.0) 08/10/18 04:45 MCH 30.6 pg (27.0-31.0) 08/10/18 04:45 MCHC 33.3 g/dL (33.0-37.0) 08/10/18 04:45 RDW 16.9 % (11.5-14.5) H 08/10/18 04:45 Plt Count 130 K/uL (130-400) 08/10/18 04:45 MPV 9.9 fl (7.2-11.7) 08/08/18 06:41 Neut % (Auto) 72.1 % (50.0-75.0) 08/08/18 06:41 Lymph % (Auto) 16.2 % (20.0-40.0) L 08/08/18 06:41 [place] % (Auto) 8.4 % (0.0-10.0) 08/08/18 06:41 Eos % (Auto) 2.1 % (0.0-4.0) 08/08/18 06:41 Baso % (Auto) 1.2 % (0.0-2.0) 08/08/18 06:41 Neut # (Auto) 4.9 K/uL (1.8-7.0) 08/08/18 06:41 Lymph # (Auto) 1.1 K/uL (1.0-4.3) 08/08/18 06:41 [place] # (Auto) 0.6 K/uL (0.0-0.8) 08/08/18 06:41 Eos # (Auto) 0.1 K/uL (0.0-0.7) 08/08/18 06:41 Baso # (Auto) 0.1 K/uL (0.0-0.2) 08/08/18 06:41 pO2 33 mm/Hg (30-55) 08/08/18 07:01 VBG pH 7.41 (7.32-7.43) 08/08/18 07:01 VBG pCO2 38 mmHg (40-60) L 08/08/18 07:01 VBG HCO3 23.8 mmol/L 08/08/18 07:01 VBG Total CO2 25.3 mmol/L (22-28) 08/08/18 07:01 VBG O2 Sat (Calc) 62.4 % (40-65) 08/08/18 07:01 VBG Base Excess -0.3 mmol/L (0.0-2.0) L 08/08/18 07:01 VBG Potassium 4.0 mmol/L (3.6-5.2) 08/08/18 07:01 Sodium 136.0 mmol/L (132-148) 08/08/18 07:01 Chloride 101.0 mmol/L (98-107) 08/08/18 07:01 Glucose 186 mg/dL (65-105) H 08/08/18 07:01 Lactate 1.3 mmol/L (0.7-2.1) 08/08/18 07:01 FiO2 21.0 % 08/08/18 07:01 Sodium 131 mmol/l (132-148) L 08/10/18 04:45 Potassium 4.6 MMOL/L (3.6-5.0) 08/10/18 04:45 Chloride 98 mmol/L (98-107) 08/10/18 04:45 Carbon Dioxide 24 mmol/L (22-30) 08/10/18 04:45 Anion Gap 14 (10-20) 08/10/18 04:45 BUN 29 mg/dl (7-17) H 08/10/18 04:45 Creatinine 4.6 mg/dl (0.7-1.2) H 08/10/18 04:45 Est GFR ( Amer) 11 08/10/18 04:45 Est GFR (Non-Af Amer) 9 08/10/18 04:45 POC Glucose (mg/dL) 204 mg/dL (65-110) H 08/10/18 16:06 Random Glucose 188 mg/dL (65-105) H 08/10/18 04:45 Calcium 9.1 mg/dL (8.4-10.2) 08/10/18 04:45 Phosphorus 5.1 mg/dl (2.5-4.5) H 08/09/18 12:31 Total Bilirubin 0.7 mg/dl (0.2-1.3) 08/08/18 06:41 AST 23 U/L (14-36) 08/08/18 06:41 ALT 25 U/L (9-52) 08/08/18 06:41 Alkaline Phosphatase 53 U/L (38-126) 08/08/18 06:41 Troponin I 0.0670 ng/mL (0.00-0.120) 08/09/18 01:40 NT-Pro-B Natriuret Pep 770027 pg/ml (0-900) H 08/08/18 06:41 Total Protein 6.2 G/DL (6.3-8.2) L 10 06:41 Albumin 3.3 g/dL (3.5-5.0) L 10 06:41 Globulin 2.9 gm/dL (2.2-3.9) 10 06:41 Albumin/Globulin Ratio 1.1 (1.0-2.1) 08/08/18 06:41 Venous Blood Potassium 4.0 mmol/L (3.6-5.2) 08/08/18 07:01 Urine Color Yellow (YELLOW) 08/09/18 11:00 Urine Clarity Clear (Clear) 08/09/18 11:00 Urine pH 7.0 (5.0-8.0) 08/09/18 11:00 Ur Specific [place] 1.011 (1.003-1.030) 08/09/18 11:00 Urine Protein 30 mg/dL (NEGATIVE) 08/09/18 11:00 Urine Glucose (UA) 150 mg/dL (Normal) 08/09/18 11:00 Urine Ketones Negative mg/dL (NEGATIVE) 08/09/18 11:00 Urine Blood Negative (NEGATIVE) 08/09/18 11:00 Urine Nitrate Negative (NEGATIVE) 08/09/18 11:00 Urine Bilirubin Negative (NEGATIVE) 08/09/18 11:00 Urine Urobilinogen 0.2-1.0 mg/dL (0.2-1.0) 08/09/18 11:00 Ur Leukocyte Esterase Mod John/uL (Negative) 08/09/18 11:00 Urine RBC (Auto) < 1 /hpf (0-3) 08/09/18 11:00 Urine Microscopic WBC 2 /hpf (0-5) 08/09/18 11:00 Ur Squamous Epith Cells < 1 /hpf (0-5) 08/09/18 11:00 Urine Bacteria Rare (<OCC) 08/09/18 11:00 Digoxin 1.1 ng/mL (0.8-2.0) 08/09/18 05:55 Attending/Attestation - Attestation I have personally seen and examined this patient.: Yes I have fully participated in the care of the patient.: Yes I have reviewed all pertinent clinical information, including history, physical exam and plan: Yes Notes (Text): Atrial fibrilation rate controlled not able to anticoagulate due to patient risk of falls on amio follow up with cardiology
--- NOTE | 2018-08-10 11:42 | CP.PCM.PN ---
Subjective - Date & Time of Evaluation Date of Evaluation: 08/10/18 Time of Evaluation: 11:39 - Subjective Subjective: dialysis note patient comfortable in bed not in acute distress. No chest pain no shortness of breath. She was seen on hemodialysis patient is being dialyzed through right subclavian catheter. Vital signs stable Objective - Vital Signs/Intake and Output Vital Signs (last 24 hours): Temp Pulse Resp BP Pulse Ox 98.3 F 70 20 106/50 L 99 08/10/18 09:37 08/10/18 09:37 08/10/18 09:37 08/10/18 09:37 08/10/18 09:37 - Medications Medications: Current Medications Amiodarone HCl (Cordarone) 200 mg PO DAILY [facility] Aspirin (Ecotrin) 81 mg PO DAILY [facility] Last Admin: 08/10/18 09:23 Dose: 81 mg Atorvastatin Calcium (Lipitor) 10 mg PO HS [facility] Last Admin: 08/09/18 23:05 Dose: 10 mg Carvedilol (Coreg) 6.25 mg PO Q12H [facility] Last Admin: 08/10/18 11:00 Dose: Not Given Cinacalcet (Sensipar) 30 mg PO MWF [facility] Last Admin: 08/10/18 09:23 Dose: 30 mg Clopidogrel Bisulfate (Plavix) 75 mg PO HS [facility] Last Admin: 08/09/18 23:05 Dose: 75 mg Dextrose (Dextrose 50% Inj) 0 ml IV STAT PRN; Protocol PRN Reason: Hypoglycemia Protocol Dextrose (Glutose 15) 0 gm PO ONCE PRN; Protocol PRN Reason: Hypoglycemia Protocol Enalapril Maleate (Vasotec) 10 mg PO DAILY [facility] Last Admin: 08/10/18 09:24 Dose: 10 mg Gabapentin (Neurontin) 100 mg PO DAILY [facility] Last Admin: 08/10/18 09:23 Dose: 100 mg Glucagon (Glucagen Diagnostic Kit) 0 mg IM STAT PRN; Protocol PRN Reason: Hypoglycemia Protocol Heparin Sodium (Porcine) (Heparin) 5,000 units SC Q12 [facility]; Protocol Last Admin: 08/10/18 09:23 Dose: 5,000 units Insulin Human NPH (Humulin N) 5 units SC QPM [facility] Last Admin: 08/09/18 18:13 Dose: 5 units Lidocaine (Lidoderm) 1 ea TD DAILY PRN PRN Reason: Pain, Mild (1-3) Oxycodone/Acetaminophen (Percocet 5/325 Mg Tab) 1 tab PO Q6 PRN PRN Reason: Pain, severe (8-10) Stop: 08/11/18 11:42 - Labs Labs: 08/10/18 04:45 08/10/18 04:45 - Constitutional Appears: No Acute Distress - Eye Exam Eye Exam: Conjunctival injection - ENT Exam ENT Exam: Mucous Membranes Moist - Neck Exam Neck Exam: absent: Lymphadenopathy - Respiratory Exam Respiratory Exam: NORMAL BREATHING PATTERN. absent: Chest Wall Tenderness - Cardiovascular Exam Cardiovascular Exam: Irregular Rhythm. absent: Gallop - GI/Abdominal Exam GI & Abdominal Exam: Soft, Normal Bowel Sounds - Extremities Exam Extremities Exam: absent: Calf Tenderness - Back Exam Back Exam: absent: CVA tenderness (L), CVA tenderness (R) - Neurological Exam Neurological Exam: Alert - Psychiatric Exam Psychiatric exam: Normal Affect - Skin Skin Exam: absent: Cyanosis Assessment and Plan (1) Chronic kidney disease with end stage renal failure on dialysis Assessment & Plan: End stage renal disease receiving dialysis now. Potassium bath 2 mEq Bicarbonate bath 34 Ultrafiltration about 1500 Sodium bath 138 Discuss with the dialysis nurse at the bedside #2 atrial fibrillation patient receiving amiodarone as per cardiology 400 mg was given in 200 mg daily. #3 diabetes mellitus patient receiving medications History of hyperphosphatemia and secondary hyperparathyroidism History of multiple AV shunt surgery and that has not been functioning Status: Acute (2) Insulin dependent type 2 diabetes mellitus Status: Chronic
[2018-08-10 16:52] VITALS: BP 129/70; PULSE 88; RESP 16; TEMP 97.6
[2018-08-15 04:04] VITALS: O2SAT 98
--- NOTE | 2018-08-18 15:07 | PQF ---
PROVIDER RESPONSE TEXT: Patient has chronic CHF. REVIEWER QUERY TEXT: Conflicting Documentation Clarification A single mention or documentation of multiple diagnoses for the same clinical presentation appears in the record. Please clarify the diagnosis/diagnoses. History and Physical documented acute on chroni c congestive heart failure. Discharge Summary documented chronic congestive heart failure Please clarify if the condition is: -- Acute -- Chronic -- Acute on Chronic -- Other, please specify The patient's Clinical Indicators include: BNP 129,000 Query created by: Amalia Lawton on 08/11/2018 9:52 AM Electronically signed by: Chang Tran MD 08/18/2018 3:04 PM
== END 2018-08-10 17:30 | disposition home or self-care (01) | DRG 308 ==
LOC: H.ER 05:34 → H.ERHOLD 09:16 → H.TEL 12:10
PROC: 5A1D70Z Performance of Urinary Filtration, Intermittent, Less than 6 Hours Per Day (ICD-10-PCS; principal; 2018-08-08)
DX: I48.91 Unspecified atrial fibrillation (principal); N18.6 End stage renal disease; N25.81 Secondary hyperparathyroidism of renal origin; I13.2 Hypertensive heart and chronic kidney disease with heart failure and with stage 5 chronic kidney disease, or end stage renal disease; I50.42 Chronic combined systolic (congestive) and diastolic (congestive) heart failure; E11.22 Type 2 diabetes mellitus with diabetic chronic kidney disease; Z99.2 Dependence on renal dialysis; Z79.4 Long term (current) use of insulin; I25.10 Atherosclerotic heart disease of native coronary artery without angina pectoris; I25.2 Old myocardial infarction; Z95.1 Presence of aortocoronary bypass graft; E78.5 Hyperlipidemia, unspecified; L89.151 Pressure ulcer of sacral region, stage 1; Z89.411 Acquired absence of right great toe; Z96.649 Presence of unspecified artificial hip joint; G89.29 Other chronic pain; R35.0 Frequency of micturition

== ENCOUNTER 2018-10-17 21:36 | Emergency (ER) | payer MEDICARE ==
[2018-10-17 21:36] VITALS: PULSE 85; BMI 18.5
[2018-10-17] MEDS ORDERED: Sodium Chloride 0.9% 250 ML IV STA (22:39)
--- NOTE | 2018-10-17 22:54 | ED PDOC ---
HPI:Nausea, Vomiting, Diarrhea Time Seen by Provider: 10/17/18 22:12 Chief Complaint (Nursing): GI Problem Chief Complaint (Provider): GI Problem History Per: Patient History/Exam Limitations: no limitations Onset/Duration Of Symptoms: Hrs (x 6) Current Symptoms Are (Timing): Still Present Associated Symptoms: Vomiting, Diarrhea, Loss Of Appetite Additional Complaint(s): 78 year old female with a history of ESRD on hemodialysis, Wednesday, Wednesday, Wednesday presents to to the ED with intractable vomiting for the last 6 hours. Patient reports that she is unable to tolerate PO food or liquid. She completed dialysis today at 2pm. Now also complains of severe generalized weakness. Patient had minimal stool output today but states that she had large amounts of diarrhea x 3 days ago and was also incontinent of her stool. Familt reports that she also has bilateral leg edema that has worsened in the last 2 weeks. Patient was last seen in this ED on August 08 for a nuance of A-fib. Denies black or bloody stool, fever, chills, abdominal pain, headache and sick contacts. PMD: Dr. Layne Director Sanitation Bureau: Dr. Krause Upholstery Handler: Dr. Branch Past Medical History Reviewed: Historical Data, Nursing Documentation, Vital Signs Vital Signs: Last Vital Signs Temp 97.8 F 10/17/18 22:04 Pulse 105 H 10/17/18 22:04 Resp 16 10/17/18 22:04 BP 98/73 L 10/17/18 22:04 Pulse Ox 99 10/17/18 22:04 - Medical History PMH: Arthritis, Atrial Fibrillation, Bronchitis, CAD, CHF, CVA (3x; memory issues remain post stroke), Diabetes, Fractures (right hip fx), HTN, Hyperlipidemia, End Stage Renal Disease (Three times a week M/W/), Chronic Kidney Disease (ESRD), TIA Denies: HIV - Surgical History Surgical History: CABG (x4) - Family History Family History: States: Unknown Family Hx - Immunization History Hx Influenza Vaccination: Yes Hx Pneumococcal Vaccination: Yes - Home Medications Home Medications: Ambulatory Orders Medication Instructions Recorded RX: Insulin Human [place] (NPH) 5 unit SC QPM 05/14/17 [Novolin N] RX: Carvedilol [Coreg] 6.25 mg PO Q12H 11/22/17 RX: Clopidogrel [Plavix] 75 mg PO HS 11/22/17 RX: Aspirin [Adult Low Dose 81 mg PO DAILY 04/11/18 Aspirin EC] RX: Atorvastatin [Lipitor] 10 mg PO HS 04/11/18 RX: Cinacalcet [Sensipar] 30 mg PO MWF 04/11/18 RX: Enalapril Maleate [Vasotec] 10 mg PO DAILY 06/28/18 RX: Ferric Citrate [Auryxia] 2 tab PO WM 06/28/18 RX: Gabapentin [Neurontin] 100 mg PO DAILY #30 cap 07/02/18 RX: oxyCODONE/Acetaminophen 1 tab PO Q6 PRN #20 tab 07/02/18 [Percocet 5/325 mg Tab] RX: Lidocaine 5% [Lidoderm] 1 ea TD DAILY PRN 08/08/18 RX: Amiodarone [Cordarone] 200 mg PO DAILY 30 Days #30 tab 08/10/18 RX: Cephalexin [Keflex] 250 mg PO BID 7 Days #13 capsule 08/10/18 - Allergies Allergies/Adverse Reactions: Allergies Allergy/AdvReac Type Severity Reaction Status Date / Time No Known Allergies Allergy Verified 10/17/18 22:03 Review of Systems ROS Statement: Except As Marked, All Systems Reviewed And Found Negative Constitutional: Positive for: Weakness. Negative for: Fever, Chills Gastrointestinal: Positive for: Vomiting, Diarrhea. Negative for: Abdominal Pain, Hematochezia, Hematemesis Physical Exam - Reviewed Nursing Documentation Reviewed: Yes Vital Signs Reviewed: Yes - Physical Exam Appears: Positive for: In Acute Distress (acute gastrointestinal distress; wretching and vomiting in the Ed; tired appearing) Head Exam: Positive for: ATRAUMATIC, NORMAL INSPECTION, NORMOCEPHALIC Skin: Positive for: Warm, Dry, Pallor Eye Exam: Positive for: EOMI, PERRL ENT: Positive for: Other (dry mucous membranes) Neck: Positive for: Painless ROM, Supple Cardiovascular/Chest: Positive for: Irregularly Irregular. Negative for: JVD Respiratory: Positive for: Normal Breath Sounds. Negative for: Respiratory Distress Gastrointestinal/Abdominal: Positive for: Normal Exam, Soft. Negative for: Tenderness, Mass, Guarding, Rebound Back: Positive for: Normal Inspection (exc moderate kyphosis) Extremity: Positive for: Other (bilateral leg edema) Lymphatic: Negative for: Adenopathy Neurologic/Psych: Positive for: Oriented. Negative for: Motor/Sensory Deficits - Laboratory Results Result Diagrams: 10/17/18 23:35 10/17/18 23:35 - ECG O2 Sat by Pulse Oximetry: 99 (RA) Pulse Ox Interpretation: Normal Medical Decision Making Medical Decision Makin:37 Impression: intractable vomiting Differential diagnoses include but are not limited to: dehydration, sepsis, electrolyte abnormality, gastroenteritis, ACS, acute on chronic renal failure Initial Plan: --Blood type --VBG --EKG --CMP --Lipase --mag --Phos --Troponin --CBC --PTT/PT --CXR --Glucose POC --NS IV --Pepcid 20 mg IVP --Zofran Inj 4 mg IV --Blood cx --Influenza AB Labs with no clinically significant abnormalities Stopped vomiting s/p zofran but continues to have nausea dw dr lazaro hospitalist for dr layne, who came to see pt. possible observation. advises another bolus of fluid and po challenge. 1am endorsed to dr zavala pending reevaluation and final disposition Scribe Attestation: Documented by Leticia Cano acting as a scribe for Joy Loya MD Provider Scribe Attestation: All medical record entries made by the Scribe were at my direction and personally dictated by me. I have reviewed the chart and agree that the record accurately reflects my personal performance of the history, physical exam, medical decision making, and the department course for this patient. I have also personally directed, reviewed, and agree with the discharge instructions and disposition. Disposition - Clinical Impression Clinical Impression: Vomiting - Disposition Disposition: Transfer of Care Disposition Time: 01:00 Condition: STABLE
[2018-10-17 23:46] LABS: VENOUS BLOOD GAS BASE EXCESS 0.5 mmol/L (0.0-2.0); VENOUS BLOOD GAS PCO2 37 mmHg (40-60); VENOUS BLOOD GAS PO2 44 mm/Hg (30-55); VENOUS BLOOD PH 7.43 (7.32-7.43)
[2018-10-17 23:56] LABS: BASO # 0.1 K/uL (0.0-0.2); BASO % 0.9 % (0.0-2.0); EOS # 0.2 K/uL (0.0-0.7); EOS % 2.4 % (0.0-4.0); HEMOGLOBIN 11.8 g/dL (12.0-16.0); LYMPH # 0.7 K/uL (1.0-4.3); LYMPH % 9.2 % (20.0-40.0); MEAN CELL VOLUME 95.8 fl (81.0-99.0); MEAN CORPUSCULAR HEMOGLOBIN 29.5 pg (27.0-31.0); MEAN CORPUSCULAR HGB CONC 30.8 g/dL (33.0-37.0); MEAN PLATELET VOLUME 9.1 fl (7.2-11.7); MONO # 0.5 K/uL (0.0-0.8); MONO % 6.4 % (0.0-10.0); NEUT # 6.6 K/uL (1.8-7.0); NEUT % 81.1 % (50.0-75.0); NRBC % 0.1 % (0.0-0.0); PLATELET COUNT 190 K/uL (130-400); RBC 3.98 Mil/uL (3.80-5.20); RED CELL DISTRIBUTION WIDTH 17.4 % (11.5-14.5); WHITE BLOOD COUNT 8.1 K/uL (4.8-10.8)
[2018-10-18 00:01] LABS: INR 1.1; PROTHROMBIN TIME 12.8 Seconds (9.8-13.1)
[2018-10-18 00:03] LABS: ALBUMIN 3.6 g/dL (3.5-5.0); PARTIAL THROMBOPLASTIN TIME 34.1 Seconds (25.6-37.1)
[2018-10-18 00:14] LABS: TROPONIN I 0.033 ng/mL (0.00-0.120)
[2018-10-18] MEDS ORDERED: Sodium Chloride 0.9% 250 ML IV STA (00:40)
[2018-10-18 00:42] LABS: ANISOCYTOSIS SLIGHT; EOSINOPHIL 1 % (0-7); LYMPHOCYTE 10 % (20-50); MONOCYTE 7 % (0-10); NEUTROPHIL 82 % (42-75); PLATELET ESTIMATE NORMAL (NORMAL); POIKILOCYTOSIS SLIGHT; TOTAL CELLS COUNTED 100
[2018-10-18 02:26] VITALS: BP 157/76; PULSE 98; RESP 17; TEMP 98.4
--- NOTE | 2018-10-18 03:21 | ED PDOC ---
- Laboratory Results Result Diagrams: 10/17/18 23:35 10/17/18 23:35 - ECG O2 Sat by Pulse Oximetry: 97 Medical Decision Making Medical Decision Makin Patient endorsed by Dr. Loya pending PO challenge and re-eval 0200 Patient tolerating PO, vitals improved, patient reports stomach discomfort from vomiting Offered for prolonged ED stay for observation, family declining, requesting discharge Patient improved, chronically ill appearing but well appearing otherwise upon discharge Disposition - Clinical Impression Clinical Impression: Vomiting - POA Present On Arrival: None - Disposition Referrals: Markel Layne MD [Family Provider] - Disposition: Routine/Home Disposition Time: 02:00 Condition: STABLE Instructions: Nausea and Vomiting, Adult (DC) Forms: [employer] ([place]i)
--- NOTE | 2018-10-18 06:40 | CARD ---
APPROVED REPORT Date of service: 10/17/2018 EKG Measurement Heart [id number] <Conclusion> Atrial fibrillation with premature ventricular or aberrantly conducted complexes Septal infarct, age undetermined Prolonged QT Abnormal ECG
--- NOTE | 2018-10-18 10:20 | RAD ---
Date of service: 10/17/2018 HISTORY: weakness COMPARISON: 08/09/2018 FINDINGS: Right-sided dialysis catheter terminates in the right atrium. Endovascular stent grafts remain in please in the right LUNGS: The lungs are well inflated. There is severe pulmonary venous congestion. PLEURA: No pleural effusions or pneumothorax. CARDIOVASCULAR: Mild cardiomegaly. No aortic atherosclerotic calcification present. Status post CABG. OSSEOUS STRUCTURES: Within normal limits for the patient's age. VISUALIZED UPPER ABDOMEN: Normal. OTHER FINDINGS: None. IMPRESSION: No acute findings. Moderate pulmonary venous congestion.
[2018-10-18 14:22] VITALS: O2SAT 99
== END 2018-10-18 02:57 | disposition home or self-care (01) ==
LOC: H.ER 21:36
DX: R11.10 Vomiting, unspecified (principal); I13.2 Hypertensive heart and chronic kidney disease with heart failure and with stage 5 chronic kidney disease, or end stage renal disease; N18.6 End stage renal disease; Z86.73 Personal history of transient ischemic attack (TIA), and cerebral infarction without residual deficits; Z95.1 Presence of aortocoronary bypass graft; Z79.82 Long term (current) use of aspirin; E78.5 Hyperlipidemia, unspecified; I25.10 Atherosclerotic heart disease of native coronary artery without angina pectoris
CPT/HCPCS: 71045; 80053; 82803; 82948; 83690; 83735; 84100; 84484; 85025; 85610; 85730; 86850; 86900; 87040; 87804; 93005; 96374; 99285; J2405; J7030; J7040